=== PATIENT | male | born 1935 | race Caucasian/White ===

== ENCOUNTER 2016-07-10 11:00 | Inpatient (IN) | payer MEDICARE, BC ==
[~2016-07-10] VITALS: Ht 180.3 cm; Wt 65.1 kg
[~2016-07-10 11:00] MED LIST: ACET325T9 PO; ALBU2.5V5 NEB; ALLO100T PO; CHOL500015 PO; CLOP75TA27 PO; DOXY100T PO; FAMO-63 PO; FURO40TA4 PO; ISOS30TA PO; ISOS30TA4 PO; LISI2.5T PO; LOSA50TA2 PO; MORP2CAR IV; NITR0.4T SL; NITR1PAT9 TD; OMEG500C3 PO; POTA20TA4 PO; PRED20TA PO; SIMV40TA3 PO; SOTA80TA20 PO; TAMS0.4C97 PO; TIOT4MIS3 IH; TRAZ50TA15 PO
--- NOTE | 2016-07-10 11:58 | PHYS DOC ---
Past Medical History Past Medical History: Cancer, COPD, GERD, Heart Disease, Hypertension Additional Past Medical Histor: basil cell carcinoma, [place]: 1998, pacemaker/ defibrillator, increased choleste Past Surgical History: Cholecystectomy, Pacemaker Additional Past Surgical Histo: cataracts, defibrillator, cabg x 3 stents; skin graft to forehead Alcohol Use: Rarely Drug Use: None Adult General Chief Complaint Chief Complaint: SHORTNESS OF BREATH HPI HPI Patient is a 81 year old male who presents with shortness of breath. Patient reports for the past 3 days he has been short of breath, coughing, wheezing. Denies any chest discomfort. No fever. He has been using albuterol nebs at home. In addition, his daughter has been giving him a Lasix pill every other day. No other acute complaints. Review of Systems Review of Systems Constitutional: Denies fever or chills Eyes: Denies change in visual acuity or eye pain HENT: Denies nasal congestion or sore throat Respiratory: Cough, SOB, wheezing Cardiovascular: Denies chest pain GI: Denies abdominal pain, nausea, vomiting, bloody stools or diarrhea : Denies dysuria or hematuria Musculoskeletal: Denies back pain or joint pain Integument: Denies rash or skin lesions Neurologic: Denies headache, focal weakness or sensory changes Current Medications Current Medications Current Medications Medications (Trade) Dose Ordered Sig/Star Start Time Stop Time Status Last Admin Dose Admin Albuterol/ Ipratropium (Duoneb) 6 ml 1X ONCE 07/10/16 12:00 07/10/16 12:01 DC 07/10/16 12:17 6 ML Prednisone (Prednisone) 60 mg 1X ONCE 07/10/16 12:00 07/10/16 12:01 DC 07/10/16 12:00 60 MG Allergies Allergies Allergies Coded Allergies Type Severity Reaction Last Updated Verified bacitracin Allergy Intermediate 10/06/15 Yes neomycin sulfate Allergy Intermediate 10/06/15 Yes polymyxin B Allergy Intermediate 10/06/15 Yes Physical Exam Physical Exam Constitutional: Well developed, well nourished, no acute distress, non-toxic appearance HENT: Normocephalic, atraumatic, bilateral external ears normal Eyes: EOMI, conjunctiva normal, no discharge Neck: Normal range of motion, no stridor Cardiovascular: Heart rate normal, regular rhythm, no murmur Lungs & Thorax: Tight, diffuse inspiratory and expiratory wheezing Abdomen: Bowel sounds normal, soft, non-distended, no TTP Skin: Warm, dry, no erythema, no rash Extremities: No obvious deformity. BLE edema Neurologic: Alert and oriented X 3, no gross deficits noted Current Patient Data Vital Signs Vital Signs Date Time Temp Pulse Resp B/P Pulse Ox O2 Delivery O2 Flow Rate FiO2 07/10/16 12:18 96 Nasal Cannula 3.0 07/10/16 12:13 73 24 154/77 07/10/16 11:15 97.5 97.5 Lab Values Laboratory Tests Test 07/10/16 11:25 White Blood Count 8.7x10^3/uL (4.0-11.0) Red Blood Count 3.12x10^6/uL (4.30-5.70) L Hemoglobin 9.7g/dL (13.0-17.5) L Hematocrit 29.9% (39.0-53.0) L Mean Corpuscular Volume 96fL (79-100) Mean Corpuscular Hemoglobin 31pg (25-35) Mean Corpuscular Hemoglobin Concent 33g/dL (31-37) Red Cell Distribution Width 15.5% (11.5-14.5) H Platelet Count 228x10^3/uL (140-400) Neutrophils (%) (Auto) 78% (31-73) H Lymphocytes (%) (Auto) 9% (24-48) L Monocytes (%) (Auto) 6% (0-9) Eosinophils (%) (Auto) 6% (0-3) H Basophils (%) (Auto) 1% (0-3) Neutrophils # (Auto) 6.8x10^3uL (1.8-7.7) Lymphocytes # (Auto) 0.8x10^3/uL (1.0-4.8) L Monocytes # (Auto) 0.5x10^3/uL (0.0-1.1) Eosinophils # (Auto) 0.5x10^3/uL (0.0-0.7) Basophils # (Auto) 0.1x10^3/uL (0.0-0.2) Sodium Level 149mmol/L (136-145) H Potassium Level 3.8mmol/L (3.5-5.1) Chloride Level 111mmol/L (98-107) H Carbon Dioxide Level 33mmol/L (21-32) H Anion Gap 5 (6-14) L Blood Urea Nitrogen 12mg/dL (8-26) Creatinine 1.2mg/dL (0.7-1.3) Estimated GFR (Cockcroft-Gault) 57.8 Glucose Level 184mg/dL (70-99) H Calcium Level 9.5mg/dL (8.5-10.1) Troponin I Quantitative 0.031ng/mL (0.000-0.055) HZ-Hyy-I-Type Natriuretic Peptide 3239pg/mL (0-449) H Laboratory Tests 07/10/16 11:25 Laboratory Tests 07/10/16 11:25 EKG EKG EKG (my read): sinus rhythm, rate 75, normal axis, IVCD, no acute ischemic changes, limited by artifact Radiology/Procedures Radiology/Procedures CXR: IMPRESSION: 1. Unchanged patchy bilateral pulmonary infiltrates suggesting pneumonia superimposed upon fibrosis. 2. Tiny pleural effusions appear to have partially cleared. Course & Med Decision Making Course & Med Decision Making Pertinent Labs and Imaging studies reviewed. (See chart for details) Patient is 81-year-old male who presents with shortness of breath. Appears to be COPD exacerbation based on physical exam. Will obtain EKG, chest x-ray, labs to evaluate. Breathing treatment and steroids ordered. Imaging results as above. Labs notable for anemia, hypernatremia, elevated BNP. Small dose of Lasix ordered. Chest x-ray concerning for pneumonia, although patient does not have leukocytosis or fever. Discussed with Dr. Hunter; will cover with Levaquin at this time. Will admit to Dr. Hunter for further evaluation and treatment. Cardiology and pulmonology consultation entered. Dragon Disclaimer Dragon Disclaimer This electronic medical record was generated, in whole or in part, using a voice recognition dictation system. Departure Departure Impression: Primary Impression: COPD exacerbation Additional Impressions: Pneumonia CHF (congestive heart failure) Disposition: ADMITTED INPATIENT Admitting Physician: Ivan Hunter Condition: STABLE Referrals: IVAN HUNTER MD (PCP) Problem Qualifiers KEON HOYT MD Jul 10, 2016 11:58
[2016-07-10] MEDS ORDERED: PREDNISONE 10 MG TABLET PO ONE (12:00)
[2016-07-10] MEDS ORDERED: IPRATRPIUM/ALBUTEROL 0.5/2.5MG 3 ML NEBU. NEB ONE (12:00)
--- NOTE | 2016-07-10 12:02 | EKG ---
[facility] [address] [place] [address] Test Date: 2016-07-10 Test Time: 11:37:18 Pat Name: KRYSTIN CHAMBERS Department: Room: Gender: M Sample Collector: : 1935 Requested By: KEON HOYT Order Number: [id number] Reading MD: Clarisse Blandon Measurements Intervals Superior Rate: 75 P: SC: QRS: 12 QRSD: 128 T: 56 QT: 452 QTc: 508 Interpretive Statements SINUS RHYTHM LOW LIMB LEAD VOLTAGE NON SPECIFIC INTRAVENTRICULAR BLOCK Electronically Signed On 07-11-2016 9:44:24 [employer] by Clarisse Blandon
[2016-07-10 12:10] LABS: BASO # 0.1 x10^3/uL (0.0-0.2); BASO % 1 % (0-3); EOS % 6 % (0-3); HEMATOCRIT 29.9 % (39.0-53.0); HEMOGLOBIN 9.7 g/dL (13.0-17.5); LYMPH # 0.8 x10^3/uL (1.0-4.8); LYMPH % 9 % (24-48); MEAN CORPUSCULAR HEMOGLOBIN 31 pg (25-35); MEAN CORPUSCULAR HGB CONC 33 g/dL (31-37); MEAN CORPUSCULAR VOLUME 96 fL (79-100); MONO % 6 % (0-9); NEUT % 78 % (31-73); PLATELET COUNT 228 x10^3/uL (140-400); RED BLOOD COUNT 3.12 x10^6/uL (4.30-5.70); RED CELL DISTRIBUTION WIDTH 15.5 % (11.5-14.5); WHITE BLOOD COUNT 8.7 x10^3/uL (4.0-11.0)
[2016-07-10 12:17] LABS: CALCIUM 9.5 mg/dL (8.5-10.1); CREATININE 1.2 mg/dL (0.7-1.3); GFR 57.8; POTASSIUM 3.8 mmol/L (3.5-5.1)
--- NOTE | 2016-07-10 13:27 | RAD ---
Portable chest, 07/10/2016: History: Trouble breathing Comparison is made to a study from 06/26/2016. The left-sided transvenous pacemaker is unchanged in position. The heart size is normal. There is calcific plaquing of the aorta. There are moderate patchy bilateral pulmonary infiltrates, right greater than left. Similar findings were present on the previous study. There is slight residual blunting of lateral costophrenic angles, improved since the previous study. No new abnormality is evident. IMPRESSION: 1. Unchanged patchy bilateral pulmonary infiltrates suggesting pneumonia superimposed upon fibrosis. 2. Tiny pleural effusions appear to have partially cleared.
[2016-07-10] MEDS ORDERED: ACETAMINOPHEN 325 MG TABLET. PO PRN ×2 (14:30→17:00)
[2016-07-10] MEDS ORDERED: MORPHINE SULFATE 2 MG/ML DISP.SYRIN. IV PRN (14:30)
[2016-07-10] MEDS ORDERED: FUROSEMIDE 20 MG/2 ML VIAL IVP ONE (14:30)
[2016-07-10] MEDS ORDERED: FURO-68 PO (15:25)
[2016-07-10 15:30] VITALS: BP 150/80
--- NOTE | 2016-07-10 15:34 | PDOC ---
Provider Note Provider Note dictated suspect acute on chronic systolic HF(EF20%) SEE ORDERS DHARA ANTONIO MD Jul 10, 2016 15:34
[2016-07-10] MEDS ORDERED: FUROSEMIDE 40 MG/4 ML VIAL IVP ONE (15:45)
[2016-07-10] MEDS ORDERED: IPRATRPIUM/ALBUTEROL 0.5/2.5MG 3 ML NEBU. NEB SCH ×2 (16:00)
[2016-07-10] MEDS ORDERED: traZODone 50 MG TABLET. PO PRN (17:00)
[2016-07-10] MEDS ORDERED: NITROGLYCERIN SUBLINGUAL 0.4 MG BOTTLE OF 25. SL PRN (17:00)
--- NOTE | 2016-07-10 18:23 | PDOC ---
Provider Note Provider Note history and physical dictated # [id number] LAURE OLIVER MD Jul 10, 2016 18:23
[2016-07-10] MEDS: methylPREDNISolone SOD SUCC PF 125 MG/2 ML VIAL. IV SCH ×2 (18:34→21:36)
--- NOTE | 2016-07-10 18:40 | PDOC2 ---
CONSULT Date of Consult Date of Consult DATE: 07/10/16 TIME: 18:33 Reason for Consult Reason for Consult: Dyspnea Referring Physician Referring Physician: Dr. Hunter Identification/Chief Complaint Chief Complaint Dyspnea History of Present Illness Reason for Visit: This patient is an 81-year-old gentleman that has a known history of coronary artery disease, post CABG, post AICD pacemaker that has a cardiomyopathy with a global ejection fraction that is 20%. The patient has multiple medical problems including hypertension, COPD, skin cancer, and he has been very deconditioned for some time. For about 3 days he started getting more and more short of breath and today he became acutely dyspneic therefore he came in to the emergency room. The patient was seen and evaluated in the ER he was decided to admit him. At the time that I saw him he is still short of breath and denies any chest pains, no palpitations, no loss of consciousness. Past Medical History Cardiovascular: CAD, CHF, HTN, Pulmonary hypertension Pulmonary: COPD GI: GERD Rheumatologic: Gout Renal/: Chronic renal insuff Social History ALCOHOL: none Drugs: None Lives: with Family Current Problem List Problem List Problems Medical Problems: (1) CHF (congestive heart failure) Status: Acute (2) COPD exacerbation Status: Acute (3) Pneumonia Status: Acute Current Medications Current Medications Current Medications Albuterol/ Ipratropium (Duoneb) 6 ml 1X ONCE NEB Last administered on 12:17; Start 07/10/16 at 12:00; Stop 07/10/16 at 12:01; Status DC Prednisone 60 mg 60 mg 1X ONCE PO Last administered on 07/10/16 12:00; Start 07/10/16 at 12:00; Stop 07/10/16 at 12:01; Status DC Levofloxacin/ Dextrose (LEVAQUIN 750mg PREMIX) 150 ml @ 100 mls/hr 1X ONCE IV Last administered on 07/10/16 15:00; Start 07/10/16 at 15:00; Stop 07/10/16 at 16:29; Status DC Furosemide (Lasix) 20 mg 1X ONCE IVP Last administered on 07/10/16 14:30; Start 07/10/16 at 14:30; Stop 07/10/16 at 14:33; Status DC Morphine Sulfate 2 mg PRN Q2HR PRN IV PAIN; Start 07/10/16 at 14:30; Stop 07/11 at 14:29 Acetaminophen (Tylenol) 650 mg PRN Q4HRS PRN PO FEVER; Start 07/10/16 at 14:30 ; Stop 07/11/16 at 14:29 Albuterol/ Ipratropium (Duoneb) 3 ml RTQID NEB ; Start 07/10/16 at 16:00; Stop 07/10/16 at 16:00; Status DC Furosemide (Lasix) 40 mg 1X ONCE IVP ; Start 07/10/16 at 15:45; Stop 07/10/16 at 15:46; Status DC Methylprednisolone Sodium Succinate (Solu-Medrol 125mg Vial) 60 mg Q8HRS IV ; Start 07/10/16 at 16:00 Albuterol/ Ipratropium (Duoneb) 3 ml Q4HRS NEB ; Start 07/10/16 at 16:00; Stop 07/10/16 at 18:15; Status DC Budesonide (Pulmicort) 0.5 mg RTBID NEB ; Start 07/10/16 at 18:00 Allopurinol (Zyloprim) 200 mg DAILY PO ; Start 07/11/16 at 09:00 Famotidine (Pepcid) 20 mg BID PO ; Start 07/10/16 at 21:00 Isosorbide Mononitrate (Imdur) 30 mg DAILY PO ; Start 07/11/16 at 09:00 Sotalol HCl (Betapace) 80 mg BID PO ; Start 07/10/16 at 21:00 Clopidogrel Bisulfate (Plavix) 75 mg DAILYWBKFT PO ; Start 07/11/16 at 08:00 Multivitamins/ Calcium (Thera M Plus) 1 tab DAILY PO ; Start 07/11/16 at 09:00 Losartan Potassium (Cozaar) 50 mg DAILY PO ; Start 07/11/16 at 09:00 Trazodone HCl (Desyrel) 50 mg PRN QHS PRN PO INSOMNIA; Start 07/10/16 at 17:00 ; Stop 07/10/16 at 21:00 Nitroglycerin (Nitrostat) 0.4 mg PRN Q5MIN PRN SL CHEST PAIN; Start 07/10/16 at 17:00 Acetaminophen (Tylenol) 650 mg PRN Q4HRS PRN PO MILD PAIN / TEMP; Start at 17:00 Furosemide (Lasix) 40 mg DAILY IVP ; Start 07/11/16 at 09:00; Stop 07/11/16 at 09:00; Status DC Potassium Chloride (Klor-Con) 20 meq DAILYWBKFT PO ; Start 07/11/16 at 08:00 Furosemide (Lasix) 40 mg BID94 IVP ; Start 07/11/16 at 19:00; Stop 07/11/16 at 19:00; Status DC Albuterol/ Ipratropium (Duoneb) 3 ml RTQID NEB ; Start 07/10/16 at 21:00 Furosemide (Lasix) 40 mg BID94 IVP ; Start 07/11/16 at 09:00 Trazodone HCl (Desyrel) 50 mg QHS PO ; Start 07/10/16 at 21:00 Tamsulosin HCl (Flomax) 0.4 mg QHS PO ; Start 07/10/16 at 21:00 Active Scripts Active Cozaar (Losartan Potassium) 50 Mg Tablet 50 Mg PO DAILY Flomax (Tamsulosin Hcl) 0.4 Mg Cap.er.24h 0.4 Mg PO QHS Isosorbide Mononitrate Er (Isosorbide Mononitrate) 30 Mg Tab.er.24h 30 Mg PO DAILY 30 Days Albuterol Sulfate Neb Soln (Albuterol Sulfate) 2.5 Mg/3 Ml Vial.neb 2.5 Mg NEB PRN QID PRN 30 Days Reported Lasix (Furosemide) 40 Mg Tablet 1 Tab PO QODAY Nitrostat (Nitroglycerin) 0.4 Mg Tab.subl 1 Tab SL UD Trazodone Hcl 50 Mg Tablet 1 Tab PO QHS Plavix (Clopidogrel Bisulfate) 75 Mg Tablet 75 Mg PO DAILY Imdur (Isosorbide Mononitrate) 30 Mg Tab.er.24h 30 Mg PO DAILY Pepcid (Famotidine) 20 Mg Tablet 20 Mg PO BID Betapace (Sotalol Hcl) 80 Mg Tablet 80 Mg PO BID Allopurinol 100 Mg Tablet 200 Mg PO DAILY Allergies Allergies: Coded Allergies: bacitracin (Verified Allergy, Intermediate, 10/06/15) neomycin sulfate (Verified Allergy, Intermediate, 10/06/15) polymyxin B (Verified Allergy, Intermediate, 10/06/15) Physical Exam Physical Exam Patient is in mild respiratory distress at the time of the examination. H EENT pupils are reactive. There is surgical scars over the nose as well as the forehead. Neck is supple 2 cm JVD. Lungs breath sounds are decreased there is diffuse wheezing the right base is not moving much air at all and there is some rhonchi and dullness over the area. On the left side there are Rales about correction up. Heart regular rate and rhythm S1-S2. Abdomen is soft bowel sounds were present. Extremities 1+ edema. Vitals VITALS Vital Signs Date Time Temp Pulse Resp B/P Pulse Ox O2 Delivery O2 Flow Rate FiO2 07/10/16 16:32 99 Nasal Cannula 2.0 07/10/16 15:30 97.7 84 20 150/80 97.7 Labs Labs Laboratory Tests Test 07/10/16 11:25 White Blood Count 8.7x10^3/uL (4.0-11.0) Red Blood Count 3.12x10^6/uL (4.30-5.70) Hemoglobin 9.7g/dL (13.0-17.5) Hematocrit 29.9% (39.0-53.0) Mean Corpuscular Volume 96fL (79-100) Mean Corpuscular Hemoglobin 31pg (25-35) Mean Corpuscular Hemoglobin Concent 33g/dL (31-37) Red Cell Distribution Width 15.5% (11.5-14.5) Platelet Count 228x10^3/uL (140-400) Neutrophils (%) (Auto) 78% (31-73) Lymphocytes (%) (Auto) 9% (24-48) Monocytes (%) (Auto) 6% (0-9) Eosinophils (%) (Auto) 6% (0-3) Basophils (%) (Auto) 1% (0-3) Neutrophils # (Auto) 6.8x10^3uL (1.8-7.7) Lymphocytes # (Auto) 0.8x10^3/uL (1.0-4.8) Monocytes # (Auto) 0.5x10^3/uL (0.0-1.1) Eosinophils # (Auto) 0.5x10^3/uL (0.0-0.7) Basophils # (Auto) 0.1x10^3/uL (0.0-0.2) Sodium Level 149mmol/L (136-145) Potassium Level 3.8mmol/L (3.5-5.1) Chloride Level 111mmol/L (98-107) Carbon Dioxide Level 33mmol/L (21-32) Anion Gap 5 (6-14) Blood Urea Nitrogen 12mg/dL (8-26) Creatinine 1.2mg/dL (0.7-1.3) Estimated GFR (Cockcroft-Gault) 57.8 Glucose Level 184mg/dL (70-99) Calcium Level 9.5mg/dL (8.5-10.1) Troponin I Quantitative 0.031ng/mL (0.000-0.055) RY-Sms-T-Type Natriuretic Peptide 3239pg/mL (0-449) Laboratory Tests Test 07/10/16 11:25 White Blood Count 8.7x10^3/uL (4.0-11.0) Red Blood Count 3.12x10^6/uL (4.30-5.70) Hemoglobin 9.7g/dL (13.0-17.5) Hematocrit 29.9% (39.0-53.0) Mean Corpuscular Volume 96fL (79-100) Mean Corpuscular Hemoglobin 31pg (25-35) Mean Corpuscular Hemoglobin Concent 33g/dL (31-37) Red Cell Distribution Width 15.5% (11.5-14.5) Platelet Count 228x10^3/uL (140-400) Neutrophils (%) (Auto) 78% (31-73) Lymphocytes (%) (Auto) 9% (24-48) Monocytes (%) (Auto) 6% (0-9) Eosinophils (%) (Auto) 6% (0-3) Basophils (%) (Auto) 1% (0-3) Neutrophils # (Auto) 6.8x10^3uL (1.8-7.7) Lymphocytes # (Auto) 0.8x10^3/uL (1.0-4.8) Monocytes # (Auto) 0.5x10^3/uL (0.0-1.1) Eosinophils # (Auto) 0.5x10^3/uL (0.0-0.7) Basophils # (Auto) 0.1x10^3/uL (0.0-0.2) Sodium Level 149mmol/L (136-145) Potassium Level 3.8mmol/L (3.5-5.1) Chloride Level 111mmol/L (98-107) Carbon Dioxide Level 33mmol/L (21-32) Anion Gap 5 (6-14) Blood Urea Nitrogen 12mg/dL (8-26) Creatinine 1.2mg/dL (0.7-1.3) Estimated GFR (Cockcroft-Gault) 57.8 Glucose Level 184mg/dL (70-99) Calcium Level 9.5mg/dL (8.5-10.1) Troponin I Quantitative 0.031ng/mL (0.000-0.055) HB-Nvy-N-Type Natriuretic Peptide 3239pg/mL (0-449) Assessment/Plan Assessment/Plan This patient with coronary artery disease and a cardiomyopathy that has an ejection fraction of about 20% comes in with acute respiratory failure that is probably secondary to acute on chronic CHF secondary to systolic dysfunction. In addition to that he has significant COPD which is compounding his situation. I would like to diurese him and treat the pulmonary condition as well. Thank you very much for asking me to participate in the care of this patient ZEESHAN TOSCANO MD Jul 10, 2016 18:40
[2016-07-10 19:00] VITALS: BP 146/75
--- NOTE | 2016-07-10 19:05 | HP ---
ADMIT DATE: 07/10/2016 LOCATION: He is in room 538. HISTORY OF PRESENT ILLNESS The patient is an 81-year-old white male with a history of chronic systolic congestive heart failure and cardiomyopathy with left ventricular ejection fraction of 20%, who has coronary artery disease, chronic obstructive pulmonary disease, pulmonary fibrosis, bronchiectasis and secondary pulmonary hypertension and chronic kidney disease stage 3, who was admitted to [facility] through the Emergency Room with 3-day history of dyspnea on exertion and swelling in his legs. He has had some cough with clear sputum and some wheezing. He was seen in the Emergency Room. Chest x-ray was unchanged with bilateral pulmonary infiltrates, most likely from pulmonary fibrosis. He received IV Lasix in the Emergency Room, was started on IV Solu-Medrol and nebulizer treatments. He is comfortable at this moment. He is therefore admitted for further evaluation of his shortness of breath. ALLERGIES AND INTOLERANCES: INCLUDE NEOSPORIN. MEDICATIONS: Prior to admission include albuterol nebulized treatments q.i.d. p.r.n., allopurinol 200 mg every day, Betapace 80 mg b.i.d., vitamin B12 1000 mcg IM monthly, famotidine 20 mg b.i.d., furosemide 40 mg p.o. every other day, Imdur 30 mg every day, losartan 50 mg every day, melatonin 3 mg at bedtime, multiple vitamin once a day, nitroglycerin 0.4 mg sublingual p.r.n., fish oil 1 g every day, Plavix 75 mg every day, ProAir inhaler 2 puffs every 4 hours p.r.n., Flomax 0.4 mg at bedtime and trazodone 50 mg at bedtime. PAST MEDICAL HISTORY: Significant for coronary artery disease, ischemic cardiomyopathy with left ventricular ejection fraction of 20% on a recent echocardiogram. He has a history of chronic obstructive pulmonary disease, pulmonary fibrosis, bronchiectasis and secondary pulmonary hypertension. He had a deep vein thrombosis in the left leg in 2004. He has chronic kidney disease stage 3, history of gout, gastroesophageal reflux disease, hyperlipidemia, myocardial infarction in the past. He has had an AICD placed in 2004, coronary angioplasty and stent in 1997 and also another one in 1989. He has had appendectomy, cholecystectomy, cataract extraction, hernia repair, pacemaker generator placed in 2009, and Mohs surgery for basal cell carcinoma of the forehead in 11/2015 with a skin graft in 01/2016. SOCIAL HISTORY: He does not drink alcohol nor does he smoke cigarettes. FAMILY HISTORY: Noncontributory. REVIEW OF SYSTEMS: GENERAL: He denies any fever, chills or sweats. CARDIOVASCULAR: No chest pain. PULMONARY: He has got mild cough with clear sputum, shortness of breath and wheezing. GASTROINTESTINAL: No constipation. SKIN: No rashes. NEUROLOGIC: No focal weakness. ENDOCRINE: No diabetes mellitus. Rest of systems reviewed is negative except as stated in history of present illness. PHYSICAL EXAMINATION: VITAL SIGNS: Temperature is 97.7 degrees, apical pulse 84, respiratory rate 20, blood pressure 150/80, oxygen saturation 92% on 3 liters per nasal cannula. HEENT: Eyes: Gaze is conjugate. Extraocular muscles are intact. Mouth: Tongue is midline. NECK: There is no cervical lymphadenopathy or thyroid enlargement. HEART: Reveals an S1, S2. There is no S3 or murmur. LUNGS: Revealed some mild wheezing with decreased breath sounds bilaterally. ABDOMEN: Soft, nontender. EXTREMITIES: Lower extremities, he has got 2-3+ edema in both legs. SKIN: No rashes. NEUROLOGIC: No focal weakness. LABORATORY DATA: On review of his laboratory test, white count 8.7, hemoglobin 9.7, platelet count ____ 78 polys, 9 lymphocytes. No white cell differential. His sodium is 149, potassium 3.8, chloride 111, total CO2 was 33, BUN 12, creatinine 1.2. ProBNP was 3239. Troponin level is 0.031. He had a chest x-ray, which showed unchanged patchy bilateral pulmonary infiltrates and he a tiny pleural effusion noted, which partially cleared. He had an electrocardiogram, which showed baseline artifact, what appears to be an irregular heart rhythm ____ he does have some P waves noted, however, consistent with sinus rhythm. He also has an intraventricular conduction defect. Again, he has got a left bundle branch block. ASSESSMENT: 1. Acute on chronic systolic congestive heart failure. 2. Ischemic cardiomyopathy. 3. Acute hypoxic respiratory failure. 4. Chronic obstructive pulmonary disease. 5. Pulmonary fibrosis. 6. Bronchiectasis. 7. Coronary artery disease. 8. Chronic kidney disease stage 3. PLAN: At this time is to consult Dr. Hawkins who I discussed the case with. Consult Dr. Johnson, also has already seen the patient. I will start him on some IV Lasix 40 mg IV every 12 hours, repeat his electrolytes tomorrow, obtain a CAT scan of chest without contrast, venous Doppler of both legs to rule out a deep vein thrombosis and we will continue with his home medications. Continue with his Comer catheter. Continue with his IV Solu-Medrol, which was started in the Emergency Room and nebulizer treatments. He will be hooked up to telemetry. LAURE OLIVER MD DR: MARIA EUGENIA/talib JOB#: [id number] / [id number]
[2016-07-10] MEDS: IPRATRPIUM/ALBUTEROL 0.5/2.5MG 3 ML NEBU. NEB SCH (19:44)
[2016-07-10] MEDS: BUDESONIDE 0.5 MG/2 ML NEBU NEB SCH ×2 (19:45→20:00)
[2016-07-10] MEDS: TAMSULOSIN 0.4 MG CAP.ER.24H. PO SCH (21:35)
[2016-07-10] MEDS: FAMOTIDINE 20 MG TABLET. PO SCH (21:35)
[2016-07-10] MEDS: traZODone 50 MG TABLET. PO SCH (21:36)
[2016-07-10] MEDS: SOTALOL 80 MG TABLET. PO SCH (21:38)
[2016-07-10 23:00] VITALS: BP 134/49
--- NOTE | 2016-07-11 00:33 | CONS ---
DATE OF CONSULTATION: 07/10/2016 ATTENDING PHYSICIAN: Ivan Hunter MD REASON FOR CONSULTATION: Dyspnea, wheezing, abnormal chest x-ray and recent pneumonia. HISTORY OF PRESENT ILLNESS: The patient is very well known to us. He is an 81-year-old male who has a history of oxygen-dependent chronic obstructive airway disease. He was recently hospitalized and was treated for acute exacerbation of COPD as well as pseudomonas pneumonia. He underwent bronchoscopy as he had bilateral persistent infiltrates and cultures grew Pseudomonas. He was appropriately treated. Bronchoscopy did not reveal any evidence of malignancy. He went home on oxygen. He was doing well for a short period of time and was discharged on 06/26. He was brought back to the hospital with complaint of shortness of breath and audible wheezing. He also has been having cough, but is usually productive of white sputum. No chest pain, no headache, no nausea, vomiting or diarrhea. The patient has also had significant increase in his lower extremity edema, which has not responded to oral Lasix. I have reviewed the patient's chest x-ray, they are unchanged bilateral pulmonary infiltrates, may be mild increase in the right base, may be related to pleural effusion. His white cell count was 8.7. He did not have any fever in the Emergency Room. I have been asked to see him for further evaluation. He did receive a dose of Levaquin in the ER and also Lasix 20 mg IV. PAST MEDICAL HISTORY: Significant for history of oxygen dependent suspected chronic severe obstructive airway disease, history of pulmonary fibrosis, which probably is mild, history of secondary pulmonary hypertension, history of CKD stage III, history of bronchiectasis, history of recent pseudomonas pneumonia, status post bronchoscopy in late May, anemia of chronic disease, history of coronary angioplasty and stent placement, AICD in 2004 and history of severe cardiomyopathy based on a recent echo with an EF of only 20%, history of moderate mitral regurgitation, also grade 1 diastolic dysfunction. PAST SURGICAL HISTORY: Including defibrillator, CABG, three stents, skin grafting to forehead. SYSTEMS REVIEW: Twelve-point systems obtained. Pertinent positives discussed in history of present illness, otherwise noncontributory. All systems that were negative were reviewed as well. ALLERGIES: All reviewed as this is in the MRAD. MEDICATIONS: From last discharge were reviewed. SOCIAL HISTORY: Has smoked for 50 years before quitting. PHYSICAL EXAMINATION: GENERAL: He is lying in bed, in no obvious respiratory distress, afebrile. VITAL SIGNS: Blood pressure 154/57, pulse ox 96% initially on 3 liters, now down to 2 liters. NECK: Supple. No JVD. LUNGS: Bilateral expiratory wheezes anteriorly and posteriorly. CARDIOVASCULAR: Regular rate. ABDOMEN: Soft, nontender. EXTREMITIES: With 3+ pitting edema bilaterally. LABORATORY DATA: Labs are reviewed. White cell count 8.7, hemoglobin 9.7 and platelets are 228. BUN is 12, creatinine 1.2. ProBNP is 3239. IMPRESSION: 1. Dyspnea with bilateral bronchospasm along with lower extremity edema in a patient who has an ejection fraction of 20%. He has a cough with white sputum production. The clinical presentation is consistent with acute on chronic systolic heart failure. 2. Less likely pneumonia. He is recently being treated for pseudomonas pneumonia. 3. 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 4. History of oxygen-dependent chronic obstructive airway disease. 5. Secondary pulmonary hypertension due to severe cardiomyopathy and moderate mitral regurgitation. RECOMMENDATIONS: 1. Aggressive nebs. 2. IV Solu-Medrol. 3. Diuresis to see an improvement in bronchospasm. 4. Continue with DuoNeb. 5. Can withhold antibiotics at present as clinically pneumonia is felt to be less likely. 6. Follow cardiology recommendations. 7. Monitored lower extremity edema, improvement with diuretics. 8. Discussed with the patient's at the bedside. DHARA ANTONIO MD DR: FELTON/talib JOB#: [id number] / [id number] LEIDY
[2016-07-11 03:12] VITALS: BP 130/92
[2016-07-11] MEDS: methylPREDNISolone SOD SUCC PF 125 MG/2 ML VIAL. IV SCH ×3 (05:32→21:54)
[2016-07-11 06:33] LABS: BASO % 0 % (0-3); CALCIUM 9.1 mg/dL (8.5-10.1); EOS % 0 % (0-3); GFR 71.4; HEMATOCRIT 25.7 % (39.0-53.0); HEMOGLOBIN 8.6 g/dL (13.0-17.5); LYMPH # 0.5 x10^3/uL (1.0-4.8); LYMPH % 7 % (24-48); MAGNESIUM 1.7 mg/dL (1.8-2.4); MEAN CORPUSCULAR HEMOGLOBIN 31 pg (25-35); MEAN CORPUSCULAR HGB CONC 33 g/dL (31-37); MEAN CORPUSCULAR VOLUME 94 fL (79-100); MONO % 2 % (0-9); NEUT % 92 % (31-73); PLATELET COUNT 226 x10^3/uL (140-400); POTASSIUM 3.6 mmol/L (3.5-5.1); RED BLOOD COUNT 2.73 x10^6/uL (4.30-5.70); RED CELL DISTRIBUTION WIDTH 15.8 % (11.5-14.5); WHITE BLOOD COUNT 7.1 x10^3/uL (4.0-11.0)
[2016-07-11 07:00] VITALS: BP 139/72
--- NOTE | 2016-07-11 07:43 | RAD ---
Bilateral lower extremity venous ultrasound, 07/10/2016: History: Leg edema Duplex evaluation of the deep veins in the lower extremities was performed including grayscale, color-flow and spectral Doppler analysis. On the right, the femoral and popliteal veins are patent. The visualized deep veins of the right calf are unremarkable. On the left, the common femoral and superficial femoral veins are patent. The popliteal vein is patent, however, there is nonocclusive thrombus present in a branch arising from the popliteal vein near its junction with the popliteal vein. This is probably a sural vein. The left posterior tibial and peroneal veins are patent. Note is made of the history of extensive previous DVT in the left lower extremity on 04/28/2005 exam, which has largely cleared. IMPRESSION: 1. Nonocclusive thrombus in a sural vein in the left lower extremity near its junction with the popliteal vein. 2. No evidence of femoral-popliteal deep vein thrombosis in either lower extremity. Note: The findings were called to the patient's nurse on the floor at 7:39 AM on 07/11/2016.
[2016-07-11] MEDS ORDERED: POTASSIUM CHLORIDE 20 MEQ TABLET.ER. PO SCH (08:00)
[2016-07-11] MEDS: IPRATRPIUM/ALBUTEROL 0.5/2.5MG 3 ML NEBU. NEB SCH ×4 (08:00→19:18)
[2016-07-11] MEDS: BUDESONIDE 0.5 MG/2 ML NEBU NEB SCH ×2 (08:00→19:18)
--- NOTE | 2016-07-11 08:59 | RAD ---
Indication persistent shortness of breath. Noncontrast images of the chest were obtained and are compared to an examination 06/14/2016. Imaging through the upper abdomen is unremarkable. There is now a small right pleural effusion and a minute left pleural effusion. These pleural effusions were not present previously. Background changes of emphysema and fibrosis are noted. Patchy infiltrates seen previously at the lung bases have partially cleared. A new infiltrate in either lung is not seen. IMPRESSION: Small right and minute left pleural effusions representing a new finding compared to the previous exam. Partial clearing of pulmonary infiltrates, compatible with pneumonia, seen previously. Chronic known background changes consistent with emphysema and fibrosis reproduced. PQRS Compliance Statement: One or more of the following individualized dose reduction techniques were utilized for this examination: 1. Automated exposure control 2. Adjustment of the mA and/or kV according to patient size 3. Use of iterative reconstruction technique
[2016-07-11] MEDS ORDERED: FUROSEMIDE 40 MG/4 ML VIAL IVP SCH ×2 (09:00→19:00)
[2016-07-11] MEDS: CLOPIDOGREL BISULFATE 75 MG TABLET PO SCH (09:16)
[2016-07-11] MEDS: SOTALOL 80 MG TABLET. PO SCH ×2 (09:17→21:53)
[2016-07-11] MEDS: FAMOTIDINE 20 MG TABLET. PO SCH ×2 (09:18→21:53)
[2016-07-11] MEDS: ISOSORBIDE MONONITRATE ER 30 MG TAB.ER.24H PO SCH (09:18)
[2016-07-11] MEDS: LOSARTAN POTASSIUM 50 MG TABLET. PO SCH (09:18)
[2016-07-11 09:19] LABS: PLT ESTIMATE ADEQUATE (ADEQUATE)
[2016-07-11] MEDS: ALLOPURINOL 100 MG TABLET. PO SCH (09:19)
[2016-07-11] MEDS: MULTIVITAMIN with MINERAL TABLET. PO SCH (09:19)
[2016-07-11] MEDS: ENOXAPARIN 40 MG/0.4 ML DISP.SYRIN. SQ SCH (09:20)
[2016-07-11] MEDS: FUROSEMIDE 40 MG/4 ML VIAL IVP SCH ×2 (09:24→16:14)
--- NOTE | 2016-07-11 09:38 | PDOC ---
PROGRESS NOTES Subjective Subjective feels better. some wheezing. not short of breath at rest. venous doppler shows a superficial haresh thrombosis of left sural vein next to junction of popliteal vein and lovenox started. good diuresis. lab reviewed. ct chest shows partial clearing of previous lung infiltrates with emphysema and fibrosis and new small right pleural effusion and new minute left pleural effusion. discussed with family. lab reviewed. Objective Objective Vital Signs Date Time Temp Pulse Resp B/P Pulse Ox O2 Delivery O2 Flow Rate FiO2 07/11/16 09:18 78 139/72 07/11/16 08:08 94 Nasal Cannula 1.0 07/11/16 07:00 97.9 18 97.9 Intake and Output 07/11/16 07:00 Intake Total 600 ml Output Total 1550 ml Balance -950 ml Intake Oral 600 ml Output Urine Total 1550 ml Physical Exam Abdomen: Soft Heart: Normal S1, Normal S2 Extremities: Other (1 to 2 plus edema legs) General: Alert HEENT: Atraumatic Lungs: Other (mild wheezes and rhonchi) Neuro: Normal speech Psych/Mental Status: Mental status NL Skin: No rashes Assessment Assessment Problems Medical Problems:1. Acute on chronic systolic congestive heart failure. 2. Ischemic cardiomyopathy.LVEF 20% 3. Acute on chronic hypoxic respiratory failure. 4. Chronic obstructive pulmonary disease. 5. Pulmonary fibrosis. 6. Bronchiectasis. 7. Coronary artery disease. 8. Chronic kidney disease stage 3. superficial vein thrombosis right sural vein urine retention (1) CHF (congestive heart failure) Status: Acute (2) COPD exacerbation Status: Acute (3) Pneumonia Status: Acute Plan Plan of Care iv lasix oxygen and duoneb nebulizer rx and iv solumedrol PT and OT lovenox for DVT prophylaxis continue losartan continue figueroa catheter and flomax Comment Review of Relevant I have reviewed the following items lucio (where applicable) has been applied. Labs Laboratory Tests Test 07/10/16 11:25 07/10/16 20:12 07/11/16 05:48 White Blood Count 8.7x10^3/uL (4.0-11.0) 7.1x10^3/uL (4.0-11.0) Red Blood Count 3.12x10^6/uL (4.30-5.70) 2.73x10^6/uL (4.30-5.70) Hemoglobin 9.7g/dL (13.0-17.5) 8.6g/dL (13.0-17.5) Hematocrit 29.9% (39.0-53.0) 25.7% (39.0-53.0) Mean Corpuscular Volume 96fL (79-100) 94fL (79-100) Mean Corpuscular Hemoglobin 31pg (25-35) 31pg (25-35) Mean Corpuscular Hemoglobin Concent 33g/dL (31-37) 33g/dL (31-37) Red Cell Distribution Width 15.5% (11.5-14.5) 15.8% (11.5-14.5) Platelet Count 228x10^3/uL (140-400) 226x10^3/uL (140-400) Neutrophils (%) (Auto) 78% (31-73) 92% (31-73) Lymphocytes (%) (Auto) 9% (24-48) 7% (24-48) Monocytes (%) (Auto) 6% (0-9) 2% (0-9) Eosinophils (%) (Auto) 6% (0-3) 0% (0-3) Basophils (%) (Auto) 1% (0-3) 0% (0-3) Neutrophils # (Auto) 6.8x10^3uL (1.8-7.7) 6.5x10^3uL (1.8-7.7) Lymphocytes # (Auto) 0.8x10^3/uL (1.0-4.8) 0.5x10^3/uL (1.0-4.8) Monocytes # (Auto) 0.5x10^3/uL (0.0-1.1) 0.1x10^3/uL (0.0-1.1) Eosinophils # (Auto) 0.5x10^3/uL (0.0-0.7) 0.0x10^3/uL (0.0-0.7) Basophils # (Auto) 0.1x10^3/uL (0.0-0.2) 0.0x10^3/uL (0.0-0.2) Sodium Level 149mmol/L (136-145) 147mmol/L (136-145) Potassium Level 3.8mmol/L (3.5-5.1) 3.6mmol/L (3.5-5.1) Chloride Level 111mmol/L (98-107) 109mmol/L (98-107) Carbon Dioxide Level 33mmol/L (21-32) 31mmol/L (21-32) Anion Gap 5 (6-14) 7 (6-14) Blood Urea Nitrogen 12mg/dL (8-26) 16mg/dL (8-26) Creatinine 1.2mg/dL (0.7-1.3) 1.0mg/dL (0.7-1.3) Estimated GFR (Cockcroft-Gault) 57.8 71.4 Glucose Level 184mg/dL (70-99) 134mg/dL (70-99) Calcium Level 9.5mg/dL (8.5-10.1) 9.1mg/dL (8.5-10.1) Troponin I Quantitative 0.031ng/mL (0.000-0.055) 0.020ng/mL (0.000-0.055) 0.017ng/mL (0.000-0.055) OP-Pfm-I-Type Natriuretic Peptide 3239pg/mL (0-449) Segmented Neutrophils % 95% (35-66) Lymphocytes % 5% (24-48) Platelet Estimate Adequate (ADEQUATE) Magnesium Level 1.7mg/dL (1.8-2.4) Laboratory Tests Test 07/10/16 11:25 07/10/16 20:12 07/11/16 05:48 White Blood Count 8.7x10^3/uL (4.0-11.0) 7.1x10^3/uL (4.0-11.0) Red Blood Count 3.12x10^6/uL (4.30-5.70) 2.73x10^6/uL (4.30-5.70) Hemoglobin 9.7g/dL (13.0-17.5) 8.6g/dL (13.0-17.5) Hematocrit 29.9% (39.0-53.0) 25.7% (39.0-53.0) Mean Corpuscular Volume 96fL (79-100) 94fL (79-100) Mean Corpuscular Hemoglobin 31pg (25-35) 31pg (25-35) Mean Corpuscular Hemoglobin Concent 33g/dL (31-37) 33g/dL (31-37) Red Cell Distribution Width 15.5% (11.5-14.5) 15.8% (11.5-14.5) Platelet Count 228x10^3/uL (140-400) 226x10^3/uL (140-400) Neutrophils (%) (Auto) 78% (31-73) 92% (31-73) Lymphocytes (%) (Auto) 9% (24-48) 7% (24-48) Monocytes (%) (Auto) 6% (0-9) 2% (0-9) Eosinophils (%) (Auto) 6% (0-3) 0% (0-3) Basophils (%) (Auto) 1% (0-3) 0% (0-3) Neutrophils # (Auto) 6.8x10^3uL (1.8-7.7) 6.5x10^3uL (1.8-7.7) Lymphocytes # (Auto) 0.8x10^3/uL (1.0-4.8) 0.5x10^3/uL (1.0-4.8) Monocytes # (Auto) 0.5x10^3/uL (0.0-1.1) 0.1x10^3/uL (0.0-1.1) Eosinophils # (Auto) 0.5x10^3/uL (0.0-0.7) 0.0x10^3/uL (0.0-0.7) Basophils # (Auto) 0.1x10^3/uL (0.0-0.2) 0.0x10^3/uL (0.0-0.2) Sodium Level 149mmol/L (136-145) 147mmol/L (136-145) Potassium Level 3.8mmol/L (3.5-5.1) 3.6mmol/L (3.5-5.1) Chloride Level 111mmol/L (98-107) 109mmol/L (98-107) Carbon Dioxide Level 33mmol/L (21-32) 31mmol/L (21-32) Anion Gap 5 (6-14) 7 (6-14) Blood Urea Nitrogen 12mg/dL (8-26) 16mg/dL (8-26) Creatinine 1.2mg/dL (0.7-1.3) 1.0mg/dL (0.7-1.3) Estimated GFR (Cockcroft-Gault) 57.8 71.4 Glucose Level 184mg/dL (70-99) 134mg/dL (70-99) Calcium Level 9.5mg/dL (8.5-10.1) 9.1mg/dL (8.5-10.1) Troponin I Quantitative 0.031ng/mL (0.000-0.055) 0.020ng/mL (0.000-0.055) 0.017ng/mL (0.000-0.055) ZV-Mut-K-Type Natriuretic Peptide 3239pg/mL (0-449) Segmented Neutrophils % 95% (35-66) Lymphocytes % 5% (24-48) Platelet Estimate Adequate (ADEQUATE) Magnesium Level 1.7mg/dL (1.8-2.4) Medications Current Medications Albuterol/ Ipratropium (Duoneb) 6 ml 1X ONCE NEB Last administered on 12:17; Start 07/10/16 at 12:00; Stop 07/10/16 at 12:01; Status DC Prednisone 60 mg 60 mg 1X ONCE PO Last administered on 07/10/16 12:00; Start 07/10/16 at 12:00; Stop 07/10/16 at 12:01; Status DC Levofloxacin/ Dextrose (LEVAQUIN 750mg PREMIX) 150 ml @ 100 mls/hr 1X ONCE IV Last administered on 07/10/16 15:00; Start 07/10/16 at 15:00; Stop 07/10/16 at 16:29; Status DC Furosemide (Lasix) 20 mg 1X ONCE IVP Last administered on 07/10/16 14:30; Start 07/10/16 at 14:30; Stop 07/10/16 at 14:33; Status DC Morphine Sulfate 2 mg PRN Q2HR PRN IV PAIN; Start 07/10/16 at 14:30; Stop 07/11 at 14:29 Acetaminophen (Tylenol) 650 mg PRN Q4HRS PRN PO FEVER; Start 07/10/16 at 14:30 ; Stop 07/11/16 at 14:29 Albuterol/ Ipratropium (Duoneb) 3 ml RTQID NEB ; Start 07/10/16 at 16:00; Stop 07/10/16 at 16:00; Status DC Furosemide (Lasix) 40 mg 1X ONCE IVP Last administered on 07/10/16 18:33; Start 07/10/16 at 15:45; Stop 07/10/16 at 15:46; Status DC Methylprednisolone Sodium Succinate (Solu-Medrol 125mg Vial) 60 mg Q8HRS IV Last administered on 07/11/16 05:32; Start 07/10/16 at 16:00 Albuterol/ Ipratropium (Duoneb) 3 ml Q4HRS NEB ; Start 07/10/16 at 16:00; Stop 07/10/16 at 18:15; Status DC Budesonide (Pulmicort) 0.5 mg RTBID NEB Last administered on 07/11/16 08:00; Start 07/10/16 at 18:00 Allopurinol (Zyloprim) 200 mg DAILY PO Last administered on 07/11/16 09:19; Start 07/11/16 at 09:00 Famotidine (Pepcid) 20 mg BID PO Last administered on 07/11/16 09:18; Start at 21:00 Isosorbide Mononitrate (Imdur) 30 mg DAILY PO Last administered on 07/11/16 09 :18; Start 07/11/16 at 09:00 Sotalol HCl (Betapace) 80 mg BID PO Last administered on 07/11/16 09:17; Start 07/10/16 at 21:00 Clopidogrel Bisulfate (Plavix) 75 mg [id number] PO Last administered on 09:16; Start 07/11/16 at 08:00 Multivitamins/ Calcium (Thera M Plus) 1 tab DAILY PO Last administered on 09:19; Start 07/11/16 at 09:00 Losartan Potassium (Cozaar) 50 mg DAILY PO Last administered on 07/11/16 09:18 ; Start 07/11/16 at 09:00 Trazodone HCl (Desyrel) 50 mg PRN QHS PRN PO INSOMNIA; Start 07/10/16 at 17:00 ; Stop 07/10/16 at 21:00; Status DC Nitroglycerin (Nitrostat) 0.4 mg PRN Q5MIN PRN SL CHEST PAIN; Start 07/10/16 at 17:00 Acetaminophen (Tylenol) 650 mg PRN Q4HRS PRN PO MILD PAIN / TEMP; Start at 17:00 Furosemide (Lasix) 40 mg DAILY IVP ; Start 07/11/16 at 09:00; Stop 07/11/16 at 09:00; Status DC Potassium Chloride (Klor-Con) 20 meq [id number] PO Last administered on 09:16; Start 07/11/16 at 08:00 Furosemide (Lasix) 40 mg [id number] IVP ; Start 07/11/16 at 19:00; Stop 07/11/16 at 19:00; Status DC Albuterol/ Ipratropium (Duoneb) 3 ml RTQID NEB Last administered on 07/11/16 08:00; Start 07/10/16 at 21:00 Furosemide (Lasix) 40 mg [id number] IVP Last administered on 07/11/16 09:24; Start 07/11/16 at 09:00 Trazodone HCl (Desyrel) 50 mg QHS PO Last administered on 07/10/16 21:36; Start 07/10/16 at 21:00 Tamsulosin HCl (Flomax) 0.4 mg QHS PO Last administered on 07/10/16 21:35; Start 07/10/16 at 21:00 Enoxaparin Sodium (Lovenox 40mg Syringe) 40 mg DAILY SQ Last administered on 09:20; Start 07/11/16 at 09:00 Active Scripts Active Cozaar (Losartan Potassium) 50 Mg Tablet 50 Mg PO DAILY Flomax (Tamsulosin Hcl) 0.4 Mg Cap.er.24h 0.4 Mg PO QHS Isosorbide Mononitrate Er (Isosorbide Mononitrate) 30 Mg Tab.er.24h 30 Mg PO DAILY 30 Days Albuterol Sulfate Neb Soln (Albuterol Sulfate) 2.5 Mg/3 Ml Vial.neb 2.5 Mg NEB PRN QID PRN 30 Days Reported Lasix (Furosemide) 40 Mg Tablet 1 Tab PO QODAY Nitrostat (Nitroglycerin) 0.4 Mg Tab.subl 1 Tab SL UD Trazodone Hcl 50 Mg Tablet 1 Tab PO QHS Plavix (Clopidogrel Bisulfate) 75 Mg Tablet 75 Mg PO DAILY Imdur (Isosorbide Mononitrate) 30 Mg Tab.er.24h 30 Mg PO DAILY Pepcid (Famotidine) 20 Mg Tablet 20 Mg PO BID Betapace (Sotalol Hcl) 80 Mg Tablet 80 Mg PO BID Allopurinol 100 Mg Tablet 200 Mg PO DAILY Vitals/I & O Vital Sign - Last 24 Hours 07/10/16 07/10/16 07/10/16 07/10/16 11:15 12:13 12:18 15:07 Temp 97.5 97.5 Pulse 76 73 Resp 24 24 B/P 149/81 154/77 Pulse Ox 93 97 96 96 O2 Delivery Nasal Cannula Nasal Cannula Nasal Cannula Nasal Cannula O2 Flow Rate 3 4 3.0 2.0 07/10/16 07/10/16 07/10/16 07/10/16 15:30 15:30 16:32 19:00 Temp 97.7 97.7 97.5 97.7 97.7 97.5 Pulse 84 84 94 Resp 20 20 20 B/P 150/80 150/80 146/75 Pulse Ox 92 92 99 91 O2 Delivery Nasal Cannula Nasal Cannula Nasal Cannula Nasal Cannula O2 Flow Rate 3.0 3.0 2.0 07/10/16 07/10/16 07/10/16 07/10/16 19:45 19:49 19:51 20:10 Pulse Ox 94 94 O2 Delivery Nasal Cannula Nasal Cannula Nasal Cannula Nasal Cannula O2 Flow Rate 1.0 1.0 1.0 1.0 07/10/16 07/10/16 07/11/16 07/11/16 21:38 23:00 03:12 07:00 Temp 97.5 97.7 97.9 97.5 97.7 97.9 Pulse 94 70 77 78 Resp 20 20 18 B/P 146/75 134/49 130/92 139/72 Pulse Ox 94 93 92 O2 Delivery Nasal Cannula Nasal Cannula Nasal Cannula O2 Flow Rate 1.0 07/11/16 07/11/16 07/11/16 07/11/16 08:05 08:08 09:17 09:18 Pulse 78 78 B/P 139/72 139/72 Pulse Ox 94 94 O2 Delivery Nasal Cannula Nasal Cannula O2 Flow Rate 1.0 1.0 07/11/16 09:18 Pulse 78 B/P 139/72 Intake and Output 07/10/16 07/10/16 07/11/16 15:00 23:00 07:00 Intake Total 200 ml 400 ml Output Total 750 ml 800 ml Balance -550 ml -400 ml LAURE OLIVER MD Jul 11, 2016 09:38
[2016-07-11] MEDS ORDERED: MAGNESIUM SULFATE 2GM 50 ML IV ONE (10:00)
[2016-07-11 11:00] VITALS: BP 114/70
--- NOTE | 2016-07-11 11:00 | PDOC ---
PROGRESS NOTES Subjective Subjective No new complaints today. Patient feeling better. Objective Objective Vital Signs Date Time Temp Pulse Resp B/P Pulse Ox O2 Delivery O2 Flow Rate FiO2 07/11/16 09:18 78 139/72 07/11/16 08:08 94 Nasal Cannula 1.0 07/11/16 07:00 97.9 18 97.9 Intake and Output 07/11/16 07:00 Intake Total 600 ml Output Total 1550 ml Balance -950 ml Intake Oral 600 ml Output Urine Total 1550 ml Physical Exam Physical Exam Diffuse expiratory wheezing, less rhonchi on 1L O2 per nasal cannula. Improved air movement to R base. No rales. No significant changes in cardiac exam. Assessment Assessment Problems Medical Problems: (1) CHF (congestive heart failure) Status: Acute (2) COPD exacerbation Status: Acute (3) Pneumonia Status: Acute Plan Plan of Care Continue diuresis and current treatment plan of COPD exacerbation. Comment Review of Relevant I have reviewed the following items lucio (where applicable) has been applied. Labs Laboratory Tests Test 07/10/16 11:25 07/10/16 20:12 07/11/16 05:48 White Blood Count 8.7x10^3/uL (4.0-11.0) 7.1x10^3/uL (4.0-11.0) Red Blood Count 3.12x10^6/uL (4.30-5.70) 2.73x10^6/uL (4.30-5.70) Hemoglobin 9.7g/dL (13.0-17.5) 8.6g/dL (13.0-17.5) Hematocrit 29.9% (39.0-53.0) 25.7% (39.0-53.0) Mean Corpuscular Volume 96fL (79-100) 94fL (79-100) Mean Corpuscular Hemoglobin 31pg (25-35) 31pg (25-35) Mean Corpuscular Hemoglobin Concent 33g/dL (31-37) 33g/dL (31-37) Red Cell Distribution Width 15.5% (11.5-14.5) 15.8% (11.5-14.5) Platelet Count 228x10^3/uL (140-400) 226x10^3/uL (140-400) Neutrophils (%) (Auto) 78% (31-73) 92% (31-73) Lymphocytes (%) (Auto) 9% (24-48) 7% (24-48) Monocytes (%) (Auto) 6% (0-9) 2% (0-9) Eosinophils (%) (Auto) 6% (0-3) 0% (0-3) Basophils (%) (Auto) 1% (0-3) 0% (0-3) Neutrophils # (Auto) 6.8x10^3uL (1.8-7.7) 6.5x10^3uL (1.8-7.7) Lymphocytes # (Auto) 0.8x10^3/uL (1.0-4.8) 0.5x10^3/uL (1.0-4.8) Monocytes # (Auto) 0.5x10^3/uL (0.0-1.1) 0.1x10^3/uL (0.0-1.1) Eosinophils # (Auto) 0.5x10^3/uL (0.0-0.7) 0.0x10^3/uL (0.0-0.7) Basophils # (Auto) 0.1x10^3/uL (0.0-0.2) 0.0x10^3/uL (0.0-0.2) Sodium Level 149mmol/L (136-145) 147mmol/L (136-145) Potassium Level 3.8mmol/L (3.5-5.1) 3.6mmol/L (3.5-5.1) Chloride Level 111mmol/L (98-107) 109mmol/L (98-107) Carbon Dioxide Level 33mmol/L (21-32) 31mmol/L (21-32) Anion Gap 5 (6-14) 7 (6-14) Blood Urea Nitrogen 12mg/dL (8-26) 16mg/dL (8-26) Creatinine 1.2mg/dL (0.7-1.3) 1.0mg/dL (0.7-1.3) Estimated GFR (Cockcroft-Gault) 57.8 71.4 Glucose Level 184mg/dL (70-99) 134mg/dL (70-99) Calcium Level 9.5mg/dL (8.5-10.1) 9.1mg/dL (8.5-10.1) Troponin I Quantitative 0.031ng/mL (0.000-0.055) 0.020ng/mL (0.000-0.055) 0.017ng/mL (0.000-0.055) WN-Ler-E-Type Natriuretic Peptide 3239pg/mL (0-449) Segmented Neutrophils % 95% (35-66) Lymphocytes % 5% (24-48) Platelet Estimate Adequate (ADEQUATE) Magnesium Level 1.7mg/dL (1.8-2.4) Laboratory Tests Test 07/10/16 11:25 07/10/16 20:12 07/11/16 05:48 White Blood Count 8.7x10^3/uL (4.0-11.0) 7.1x10^3/uL (4.0-11.0) Red Blood Count 3.12x10^6/uL (4.30-5.70) 2.73x10^6/uL (4.30-5.70) Hemoglobin 9.7g/dL (13.0-17.5) 8.6g/dL (13.0-17.5) Hematocrit 29.9% (39.0-53.0) 25.7% (39.0-53.0) Mean Corpuscular Volume 96fL (79-100) 94fL (79-100) Mean Corpuscular Hemoglobin 31pg (25-35) 31pg (25-35) Mean Corpuscular Hemoglobin Concent 33g/dL (31-37) 33g/dL (31-37) Red Cell Distribution Width 15.5% (11.5-14.5) 15.8% (11.5-14.5) Platelet Count 228x10^3/uL (140-400) 226x10^3/uL (140-400) Neutrophils (%) (Auto) 78% (31-73) 92% (31-73) Lymphocytes (%) (Auto) 9% (24-48) 7% (24-48) Monocytes (%) (Auto) 6% (0-9) 2% (0-9) Eosinophils (%) (Auto) 6% (0-3) 0% (0-3) Basophils (%) (Auto) 1% (0-3) 0% (0-3) Neutrophils # (Auto) 6.8x10^3uL (1.8-7.7) 6.5x10^3uL (1.8-7.7) Lymphocytes # (Auto) 0.8x10^3/uL (1.0-4.8) 0.5x10^3/uL (1.0-4.8) Monocytes # (Auto) 0.5x10^3/uL (0.0-1.1) 0.1x10^3/uL (0.0-1.1) Eosinophils # (Auto) 0.5x10^3/uL (0.0-0.7) 0.0x10^3/uL (0.0-0.7) Basophils # (Auto) 0.1x10^3/uL (0.0-0.2) 0.0x10^3/uL (0.0-0.2) Sodium Level 149mmol/L (136-145) 147mmol/L (136-145) Potassium Level 3.8mmol/L (3.5-5.1) 3.6mmol/L (3.5-5.1) Chloride Level 111mmol/L (98-107) 109mmol/L (98-107) Carbon Dioxide Level 33mmol/L (21-32) 31mmol/L (21-32) Anion Gap 5 (6-14) 7 (6-14) Blood Urea Nitrogen 12mg/dL (8-26) 16mg/dL (8-26) Creatinine 1.2mg/dL (0.7-1.3) 1.0mg/dL (0.7-1.3) Estimated GFR (Cockcroft-Gault) 57.8 71.4 Glucose Level 184mg/dL (70-99) 134mg/dL (70-99) Calcium Level 9.5mg/dL (8.5-10.1) 9.1mg/dL (8.5-10.1) Troponin I Quantitative 0.031ng/mL (0.000-0.055) 0.020ng/mL (0.000-0.055) 0.017ng/mL (0.000-0.055) WH-Rcw-W-Type Natriuretic Peptide 3239pg/mL (0-449) Segmented Neutrophils % 95% (35-66) Lymphocytes % 5% (24-48) Platelet Estimate Adequate (ADEQUATE) Magnesium Level 1.7mg/dL (1.8-2.4) Medications Current Medications Albuterol/ Ipratropium (Duoneb) 6 ml 1X ONCE NEB Last administered on 12:17; Start 07/10/16 at 12:00; Stop 07/10/16 at 12:01; Status DC Prednisone 60 mg 60 mg 1X ONCE PO Last administered on 07/10/16 12:00; Start 07/10/16 at 12:00; Stop 07/10/16 at 12:01; Status DC Levofloxacin/ Dextrose (LEVAQUIN 750mg PREMIX) 150 ml @ 100 mls/hr 1X ONCE IV Last administered on 07/10/16 15:00; Start 07/10/16 at 15:00; Stop 07/10/16 at 16:29; Status DC Furosemide (Lasix) 20 mg 1X ONCE IVP Last administered on 07/10/16 14:30; Start 07/10/16 at 14:30; Stop 07/10/16 at 14:33; Status DC Morphine Sulfate 2 mg PRN Q2HR PRN IV PAIN; Start 07/10/16 at 14:30; Stop 07/11 at 14:29 Acetaminophen (Tylenol) 650 mg PRN Q4HRS PRN PO FEVER; Start 07/10/16 at 14:30 ; Stop 07/11/16 at 14:29 Albuterol/ Ipratropium (Duoneb) 3 ml RTQID NEB ; Start 07/10/16 at 16:00; Stop 07/10/16 at 16:00; Status DC Furosemide (Lasix) 40 mg 1X ONCE IVP Last administered on 07/10/16 18:33; Start 07/10/16 at 15:45; Stop 07/10/16 at 15:46; Status DC Methylprednisolone Sodium Succinate (Solu-Medrol 125mg Vial) 60 mg Q8HRS IV Last administered on 07/11/16 05:32; Start 07/10/16 at 16:00 Albuterol/ Ipratropium (Duoneb) 3 ml Q4HRS NEB ; Start 07/10/16 at 16:00; Stop 07/10/16 at 18:15; Status DC Budesonide (Pulmicort) 0.5 mg RTBID NEB Last administered on 07/11/16 08:00; Start 07/10/16 at 18:00 Allopurinol (Zyloprim) 200 mg DAILY PO Last administered on 07/11/16 09:19; Start 07/11/16 at 09:00 Famotidine (Pepcid) 20 mg BID PO Last administered on 07/11/16 09:18; Start at 21:00 Isosorbide Mononitrate (Imdur) 30 mg DAILY PO Last administered on 07/11/16 09 :18; Start 07/11/16 at 09:00 Sotalol HCl (Betapace) 80 mg BID PO Last administered on 07/11/16 09:17; Start 07/10/16 at 21:00 Clopidogrel Bisulfate (Plavix) 75 mg DAILYWBKFT PO Last administered on 09:16; Start 07/11/16 at 08:00 Multivitamins/ Calcium (Thera M Plus) 1 tab DAILY PO Last administered on 09:19; Start 07/11/16 at 09:00 Losartan Potassium (Cozaar) 50 mg DAILY PO Last administered on 07/11/16 09:18 ; Start 07/11/16 at 09:00 Trazodone HCl (Desyrel) 50 mg PRN QHS PRN PO INSOMNIA; Start 07/10/16 at 17:00 ; Stop 07/10/16 at 21:00; Status DC Nitroglycerin (Nitrostat) 0.4 mg PRN Q5MIN PRN SL CHEST PAIN; Start 07/10/16 at 17:00 Acetaminophen (Tylenol) 650 mg PRN Q4HRS PRN PO MILD PAIN / TEMP; Start at 17:00 Furosemide (Lasix) 40 mg DAILY IVP ; Start 07/11/16 at 09:00; Stop 07/11/16 at 09:00; Status DC Potassium Chloride (Klor-Con) 20 meq DAILYWBKFT PO Last administered on 09:16; Start 07/11/16 at 08:00; Stop 07/11/16 at 09:41; Status DC Furosemide (Lasix) 40 mg [id number] IVP ; Start 07/11/16 at 19:00; Stop 07/11/16 at 19:00; Status DC Albuterol/ Ipratropium (Duoneb) 3 ml RTQID NEB Last administered on 07/11/16 08:00; Start 07/10/16 at 21:00 Furosemide (Lasix) 40 mg [id number] IVP Last administered on 07/11/16 09:24; Start 07/11/16 at 09:00 Trazodone HCl (Desyrel) 50 mg QHS PO Last administered on 07/10/16 21:36; Start 07/10/16 at 21:00 Tamsulosin HCl (Flomax) 0.4 mg QHS PO Last administered on 07/10/16 21:35; Start 07/10/16 at 21:00 Enoxaparin Sodium (Lovenox 40mg Syringe) 40 mg DAILY SQ Last administered on 09:20; Start 07/11/16 at 09:00 Potassium Chloride 20 meq 20 meq BIDWMEALS PO ; Start 07/11/16 at 17:00 Magnesium Sulfate/ Dextrose (Magnesium Sulfate PREMIX 2GM) 50 ml @ 25 mls/hr 1X ONCE IV Last administered on 07/11/16 10:51; Start 07/11/16 at 10:00; Stop 07/11/16 at 11:59 Active Scripts Active Cozaar (Losartan Potassium) 50 Mg Tablet 50 Mg PO DAILY Flomax (Tamsulosin Hcl) 0.4 Mg Cap.er.24h 0.4 Mg PO QHS Isosorbide Mononitrate Er (Isosorbide Mononitrate) 30 Mg Tab.er.24h 30 Mg PO DAILY 30 Days Albuterol Sulfate Neb Soln (Albuterol Sulfate) 2.5 Mg/3 Ml Vial.neb 2.5 Mg NEB PRN QID PRN 30 Days Reported Lasix (Furosemide) 40 Mg Tablet 1 Tab PO QODAY Nitrostat (Nitroglycerin) 0.4 Mg Tab.subl 1 Tab SL UD Trazodone Hcl 50 Mg Tablet 1 Tab PO QHS Plavix (Clopidogrel Bisulfate) 75 Mg Tablet 75 Mg PO DAILY Imdur (Isosorbide Mononitrate) 30 Mg Tab.er.24h 30 Mg PO DAILY Pepcid (Famotidine) 20 Mg Tablet 20 Mg PO BID Betapace (Sotalol Hcl) 80 Mg Tablet 80 Mg PO BID Allopurinol 100 Mg Tablet 200 Mg PO DAILY Vitals/I & O Vital Sign - Last 24 Hours 07/10/16 07/10/16 07/10/16 07/10/16 11:15 12:13 12:18 15:07 Temp 97.5 97.5 Pulse 76 73 Resp 24 24 B/P 149/81 154/77 Pulse Ox 93 97 96 96 O2 Delivery Nasal Cannula Nasal Cannula Nasal Cannula Nasal Cannula O2 Flow Rate 3 4 3.0 2.0 07/10/16 07/10/16 07/10/16 07/10/16 15:30 15:30 16:32 19:00 Temp 97.7 97.7 97.5 97.7 97.7 97.5 Pulse 84 84 94 Resp 20 20 20 B/P 150/80 150/80 146/75 Pulse Ox 92 92 99 91 O2 Delivery Nasal Cannula Nasal Cannula Nasal Cannula Nasal Cannula O2 Flow Rate 3.0 3.0 2.0 07/10/16 07/10/16 07/10/16 07/10/16 19:45 19:49 19:51 20:10 Pulse Ox 94 94 O2 Delivery Nasal Cannula Nasal Cannula Nasal Cannula Nasal Cannula O2 Flow Rate 1.0 1.0 1.0 1.0 07/10/16 07/10/16 07/11/16 07/11/16 21:38 23:00 03:12 07:00 Temp 97.5 97.7 97.9 97.5 97.7 97.9 Pulse 94 70 77 78 Resp 20 20 18 B/P 146/75 134/49 130/92 139/72 Pulse Ox 94 93 92 O2 Delivery Nasal Cannula Nasal Cannula Nasal Cannula O2 Flow Rate 1.0 07/11/16 07/11/16 07/11/16 07/11/16 08:00 08:05 08:08 09:17 Pulse 78 B/P 139/72 Pulse Ox 94 94 O2 Delivery Nasal Cannula Nasal Cannula Nasal Cannula O2 Flow Rate 1.0 1.0 1.0 07/11/16 07/11/16 09:18 09:18 Pulse 78 78 B/P 139/72 139/72 Intake and Output 07/10/16 07/10/16 07/11/16 15:00 23:00 07:00 Intake Total 200 ml 400 ml Output Total 750 ml 800 ml Balance -550 ml -400 ml ZEESHAN TOSCANO MD Jul 11, 2016 11:00
--- NOTE | 2016-07-11 13:53 | PDOC ---
PULMONARY PROGRESS NOTES Subjective feels better Vitals Vital Signs Date Time Temp Pulse Resp B/P Pulse Ox O2 Delivery O2 Flow Rate FiO2 07/11/16 11:50 Nasal Cannula 1.0 07/11/16 11:00 98.1 74 18 114/70 94 98.1 General: Alert, No acute distress Lungs: Wheezing (improved) Cardiovascular: S1, S2 Abdomen: Soft Neuro Exam: Alert Extremities: Other (2=edema) Labs Laboratory Tests Test 07/10/16 11:25 07/10/16 20:12 07/11/16 05:48 White Blood Count 8.7x10^3/uL (4.0-11.0) 7.1x10^3/uL (4.0-11.0) Red Blood Count 3.12x10^6/uL (4.30-5.70) 2.73x10^6/uL (4.30-5.70) Hemoglobin 9.7g/dL (13.0-17.5) 8.6g/dL (13.0-17.5) Hematocrit 29.9% (39.0-53.0) 25.7% (39.0-53.0) Mean Corpuscular Volume 96fL (79-100) 94fL (79-100) Mean Corpuscular Hemoglobin 31pg (25-35) 31pg (25-35) Mean Corpuscular Hemoglobin Concent 33g/dL (31-37) 33g/dL (31-37) Red Cell Distribution Width 15.5% (11.5-14.5) 15.8% (11.5-14.5) Platelet Count 228x10^3/uL (140-400) 226x10^3/uL (140-400) Neutrophils (%) (Auto) 78% (31-73) 92% (31-73) Lymphocytes (%) (Auto) 9% (24-48) 7% (24-48) Monocytes (%) (Auto) 6% (0-9) 2% (0-9) Eosinophils (%) (Auto) 6% (0-3) 0% (0-3) Basophils (%) (Auto) 1% (0-3) 0% (0-3) Neutrophils # (Auto) 6.8x10^3uL (1.8-7.7) 6.5x10^3uL (1.8-7.7) Lymphocytes # (Auto) 0.8x10^3/uL (1.0-4.8) 0.5x10^3/uL (1.0-4.8) Monocytes # (Auto) 0.5x10^3/uL (0.0-1.1) 0.1x10^3/uL (0.0-1.1) Eosinophils # (Auto) 0.5x10^3/uL (0.0-0.7) 0.0x10^3/uL (0.0-0.7) Basophils # (Auto) 0.1x10^3/uL (0.0-0.2) 0.0x10^3/uL (0.0-0.2) Sodium Level 149mmol/L (136-145) 147mmol/L (136-145) Potassium Level 3.8mmol/L (3.5-5.1) 3.6mmol/L (3.5-5.1) Chloride Level 111mmol/L (98-107) 109mmol/L (98-107) Carbon Dioxide Level 33mmol/L (21-32) 31mmol/L (21-32) Anion Gap 5 (6-14) 7 (6-14) Blood Urea Nitrogen 12mg/dL (8-26) 16mg/dL (8-26) Creatinine 1.2mg/dL (0.7-1.3) 1.0mg/dL (0.7-1.3) Estimated GFR (Cockcroft-Gault) 57.8 71.4 Glucose Level 184mg/dL (70-99) 134mg/dL (70-99) Calcium Level 9.5mg/dL (8.5-10.1) 9.1mg/dL (8.5-10.1) Troponin I Quantitative 0.031ng/mL (0.000-0.055) 0.020ng/mL (0.000-0.055) 0.017ng/mL (0.000-0.055) VC-Vgh-T-Type Natriuretic Peptide 3239pg/mL (0-449) Segmented Neutrophils % 95% (35-66) Lymphocytes % 5% (24-48) Platelet Estimate Adequate (ADEQUATE) Magnesium Level 1.7mg/dL (1.8-2.4) Laboratory Tests Test 07/10/16 20:12 07/11/16 05:48 Troponin I Quantitative 0.020ng/mL (0.000-0.055) 0.017ng/mL (0.000-0.055) White Blood Count 7.1x10^3/uL (4.0-11.0) Red Blood Count 2.73x10^6/uL (4.30-5.70) Hemoglobin 8.6g/dL (13.0-17.5) Hematocrit 25.7% (39.0-53.0) Mean Corpuscular Volume 94fL (79-100) Mean Corpuscular Hemoglobin 31pg (25-35) Mean Corpuscular Hemoglobin Concent 33g/dL (31-37) Red Cell Distribution Width 15.8% (11.5-14.5) Platelet Count 226x10^3/uL (140-400) Neutrophils (%) (Auto) 92% (31-73) Lymphocytes (%) (Auto) 7% (24-48) Monocytes (%) (Auto) 2% (0-9) Eosinophils (%) (Auto) 0% (0-3) Basophils (%) (Auto) 0% (0-3) Neutrophils # (Auto) 6.5x10^3uL (1.8-7.7) Lymphocytes # (Auto) 0.5x10^3/uL (1.0-4.8) Monocytes # (Auto) 0.1x10^3/uL (0.0-1.1) Eosinophils # (Auto) 0.0x10^3/uL (0.0-0.7) Basophils # (Auto) 0.0x10^3/uL (0.0-0.2) Segmented Neutrophils % 95% (35-66) Lymphocytes % 5% (24-48) Platelet Estimate Adequate (ADEQUATE) Sodium Level 147mmol/L (136-145) Potassium Level 3.6mmol/L (3.5-5.1) Chloride Level 109mmol/L (98-107) Carbon Dioxide Level 31mmol/L (21-32) Anion Gap 7 (6-14) Blood Urea Nitrogen 16mg/dL (8-26) Creatinine 1.0mg/dL (0.7-1.3) Estimated GFR (Cockcroft-Gault) 71.4 Glucose Level 134mg/dL (70-99) Calcium Level 9.1mg/dL (8.5-10.1) Magnesium Level 1.7mg/dL (1.8-2.4) Medications Active Scripts Medications Dose Route/Sig Days Date Category Lasix (Furosemide) 40 Mg Tablet 1 Tab PO QODAY 07/10/16 Reported Cozaar (Losartan Potassium) 50 Mg Tablet 50 Mg PO DAILY 06/27/16 Rx Flomax (Tamsulosin Hcl) 0.4 Mg Cap.er.24h 0.4 Mg PO QHS 06/27/16 Rx Nitrostat (Nitroglycerin) 0.4 Mg Tab.subl 1 Tab SL UD 06/14/16 Reported Isosorbide Mononitrate Er (Isosorbide Mononitrate) 30 Mg Tab.er.24h 30 Mg PO DAILY 30 05/18/16 Rx Albuterol Sulfate Neb Soln (Albuterol Sulfate) 2.5 Mg/3 Ml Vial.neb 2.5 Mg NEB PRN QID PRN 30 05/18/16 Rx Trazodone Hcl 50 Mg Tablet 1 Tab PO QHS 03/23/16 Reported Plavix (Clopidogrel Bisulfate) 75 Mg Tablet 75 Mg PO DAILY 08/19/13 Reported Imdur (Isosorbide Mononitrate) 30 Mg Tab.er.24h 30 Mg PO DAILY 08/19/13 Reported Pepcid (Famotidine) 20 Mg Tablet 20 Mg PO BID 08/19/13 Reported Betapace (Sotalol Hcl) 80 Mg Tablet 80 Mg PO BID 08/19/13 Reported Allopurinol 100 Mg Tablet 200 Mg PO DAILY 08/19/13 Reported Impression . 1. Dyspnea with bilateral bronchospasm along with lower extremity edema in a patient who has an ejection fraction of 20%. He has a cough with white sputum production. The clinical presentation is consistent with acute on chronic systolic heart failure. 2. Less likely pneumonia. He is recently being treated for pseudomonas pneumonia. 3. 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 4. History of oxygen-dependent chronic obstructive airway disease. 5. Secondary pulmonary hypertension due to severe cardiomyopathy and moderate mitral regurgitation. Plan . 1. Aggressive nebs. 2. IV Solu-Medrol. slow taper 3. Diuresis per cardiology 4. Continue with DuoNeb. 5. withhold antibiotics at present as clinically pneumonia is felt to be less likely. 6. Follow cardiology recommendations. 7. Monitored lower extremity edema, improvement with diuretics. 8. Discussed with the patient's at the bedside. DHARA ANTONIO MD Jul 11, 2016 13:53
[2016-07-11 15:00] VITALS: BP 120/63
[2016-07-11] MEDS: POTASSIUM CHLORIDE 20 MEQ TABLET.ER. PO SCH (16:16)
[2016-07-11 19:00] VITALS: BP 126/62
[2016-07-11] MEDS: TAMSULOSIN 0.4 MG CAP.ER.24H. PO SCH (21:53)
[2016-07-11] MEDS: traZODone 50 MG TABLET. PO SCH (21:53)
[2016-07-11 23:00] VITALS: BP 115/60
[2016-07-12 05:07] VITALS: BP 141/65
[2016-07-12] MEDS: methylPREDNISolone SOD SUCC PF 125 MG/2 ML VIAL. IV SCH ×2 (05:10→20:40)
[2016-07-12 06:05] LABS: BASO % 0 % (0-3); EOS % 0 % (0-3); HEMATOCRIT 25.7 % (39.0-53.0); HEMOGLOBIN 8.4 g/dL (13.0-17.5); LYMPH # 0.5 x10^3/uL (1.0-4.8); LYMPH % 5 % (24-48); MEAN CORPUSCULAR HEMOGLOBIN 32 pg (25-35); MEAN CORPUSCULAR HGB CONC 33 g/dL (31-37); MEAN CORPUSCULAR VOLUME 97 fL (79-100); MONO % 1 % (0-9); NEUT % 93 % (31-73); PLATELET COUNT 218 x10^3/uL (140-400); RED BLOOD COUNT 2.65 x10^6/uL (4.30-5.70); WHITE BLOOD COUNT 8.9 x10^3/uL (4.0-11.0)
[2016-07-12 06:20] LABS: CALCIUM 9.2 mg/dL (8.5-10.1); CREATININE 1.4 mg/dL (0.7-1.3); GFR 48.4; MAGNESIUM 2.1 mg/dL (1.8-2.4); POTASSIUM 3.8 mmol/L (3.5-5.1)
[2016-07-12 07:00] VITALS: BP 152/74
[2016-07-12] MEDS: BUDESONIDE 0.5 MG/2 ML NEBU NEB SCH ×2 (07:20→19:33)
[2016-07-12] MEDS: IPRATRPIUM/ALBUTEROL 0.5/2.5MG 3 ML NEBU. NEB SCH ×4 (07:21→19:33)
[2016-07-12] MEDS: FAMOTIDINE 20 MG TABLET. PO SCH (09:21)
[2016-07-12] MEDS: CLOPIDOGREL BISULFATE 75 MG TABLET PO SCH (09:21)
[2016-07-12] MEDS: ALLOPURINOL 100 MG TABLET. PO SCH (09:21)
[2016-07-12] MEDS: ISOSORBIDE MONONITRATE ER 30 MG TAB.ER.24H PO SCH (09:22)
[2016-07-12] MEDS: SOTALOL 80 MG TABLET. PO SCH ×2 (09:22→20:35)
[2016-07-12] MEDS: POTASSIUM CHLORIDE 20 MEQ TABLET.ER. PO SCH ×2 (09:23→16:06)
[2016-07-12] MEDS: LOSARTAN POTASSIUM 50 MG TABLET. PO SCH (09:23)
[2016-07-12] MEDS: MULTIVITAMIN with MINERAL TABLET. PO SCH (09:24)
[2016-07-12] MEDS: FUROSEMIDE 40 MG/4 ML VIAL IVP SCH ×2 (09:24→16:06)
--- NOTE | 2016-07-12 10:30 | PDOC ---
PROGRESS NOTES Subjective Subjective feels the same. not wheezing now. has not had a good diuresis . will give low dose metolazone today and continue with bid iv lasix. lab reviewed. Objective Objective Vital Signs Date Time Temp Pulse Resp B/P Pulse Ox O2 Delivery O2 Flow Rate FiO2 07/12/16 09:23 73 152/74 07/12/16 07:21 96 Nasal Cannula 1.0 07/12/16 07:00 98.1 19 98.1 Intake and Output 07/12/16 07:00 Intake Total 2050 ml Output Total 1300 ml Balance 750 ml Intake Oral 2050 ml Output Urine Total 1300 ml Physical Exam Abdomen: Soft Heart: Regular rate, Normal S1, Normal S2 Extremities: Other (2 plus edema feet) General: Alert HEENT: Atraumatic Lungs: Other (few rhonchi . decreased breath sounds) Neuro: Normal speech Psych/Mental Status: Mental status NL Skin: No rashes Assessment Assessment Problems Medical Problems:. Acute on chronic systolic congestive heart failure. 2. Ischemic cardiomyopathy.LVEF 20% 3. Acute on chronic hypoxic respiratory failure. 4. Chronic obstructive pulmonary disease. 5. Pulmonary fibrosis. 6. Bronchiectasis. 7. Coronary artery disease. 8. Chronic kidney disease stage 3. superficial vein thrombosis right sural vein urine retention. figueroa catheter (1) CHF (congestive heart failure) Status: Acute (2) COPD exacerbation Status: Acute (3) Pneumonia Status: Acute Plan Plan of Care metolazone today iv lasix lovenox decrease iv solumedrol continue oxygen and nebulizer rx PT and OT Comment Review of Relevant I have reviewed the following items lucio (where applicable) has been applied. Labs Laboratory Tests Test 07/10/16 11:25 07/10/16 20:12 07/11/16 05:48 07/12/16 05:00 White Blood Count 8.7x10^3/uL (4.0-11.0) 7.1x10^3/uL (4.0-11.0) 8.9x10^3/uL (4.0-11.0) Red Blood Count 3.12x10^6/uL (4.30-5.70) 2.73x10^6/uL (4.30-5.70) 2.65x10^6/uL (4.30-5.70) Hemoglobin 9.7g/dL (13.0-17.5) 8.6g/dL (13.0-17.5) 8.4g/dL (13.0-17.5) Hematocrit 29.9% (39.0-53.0) 25.7% (39.0-53.0) 25.7% (39.0-53.0) Mean Corpuscular Volume 96fL (79-100) 94fL (79-100) 97fL (79-100) Mean Corpuscular Hemoglobin 31pg (25-35) 31pg (25-35) 32pg (25-35) Mean Corpuscular Hemoglobin Concent 33g/dL (31-37) 33g/dL (31-37) 33g/dL (31-37) Red Cell Distribution Width 15.5% (11.5-14.5) 15.8% (11.5-14.5) 16.0% (11.5-14.5) Platelet Count 228x10^3/uL (140-400) 226x10^3/uL (140-400) 218x10^3/uL (140-400) Neutrophils (%) (Auto) 78% (31-73) 92% (31-73) 93% (31-73) Lymphocytes (%) (Auto) 9% (24-48) 7% (24-48) 5% (24-48) Monocytes (%) (Auto) 6% (0-9) 2% (0-9) 1% (0-9) Eosinophils (%) (Auto) 6% (0-3) 0% (0-3) 0% (0-3) Basophils (%) (Auto) 1% (0-3) 0% (0-3) 0% (0-3) Neutrophils # (Auto) 6.8x10^3uL (1.8-7.7) 6.5x10^3uL (1.8-7.7) 8.3x10^3uL (1.8-7.7) Lymphocytes # (Auto) 0.8x10^3/uL (1.0-4.8) 0.5x10^3/uL (1.0-4.8) 0.5x10^3/uL (1.0-4.8) Monocytes # (Auto) 0.5x10^3/uL (0.0-1.1) 0.1x10^3/uL (0.0-1.1) 0.1x10^3/uL (0.0-1.1) Eosinophils # (Auto) 0.5x10^3/uL (0.0-0.7) 0.0x10^3/uL (0.0-0.7) 0.0x10^3/uL (0.0-0.7) Basophils # (Auto) 0.1x10^3/uL (0.0-0.2) 0.0x10^3/uL (0.0-0.2) 0.0x10^3/uL (0.0-0.2) Sodium Level 149mmol/L (136-145) 147mmol/L (136-145) 147mmol/L (136-145) Potassium Level 3.8mmol/L (3.5-5.1) 3.6mmol/L (3.5-5.1) 3.8mmol/L (3.5-5.1) Chloride Level 111mmol/L (98-107) 109mmol/L (98-107) 110mmol/L (98-107) Carbon Dioxide Level 33mmol/L (21-32) 31mmol/L (21-32) 32mmol/L (21-32) Anion Gap 5 (6-14) 7 (6-14) 5 (6-14) Blood Urea Nitrogen 12mg/dL (8-26) 16mg/dL (8-26) 25mg/dL (8-26) Creatinine 1.2mg/dL (0.7-1.3) 1.0mg/dL (0.7-1.3) 1.4mg/dL (0.7-1.3) Estimated GFR (Cockcroft-Gault) 57.8 71.4 48.4 Glucose Level 184mg/dL (70-99) 134mg/dL (70-99) 137mg/dL (70-99) Calcium Level 9.5mg/dL (8.5-10.1) 9.1mg/dL (8.5-10.1) 9.2mg/dL (8.5-10.1) Troponin I Quantitative 0.031ng/mL (0.000-0.055) 0.020ng/mL (0.000-0.055) 0.017ng/mL (0.000-0.055) GH-Szq-I-Type Natriuretic Peptide 3239pg/mL (0-449) Segmented Neutrophils % 95% (35-66) Lymphocytes % 5% (24-48) Platelet Estimate Adequate (ADEQUATE) Magnesium Level 1.7mg/dL (1.8-2.4) 2.1mg/dL (1.8-2.4) Laboratory Tests Test 07/12/16 05:00 White Blood Count 8.9x10^3/uL (4.0-11.0) Red Blood Count 2.65x10^6/uL (4.30-5.70) Hemoglobin 8.4g/dL (13.0-17.5) Hematocrit 25.7% (39.0-53.0) Mean Corpuscular Volume 97fL (79-100) Mean Corpuscular Hemoglobin 32pg (25-35) Mean Corpuscular Hemoglobin Concent 33g/dL (31-37) Red Cell Distribution Width 16.0% (11.5-14.5) Platelet Count 218x10^3/uL (140-400) Neutrophils (%) (Auto) 93% (31-73) Lymphocytes (%) (Auto) 5% (24-48) Monocytes (%) (Auto) 1% (0-9) Eosinophils (%) (Auto) 0% (0-3) Basophils (%) (Auto) 0% (0-3) Neutrophils # (Auto) 8.3x10^3uL (1.8-7.7) Lymphocytes # (Auto) 0.5x10^3/uL (1.0-4.8) Monocytes # (Auto) 0.1x10^3/uL (0.0-1.1) Eosinophils # (Auto) 0.0x10^3/uL (0.0-0.7) Basophils # (Auto) 0.0x10^3/uL (0.0-0.2) Sodium Level 147mmol/L (136-145) Potassium Level 3.8mmol/L (3.5-5.1) Chloride Level 110mmol/L (98-107) Carbon Dioxide Level 32mmol/L (21-32) Anion Gap 5 (6-14) Blood Urea Nitrogen 25mg/dL (8-26) Creatinine 1.4mg/dL (0.7-1.3) Estimated GFR (Cockcroft-Gault) 48.4 Glucose Level 137mg/dL (70-99) Calcium Level 9.2mg/dL (8.5-10.1) Magnesium Level 2.1mg/dL (1.8-2.4) Microbiology 07/10/16 Blood Culture - Preliminary, Resulted NO GROWTH AFTER 1 DAY Medications Current Medications Albuterol/ Ipratropium (Duoneb) 6 ml 1X ONCE NEB Last administered on 12:17; Start 07/10/16 at 12:00; Stop 07/10/16 at 12:01; Status DC Prednisone 60 mg 60 mg 1X ONCE PO Last administered on 07/10/16 12:00; Start 07/10/16 at 12:00; Stop 07/10/16 at 12:01; Status DC Levofloxacin/ Dextrose (LEVAQUIN 750mg PREMIX) 150 ml @ 100 mls/hr 1X ONCE IV Last administered on 07/10/16 15:00; Start 07/10/16 at 15:00; Stop 07/10/16 at 16:29; Status DC Furosemide (Lasix) 20 mg 1X ONCE IVP Last administered on 07/10/16 14:30; Start 07/10/16 at 14:30; Stop 07/10/16 at 14:33; Status DC Morphine Sulfate 2 mg PRN Q2HR PRN IV PAIN; Start 07/10/16 at 14:30; Stop 07/11 at 14:29; Status DC Acetaminophen (Tylenol) 650 mg PRN Q4HRS PRN PO FEVER; Start 07/10/16 at 14:30 ; Stop 07/11/16 at 14:29; Status DC Albuterol/ Ipratropium (Duoneb) 3 ml RTQID NEB ; Start 07/10/16 at 16:00; Stop 07/10/16 at 16:00; Status DC Furosemide (Lasix) 40 mg 1X ONCE IVP Last administered on 07/10/16 18:33; Start 07/10/16 at 15:45; Stop 07/10/16 at 15:46; Status DC Methylprednisolone Sodium Succinate (Solu-Medrol 125mg Vial) 60 mg Q8HRS IV Last administered on 07/12/16 05:10; Start 07/10/16 at 16:00 Albuterol/ Ipratropium (Duoneb) 3 ml Q4HRS NEB ; Start 07/10/16 at 16:00; Stop 07/10/16 at 18:15; Status DC Budesonide (Pulmicort) 0.5 mg RTBID NEB Last administered on 07/12/16 07:20; Start 07/10/16 at 18:00 Allopurinol (Zyloprim) 200 mg DAILY PO Last administered on 07/12/16 09:21; Start 07/11/16 at 09:00 Famotidine (Pepcid) 20 mg BID PO Last administered on 07/12/16 09:21; Start at 21:00 Isosorbide Mononitrate (Imdur) 30 mg DAILY PO Last administered on 07/12/16 09 :22; Start 07/11/16 at 09:00 Sotalol HCl (Betapace) 80 mg BID PO Last administered on 07/12/16 09:22; Start 07/10/16 at 21:00 Clopidogrel Bisulfate (Plavix) 75 mg [id number] PO Last administered on 09:21; Start 07/11/16 at 08:00 Multivitamins/ Calcium (Thera M Plus) 1 tab DAILY PO Last administered on 09:24; Start 07/11/16 at 09:00 Losartan Potassium (Cozaar) 50 mg DAILY PO Last administered on 07/12/16 09:23 ; Start 07/11/16 at 09:00 Trazodone HCl (Desyrel) 50 mg PRN QHS PRN PO INSOMNIA; Start 07/10/16 at 17:00 ; Stop 07/10/16 at 21:00; Status DC Nitroglycerin (Nitrostat) 0.4 mg PRN Q5MIN PRN SL CHEST PAIN; Start 07/10/16 at 17:00 Acetaminophen (Tylenol) 650 mg PRN Q4HRS PRN PO MILD PAIN / TEMP; Start at 17:00 Furosemide (Lasix) 40 mg DAILY IVP ; Start 07/11/16 at 09:00; Stop 07/11/16 at 09:00; Status DC Potassium Chloride (Klor-Con) 20 meq DAILYWBKFT PO Last administered on 09:16; Start 07/11/16 at 08:00; Stop 07/11/16 at 09:41; Status DC Furosemide (Lasix) 40 mg [id number] IVP ; Start 07/11/16 at 19:00; Stop 07/11/16 at 19:00; Status DC Albuterol/ Ipratropium (Duoneb) 3 ml RTQID NEB Last administered on 07/12/16 07:21; Start 07/10/16 at 21:00 Furosemide (Lasix) 40 mg [id number] IVP Last administered on 07/12/16 09:24; Start 07/11/16 at 09:00 Trazodone HCl (Desyrel) 50 mg QHS PO Last administered on 07/11/16 21:53; Start 07/10/16 at 21:00 Tamsulosin HCl (Flomax) 0.4 mg QHS PO Last administered on 07/11/16 21:53; Start 07/10/16 at 21:00 Enoxaparin Sodium (Lovenox 40mg Syringe) 40 mg DAILY SQ Last administered on 09:20; Start 07/11/16 at 09:00 Potassium Chloride 20 meq 20 meq BIDWMEALS PO Last administered on 07/12/16 09 :23; Start 07/11/16 at 17:00 Magnesium Sulfate/ Dextrose (Magnesium Sulfate PREMIX 2GM) 50 ml @ 25 mls/hr 1X ONCE IV Last administered on 07/11/16 10:51; Start 07/11/16 at 10:00; Stop 07/11/16 at 11:59; Status DC Active Scripts Active Cozaar (Losartan Potassium) 50 Mg Tablet 50 Mg PO DAILY Flomax (Tamsulosin Hcl) 0.4 Mg Cap.er.24h 0.4 Mg PO QHS Isosorbide Mononitrate Er (Isosorbide Mononitrate) 30 Mg Tab.er.24h 30 Mg PO DAILY 30 Days Albuterol Sulfate Neb Soln (Albuterol Sulfate) 2.5 Mg/3 Ml Vial.neb 2.5 Mg NEB PRN QID PRN 30 Days Reported Lasix (Furosemide) 40 Mg Tablet 1 Tab PO QODAY Nitrostat (Nitroglycerin) 0.4 Mg Tab.subl 1 Tab SL UD Trazodone Hcl 50 Mg Tablet 1 Tab PO QHS Plavix (Clopidogrel Bisulfate) 75 Mg Tablet 75 Mg PO DAILY Imdur (Isosorbide Mononitrate) 30 Mg Tab.er.24h 30 Mg PO DAILY Pepcid (Famotidine) 20 Mg Tablet 20 Mg PO BID Betapace (Sotalol Hcl) 80 Mg Tablet 80 Mg PO BID Allopurinol 100 Mg Tablet 200 Mg PO DAILY Vitals/I & O Vital Sign - Last 24 Hours 07/11/16 07/11/16 07/11/16 07/11/16 11:00 11:50 15:00 15:59 Temp 98.1 98.6 98.1 98.6 Pulse 74 75 Resp 18 18 B/P 114/70 120/63 Pulse Ox 94 93 O2 Delivery Nasal Cannula Nasal Cannula Nasal Cannula Nasal Cannula O2 Flow Rate 1.0 1.0 1.0 1.0 07/11/16 07/11/16 07/11/16 07/11/16 19:00 19:18 20:00 21:53 Temp 97.9 97.9 Pulse 75 75 Resp 20 B/P 126/62 126/62 Pulse Ox 92 94 O2 Delivery Nasal Cannula Nasal Cannula Nasal Cannula O2 Flow Rate 1.0 1.0 07/11/16 07/12/16 07/12/16 07/12/16 23:00 03:00 05:07 07:00 Temp 97.7 97.9 98.1 97.7 97.9 98.1 Pulse 70 71 73 Resp 20 20 19 B/P 115/60 141/65 152/74 Pulse Ox 96 91 92 O2 Delivery Nasal Cannula Nasal Cannula Nasal Cannula Nasal Cannula O2 Flow Rate 1.0 07/12/16 07/12/16 07/12/16 07/12/16 07:21 09:22 09:22 09:23 Pulse 73 73 73 B/P 152/74 152/74 152/74 Pulse Ox 96 O2 Delivery Nasal Cannula O2 Flow Rate 1.0 Intake and Output 1/07/11/16 07/12/16 15:00 23:00 07:00 Intake Total 500 ml 1050 ml 500 ml Output Total 650 ml 650 ml Balance 500 ml 400 ml -150 ml LAURE OLIVER MD Jul 12, 2016 10:30
--- NOTE | 2016-07-12 10:39 | PDOC ---
PULMONARY PROGRESS NOTES Subjective feels better Vitals Vital Signs Date Time Temp Pulse Resp B/P Pulse Ox O2 Delivery O2 Flow Rate FiO2 07/12/16 09:23 73 152/74 07/12/16 07:21 96 Nasal Cannula 1.0 07/12/16 07:00 98.1 19 98.1 General: Alert, No acute distress Lungs: Wheezing (improved) Cardiovascular: S1, S2 Abdomen: Soft Neuro Exam: Alert Extremities: Other (2=edema) Labs Laboratory Tests Test 07/10/16 11:25 07/10/16 20:12 07/11/16 05:48 07/12/16 05:00 White Blood Count 8.7x10^3/uL (4.0-11.0) 7.1x10^3/uL (4.0-11.0) 8.9x10^3/uL (4.0-11.0) Red Blood Count 3.12x10^6/uL (4.30-5.70) 2.73x10^6/uL (4.30-5.70) 2.65x10^6/uL (4.30-5.70) Hemoglobin 9.7g/dL (13.0-17.5) 8.6g/dL (13.0-17.5) 8.4g/dL (13.0-17.5) Hematocrit 29.9% (39.0-53.0) 25.7% (39.0-53.0) 25.7% (39.0-53.0) Mean Corpuscular Volume 96fL (79-100) 94fL (79-100) 97fL (79-100) Mean Corpuscular Hemoglobin 31pg (25-35) 31pg (25-35) 32pg (25-35) Mean Corpuscular Hemoglobin Concent 33g/dL (31-37) 33g/dL (31-37) 33g/dL (31-37) Red Cell Distribution Width 15.5% (11.5-14.5) 15.8% (11.5-14.5) 16.0% (11.5-14.5) Platelet Count 228x10^3/uL (140-400) 226x10^3/uL (140-400) 218x10^3/uL (140-400) Neutrophils (%) (Auto) 78% (31-73) 92% (31-73) 93% (31-73) Lymphocytes (%) (Auto) 9% (24-48) 7% (24-48) 5% (24-48) Monocytes (%) (Auto) 6% (0-9) 2% (0-9) 1% (0-9) Eosinophils (%) (Auto) 6% (0-3) 0% (0-3) 0% (0-3) Basophils (%) (Auto) 1% (0-3) 0% (0-3) 0% (0-3) Neutrophils # (Auto) 6.8x10^3uL (1.8-7.7) 6.5x10^3uL (1.8-7.7) 8.3x10^3uL (1.8-7.7) Lymphocytes # (Auto) 0.8x10^3/uL (1.0-4.8) 0.5x10^3/uL (1.0-4.8) 0.5x10^3/uL (1.0-4.8) Monocytes # (Auto) 0.5x10^3/uL (0.0-1.1) 0.1x10^3/uL (0.0-1.1) 0.1x10^3/uL (0.0-1.1) Eosinophils # (Auto) 0.5x10^3/uL (0.0-0.7) 0.0x10^3/uL (0.0-0.7) 0.0x10^3/uL (0.0-0.7) Basophils # (Auto) 0.1x10^3/uL (0.0-0.2) 0.0x10^3/uL (0.0-0.2) 0.0x10^3/uL (0.0-0.2) Sodium Level 149mmol/L (136-145) 147mmol/L (136-145) 147mmol/L (136-145) Potassium Level 3.8mmol/L (3.5-5.1) 3.6mmol/L (3.5-5.1) 3.8mmol/L (3.5-5.1) Chloride Level 111mmol/L (98-107) 109mmol/L (98-107) 110mmol/L (98-107) Carbon Dioxide Level 33mmol/L (21-32) 31mmol/L (21-32) 32mmol/L (21-32) Anion Gap 5 (6-14) 7 (6-14) 5 (6-14) Blood Urea Nitrogen 12mg/dL (8-26) 16mg/dL (8-26) 25mg/dL (8-26) Creatinine 1.2mg/dL (0.7-1.3) 1.0mg/dL (0.7-1.3) 1.4mg/dL (0.7-1.3) Estimated GFR (Cockcroft-Gault) 57.8 71.4 48.4 Glucose Level 184mg/dL (70-99) 134mg/dL (70-99) 137mg/dL (70-99) Calcium Level 9.5mg/dL (8.5-10.1) 9.1mg/dL (8.5-10.1) 9.2mg/dL (8.5-10.1) Troponin I Quantitative 0.031ng/mL (0.000-0.055) 0.020ng/mL (0.000-0.055) 0.017ng/mL (0.000-0.055) PV-Ack-E-Type Natriuretic Peptide 3239pg/mL (0-449) Segmented Neutrophils % 95% (35-66) Lymphocytes % 5% (24-48) Platelet Estimate Adequate (ADEQUATE) Magnesium Level 1.7mg/dL (1.8-2.4) 2.1mg/dL (1.8-2.4) Laboratory Tests Test 07/12/16 05:00 White Blood Count 8.9x10^3/uL (4.0-11.0) Red Blood Count 2.65x10^6/uL (4.30-5.70) Hemoglobin 8.4g/dL (13.0-17.5) Hematocrit 25.7% (39.0-53.0) Mean Corpuscular Volume 97fL (79-100) Mean Corpuscular Hemoglobin 32pg (25-35) Mean Corpuscular Hemoglobin Concent 33g/dL (31-37) Red Cell Distribution Width 16.0% (11.5-14.5) Platelet Count 218x10^3/uL (140-400) Neutrophils (%) (Auto) 93% (31-73) Lymphocytes (%) (Auto) 5% (24-48) Monocytes (%) (Auto) 1% (0-9) Eosinophils (%) (Auto) 0% (0-3) Basophils (%) (Auto) 0% (0-3) Neutrophils # (Auto) 8.3x10^3uL (1.8-7.7) Lymphocytes # (Auto) 0.5x10^3/uL (1.0-4.8) Monocytes # (Auto) 0.1x10^3/uL (0.0-1.1) Eosinophils # (Auto) 0.0x10^3/uL (0.0-0.7) Basophils # (Auto) 0.0x10^3/uL (0.0-0.2) Sodium Level 147mmol/L (136-145) Potassium Level 3.8mmol/L (3.5-5.1) Chloride Level 110mmol/L (98-107) Carbon Dioxide Level 32mmol/L (21-32) Anion Gap 5 (6-14) Blood Urea Nitrogen 25mg/dL (8-26) Creatinine 1.4mg/dL (0.7-1.3) Estimated GFR (Cockcroft-Gault) 48.4 Glucose Level 137mg/dL (70-99) Calcium Level 9.2mg/dL (8.5-10.1) Magnesium Level 2.1mg/dL (1.8-2.4) Medications Active Scripts Medications Dose Route/Sig Days Date Category Lasix (Furosemide) 40 Mg Tablet 1 Tab PO QODAY 07/10/16 Reported Cozaar (Losartan Potassium) 50 Mg Tablet 50 Mg PO DAILY 06/27/16 Rx Flomax (Tamsulosin Hcl) 0.4 Mg Cap.er.24h 0.4 Mg PO QHS 06/27/16 Rx Nitrostat (Nitroglycerin) 0.4 Mg Tab.subl 1 Tab SL UD 06/14/16 Reported Isosorbide Mononitrate Er (Isosorbide Mononitrate) 30 Mg Tab.er.24h 30 Mg PO DAILY 30 05/18/16 Rx Albuterol Sulfate Neb Soln (Albuterol Sulfate) 2.5 Mg/3 Ml Vial.neb 2.5 Mg NEB PRN QID PRN 30 05/18/16 Rx Trazodone Hcl 50 Mg Tablet 1 Tab PO QHS 03/23/16 Reported Plavix (Clopidogrel Bisulfate) 75 Mg Tablet 75 Mg PO DAILY 08/19/13 Reported Imdur (Isosorbide Mononitrate) 30 Mg Tab.er.24h 30 Mg PO DAILY 08/19/13 Reported Pepcid (Famotidine) 20 Mg Tablet 20 Mg PO BID 08/19/13 Reported Betapace (Sotalol Hcl) 80 Mg Tablet 80 Mg PO BID 08/19/13 Reported Allopurinol 100 Mg Tablet 200 Mg PO DAILY 08/19/13 Reported Impression . 1. Dyspnea with bilateral bronchospasm along with lower extremity edema in a patient who has an ejection fraction of 20%. He has a cough with white sputum production. The clinical presentation is consistent with acute on chronic systolic heart failure. 2. Less likely pneumonia. He is recently being treated for pseudomonas pneumonia. 3. 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 4. History of oxygen-dependent chronic obstructive airway disease. 5. Secondary pulmonary hypertension due to severe cardiomyopathy and moderate mitral regurgitation. Plan . 1. Aggressive nebs. 2. IV Solu-Medrol. slow taper 3. Diuresis per cardiology 4. Continue with DuoNeb. 5. no need for antibiotics at present as clinically pneumonia is felt to be less likely. 6. Follow cardiology recommendations. 7. Monitored lower extremity edema, improvement with diuretics. 8. Discussed with the patient's at the bedside. DHARA ANTONIO MD Jul 12, 2016 10:39
[2016-07-12] MEDS ORDERED: METOLAZONE 2.5 MG TABLET PO ONE ×2 (10:45→16:15)
[2016-07-12 11:00] VITALS: BP 121/53
--- NOTE | 2016-07-12 13:48 | PDOC ---
PROGRESS NOTES Subjective Subjective Pt A&Ox3, sitting at chair. Family present. Pt states that he is feeling better. Denies having chest pain or SOB. States cough remains. no new complaints at this time Objective Objective Vital Signs Date Time Temp Pulse Resp B/P Pulse Ox O2 Delivery O2 Flow Rate FiO2 07/12/16 11:48 Nasal Cannula 1.0 07/12/16 11:00 98.1 75 19 121/53 95 98.1 Intake and Output 07/12/16 07:00 Intake Total 2050 ml Output Total 1300 ml Balance 750 ml Intake Oral 2050 ml Output Urine Total 1300 ml Physical Exam Abdomen: Normal bowel sounds, Soft, No tenderness, No hepatosplenomegaly, No masses Heart: Regular rate, Normal S1, Normal S2, No murmurs, Gallops Extremities: No clubbing, No cyanosis, Normal pulses, No tenderness/swelling, Other (1+ edema bilat LE) General: Alert, Oriented X3, Cooperative, No acute distress Lungs: Other (Wheezes throughout lung albarran) Neck: Supple, No JVD, No thyromegaly Diagnosis COPD: Pneumonia Assessment Assessment Problems Medical Problems: (1) CHF (congestive heart failure) Status: Acute (2) COPD exacerbation Status: Acute (3) Pneumonia Status: Acute Plan Plan of Care Will continue Lasix to decrease edema HTN stable Continue with current plan of care Comment Review of Relevant I have reviewed the following items lucio (where applicable) has been applied. Labs Laboratory Tests Test 07/10/16 20:12 07/11/16 05:48 07/12/16 05:00 Troponin I Quantitative 0.020ng/mL (0.000-0.055) 0.017ng/mL (0.000-0.055) White Blood Count 7.1x10^3/uL (4.0-11.0) 8.9x10^3/uL (4.0-11.0) Red Blood Count 2.73x10^6/uL (4.30-5.70) 2.65x10^6/uL (4.30-5.70) Hemoglobin 8.6g/dL (13.0-17.5) 8.4g/dL (13.0-17.5) Hematocrit 25.7% (39.0-53.0) 25.7% (39.0-53.0) Mean Corpuscular Volume 94fL (79-100) 97fL (79-100) Mean Corpuscular Hemoglobin 31pg (25-35) 32pg (25-35) Mean Corpuscular Hemoglobin Concent 33g/dL (31-37) 33g/dL (31-37) Red Cell Distribution Width 15.8% (11.5-14.5) 16.0% (11.5-14.5) Platelet Count 226x10^3/uL (140-400) 218x10^3/uL (140-400) Neutrophils (%) (Auto) 92% (31-73) 93% (31-73) Lymphocytes (%) (Auto) 7% (24-48) 5% (24-48) Monocytes (%) (Auto) 2% (0-9) 1% (0-9) Eosinophils (%) (Auto) 0% (0-3) 0% (0-3) Basophils (%) (Auto) 0% (0-3) 0% (0-3) Neutrophils # (Auto) 6.5x10^3uL (1.8-7.7) 8.3x10^3uL (1.8-7.7) Lymphocytes # (Auto) 0.5x10^3/uL (1.0-4.8) 0.5x10^3/uL (1.0-4.8) Monocytes # (Auto) 0.1x10^3/uL (0.0-1.1) 0.1x10^3/uL (0.0-1.1) Eosinophils # (Auto) 0.0x10^3/uL (0.0-0.7) 0.0x10^3/uL (0.0-0.7) Basophils # (Auto) 0.0x10^3/uL (0.0-0.2) 0.0x10^3/uL (0.0-0.2) Segmented Neutrophils % 95% (35-66) Lymphocytes % 5% (24-48) Platelet Estimate Adequate (ADEQUATE) Sodium Level 147mmol/L (136-145) 147mmol/L (136-145) Potassium Level 3.6mmol/L (3.5-5.1) 3.8mmol/L (3.5-5.1) Chloride Level 109mmol/L (98-107) 110mmol/L (98-107) Carbon Dioxide Level 31mmol/L (21-32) 32mmol/L (21-32) Anion Gap 7 (6-14) 5 (6-14) Blood Urea Nitrogen 16mg/dL (8-26) 25mg/dL (8-26) Creatinine 1.0mg/dL (0.7-1.3) 1.4mg/dL (0.7-1.3) Estimated GFR (Cockcroft-Gault) 71.4 48.4 Glucose Level 134mg/dL (70-99) 137mg/dL (70-99) Calcium Level 9.1mg/dL (8.5-10.1) 9.2mg/dL (8.5-10.1) Magnesium Level 1.7mg/dL (1.8-2.4) 2.1mg/dL (1.8-2.4) Laboratory Tests Test 07/12/16 05:00 White Blood Count 8.9x10^3/uL (4.0-11.0) Red Blood Count 2.65x10^6/uL (4.30-5.70) Hemoglobin 8.4g/dL (13.0-17.5) Hematocrit 25.7% (39.0-53.0) Mean Corpuscular Volume 97fL (79-100) Mean Corpuscular Hemoglobin 32pg (25-35) Mean Corpuscular Hemoglobin Concent 33g/dL (31-37) Red Cell Distribution Width 16.0% (11.5-14.5) Platelet Count 218x10^3/uL (140-400) Neutrophils (%) (Auto) 93% (31-73) Lymphocytes (%) (Auto) 5% (24-48) Monocytes (%) (Auto) 1% (0-9) Eosinophils (%) (Auto) 0% (0-3) Basophils (%) (Auto) 0% (0-3) Neutrophils # (Auto) 8.3x10^3uL (1.8-7.7) Lymphocytes # (Auto) 0.5x10^3/uL (1.0-4.8) Monocytes # (Auto) 0.1x10^3/uL (0.0-1.1) Eosinophils # (Auto) 0.0x10^3/uL (0.0-0.7) Basophils # (Auto) 0.0x10^3/uL (0.0-0.2) Sodium Level 147mmol/L (136-145) Potassium Level 3.8mmol/L (3.5-5.1) Chloride Level 110mmol/L (98-107) Carbon Dioxide Level 32mmol/L (21-32) Anion Gap 5 (6-14) Blood Urea Nitrogen 25mg/dL (8-26) Creatinine 1.4mg/dL (0.7-1.3) Estimated GFR (Cockcroft-Gault) 48.4 Glucose Level 137mg/dL (70-99) Calcium Level 9.2mg/dL (8.5-10.1) Magnesium Level 2.1mg/dL (1.8-2.4) Microbiology 07/10/16 Blood Culture - Preliminary, Resulted NO GROWTH AFTER 1 DAY Medications Current Medications Albuterol/ Ipratropium (Duoneb) 6 ml 1X ONCE NEB Last administered on 12:17; Start 07/10/16 at 12:00; Stop 07/10/16 at 12:01; Status DC Prednisone 60 mg 60 mg 1X ONCE PO Last administered on 07/10/16 12:00; Start 07/10/16 at 12:00; Stop 07/10/16 at 12:01; Status DC Levofloxacin/ Dextrose (LEVAQUIN 750mg PREMIX) 150 ml @ 100 mls/hr 1X ONCE IV Last administered on 07/10/16 15:00; Start 07/10/16 at 15:00; Stop 07/10/16 at 16:29; Status DC Furosemide (Lasix) 20 mg 1X ONCE IVP Last administered on 07/10/16 14:30; Start 07/10/16 at 14:30; Stop 07/10/16 at 14:33; Status DC Morphine Sulfate 2 mg PRN Q2HR PRN IV PAIN; Start 07/10/16 at 14:30; Stop 07/11 at 14:29; Status DC Acetaminophen (Tylenol) 650 mg PRN Q4HRS PRN PO FEVER; Start 07/10/16 at 14:30 ; Stop 07/11/16 at 14:29; Status DC Albuterol/ Ipratropium (Duoneb) 3 ml RTQID NEB ; Start 07/10/16 at 16:00; Stop 07/10/16 at 16:00; Status DC Furosemide (Lasix) 40 mg 1X ONCE IVP Last administered on 07/10/16 18:33; Start 07/10/16 at 15:45; Stop 07/10/16 at 15:46; Status DC Methylprednisolone Sodium Succinate (Solu-Medrol 125mg Vial) 60 mg Q8HRS IV Last administered on 07/12/16 05:10; Start 07/10/16 at 16:00; Stop 07/12/16 at 10:28; Status DC Albuterol/ Ipratropium (Duoneb) 3 ml Q4HRS NEB ; Start 07/10/16 at 16:00; Stop 07/10/16 at 18:15; Status DC Budesonide (Pulmicort) 0.5 mg RTBID NEB Last administered on 07/12/16 07:20; Start 07/10/16 at 18:00 Allopurinol (Zyloprim) 200 mg DAILY PO Last administered on 07/12/16 09:21; Start 07/11/16 at 09:00 Famotidine (Pepcid) 20 mg BID PO Last administered on 07/12/16 09:21; Start at 21:00 Isosorbide Mononitrate (Imdur) 30 mg DAILY PO Last administered on 07/12/16 09 :22; Start 07/11/16 at 09:00 Sotalol HCl (Betapace) 80 mg BID PO Last administered on 07/12/16 09:22; Start 07/10/16 at 21:00 Clopidogrel Bisulfate (Plavix) 75 mg DAILYWBKFT PO Last administered on 09:21; Start 07/11/16 at 08:00 Multivitamins/ Calcium (Thera M Plus) 1 tab DAILY PO Last administered on 09:24; Start 07/11/16 at 09:00 Losartan Potassium (Cozaar) 50 mg DAILY PO Last administered on 07/12/16 09:23 ; Start 07/11/16 at 09:00 Trazodone HCl (Desyrel) 50 mg PRN QHS PRN PO INSOMNIA; Start 07/10/16 at 17:00 ; Stop 07/10/16 at 21:00; Status DC Nitroglycerin (Nitrostat) 0.4 mg PRN Q5MIN PRN SL CHEST PAIN; Start 07/10/16 at 17:00 Acetaminophen (Tylenol) 650 mg PRN Q4HRS PRN PO MILD PAIN / TEMP; Start at 17:00 Furosemide (Lasix) 40 mg DAILY IVP ; Start 07/11/16 at 09:00; Stop 07/11/16 at 09:00; Status DC Potassium Chloride (Klor-Con) 20 meq DAILYWBKFT PO Last administered on 09:16; Start 07/11/16 at 08:00; Stop 07/11/16 at 09:41; Status DC Furosemide (Lasix) 40 mg [id number] IVP ; Start 07/11/16 at 19:00; Stop 07/11/16 at 19:00; Status DC Albuterol/ Ipratropium (Duoneb) 3 ml RTQID NEB Last administered on 07/12/16 11:48; Start 07/10/16 at 21:00 Furosemide (Lasix) 40 mg [id number] IVP Last administered on 07/12/16 09:24; Start 07/11/16 at 09:00 Trazodone HCl (Desyrel) 50 mg QHS PO Last administered on 07/11/16 21:53; Start 07/10/16 at 21:00 Tamsulosin HCl (Flomax) 0.4 mg QHS PO Last administered on 07/11/16 21:53; Start 07/10/16 at 21:00 Enoxaparin Sodium (Lovenox 40mg Syringe) 40 mg DAILY SQ Last administered on 09:20; Start 07/11/16 at 09:00 Potassium Chloride 20 meq 20 meq BIDWMEALS PO Last administered on 07/12/16 09 :23; Start 07/11/16 at 17:00 Magnesium Sulfate/ Dextrose (Magnesium Sulfate PREMIX 2GM) 50 ml @ 25 mls/hr 1X ONCE IV Last administered on 07/11/16 10:51; Start 07/11/16 at 10:00; Stop 07/11/16 at 11:59; Status DC Methylprednisolone Sodium Succinate (Solu-Medrol 125mg Vial) 60 mg Q12HR IV ; Start 07/12/16 at 21:00 Metolazone (Zaroxolyn) 2.5 mg 1X ONCE PO ; Start 07/12/16 at 10:45; Stop at 10:46; Status DC Active Scripts Active Cozaar (Losartan Potassium) 50 Mg Tablet 50 Mg PO DAILY Flomax (Tamsulosin Hcl) 0.4 Mg Cap.er.24h 0.4 Mg PO QHS Isosorbide Mononitrate Er (Isosorbide Mononitrate) 30 Mg Tab.er.24h 30 Mg PO DAILY 30 Days Albuterol Sulfate Neb Soln (Albuterol Sulfate) 2.5 Mg/3 Ml Vial.neb 2.5 Mg NEB PRN QID PRN 30 Days Reported Lasix (Furosemide) 40 Mg Tablet 1 Tab PO QODAY Nitrostat (Nitroglycerin) 0.4 Mg Tab.subl 1 Tab SL UD Trazodone Hcl 50 Mg Tablet 1 Tab PO QHS Plavix (Clopidogrel Bisulfate) 75 Mg Tablet 75 Mg PO DAILY Imdur (Isosorbide Mononitrate) 30 Mg Tab.er.24h 30 Mg PO DAILY Pepcid (Famotidine) 20 Mg Tablet 20 Mg PO BID Betapace (Sotalol Hcl) 80 Mg Tablet 80 Mg PO BID Allopurinol 100 Mg Tablet 200 Mg PO DAILY Vitals/I & O Vital Sign - Last 24 Hours 07/11/16 07/11/16 07/11/16 07/11/16 15:00 15:59 19:00 19:18 Temp 98.6 97.9 98.6 97.9 Pulse 75 75 Resp 18 20 B/P 120/63 126/62 Pulse Ox 93 92 94 O2 Delivery Nasal Cannula Nasal Cannula Nasal Cannula Nasal Cannula O2 Flow Rate 1.0 1.0 1.0 07/11/16 07/11/16 07/11/16 07/12/16 20:00 21:53 23:00 03:00 Temp 97.7 97.7 Pulse 75 70 Resp 20 B/P 126/62 115/60 Pulse Ox 96 O2 Delivery Nasal Cannula Nasal Cannula Nasal Cannula O2 Flow Rate 1.0 1/07/12/16 07/12/16 07/12/16 05:07 07:00 07:21 09:22 Temp 97.9 98.1 97.9 98.1 Pulse 71 73 73 Resp 20 19 B/P 141/65 152/74 152/74 Pulse Ox 91 92 96 O2 Delivery Nasal Cannula Nasal Cannula Nasal Cannula O2 Flow Rate 1.0 1.0 07/12/16 07/12/16 07/12/16 07/12/16 09:22 09:23 11:00 11:48 Temp 98.1 98.1 Pulse 73 73 75 Resp 19 B/P 152/74 152/74 121/53 Pulse Ox 95 O2 Delivery Nasal Cannula Nasal Cannula O2 Flow Rate 1.0 1.0 Intake and Output 07/11/16 07/11/16 07/12/16 15:00 23:00 07:00 Intake Total 500 ml 1050 ml 500 ml Output Total 650 ml 650 ml Balance 500 ml 400 ml -150 ml ZEESHAN TOSCANO MD Jul 12, 2016 13:48
[2016-07-12 15:00] VITALS: BP 141/63
[2016-07-12] MEDS: ENOXAPARIN 40 MG/0.4 ML DISP.SYRIN. SQ SCH (16:07)
[2016-07-12 19:00] VITALS: BP 143/69
[2016-07-12] MEDS: traZODone 50 MG TABLET. PO SCH (20:35)
[2016-07-12] MEDS: TAMSULOSIN 0.4 MG CAP.ER.24H. PO SCH (20:35)
[2016-07-12 23:00] VITALS: BP 119/63
[2016-07-13 03:00] VITALS: BP 133/69
[2016-07-13 04:41] LABS: BASO % 0 % (0-3); EOS % 0 % (0-3); HEMATOCRIT 27.2 % (39.0-53.0); HEMOGLOBIN 8.7 g/dL (13.0-17.5); LYMPH # 0.5 x10^3/uL (1.0-4.8); LYMPH % 6 % (24-48); MEAN CORPUSCULAR HEMOGLOBIN 31 pg (25-35); MEAN CORPUSCULAR HGB CONC 32 g/dL (31-37); MEAN CORPUSCULAR VOLUME 97 fL (79-100); MONO % 2 % (0-9); NEUT % 93 % (31-73); PLATELET COUNT 225 x10^3/uL (140-400); RED BLOOD COUNT 2.81 x10^6/uL (4.30-5.70); RED CELL DISTRIBUTION WIDTH 16.2 % (11.5-14.5); WHITE BLOOD COUNT 8.1 x10^3/uL (4.0-11.0)
[2016-07-13 05:10] LABS: CALCIUM 9.4 mg/dL (8.5-10.1); CREATININE 1.5 mg/dL (0.7-1.3); GFR 44.7; MAGNESIUM 1.9 mg/dL (1.8-2.4); POTASSIUM 4.2 mmol/L (3.5-5.1)
[2016-07-13 07:00] VITALS: BP 143/65
[2016-07-13] MEDS: BUDESONIDE 0.5 MG/2 ML NEBU NEB SCH ×2 (08:52→19:18)
[2016-07-13] MEDS: IPRATRPIUM/ALBUTEROL 0.5/2.5MG 3 ML NEBU. NEB SCH ×4 (08:52→19:18)
[2016-07-13] MEDS: CLOPIDOGREL BISULFATE 75 MG TABLET PO SCH (09:35)
[2016-07-13] MEDS: MULTIVITAMIN with MINERAL TABLET. PO SCH (09:36)
[2016-07-13] MEDS: FAMOTIDINE 20 MG TABLET. PO SCH (09:36)
[2016-07-13] MEDS: SOTALOL 80 MG TABLET. PO SCH ×2 (09:37→21:11)
[2016-07-13] MEDS: ALLOPURINOL 100 MG TABLET. PO SCH (09:38)
[2016-07-13] MEDS: ISOSORBIDE MONONITRATE ER 30 MG TAB.ER.24H PO SCH (09:38)
[2016-07-13] MEDS: LOSARTAN POTASSIUM 50 MG TABLET. PO SCH (09:39)
[2016-07-13] MEDS: ENOXAPARIN 40 MG/0.4 ML DISP.SYRIN. SQ SCH (09:40)
[2016-07-13] MEDS: methylPREDNISolone SOD SUCC PF 125 MG/2 ML VIAL. IV SCH ×2 (09:41→21:10)
[2016-07-13] MEDS: FUROSEMIDE 40 MG/4 ML VIAL IVP SCH ×2 (09:42→17:47)
[2016-07-13] MEDS: POTASSIUM CHLORIDE 20 MEQ TABLET.ER. PO SCH ×2 (10:49→17:46)
[2016-07-13 11:00] VITALS: BP 145/68
--- NOTE | 2016-07-13 11:38 | PDOC ---
PROGRESS NOTES Subjective Subjective good diuresis yesterday. wheezing now. feels the same. discussed with daughter. lab reviewed. bun 30 and creatinine 1.5. Objective Objective Vital Signs Date Time Temp Pulse Resp B/P Pulse Ox O2 Delivery O2 Flow Rate FiO2 07/13/16 11:17 96 Nasal Cannula 1.0 07/13/16 09:39 74 133/69 07/13/16 03:00 98.1 18 98.1 Intake and Output 07/13/16 07:00 Intake Total 1660 ml Output Total 2275 ml Balance -615 ml Intake Oral 1660 ml Output Urine Total 2275 ml # Bowel Movements 1 Physical Exam Abdomen: Soft Heart: Regular rate, Normal S1, Normal S2 Extremities: Other (2 plus edema LLE and 1 plus edema RLL) General: Alert HEENT: Atraumatic Lungs: Other (mild wheezing) Neuro: Normal speech Psych/Mental Status: Mental status NL Skin: No rashes Assessment Assessment Problems Medical Problems:Acute on chronic systolic congestive heart failure. 2. Ischemic cardiomyopathy.LVEF 20% 3. Acute on chronic hypoxic respiratory failure. 4. Chronic obstructive pulmonary disease. 5. Pulmonary fibrosis. 6. Bronchiectasis. 7. Coronary artery disease. 8. Chronic kidney disease stage 3. superficial vein thrombosis right sural vein urine retention. figueroa catheter (1) CHF (congestive heart failure) Status: Acute (2) COPD exacerbation Status: Acute (3) Pneumonia Status: Acute Plan Plan of Care iv lasix iv solumedrol and oxygen and nebulizer rx consult dr. mcgovern PT and OT Comment Review of Relevant I have reviewed the following items lucio (where applicable) has been applied. Labs Laboratory Tests Test 07/12/16 05:00 07/13/16 03:40 White Blood Count 8.9x10^3/uL (4.0-11.0) 8.1x10^3/uL (4.0-11.0) Red Blood Count 2.65x10^6/uL (4.30-5.70) 2.81x10^6/uL (4.30-5.70) Hemoglobin 8.4g/dL (13.0-17.5) 8.7g/dL (13.0-17.5) Hematocrit 25.7% (39.0-53.0) 27.2% (39.0-53.0) Mean Corpuscular Volume 97fL (79-100) 97fL (79-100) Mean Corpuscular Hemoglobin 32pg (25-35) 31pg (25-35) Mean Corpuscular Hemoglobin Concent 33g/dL (31-37) 32g/dL (31-37) Red Cell Distribution Width 16.0% (11.5-14.5) 16.2% (11.5-14.5) Platelet Count 218x10^3/uL (140-400) 225x10^3/uL (140-400) Neutrophils (%) (Auto) 93% (31-73) 93% (31-73) Lymphocytes (%) (Auto) 5% (24-48) 6% (24-48) Monocytes (%) (Auto) 1% (0-9) 2% (0-9) Eosinophils (%) (Auto) 0% (0-3) 0% (0-3) Basophils (%) (Auto) 0% (0-3) 0% (0-3) Neutrophils # (Auto) 8.3x10^3uL (1.8-7.7) 7.5x10^3uL (1.8-7.7) Lymphocytes # (Auto) 0.5x10^3/uL (1.0-4.8) 0.5x10^3/uL (1.0-4.8) Monocytes # (Auto) 0.1x10^3/uL (0.0-1.1) 0.1x10^3/uL (0.0-1.1) Eosinophils # (Auto) 0.0x10^3/uL (0.0-0.7) 0.0x10^3/uL (0.0-0.7) Basophils # (Auto) 0.0x10^3/uL (0.0-0.2) 0.0x10^3/uL (0.0-0.2) Sodium Level 147mmol/L (136-145) 145mmol/L (136-145) Potassium Level 3.8mmol/L (3.5-5.1) 4.2mmol/L (3.5-5.1) Chloride Level 110mmol/L (98-107) 106mmol/L (98-107) Carbon Dioxide Level 32mmol/L (21-32) 33mmol/L (21-32) Anion Gap 5 (6-14) 6 (6-14) Blood Urea Nitrogen 25mg/dL (8-26) 30mg/dL (8-26) Creatinine 1.4mg/dL (0.7-1.3) 1.5mg/dL (0.7-1.3) Estimated GFR (Cockcroft-Gault) 48.4 44.7 Glucose Level 137mg/dL (70-99) 123mg/dL (70-99) Calcium Level 9.2mg/dL (8.5-10.1) 9.4mg/dL (8.5-10.1) Magnesium Level 2.1mg/dL (1.8-2.4) 1.9mg/dL (1.8-2.4) Laboratory Tests Test 07/13/16 03:40 White Blood Count 8.1x10^3/uL (4.0-11.0) Red Blood Count 2.81x10^6/uL (4.30-5.70) Hemoglobin 8.7g/dL (13.0-17.5) Hematocrit 27.2% (39.0-53.0) Mean Corpuscular Volume 97fL (79-100) Mean Corpuscular Hemoglobin 31pg (25-35) Mean Corpuscular Hemoglobin Concent 32g/dL (31-37) Red Cell Distribution Width 16.2% (11.5-14.5) Platelet Count 225x10^3/uL (140-400) Neutrophils (%) (Auto) 93% (31-73) Lymphocytes (%) (Auto) 6% (24-48) Monocytes (%) (Auto) 2% (0-9) Eosinophils (%) (Auto) 0% (0-3) Basophils (%) (Auto) 0% (0-3) Neutrophils # (Auto) 7.5x10^3uL (1.8-7.7) Lymphocytes # (Auto) 0.5x10^3/uL (1.0-4.8) Monocytes # (Auto) 0.1x10^3/uL (0.0-1.1) Eosinophils # (Auto) 0.0x10^3/uL (0.0-0.7) Basophils # (Auto) 0.0x10^3/uL (0.0-0.2) Sodium Level 145mmol/L (136-145) Potassium Level 4.2mmol/L (3.5-5.1) Chloride Level 106mmol/L (98-107) Carbon Dioxide Level 33mmol/L (21-32) Anion Gap 6 (6-14) Blood Urea Nitrogen 30mg/dL (8-26) Creatinine 1.5mg/dL (0.7-1.3) Estimated GFR (Cockcroft-Gault) 44.7 Glucose Level 123mg/dL (70-99) Calcium Level 9.4mg/dL (8.5-10.1) Magnesium Level 1.9mg/dL (1.8-2.4) Microbiology 07/10/16 Blood Culture - Preliminary, Resulted NO GROWTH AFTER 2 DAYS Medications Current Medications Albuterol/ Ipratropium (Duoneb) 6 ml 1X ONCE NEB Last administered on 12:17; Start 07/10/16 at 12:00; Stop 07/10/16 at 12:01; Status DC Prednisone 60 mg 60 mg 1X ONCE PO Last administered on 07/10/16 12:00; Start 07/10/16 at 12:00; Stop 07/10/16 at 12:01; Status DC Levofloxacin/ Dextrose (LEVAQUIN 750mg PREMIX) 150 ml @ 100 mls/hr 1X ONCE IV Last administered on 07/10/16 15:00; Start 07/10/16 at 15:00; Stop 07/10/16 at 16:29; Status DC Furosemide (Lasix) 20 mg 1X ONCE IVP Last administered on 07/10/16 14:30; Start 07/10/16 at 14:30; Stop 07/10/16 at 14:33; Status DC Morphine Sulfate 2 mg PRN Q2HR PRN IV PAIN; Start 07/10/16 at 14:30; Stop 07/11 at 14:29; Status DC Acetaminophen (Tylenol) 650 mg PRN Q4HRS PRN PO FEVER; Start 07/10/16 at 14:30 ; Stop 07/11/16 at 14:29; Status DC Albuterol/ Ipratropium (Duoneb) 3 ml RTQID NEB ; Start 07/10/16 at 16:00; Stop 07/10/16 at 16:00; Status DC Furosemide (Lasix) 40 mg 1X ONCE IVP Last administered on 07/10/16 18:33; Start 07/10/16 at 15:45; Stop 07/10/16 at 15:46; Status DC Methylprednisolone Sodium Succinate (Solu-Medrol 125mg Vial) 60 mg Q8HRS IV Last administered on 07/12/16 05:10; Start 07/10/16 at 16:00; Stop 07/12/16 at 10:28; Status DC Albuterol/ Ipratropium (Duoneb) 3 ml Q4HRS NEB ; Start 07/10/16 at 16:00; Stop 07/10/16 at 18:15; Status DC Budesonide (Pulmicort) 0.5 mg RTBID NEB Last administered on 07/13/16 08:52; Start 07/10/16 at 18:00 Allopurinol (Zyloprim) 200 mg DAILY PO Last administered on 07/13/16 09:38; Start 07/11/16 at 09:00 Famotidine (Pepcid) 20 mg BID PO Last administered on 07/12/16 09:21; Start at 21:00; Stop 07/12/16 at 19:48; Status DC Isosorbide Mononitrate (Imdur) 30 mg DAILY PO Last administered on 07/13/16 09 :38; Start 07/11/16 at 09:00 Sotalol HCl (Betapace) 80 mg BID PO Last administered on 07/13/16 09:37; Start 07/10/16 at 21:00 Clopidogrel Bisulfate (Plavix) 75 mg DAILYWBKFT PO Last administered on 09:35; Start 07/11/16 at 08:00 Multivitamins/ Calcium (Thera M Plus) 1 tab DAILY PO Last administered on 09:36; Start 07/11/16 at 09:00 Losartan Potassium (Cozaar) 50 mg DAILY PO Last administered on 07/13/16 09:39 ; Start 07/11/16 at 09:00 Trazodone HCl (Desyrel) 50 mg PRN QHS PRN PO INSOMNIA; Start 07/10/16 at 17:00 ; Stop 07/10/16 at 21:00; Status DC Nitroglycerin (Nitrostat) 0.4 mg PRN Q5MIN PRN SL CHEST PAIN; Start 07/10/16 at 17:00 Acetaminophen (Tylenol) 650 mg PRN Q4HRS PRN PO MILD PAIN / TEMP; Start at 17:00 Furosemide (Lasix) 40 mg DAILY IVP ; Start 07/11/16 at 09:00; Stop 07/11/16 at 09:00; Status DC Potassium Chloride (Klor-Con) 20 meq DAILYWBKFT PO Last administered on 09:16; Start 07/11/16 at 08:00; Stop 07/11/16 at 09:41; Status DC Furosemide (Lasix) 40 mg [id number] IVP ; Start 07/11/16 at 19:00; Stop 07/11/16 at 19:00; Status DC Albuterol/ Ipratropium (Duoneb) 3 ml RTQID NEB Last administered on 07/13/16 11:17; Start 07/10/16 at 21:00 Furosemide (Lasix) 40 mg [id number] IVP Last administered on 07/13/16 09:42; Start 07/11/16 at 09:00 Trazodone HCl (Desyrel) 50 mg QHS PO Last administered on 07/12/16 20:35; Start 07/10/16 at 21:00 Tamsulosin HCl (Flomax) 0.4 mg QHS PO Last administered on 07/12/16 20:35; Start 07/10/16 at 21:00 Enoxaparin Sodium (Lovenox 40mg Syringe) 40 mg DAILY SQ Last administered on 09:40; Start 07/11/16 at 09:00 Potassium Chloride 20 meq 20 meq BIDWMEALS PO Last administered on 07/13/16 10 :49; Start 07/11/16 at 17:00 Magnesium Sulfate/ Dextrose (Magnesium Sulfate PREMIX 2GM) 50 ml @ 25 mls/hr 1X ONCE IV Last administered on 07/11/16 10:51; Start 07/11/16 at 10:00; Stop 07/11/16 at 11:59; Status DC Methylprednisolone Sodium Succinate (Solu-Medrol 125mg Vial) 60 mg Q12HR IV Last administered on 07/13/16 09:41; Start 07/12/16 at 21:00 Metolazone (Zaroxolyn) 2.5 mg 1X ONCE PO ; Start 07/12/16 at 10:45; Stop at 10:46; Status Cancel Metolazone (Zaroxolyn) 2.5 mg 1X ONCE PO Last administered on 07/12/16 16:54 ; Start 07/12/16 at 16:15; Stop 07/12/16 at 16:16; Status DC Famotidine (Pepcid) 20 mg DAILY PO Last administered on 07/13/16 09:36; Start 07/13/16 at 09:00 Active Scripts Active Cozaar (Losartan Potassium) 50 Mg Tablet 50 Mg PO DAILY Flomax (Tamsulosin Hcl) 0.4 Mg Cap.er.24h 0.4 Mg PO QHS Isosorbide Mononitrate Er (Isosorbide Mononitrate) 30 Mg Tab.er.24h 30 Mg PO DAILY 30 Days Albuterol Sulfate Neb Soln (Albuterol Sulfate) 2.5 Mg/3 Ml Vial.neb 2.5 Mg NEB PRN QID PRN 30 Days Reported Lasix (Furosemide) 40 Mg Tablet 1 Tab PO QODAY Nitrostat (Nitroglycerin) 0.4 Mg Tab.subl 1 Tab SL UD Trazodone Hcl 50 Mg Tablet 1 Tab PO QHS Plavix (Clopidogrel Bisulfate) 75 Mg Tablet 75 Mg PO DAILY Imdur (Isosorbide Mononitrate) 30 Mg Tab.er.24h 30 Mg PO DAILY Pepcid (Famotidine) 20 Mg Tablet 20 Mg PO BID Betapace (Sotalol Hcl) 80 Mg Tablet 80 Mg PO BID Allopurinol 100 Mg Tablet 200 Mg PO DAILY Vitals/I & O Vital Sign - Last 24 Hours 07/12/16 07/12/16 07/12/16 07/12/16 11:48 15:00 16:16 19:00 Temp 97.7 97.9 97.7 97.9 Pulse 71 74 Resp 19 18 B/P 141/63 143/69 Pulse Ox 94 96 O2 Delivery Nasal Cannula Nasal Cannula Nasal Cannula Nasal Cannula O2 Flow Rate 1.0 1.0 1.0 1.0 07/12/16 07/12/16 07/12/16 07/12/16 19:35 20:01 20:35 23:00 Temp 98.1 98.1 Pulse 74 74 Resp 18 B/P 143/69 119/63 Pulse Ox 91 O2 Delivery Nasal Cannula Nasal Cannula Nasal Cannula O2 Flow Rate 1.0 1.0 1.0 07/13/16 07/13/16 07/13/16 07/13/16 03:00 08:54 09:37 09:38 Temp 98.1 98.1 Pulse 74 74 74 Resp 18 B/P 133/69 133/69 133/69 Pulse Ox 94 95 O2 Delivery Nasal Cannula Nasal Cannula O2 Flow Rate 1.0 1.0 07/13/16 07/13/16 09:39 11:17 Pulse 74 B/P 133/69 Pulse Ox 96 O2 Delivery Nasal Cannula O2 Flow Rate 1.0 Intake and Output 07/12/16 07/12/16 07/13/16 15:00 23:00 07:00 Intake Total 500 ml 800 ml 360 ml Output Total 600 ml 1675 ml Balance 500 ml 200 ml -1315 ml LAURE OLIVER MD Jul 13, 2016 11:38
--- NOTE | 2016-07-13 12:23 | PDOC ---
PULMONARY PROGRESS NOTES Subjective feels better Vitals Vital Signs Date Time Temp Pulse Resp B/P Pulse Ox O2 Delivery O2 Flow Rate FiO2 07/13/16 11:17 96 Nasal Cannula 1.0 07/13/16 09:39 74 133/69 07/13/16 03:00 98.1 18 98.1 General: Alert, No acute distress Lungs: Wheezing (improved) Cardiovascular: S1, S2 Abdomen: Soft Neuro Exam: Alert Extremities: Other (2=edema) Labs Laboratory Tests Test 07/12/16 05:00 07/13/16 03:40 White Blood Count 8.9x10^3/uL (4.0-11.0) 8.1x10^3/uL (4.0-11.0) Red Blood Count 2.65x10^6/uL (4.30-5.70) 2.81x10^6/uL (4.30-5.70) Hemoglobin 8.4g/dL (13.0-17.5) 8.7g/dL (13.0-17.5) Hematocrit 25.7% (39.0-53.0) 27.2% (39.0-53.0) Mean Corpuscular Volume 97fL (79-100) 97fL (79-100) Mean Corpuscular Hemoglobin 32pg (25-35) 31pg (25-35) Mean Corpuscular Hemoglobin Concent 33g/dL (31-37) 32g/dL (31-37) Red Cell Distribution Width 16.0% (11.5-14.5) 16.2% (11.5-14.5) Platelet Count 218x10^3/uL (140-400) 225x10^3/uL (140-400) Neutrophils (%) (Auto) 93% (31-73) 93% (31-73) Lymphocytes (%) (Auto) 5% (24-48) 6% (24-48) Monocytes (%) (Auto) 1% (0-9) 2% (0-9) Eosinophils (%) (Auto) 0% (0-3) 0% (0-3) Basophils (%) (Auto) 0% (0-3) 0% (0-3) Neutrophils # (Auto) 8.3x10^3uL (1.8-7.7) 7.5x10^3uL (1.8-7.7) Lymphocytes # (Auto) 0.5x10^3/uL (1.0-4.8) 0.5x10^3/uL (1.0-4.8) Monocytes # (Auto) 0.1x10^3/uL (0.0-1.1) 0.1x10^3/uL (0.0-1.1) Eosinophils # (Auto) 0.0x10^3/uL (0.0-0.7) 0.0x10^3/uL (0.0-0.7) Basophils # (Auto) 0.0x10^3/uL (0.0-0.2) 0.0x10^3/uL (0.0-0.2) Sodium Level 147mmol/L (136-145) 145mmol/L (136-145) Potassium Level 3.8mmol/L (3.5-5.1) 4.2mmol/L (3.5-5.1) Chloride Level 110mmol/L (98-107) 106mmol/L (98-107) Carbon Dioxide Level 32mmol/L (21-32) 33mmol/L (21-32) Anion Gap 5 (6-14) 6 (6-14) Blood Urea Nitrogen 25mg/dL (8-26) 30mg/dL (8-26) Creatinine 1.4mg/dL (0.7-1.3) 1.5mg/dL (0.7-1.3) Estimated GFR (Cockcroft-Gault) 48.4 44.7 Glucose Level 137mg/dL (70-99) 123mg/dL (70-99) Calcium Level 9.2mg/dL (8.5-10.1) 9.4mg/dL (8.5-10.1) Magnesium Level 2.1mg/dL (1.8-2.4) 1.9mg/dL (1.8-2.4) Laboratory Tests Test 07/13/16 03:40 White Blood Count 8.1x10^3/uL (4.0-11.0) Red Blood Count 2.81x10^6/uL (4.30-5.70) Hemoglobin 8.7g/dL (13.0-17.5) Hematocrit 27.2% (39.0-53.0) Mean Corpuscular Volume 97fL (79-100) Mean Corpuscular Hemoglobin 31pg (25-35) Mean Corpuscular Hemoglobin Concent 32g/dL (31-37) Red Cell Distribution Width 16.2% (11.5-14.5) Platelet Count 225x10^3/uL (140-400) Neutrophils (%) (Auto) 93% (31-73) Lymphocytes (%) (Auto) 6% (24-48) Monocytes (%) (Auto) 2% (0-9) Eosinophils (%) (Auto) 0% (0-3) Basophils (%) (Auto) 0% (0-3) Neutrophils # (Auto) 7.5x10^3uL (1.8-7.7) Lymphocytes # (Auto) 0.5x10^3/uL (1.0-4.8) Monocytes # (Auto) 0.1x10^3/uL (0.0-1.1) Eosinophils # (Auto) 0.0x10^3/uL (0.0-0.7) Basophils # (Auto) 0.0x10^3/uL (0.0-0.2) Sodium Level 145mmol/L (136-145) Potassium Level 4.2mmol/L (3.5-5.1) Chloride Level 106mmol/L (98-107) Carbon Dioxide Level 33mmol/L (21-32) Anion Gap 6 (6-14) Blood Urea Nitrogen 30mg/dL (8-26) Creatinine 1.5mg/dL (0.7-1.3) Estimated GFR (Cockcroft-Gault) 44.7 Glucose Level 123mg/dL (70-99) Calcium Level 9.4mg/dL (8.5-10.1) Magnesium Level 1.9mg/dL (1.8-2.4) Medications Active Scripts Medications Dose Route/Sig Days Date Category Lasix (Furosemide) 40 Mg Tablet 1 Tab PO QODAY 07/10/16 Reported Cozaar (Losartan Potassium) 50 Mg Tablet 50 Mg PO DAILY 06/27/16 Rx Flomax (Tamsulosin Hcl) 0.4 Mg Cap.er.24h 0.4 Mg PO QHS 06/27/16 Rx Nitrostat (Nitroglycerin) 0.4 Mg Tab.subl 1 Tab SL UD 06/14/16 Reported Isosorbide Mononitrate Er (Isosorbide Mononitrate) 30 Mg Tab.er.24h 30 Mg PO DAILY 30 05/18/16 Rx Albuterol Sulfate Neb Soln (Albuterol Sulfate) 2.5 Mg/3 Ml Vial.neb 2.5 Mg NEB PRN QID PRN 30 05/18/16 Rx Trazodone Hcl 50 Mg Tablet 1 Tab PO QHS 03/23/16 Reported Plavix (Clopidogrel Bisulfate) 75 Mg Tablet 75 Mg PO DAILY 08/19/13 Reported Imdur (Isosorbide Mononitrate) 30 Mg Tab.er.24h 30 Mg PO DAILY 08/19/13 Reported Pepcid (Famotidine) 20 Mg Tablet 20 Mg PO BID 08/19/13 Reported Betapace (Sotalol Hcl) 80 Mg Tablet 80 Mg PO BID 08/19/13 Reported Allopurinol 100 Mg Tablet 200 Mg PO DAILY 08/19/13 Reported Impression . 1. Dyspnea with bilateral bronchospasm along with lower extremity edema in a patient who has an ejection fraction of 20%. He has a cough with white sputum production. The clinical presentation is consistent with acute on chronic systolic heart failure. 2. Less likely pneumonia. He is recently being treated for pseudomonas pneumonia. 3. 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 4. History of oxygen-dependent chronic obstructive airway disease. 5. Secondary pulmonary hypertension due to severe cardiomyopathy and moderate mitral regurgitation. Plan . 1. Aggressive nebs. 2. IV Solu-Medrol. slow taper 3. Diuresis per cardiology 4. Continue with DuoNeb. 5. no need for antibiotics at present as clinically pneumonia is felt to be less likely. 6. Follow cardiology recommendations. 7. Monitored lower extremity edema, improvement with diuretics. 8. Discussed with the patient's at the bedside. DHARA ANTONIO MD Jul 13, 2016 12:22
[2016-07-13 15:00] VITALS: BP 138/68
--- NOTE | 2016-07-13 15:26 | PDOC ---
PROGRESS NOTES Subjective Subjective Patient is feeling well today and offers no cardiac complaints. He has been ambulating about twice a day without any significant difficulties. Objective Objective Vital Signs Date Time Temp Pulse Resp B/P Pulse Ox O2 Delivery O2 Flow Rate FiO2 07/13/16 11:17 96 Nasal Cannula 1.0 07/13/16 11:00 97.7 75 19 145/68 97.7 Intake and Output 07/13/16 07:00 Intake Total 1660 ml Output Total 2275 ml Balance -615 ml Intake Oral 1660 ml Output Urine Total 2275 ml # Bowel Movements 1 Physical Exam Physical Exam No significant change in cardiac exam. Lungs clear Assessment Assessment Problems Medical Problems: (1) CHF (congestive heart failure) Status: Acute (2) COPD exacerbation Status: Acute (3) Pneumonia Status: Acute Plan Plan of Care Patient is stable from a cardiac standpoint, I agree with the current plan of care. Continue PT/OT Comment Review of Relevant I have reviewed the following items lucio (where applicable) has been applied. Labs Laboratory Tests Test 07/12/16 05:00 07/13/16 03:40 White Blood Count 8.9x10^3/uL (4.0-11.0) 8.1x10^3/uL (4.0-11.0) Red Blood Count 2.65x10^6/uL (4.30-5.70) 2.81x10^6/uL (4.30-5.70) Hemoglobin 8.4g/dL (13.0-17.5) 8.7g/dL (13.0-17.5) Hematocrit 25.7% (39.0-53.0) 27.2% (39.0-53.0) Mean Corpuscular Volume 97fL (79-100) 97fL (79-100) Mean Corpuscular Hemoglobin 32pg (25-35) 31pg (25-35) Mean Corpuscular Hemoglobin Concent 33g/dL (31-37) 32g/dL (31-37) Red Cell Distribution Width 16.0% (11.5-14.5) 16.2% (11.5-14.5) Platelet Count 218x10^3/uL (140-400) 225x10^3/uL (140-400) Neutrophils (%) (Auto) 93% (31-73) 93% (31-73) Lymphocytes (%) (Auto) 5% (24-48) 6% (24-48) Monocytes (%) (Auto) 1% (0-9) 2% (0-9) Eosinophils (%) (Auto) 0% (0-3) 0% (0-3) Basophils (%) (Auto) 0% (0-3) 0% (0-3) Neutrophils # (Auto) 8.3x10^3uL (1.8-7.7) 7.5x10^3uL (1.8-7.7) Lymphocytes # (Auto) 0.5x10^3/uL (1.0-4.8) 0.5x10^3/uL (1.0-4.8) Monocytes # (Auto) 0.1x10^3/uL (0.0-1.1) 0.1x10^3/uL (0.0-1.1) Eosinophils # (Auto) 0.0x10^3/uL (0.0-0.7) 0.0x10^3/uL (0.0-0.7) Basophils # (Auto) 0.0x10^3/uL (0.0-0.2) 0.0x10^3/uL (0.0-0.2) Sodium Level 147mmol/L (136-145) 145mmol/L (136-145) Potassium Level 3.8mmol/L (3.5-5.1) 4.2mmol/L (3.5-5.1) Chloride Level 110mmol/L (98-107) 106mmol/L (98-107) Carbon Dioxide Level 32mmol/L (21-32) 33mmol/L (21-32) Anion Gap 5 (6-14) 6 (6-14) Blood Urea Nitrogen 25mg/dL (8-26) 30mg/dL (8-26) Creatinine 1.4mg/dL (0.7-1.3) 1.5mg/dL (0.7-1.3) Estimated GFR (Cockcroft-Gault) 48.4 44.7 Glucose Level 137mg/dL (70-99) 123mg/dL (70-99) Calcium Level 9.2mg/dL (8.5-10.1) 9.4mg/dL (8.5-10.1) Magnesium Level 2.1mg/dL (1.8-2.4) 1.9mg/dL (1.8-2.4) Laboratory Tests Test 07/13/16 03:40 White Blood Count 8.1x10^3/uL (4.0-11.0) Red Blood Count 2.81x10^6/uL (4.30-5.70) Hemoglobin 8.7g/dL (13.0-17.5) Hematocrit 27.2% (39.0-53.0) Mean Corpuscular Volume 97fL (79-100) Mean Corpuscular Hemoglobin 31pg (25-35) Mean Corpuscular Hemoglobin Concent 32g/dL (31-37) Red Cell Distribution Width 16.2% (11.5-14.5) Platelet Count 225x10^3/uL (140-400) Neutrophils (%) (Auto) 93% (31-73) Lymphocytes (%) (Auto) 6% (24-48) Monocytes (%) (Auto) 2% (0-9) Eosinophils (%) (Auto) 0% (0-3) Basophils (%) (Auto) 0% (0-3) Neutrophils # (Auto) 7.5x10^3uL (1.8-7.7) Lymphocytes # (Auto) 0.5x10^3/uL (1.0-4.8) Monocytes # (Auto) 0.1x10^3/uL (0.0-1.1) Eosinophils # (Auto) 0.0x10^3/uL (0.0-0.7) Basophils # (Auto) 0.0x10^3/uL (0.0-0.2) Sodium Level 145mmol/L (136-145) Potassium Level 4.2mmol/L (3.5-5.1) Chloride Level 106mmol/L (98-107) Carbon Dioxide Level 33mmol/L (21-32) Anion Gap 6 (6-14) Blood Urea Nitrogen 30mg/dL (8-26) Creatinine 1.5mg/dL (0.7-1.3) Estimated GFR (Cockcroft-Gault) 44.7 Glucose Level 123mg/dL (70-99) Calcium Level 9.4mg/dL (8.5-10.1) Magnesium Level 1.9mg/dL (1.8-2.4) Microbiology 07/10/16 Blood Culture - Preliminary, Resulted NO GROWTH AFTER 3 DAYS Medications Current Medications Albuterol/ Ipratropium (Duoneb) 6 ml 1X ONCE NEB Last administered on 12:17; Start 07/10/16 at 12:00; Stop 07/10/16 at 12:01; Status DC Prednisone 60 mg 60 mg 1X ONCE PO Last administered on 07/10/16 12:00; Start 07/10/16 at 12:00; Stop 07/10/16 at 12:01; Status DC Levofloxacin/ Dextrose (LEVAQUIN 750mg PREMIX) 150 ml @ 100 mls/hr 1X ONCE IV Last administered on 07/10/16 15:00; Start 07/10/16 at 15:00; Stop 07/10/16 at 16:29; Status DC Furosemide (Lasix) 20 mg 1X ONCE IVP Last administered on 07/10/16 14:30; Start 07/10/16 at 14:30; Stop 07/10/16 at 14:33; Status DC Morphine Sulfate 2 mg PRN Q2HR PRN IV PAIN; Start 07/10/16 at 14:30; Stop 07/11 at 14:29; Status DC Acetaminophen (Tylenol) 650 mg PRN Q4HRS PRN PO FEVER; Start 07/10/16 at 14:30 ; Stop 07/11/16 at 14:29; Status DC Albuterol/ Ipratropium (Duoneb) 3 ml RTQID NEB ; Start 07/10/16 at 16:00; Stop 07/10/16 at 16:00; Status DC Furosemide (Lasix) 40 mg 1X ONCE IVP Last administered on 07/10/16 18:33; Start 07/10/16 at 15:45; Stop 07/10/16 at 15:46; Status DC Methylprednisolone Sodium Succinate (Solu-Medrol 125mg Vial) 60 mg Q8HRS IV Last administered on 07/12/16 05:10; Start 07/10/16 at 16:00; Stop 07/12/16 at 10:28; Status DC Albuterol/ Ipratropium (Duoneb) 3 ml Q4HRS NEB ; Start 07/10/16 at 16:00; Stop 07/10/16 at 18:15; Status DC Budesonide (Pulmicort) 0.5 mg RTBID NEB Last administered on 07/13/16 08:52; Start 07/10/16 at 18:00 Allopurinol (Zyloprim) 200 mg DAILY PO Last administered on 07/13/16 09:38; Start 07/11/16 at 09:00 Famotidine (Pepcid) 20 mg BID PO Last administered on 07/12/16 09:21; Start at 21:00; Stop 07/12/16 at 19:48; Status DC Isosorbide Mononitrate (Imdur) 30 mg DAILY PO Last administered on 07/13/16 09 :38; Start 07/11/16 at 09:00 Sotalol HCl (Betapace) 80 mg BID PO Last administered on 07/13/16 09:37; Start 07/10/16 at 21:00 Clopidogrel Bisulfate (Plavix) 75 mg [id number] PO Last administered on 09:35; Start 07/11/16 at 08:00 Multivitamins/ Calcium (Thera M Plus) 1 tab DAILY PO Last administered on 09:36; Start 07/11/16 at 09:00 Losartan Potassium (Cozaar) 50 mg DAILY PO Last administered on 07/13/16 09:39 ; Start 07/11/16 at 09:00 Trazodone HCl (Desyrel) 50 mg PRN QHS PRN PO INSOMNIA; Start 07/10/16 at 17:00 ; Stop 07/10/16 at 21:00; Status DC Nitroglycerin (Nitrostat) 0.4 mg PRN Q5MIN PRN SL CHEST PAIN; Start 07/10/16 at 17:00 Acetaminophen (Tylenol) 650 mg PRN Q4HRS PRN PO MILD PAIN / TEMP; Start at 17:00 Furosemide (Lasix) 40 mg DAILY IVP ; Start 07/11/16 at 09:00; Stop 07/11/16 at 09:00; Status DC Potassium Chloride (Klor-Con) 20 meq DAILYWBKFT PO Last administered on 09:16; Start 07/11/16 at 08:00; Stop 07/11/16 at 09:41; Status DC Furosemide (Lasix) 40 mg [id number] IVP ; Start 07/11/16 at 19:00; Stop 07/11/16 at 19:00; Status DC Albuterol/ Ipratropium (Duoneb) 3 ml RTQID NEB Last administered on 07/13/16 11:17; Start 07/10/16 at 21:00 Furosemide (Lasix) 40 mg [id number] IVP Last administered on 07/13/16 09:42; Start 07/11/16 at 09:00 Trazodone HCl (Desyrel) 50 mg QHS PO Last administered on 07/12/16 20:35; Start 07/10/16 at 21:00 Tamsulosin HCl (Flomax) 0.4 mg QHS PO Last administered on 07/12/16 20:35; Start 07/10/16 at 21:00 Enoxaparin Sodium (Lovenox 40mg Syringe) 40 mg DAILY SQ Last administered on 09:40; Start 07/11/16 at 09:00 Potassium Chloride 20 meq 20 meq BIDWMEALS PO Last administered on 07/13/16 10 :49; Start 07/11/16 at 17:00 Magnesium Sulfate/ Dextrose (Magnesium Sulfate PREMIX 2GM) 50 ml @ 25 mls/hr 1X ONCE IV Last administered on 07/11/16 10:51; Start 07/11/16 at 10:00; Stop 07/11/16 at 11:59; Status DC Methylprednisolone Sodium Succinate (Solu-Medrol 125mg Vial) 60 mg Q12HR IV Last administered on 07/13/16 09:41; Start 07/12/16 at 21:00 Metolazone (Zaroxolyn) 2.5 mg 1X ONCE PO ; Start 07/12/16 at 10:45; Stop at 10:46; Status Cancel Metolazone (Zaroxolyn) 2.5 mg 1X ONCE PO Last administered on 07/12/16 16:54 ; Start 07/12/16 at 16:15; Stop 07/12/16 at 16:16; Status DC Famotidine (Pepcid) 20 mg DAILY PO Last administered on 07/13/16t 09:36; Start 07/13/16 at 09:00 Active Scripts Active Cozaar (Losartan Potassium) 50 Mg Tablet 50 Mg PO DAILY Flomax (Tamsulosin Hcl) 0.4 Mg Cap.er.24h 0.4 Mg PO QHS Isosorbide Mononitrate Er (Isosorbide Mononitrate) 30 Mg Tab.er.24h 30 Mg PO DAILY 30 Days Albuterol Sulfate Neb Soln (Albuterol Sulfate) 2.5 Mg/3 Ml Vial.neb 2.5 Mg NEB PRN QID PRN 30 Days Reported Lasix (Furosemide) 40 Mg Tablet 1 Tab PO QODAY Nitrostat (Nitroglycerin) 0.4 Mg Tab.subl 1 Tab SL UD Trazodone Hcl 50 Mg Tablet 1 Tab PO QHS Plavix (Clopidogrel Bisulfate) 75 Mg Tablet 75 Mg PO DAILY Imdur (Isosorbide Mononitrate) 30 Mg Tab.er.24h 30 Mg PO DAILY Pepcid (Famotidine) 20 Mg Tablet 20 Mg PO BID Betapace (Sotalol Hcl) 80 Mg Tablet 80 Mg PO BID Allopurinol 100 Mg Tablet 200 Mg PO DAILY Vitals/I & O Vital Sign - Last 24 Hours 07/12/16 07/12/16 07/12/16 07/12/16 16:16 19:00 19:35 20:01 Temp 97.9 97.9 Pulse 74 Resp 18 B/P 143/69 Pulse Ox 96 O2 Delivery Nasal Cannula Nasal Cannula Nasal Cannula Nasal Cannula O2 Flow Rate 1.0 1.0 1.0 1.0 07/12/16 07/12/16 07/13/16 07/13/16 20:35 23:00 03:00 07:00 Temp 98.1 98.1 97.7 98.1 98.1 97.7 Pulse 74 74 74 73 Resp 18 18 19 B/P 143/69 119/63 133/69 143/65 Pulse Ox 91 94 93 O2 Delivery Nasal Cannula Nasal Cannula Nasal Cannula O2 Flow Rate 1.0 1.0 1.0 07/13/16 07/13/16 07/13/16 07/13/16 08:54 09:37 09:38 09:39 Pulse 74 74 74 B/P 133/69 133/69 133/69 Pulse Ox 95 O2 Delivery Nasal Cannula O2 Flow Rate 1.0 07/13/16 07/13/16 11:00 11:17 Temp 97.7 97.7 Pulse 75 Resp 19 B/P 145/68 Pulse Ox 94 96 O2 Delivery Nasal Cannula Nasal Cannula O2 Flow Rate 1.0 1.0 Intake and Output 07/12/16 07/12/16 07/13/16 15:00 23:00 07:00 Intake Total 500 ml 800 ml 360 ml Output Total 600 ml 1675 ml Balance 500 ml 200 ml -1315 ml ZEESHAN TOSCANO MD Jul 13, 2016 15:25
[2016-07-13 19:00] VITALS: BP 121/80
[2016-07-13] MEDS: TAMSULOSIN 0.4 MG CAP.ER.24H. PO SCH (21:10)
[2016-07-13] MEDS: traZODone 50 MG TABLET. PO SCH (21:10)
[2016-07-13 23:00] VITALS: BP 116/72
--- NOTE | 2016-07-14 01:38 | CONS ---
DATE OF CONSULTATION: 07/13/2016 CHIEF COMPLAINT: Chronic urinary retention. HISTORY OF PRESENT ILLNESS: This is an 81-year-old male that was recently admitted for shortness of breath. He has a history of chronic obstructive pulmonary disease, pulmonary fibrosis and pneumonia. I saw the patient on his last hospital visit several weeks ago. He developed urinary retention requiring a Comer catheter. He continues to have this Comer catheter. He was also started on Flomax at that time. He was scheduled for a followup office visit, but then was readmitted to the hospital. PAST MEDICAL HISTORY: Reviewed. There have been no changes since my last consultation. ALLERGIES: NEOSPORIN. PAST SURGICAL HISTORY: Unchanged from previous consult. PHYSICAL EXAMINATION: GENERAL DESCRIPTION: An 81-year-old frail male resting comfortably in bed on continuous nasal oxygen. He is alert and oriented. ABDOMEN: Thin, negative for flank pain bilaterally, no palpable abdominal masses. No suprapubic tenderness. GENITALIA: The patient has indwelling Comer catheter draining to dependent drainage bag. EXTREMITIES: The patient has mild bilateral lower extremity edema. LABORATORY DATA: The patient's white blood cell count is 8.1. His hemoglobin is 8.7, hematocrit 27.2, platelet count is adequate. The patient's most recent creatinine 1.5. His BUN is 30. Urinalysis, none on the chart. X-RAY STUDIES: No x-rays pertinent to the system. IMPRESSION: 1. Chronic urinary retention. 2. Chronic obstructive pulmonary disease with acute exacerbation. PLAN: 1. My recommendation will be to continue the patient's Comer catheter and have it changed every 4 weeks. 2. If his condition should improve, then I would suggest removing the Comer catheter on an outpatient basis in the morning and give him a voiding trial while still on Flomax. If he fails a voiding trial, then I think he is going to be catheter dependent. Thank you for the opportunity to participate in care of this patient. KARLA FISHMAN DO DR: VIKAS/talib JOB#: [id number] / [id number]
[2016-07-14 06:19] LABS: CALCIUM 9.5 mg/dL (8.5-10.1); CREATININE 1.5 mg/dL (0.7-1.3); GFR 44.7; MAGNESIUM 1.9 mg/dL (1.8-2.4); POTASSIUM 4.2 mmol/L (3.5-5.1)
[2016-07-14 07:00] VITALS: BP 109/67
[2016-07-14] MEDS: IPRATRPIUM/ALBUTEROL 0.5/2.5MG 3 ML NEBU. NEB SCH ×4 (08:48→19:16)
[2016-07-14] MEDS: BUDESONIDE 0.5 MG/2 ML NEBU NEB SCH ×2 (08:48→19:15)
[2016-07-14] MEDS: ALLOPURINOL 100 MG TABLET. PO SCH (09:06)
[2016-07-14] MEDS: POTASSIUM CHLORIDE 20 MEQ TABLET.ER. PO SCH ×2 (09:07→18:19)
[2016-07-14] MEDS: SOTALOL 80 MG TABLET. PO SCH ×2 (09:08→22:00)
[2016-07-14] MEDS: FAMOTIDINE 20 MG TABLET. PO SCH (09:08)
[2016-07-14] MEDS: LOSARTAN POTASSIUM 50 MG TABLET. PO SCH (09:08)
[2016-07-14] MEDS: CLOPIDOGREL BISULFATE 75 MG TABLET PO SCH (09:09)
[2016-07-14] MEDS: MULTIVITAMIN with MINERAL TABLET. PO SCH (09:10)
[2016-07-14] MEDS: ISOSORBIDE MONONITRATE ER 30 MG TAB.ER.24H PO SCH (09:10)
[2016-07-14] MEDS: ENOXAPARIN 40 MG/0.4 ML DISP.SYRIN. SQ SCH (09:11)
[2016-07-14] MEDS: FUROSEMIDE 40 MG/4 ML VIAL IVP SCH (09:12)
[2016-07-14] MEDS: methylPREDNISolone SOD SUCC PF 125 MG/2 ML VIAL. IV SCH (09:12)
--- NOTE | 2016-07-14 09:18 | PDOC ---
PROGRESS NOTES Subjective Subjective leg edema improved and feels better. wheezing less. will switch to po lasix and decrease steroids and consider dismissal tomorrow. lab reviewed. Objective Objective Vital Signs Date Time Temp Pulse Resp B/P Pulse Ox O2 Delivery O2 Flow Rate FiO2 07/14/16 09:10 74 109/67 07/14/16 08:50 94 Nasal Cannula 1.0 07/14/16 07:00 96.4 16 96.4 Intake and Output 07/14/16 07:00 Intake Total 1950 ml Output Total 3875 ml Balance -1925 ml Intake Oral 1950 ml Output Urine Total 3875 ml Physical Exam Abdomen: Soft Heart: Regular rate, Normal S1, Normal S2 Extremities: Other (1 plus edema leg) General: Alert, Cooperative HEENT: Atraumatic Lungs: Other (mild wheeze. decreased breath sounds) Neuro: Normal speech Psych/Mental Status: Mental status NL Skin: No rashes Assessment Assessment Problems Medical Problems:Acute on chronic systolic congestive heart failure. 2. Ischemic cardiomyopathy.LVEF 20% 3. Acute on chronic hypoxic respiratory failure. 4. Chronic obstructive pulmonary disease. 5. Pulmonary fibrosis. 6. Bronchiectasis. 7. Coronary artery disease. 8. Chronic kidney disease stage 3. superficial vein thrombosis right sural vein chronic urine retention. figueroa catheter (1) CHF (congestive heart failure) Status: Acute (2) COPD exacerbation Status: Acute (3) Pneumonia Status: Acute Plan Plan of Care switch to oral lasix decrease iv solumedrol consider dismissal tomorrow Comment Review of Relevant I have reviewed the following items lucio (where applicable) has been applied. Labs Laboratory Tests Test 07/13/16 03:40 07/14/16 05:10 White Blood Count 8.1x10^3/uL (4.0-11.0) Red Blood Count 2.81x10^6/uL (4.30-5.70) Hemoglobin 8.7g/dL (13.0-17.5) Hematocrit 27.2% (39.0-53.0) Mean Corpuscular Volume 97fL (79-100) Mean Corpuscular Hemoglobin 31pg (25-35) Mean Corpuscular Hemoglobin Concent 32g/dL (31-37) Red Cell Distribution Width 16.2% (11.5-14.5) Platelet Count 225x10^3/uL (140-400) Neutrophils (%) (Auto) 93% (31-73) Lymphocytes (%) (Auto) 6% (24-48) Monocytes (%) (Auto) 2% (0-9) Eosinophils (%) (Auto) 0% (0-3) Basophils (%) (Auto) 0% (0-3) Neutrophils # (Auto) 7.5x10^3uL (1.8-7.7) Lymphocytes # (Auto) 0.5x10^3/uL (1.0-4.8) Monocytes # (Auto) 0.1x10^3/uL (0.0-1.1) Eosinophils # (Auto) 0.0x10^3/uL (0.0-0.7) Basophils # (Auto) 0.0x10^3/uL (0.0-0.2) Sodium Level 145mmol/L (136-145) 140mmol/L (136-145) Potassium Level 4.2mmol/L (3.5-5.1) 4.2mmol/L (3.5-5.1) Chloride Level 106mmol/L (98-107) 100mmol/L (98-107) Carbon Dioxide Level 33mmol/L (21-32) 36mmol/L (21-32) Anion Gap 6 (6-14) 4 (6-14) Blood Urea Nitrogen 30mg/dL (8-26) 34mg/dL (8-26) Creatinine 1.5mg/dL (0.7-1.3) 1.5mg/dL (0.7-1.3) Estimated GFR (Cockcroft-Gault) 44.7 44.7 Glucose Level 123mg/dL (70-99) 120mg/dL (70-99) Calcium Level 9.4mg/dL (8.5-10.1) 9.5mg/dL (8.5-10.1) Magnesium Level 1.9mg/dL (1.8-2.4) 1.9mg/dL (1.8-2.4) Laboratory Tests Test 07/14/16 05:10 Sodium Level 140mmol/L (136-145) Potassium Level 4.2mmol/L (3.5-5.1) Chloride Level 100mmol/L (98-107) Carbon Dioxide Level 36mmol/L (21-32) Anion Gap 4 (6-14) Blood Urea Nitrogen 34mg/dL (8-26) Creatinine 1.5mg/dL (0.7-1.3) Estimated GFR (Cockcroft-Gault) 44.7 Glucose Level 120mg/dL (70-99) Calcium Level 9.5mg/dL (8.5-10.1) Magnesium Level 1.9mg/dL (1.8-2.4) Microbiology 07/10/16 Blood Culture - Preliminary, Resulted NO GROWTH AFTER 3 DAYS Medications Current Medications Albuterol/ Ipratropium (Duoneb) 6 ml 1X ONCE NEB Last administered on 12:17; Start 07/10/16 at 12:00; Stop 07/10/16 at 12:01; Status DC Prednisone 60 mg 60 mg 1X ONCE PO Last administered on 07/10/16 12:00; Start 07/10/16 at 12:00; Stop 07/10/16 at 12:01; Status DC Levofloxacin/ Dextrose (LEVAQUIN 750mg PREMIX) 150 ml @ 100 mls/hr 1X ONCE IV Last administered on 07/10/16 15:00; Start 07/10/16 at 15:00; Stop 07/10/16 at 16:29; Status DC Furosemide (Lasix) 20 mg 1X ONCE IVP Last administered on 07/10/16 14:30; Start 07/10/16 at 14:30; Stop 07/10/16 at 14:33; Status DC Morphine Sulfate 2 mg PRN Q2HR PRN IV PAIN; Start 07/10/16 at 14:30; Stop 07/11 at 14:29; Status DC Acetaminophen (Tylenol) 650 mg PRN Q4HRS PRN PO FEVER; Start 07/10/16 at 14:30 ; Stop 07/11/16 at 14:29; Status DC Albuterol/ Ipratropium (Duoneb) 3 ml RTQID NEB ; Start 07/10/16 at 16:00; Stop 07/10/16 at 16:00; Status DC Furosemide (Lasix) 40 mg 1X ONCE IVP Last administered on 07/10/16 18:33; Start 07/10/16 at 15:45; Stop 07/10/16 at 15:46; Status DC Methylprednisolone Sodium Succinate (Solu-Medrol 125mg Vial) 60 mg Q8HRS IV Last administered on 07/12/16 05:10; Start 07/10/16 at 16:00; Stop 07/12/16 at 10:28; Status DC Albuterol/ Ipratropium (Duoneb) 3 ml Q4HRS NEB ; Start 07/10/16 at 16:00; Stop 07/10/16 at 18:15; Status DC Budesonide (Pulmicort) 0.5 mg RTBID NEB Last administered on 07/14/16 08:48; Start 07/10/16 at 18:00 Allopurinol (Zyloprim) 200 mg DAILY PO Last administered on 07/14/16 09:06; Start 07/11/16 at 09:00 Famotidine (Pepcid) 20 mg BID PO Last administered on 07/12/16 09:21; Start at 21:00; Stop 07/12/16 at 19:48; Status DC Isosorbide Mononitrate (Imdur) 30 mg DAILY PO Last administered on 07/14/16 09 :10; Start 07/11/16 at 09:00 Sotalol HCl (Betapace) 80 mg BID PO Last administered on 07/14/16 09:08; Start 07/10/16 at 21:00 Clopidogrel Bisulfate (Plavix) 75 mg DAILYWBKFT PO Last administered on 09:09; Start 07/11/16 at 08:00 Multivitamins/ Calcium (Thera M Plus) 1 tab DAILY PO Last administered on 09:10; Start 07/11/16 at 09:00 Losartan Potassium (Cozaar) 50 mg DAILY PO Last administered on 07/14/16 09:08 ; Start 07/11/16 at 09:00 Trazodone HCl (Desyrel) 50 mg PRN QHS PRN PO INSOMNIA; Start 07/10/16 at 17:00 ; Stop 07/10/16 at 21:00; Status DC Nitroglycerin (Nitrostat) 0.4 mg PRN Q5MIN PRN SL CHEST PAIN; Start 07/10/16 at 17:00 Acetaminophen (Tylenol) 650 mg PRN Q4HRS PRN PO MILD PAIN / TEMP; Start at 17:00 Furosemide (Lasix) 40 mg DAILY IVP ; Start 07/11/16 at 09:00; Stop 07/11/16 at 09:00; Status DC Potassium Chloride (Klor-Con) 20 meq DAILYWBKFT PO Last administered on 09:16; Start 07/11/16 at 08:00; Stop 07/11/16 at 09:41; Status DC Furosemide (Lasix) 40 mg [id number] IVP ; Start 07/11/16 at 19:00; Stop 07/11/16 at 19:00; Status DC Albuterol/ Ipratropium (Duoneb) 3 ml RTQID NEB Last administered on 07/14/16 08:48; Start 07/10/16 at 21:00 Furosemide (Lasix) 40 mg [id number] IVP Last administered on 07/13/16 17:47; Start 07/11/16 at 09:00 Trazodone HCl (Desyrel) 50 mg QHS PO Last administered on 07/13/16 21:10; Start 07/10/16 at 21:00 Tamsulosin HCl (Flomax) 0.4 mg QHS PO Last administered on 07/13/16 21:10; Start 07/10/16 at 21:00 Enoxaparin Sodium (Lovenox 40mg Syringe) 40 mg DAILY SQ Last administered on 09:11; Start 07/11/16 at 09:00 Potassium Chloride 20 meq 20 meq BIDWMEALS PO Last administered on 07/14/16 09 :07; Start 07/11/16 at 17:00 Magnesium Sulfate/ Dextrose (Magnesium Sulfate PREMIX 2GM) 50 ml @ 25 mls/hr 1X ONCE IV Last administered on 07/11/16 10:51; Start 07/11/16 at 10:00; Stop 07/11/16 at 11:59; Status DC Methylprednisolone Sodium Succinate (Solu-Medrol 125mg Vial) 60 mg Q12HR IV Last administered on 07/14/16 09:12; Start 07/12/16 at 21:00 Metolazone (Zaroxolyn) 2.5 mg 1X ONCE PO ; Start 07/12/16 at 10:45; Stop at 10:46; Status Cancel Metolazone (Zaroxolyn) 2.5 mg 1X ONCE PO Last administered on 07/12/16 16:54 ; Start 07/12/16 at 16:15; Stop 07/12/16 at 16:16; Status DC Famotidine (Pepcid) 20 mg DAILY PO Last administered on 07/14/16 09:08; Start 07/13/16 at 09:00 Active Scripts Active Cozaar (Losartan Potassium) 50 Mg Tablet 50 Mg PO DAILY Flomax (Tamsulosin Hcl) 0.4 Mg Cap.er.24h 0.4 Mg PO QHS Isosorbide Mononitrate Er (Isosorbide Mononitrate) 30 Mg Tab.er.24h 30 Mg PO DAILY 30 Days Albuterol Sulfate Neb Soln (Albuterol Sulfate) 2.5 Mg/3 Ml Vial.neb 2.5 Mg NEB PRN QID PRN 30 Days Reported Lasix (Furosemide) 40 Mg Tablet 1 Tab PO QODAY Nitrostat (Nitroglycerin) 0.4 Mg Tab.subl 1 Tab SL UD Trazodone Hcl 50 Mg Tablet 1 Tab PO QHS Plavix (Clopidogrel Bisulfate) 75 Mg Tablet 75 Mg PO DAILY Imdur (Isosorbide Mononitrate) 30 Mg Tab.er.24h 30 Mg PO DAILY Pepcid (Famotidine) 20 Mg Tablet 20 Mg PO BID Betapace (Sotalol Hcl) 80 Mg Tablet 80 Mg PO BID Allopurinol 100 Mg Tablet 200 Mg PO DAILY Vitals/I & O Vital Sign - Last 24 Hours 07/13/16 07/13/16 07/13/16 07/13/16 09:37 09:38 09:39 11:00 Temp 97.7 97.7 Pulse 74 74 74 75 Resp 19 B/P 133/69 133/69 133/69 145/68 Pulse Ox 94 O2 Delivery Nasal Cannula O2 Flow Rate 1.0 07/13/16 07/13/16 07/13/16 07/13/16 11:17 15:00 16:16 19:00 Temp 97.7 97.9 97.7 97.9 Pulse 72 76 Resp 19 20 B/P 138/68 121/80 Pulse Ox 96 94 91 O2 Delivery Nasal Cannula Nasal Cannula Nasal Cannula O2 Flow Rate 1.0 1.0 1.0 07/13/16 07/13/16 07/13/16 07/13/16 19:53 19:53 20:00 21:11 Pulse 72 B/P 138/68 Pulse Ox 95 95 O2 Delivery Nasal Cannula Nasal Cannula Nasal Cannula O2 Flow Rate 2.0 2.0 2.0 07/13/16 07/14/16 07/14/16 07/14/16 23:00 03:00 07:00 07:41 Temp 98.1 96.4 98.1 96.4 Pulse 74 74 Resp 20 16 B/P 116/72 109/67 Pulse Ox 92 92 O2 Delivery Room Air Nasal Cannula O2 Flow Rate 1.0 07/14/16 07/14/16 07/14/16 07/14/16 08:49 08:50 09:08 09:08 Pulse 74 74 B/P 109/67 109/67 Pulse Ox 94 94 O2 Delivery Nasal Cannula Nasal Cannula O2 Flow Rate 1.0 1.0 07/14/16 09:10 Pulse 74 B/P 109/67 Intake and Output 07/13/16 07/13/16 07/14/16 15:00 23:00 07:00 Intake Total 500 ml 1450 ml 0 ml Output Total 3050 ml 825 ml Balance 500 ml -1600 ml -825 ml LAURE OLIVER MD Jul 14, 2016 09:18
[2016-07-14] MEDS: FUROSEMIDE 40 MG TABLET PO SCH (10:36)
[2016-07-14 11:00] VITALS: BP 124/63
--- NOTE | 2016-07-14 14:23 | PDOC ---
PULMONARY PROGRESS NOTES Subjective feels better Vitals Vital Signs Date Time Temp Pulse Resp B/P Pulse Ox O2 Delivery O2 Flow Rate FiO2 07/14/16 13:00 95 Nasal Cannula 1.0 07/14/16 11:00 97.7 72 16 124/63 97.7 General: Alert, No acute distress Lungs: Wheezing (improved) Cardiovascular: S1, S2 Abdomen: Soft Neuro Exam: Alert Extremities: Other (2=edema) Labs Laboratory Tests Test 07/13/16 03:40 07/14/16 05:10 White Blood Count 8.1x10^3/uL (4.0-11.0) Red Blood Count 2.81x10^6/uL (4.30-5.70) Hemoglobin 8.7g/dL (13.0-17.5) Hematocrit 27.2% (39.0-53.0) Mean Corpuscular Volume 97fL (79-100) Mean Corpuscular Hemoglobin 31pg (25-35) Mean Corpuscular Hemoglobin Concent 32g/dL (31-37) Red Cell Distribution Width 16.2% (11.5-14.5) Platelet Count 225x10^3/uL (140-400) Neutrophils (%) (Auto) 93% (31-73) Lymphocytes (%) (Auto) 6% (24-48) Monocytes (%) (Auto) 2% (0-9) Eosinophils (%) (Auto) 0% (0-3) Basophils (%) (Auto) 0% (0-3) Neutrophils # (Auto) 7.5x10^3uL (1.8-7.7) Lymphocytes # (Auto) 0.5x10^3/uL (1.0-4.8) Monocytes # (Auto) 0.1x10^3/uL (0.0-1.1) Eosinophils # (Auto) 0.0x10^3/uL (0.0-0.7) Basophils # (Auto) 0.0x10^3/uL (0.0-0.2) Sodium Level 145mmol/L (136-145) 140mmol/L (136-145) Potassium Level 4.2mmol/L (3.5-5.1) 4.2mmol/L (3.5-5.1) Chloride Level 106mmol/L (98-107) 100mmol/L (98-107) Carbon Dioxide Level 33mmol/L (21-32) 36mmol/L (21-32) Anion Gap 6 (6-14) 4 (6-14) Blood Urea Nitrogen 30mg/dL (8-26) 34mg/dL (8-26) Creatinine 1.5mg/dL (0.7-1.3) 1.5mg/dL (0.7-1.3) Estimated GFR (Cockcroft-Gault) 44.7 44.7 Glucose Level 123mg/dL (70-99) 120mg/dL (70-99) Calcium Level 9.4mg/dL (8.5-10.1) 9.5mg/dL (8.5-10.1) Magnesium Level 1.9mg/dL (1.8-2.4) 1.9mg/dL (1.8-2.4) Laboratory Tests Test 07/14/16 05:10 Sodium Level 140mmol/L (136-145) Potassium Level 4.2mmol/L (3.5-5.1) Chloride Level 100mmol/L (98-107) Carbon Dioxide Level 36mmol/L (21-32) Anion Gap 4 (6-14) Blood Urea Nitrogen 34mg/dL (8-26) Creatinine 1.5mg/dL (0.7-1.3) Estimated GFR (Cockcroft-Gault) 44.7 Glucose Level 120mg/dL (70-99) Calcium Level 9.5mg/dL (8.5-10.1) Magnesium Level 1.9mg/dL (1.8-2.4) Medications Active Scripts Medications Dose Route/Sig Days Date Category Lasix (Furosemide) 40 Mg Tablet 1 Tab PO QODAY 07/10/16 Reported Cozaar (Losartan Potassium) 50 Mg Tablet 50 Mg PO DAILY 06/27/16 Rx Flomax (Tamsulosin Hcl) 0.4 Mg Cap.er.24h 0.4 Mg PO QHS 06/27/16 Rx Nitrostat (Nitroglycerin) 0.4 Mg Tab.subl 1 Tab SL UD 06/14/16 Reported Isosorbide Mononitrate Er (Isosorbide Mononitrate) 30 Mg Tab.er.24h 30 Mg PO DAILY 30 05/18/16 Rx Albuterol Sulfate Neb Soln (Albuterol Sulfate) 2.5 Mg/3 Ml Vial.neb 2.5 Mg NEB PRN QID PRN 30 05/18/16 Rx Trazodone Hcl 50 Mg Tablet 1 Tab PO QHS 03/23/16 Reported Plavix (Clopidogrel Bisulfate) 75 Mg Tablet 75 Mg PO DAILY 08/19/13 Reported Imdur (Isosorbide Mononitrate) 30 Mg Tab.er.24h 30 Mg PO DAILY 08/19/13 Reported Pepcid (Famotidine) 20 Mg Tablet 20 Mg PO BID 08/19/13 Reported Betapace (Sotalol Hcl) 80 Mg Tablet 80 Mg PO BID 08/19/13 Reported Allopurinol 100 Mg Tablet 200 Mg PO DAILY 08/19/13 Reported Impression . 1. Dyspnea with bilateral bronchospasm along with lower extremity edema in a patient who has an ejection fraction of 20%. He has a cough with white sputum production. The clinical presentation is consistent with acute on chronic systolic heart failure. 2. Less likely pneumonia. He is recently being treated for pseudomonas pneumonia. 3. 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 4. History of oxygen-dependent chronic obstructive airway disease. 5. Secondary pulmonary hypertension due to severe cardiomyopathy and moderate mitral regurgitation. Plan . 1. nebs. 2. IV Solu-Medrol. taper 3. Diuresis per cardiology 4. Continue with DuoNeb. 5. no need for antibiotics at present as clinically pneumonia is felt to be less likely. 6. Follow cardiology recommendations. 7. Monitored lower extremity edema, improvement with diuretics. 8. Discussed with the patient's at the bedside. d/c in 24 hr DHARA ANTONIO MD Jul 14, 2016 14:23
--- NOTE | 2016-07-14 14:42 | PDOC ---
PROGRESS NOTES Subjective Subjective Patient is feeling well today and offers no cardiac complaints. Objective Objective Vital Signs Date Time Temp Pulse Resp B/P Pulse Ox O2 Delivery O2 Flow Rate FiO2 07/14/16 13:00 95 Nasal Cannula 1.0 07/14/16 11:00 97.7 72 16 124/63 97.7 Intake and Output 07/14/16 07:00 Intake Total 1950 ml Output Total 3875 ml Balance -1925 ml Intake Oral 1950 ml Output Urine Total 3875 ml Physical Exam Physical Exam No change in cardiac exam. Assessment Assessment Problems Medical Problems: (1) CHF (congestive heart failure) Status: Acute (2) COPD exacerbation Status: Acute (3) Pneumonia Status: Acute Plan Plan of Care This patient is stable from a cardiac standpoint and is ok to go home when the primary team feels ready. I agree with the current plan of care including continuing Lasix. Comment Review of Relevant I have reviewed the following items lucio (where applicable) has been applied. Labs Laboratory Tests Test 07/13/16 03:40 07/14/16 05:10 White Blood Count 8.1x10^3/uL (4.0-11.0) Red Blood Count 2.81x10^6/uL (4.30-5.70) Hemoglobin 8.7g/dL (13.0-17.5) Hematocrit 27.2% (39.0-53.0) Mean Corpuscular Volume 97fL (79-100) Mean Corpuscular Hemoglobin 31pg (25-35) Mean Corpuscular Hemoglobin Concent 32g/dL (31-37) Red Cell Distribution Width 16.2% (11.5-14.5) Platelet Count 225x10^3/uL (140-400) Neutrophils (%) (Auto) 93% (31-73) Lymphocytes (%) (Auto) 6% (24-48) Monocytes (%) (Auto) 2% (0-9) Eosinophils (%) (Auto) 0% (0-3) Basophils (%) (Auto) 0% (0-3) Neutrophils # (Auto) 7.5x10^3uL (1.8-7.7) Lymphocytes # (Auto) 0.5x10^3/uL (1.0-4.8) Monocytes # (Auto) 0.1x10^3/uL (0.0-1.1) Eosinophils # (Auto) 0.0x10^3/uL (0.0-0.7) Basophils # (Auto) 0.0x10^3/uL (0.0-0.2) Sodium Level 145mmol/L (136-145) 140mmol/L (136-145) Potassium Level 4.2mmol/L (3.5-5.1) 4.2mmol/L (3.5-5.1) Chloride Level 106mmol/L (98-107) 100mmol/L (98-107) Carbon Dioxide Level 33mmol/L (21-32) 36mmol/L (21-32) Anion Gap 6 (6-14) 4 (6-14) Blood Urea Nitrogen 30mg/dL (8-26) 34mg/dL (8-26) Creatinine 1.5mg/dL (0.7-1.3) 1.5mg/dL (0.7-1.3) Estimated GFR (Cockcroft-Gault) 44.7 44.7 Glucose Level 123mg/dL (70-99) 120mg/dL (70-99) Calcium Level 9.4mg/dL (8.5-10.1) 9.5mg/dL (8.5-10.1) Magnesium Level 1.9mg/dL (1.8-2.4) 1.9mg/dL (1.8-2.4) Laboratory Tests Test 07/14/16 05:10 Sodium Level 140mmol/L (136-145) Potassium Level 4.2mmol/L (3.5-5.1) Chloride Level 100mmol/L (98-107) Carbon Dioxide Level 36mmol/L (21-32) Anion Gap 4 (6-14) Blood Urea Nitrogen 34mg/dL (8-26) Creatinine 1.5mg/dL (0.7-1.3) Estimated GFR (Cockcroft-Gault) 44.7 Glucose Level 120mg/dL (70-99) Calcium Level 9.5mg/dL (8.5-10.1) Magnesium Level 1.9mg/dL (1.8-2.4) Microbiology 07/10/16 Blood Culture - Preliminary, Resulted NO GROWTH AFTER 4 DAYS Medications Current Medications Albuterol/ Ipratropium (Duoneb) 6 ml 1X ONCE NEB Last administered on 12:17; Start 07/10/16 at 12:00; Stop 07/10/16 at 12:01; Status DC Prednisone 60 mg 60 mg 1X ONCE PO Last administered on 07/10/16 12:00; Start 07/10/16 at 12:00; Stop 07/10/16 at 12:01; Status DC Levofloxacin/ Dextrose (LEVAQUIN 750mg PREMIX) 150 ml @ 100 mls/hr 1X ONCE IV Last administered on 07/10/16 15:00; Start 07/10/16 at 15:00; Stop 07/10/16 at 16:29; Status DC Furosemide (Lasix) 20 mg 1X ONCE IVP Last administered on 07/10/16 14:30; Start 07/10/16 at 14:30; Stop 07/10/16 at 14:33; Status DC Morphine Sulfate 2 mg PRN Q2HR PRN IV PAIN; Start 07/10/16 at 14:30; Stop 07/11 at 14:29; Status DC Acetaminophen (Tylenol) 650 mg PRN Q4HRS PRN PO FEVER; Start 07/10/16 at 14:30 ; Stop 07/11/16 at 14:29; Status DC Albuterol/ Ipratropium (Duoneb) 3 ml RTQID NEB ; Start 07/10/16 at 16:00; Stop 07/10/16 at 16:00; Status DC Furosemide (Lasix) 40 mg 1X ONCE IVP Last administered on 07/10/16 18:33; Start 07/10/16 at 15:45; Stop 07/10/16 at 15:46; Status DC Methylprednisolone Sodium Succinate (Solu-Medrol 125mg Vial) 60 mg Q8HRS IV Last administered on 07/12/16 05:10; Start 07/10/16 at 16:00; Stop 07/12/16 at 10:28; Status DC Albuterol/ Ipratropium (Duoneb) 3 ml Q4HRS NEB ; Start 07/10/16 at 16:00; Stop 07/10/16 at 18:15; Status DC Budesonide (Pulmicort) 0.5 mg RTBID NEB Last administered on 07/14/16 08:48; Start 07/10/16 at 18:00 Allopurinol (Zyloprim) 200 mg DAILY PO Last administered on 07/14/16 09:06; Start 07/11/16 at 09:00 Famotidine (Pepcid) 20 mg BID PO Last administered on 07/12/16 09:21; Start at 21:00; Stop 07/12/16 at 19:48; Status DC Isosorbide Mononitrate (Imdur) 30 mg DAILY PO Last administered on 07/14/16 09 :10; Start 07/11/16 at 09:00 Sotalol HCl (Betapace) 80 mg BID PO Last administered on 07/14/16 09:08; Start 07/10/16 at 21:00 Clopidogrel Bisulfate (Plavix) 75 mg DAILYWBKFT PO Last administered on 09:09; Start 07/11/16 at 08:00 Multivitamins/ Calcium (Thera M Plus) 1 tab DAILY PO Last administered on 09:10; Start 07/11/16 at 09:00 Losartan Potassium (Cozaar) 50 mg DAILY PO Last administered on 07/14/16 09:08 ; Start 07/11/16 at 09:00 Trazodone HCl (Desyrel) 50 mg PRN QHS PRN PO INSOMNIA; Start 07/10/16 at 17:00 ; Stop 07/10/16 at 21:00; Status DC Nitroglycerin (Nitrostat) 0.4 mg PRN Q5MIN PRN SL CHEST PAIN; Start 07/10/16 at 17:00 Acetaminophen (Tylenol) 650 mg PRN Q4HRS PRN PO MILD PAIN / TEMP; Start at 17:00 Furosemide (Lasix) 40 mg DAILY IVP ; Start 07/11/16 at 09:00; Stop 07/11/16 at 09:00; Status DC Potassium Chloride (Klor-Con) 20 meq DAILYWBKFT PO Last administered on 09:16; Start 07/11/16 at 08:00; Stop 07/11/16 at 09:41; Status DC Furosemide (Lasix) 40 mg [id number] IVP ; Start 07/11/16 at 19:00; Stop 07/11/16 at 19:00; Status DC Albuterol/ Ipratropium (Duoneb) 3 ml RTQID NEB Last administered on 07/14/16 12:57; Start 07/10/16 at 21:00 Furosemide (Lasix) 40 mg [id number] IVP Last administered on 07/13/16 17:47; Start 07/11/16 at 09:00; Stop 07/14/16 at 09:14; Status DC Trazodone HCl (Desyrel) 50 mg QHS PO Last administered on 07/13/16 21:10; Start 07/10/16 at 21:00 Tamsulosin HCl (Flomax) 0.4 mg QHS PO Last administered on 07/13/16 21:10; Start 07/10/16 at 21:00 Enoxaparin Sodium (Lovenox 40mg Syringe) 40 mg DAILY SQ Last administered on 09:11; Start 07/11/16 at 09:00 Potassium Chloride 20 meq 20 meq BIDWMEALS PO Last administered on 07/14/16 09 :07; Start 07/11/16 at 17:00 Magnesium Sulfate/ Dextrose (Magnesium Sulfate PREMIX 2GM) 50 ml @ 25 mls/hr 1X ONCE IV Last administered on 07/11/16 10:51; Start 07/11/16 at 10:00; Stop 07/11/16 at 11:59; Status DC Methylprednisolone Sodium Succinate (Solu-Medrol 125mg Vial) 60 mg Q12HR IV Last administered on 07/14/16 09:12; Start 07/12/16 at 21:00; Stop 07/14/16 at 09:14; Status DC Metolazone (Zaroxolyn) 2.5 mg 1X ONCE PO ; Start 07/12/16 at 10:45; Stop at 10:46; Status Cancel Metolazone (Zaroxolyn) 2.5 mg 1X ONCE PO Last administered on 07/12/16 16:54 ; Start 07/12/16 at 16:15; Stop 07/12/16 at 16:16; Status DC Famotidine (Pepcid) 20 mg DAILY PO Last administered on 07/14/16 09:08; Start 07/13/16 at 09:00 Methylprednisolone Sodium Succinate (Solu-Medrol 40mg Vial) 30 mg Q12HR IV ; Start 07/14/16 at 21:00 Furosemide (Lasix) 40 mg DAILY PO Last administered on 07/14/16t 10:36; Start 07/14/16 at 10:00 Active Scripts Active Cozaar (Losartan Potassium) 50 Mg Tablet 50 Mg PO DAILY Flomax (Tamsulosin Hcl) 0.4 Mg Cap.er.24h 0.4 Mg PO QHS Isosorbide Mononitrate Er (Isosorbide Mononitrate) 30 Mg Tab.er.24h 30 Mg PO DAILY 30 Days Albuterol Sulfate Neb Soln (Albuterol Sulfate) 2.5 Mg/3 Ml Vial.neb 2.5 Mg NEB PRN QID PRN 30 Days Reported Lasix (Furosemide) 40 Mg Tablet 1 Tab PO QODAY Nitrostat (Nitroglycerin) 0.4 Mg Tab.subl 1 Tab SL UD Trazodone Hcl 50 Mg Tablet 1 Tab PO QHS Plavix (Clopidogrel Bisulfate) 75 Mg Tablet 75 Mg PO DAILY Imdur (Isosorbide Mononitrate) 30 Mg Tab.er.24h 30 Mg PO DAILY Pepcid (Famotidine) 20 Mg Tablet 20 Mg PO BID Betapace (Sotalol Hcl) 80 Mg Tablet 80 Mg PO BID Allopurinol 100 Mg Tablet 200 Mg PO DAILY Vitals/I & O Vital Sign - Last 24 Hours 07/13/16 07/13/16 07/13/16 07/13/16 15:00 16:16 19:00 19:53 Temp 97.7 97.9 97.7 97.9 Pulse 72 76 Resp 19 20 B/P 138/68 121/80 Pulse Ox 94 91 95 O2 Delivery Nasal Cannula Nasal Cannula Nasal Cannula O2 Flow Rate 1.0 1.0 2.0 07/13/16 07/13/16 07/13/16 07/13/16 19:53 20:00 21:11 23:00 Temp 98.1 98.1 Pulse 72 74 Resp 20 B/P 138/68 116/72 Pulse Ox 95 92 O2 Delivery Nasal Cannula Nasal Cannula O2 Flow Rate 2.0 2.0 07/14/16 07/14/16 07/14/16 07/14/16 03:00 07:00 07:41 08:49 Temp 96.4 96.4 Pulse 74 Resp 16 B/P 109/67 Pulse Ox 92 94 O2 Delivery Room Air Nasal Cannula Nasal Cannula O2 Flow Rate 1.0 1.0 07/14/16 07/14/16 07/14/16 07/14/16 08:50 09:08 09:08 09:10 Pulse 74 74 74 B/P 109/67 109/67 109/67 Pulse Ox 94 O2 Delivery Nasal Cannula O2 Flow Rate 1.0 07/14/16 07/14/16 11:00 13:00 Temp 97.7 97.7 Pulse 72 Resp 16 B/P 124/63 Pulse Ox 94 95 O2 Delivery Nasal Cannula Nasal Cannula O2 Flow Rate 1.0 1.0 Intake and Output 07/13/16 07/13/16 07/14/16 15:00 23:00 07:00 Intake Total 500 ml 1450 ml 0 ml Output Total 3050 ml 825 ml Balance 500 ml -1600 ml -825 ml ZEESHAN TOSCANO MD Jul 14, 2016 14:42
[2016-07-14 15:45] VITALS: BP 114/93
[2016-07-14 19:52] VITALS: BP 107/61
[2016-07-14] MEDS: TAMSULOSIN 0.4 MG CAP.ER.24H. PO SCH (21:48)
[2016-07-14] MEDS: traZODone 50 MG TABLET. PO SCH (21:48)
[2016-07-14] MEDS: methylPREDNISolone SOD SUCC PF 40 MG/ML VIAL. IV SCH (21:48)
[2016-07-14 22:54] VITALS: BP 117/70
[2016-07-15 03:30] VITALS: BP 112/68
[2016-07-15 05:48] LABS: CALCIUM 9.7 mg/dL (8.5-10.1); CREATININE 1.4 mg/dL (0.7-1.3); GFR 48.4; POTASSIUM 4.5 mmol/L (3.5-5.1)
[2016-07-15] MEDS: BUDESONIDE 0.5 MG/2 ML NEBU NEB SCH (06:13)
[2016-07-15] MEDS: IPRATRPIUM/ALBUTEROL 0.5/2.5MG 3 ML NEBU. NEB SCH ×3 (06:13→15:49)
[2016-07-15 07:00] VITALS: BP 139/76
[2016-07-15] MEDS: methylPREDNISolone SOD SUCC PF 40 MG/ML VIAL. IV SCH (09:44)
[2016-07-15] MEDS: ENOXAPARIN 40 MG/0.4 ML DISP.SYRIN. SQ SCH (09:52)
[2016-07-15] MEDS: POTASSIUM CHLORIDE 20 MEQ TABLET.ER. PO SCH (09:56)
[2016-07-15] MEDS: CLOPIDOGREL BISULFATE 75 MG TABLET PO SCH (09:57)
[2016-07-15] MEDS: FUROSEMIDE 40 MG TABLET PO SCH (09:57)
[2016-07-15] MEDS: MULTIVITAMIN with MINERAL TABLET. PO SCH (09:57)
[2016-07-15] MEDS: FAMOTIDINE 20 MG TABLET. PO SCH (09:57)
[2016-07-15] MEDS: ALLOPURINOL 100 MG TABLET. PO SCH (09:58)
[2016-07-15] MEDS: SOTALOL 80 MG TABLET. PO SCH (09:59)
[2016-07-15] MEDS: LOSARTAN POTASSIUM 50 MG TABLET. PO SCH (10:00)
[2016-07-15] MEDS: ISOSORBIDE MONONITRATE ER 30 MG TAB.ER.24H PO SCH (10:01)
[2016-07-15 11:00] VITALS: BP 126/69
--- NOTE | 2016-07-15 11:18 | PDOC ---
PROGRESS NOTES Subjective Subjective feels better. ready for dismissal. good diuresis yesterday. lab reviewed. Objective Objective Vital Signs Date Time Temp Pulse Resp B/P Pulse Ox O2 Delivery O2 Flow Rate FiO2 07/15/16 11:00 97.9 68 20 126/69 96 Nasal Cannula 1.0 97.9 Intake and Output 07/15/16 07:00 Output Total 1450 ml Balance -1450 ml Output Urine Total 1450 ml Physical Exam Abdomen: Soft Heart: Regular rate, Normal S1, Normal S2 Extremities: No edema General: Alert HEENT: Atraumatic Lungs: Clear to auscultation Neuro: Normal speech Psych/Mental Status: Mental status NL Skin: No rashes Assessment Assessment Problems Medical Problems:Acute on chronic systolic congestive heart failure. compensated 2. Ischemic cardiomyopathy.LVEF 20% 3. Acute on chronic hypoxic respiratory failure. 4. Chronic obstructive pulmonary disease. 5. Pulmonary fibrosis. 6. Bronchiectasis. 7. Coronary artery disease. 8. Chronic kidney disease stage 3. superficial vein thrombosis right sural vein chronic urine retention. figueroa catheter (1) CHF (congestive heart failure) Status: Acute (2) COPD exacerbation Status: Acute (3) Pneumonia Status: Acute Plan Plan of Care decrease lasix 40 mg every other day dismiss today with home health Comment Review of Relevant I have reviewed the following items lucio (where applicable) has been applied. Labs Laboratory Tests Test 07/14/16 05:10 07/15/16 05:10 Sodium Level 140mmol/L (136-145) 144mmol/L (136-145) Potassium Level 4.2mmol/L (3.5-5.1) 4.5mmol/L (3.5-5.1) Chloride Level 100mmol/L (98-107) 107mmol/L (98-107) Carbon Dioxide Level 36mmol/L (21-32) 32mmol/L (21-32) Anion Gap 4 (6-14) 5 (6-14) Blood Urea Nitrogen 34mg/dL (8-26) 40mg/dL (8-26) Creatinine 1.5mg/dL (0.7-1.3) 1.4mg/dL (0.7-1.3) Estimated GFR (Cockcroft-Gault) 44.7 48.4 Glucose Level 120mg/dL (70-99) 131mg/dL (70-99) Calcium Level 9.5mg/dL (8.5-10.1) 9.7mg/dL (8.5-10.1) Magnesium Level 1.9mg/dL (1.8-2.4) Laboratory Tests Test 07/15/16 05:10 Sodium Level 144mmol/L (136-145) Potassium Level 4.5mmol/L (3.5-5.1) Chloride Level 107mmol/L (98-107) Carbon Dioxide Level 32mmol/L (21-32) Anion Gap 5 (6-14) Blood Urea Nitrogen 40mg/dL (8-26) Creatinine 1.4mg/dL (0.7-1.3) Estimated GFR (Cockcroft-Gault) 48.4 Glucose Level 131mg/dL (70-99) Calcium Level 9.7mg/dL (8.5-10.1) Microbiology 07/10/16 Blood Culture - Preliminary, Resulted NO GROWTH AFTER 4 DAYS Medications Current Medications Albuterol/ Ipratropium (Duoneb) 6 ml 1X ONCE NEB Last administered on 12:17; Start 07/10/16 at 12:00; Stop 07/10/16 at 12:01; Status DC Prednisone 60 mg 60 mg 1X ONCE PO Last administered on 07/10/16 12:00; Start 07/10/16 at 12:00; Stop 07/10/16 at 12:01; Status DC Levofloxacin/ Dextrose (LEVAQUIN 750mg PREMIX) 150 ml @ 100 mls/hr 1X ONCE IV Last administered on 07/10/16 15:00; Start 07/10/16 at 15:00; Stop 07/10/16 at 16:29; Status DC Furosemide (Lasix) 20 mg 1X ONCE IVP Last administered on 07/10/16 14:30; Start 07/10/16 at 14:30; Stop 07/10/16 at 14:33; Status DC Morphine Sulfate 2 mg PRN Q2HR PRN IV PAIN; Start 07/10/16 at 14:30; Stop 07/11 at 14:29; Status DC Acetaminophen (Tylenol) 650 mg PRN Q4HRS PRN PO FEVER; Start 07/10/16 at 14:30 ; Stop 07/11/16 at 14:29; Status DC Albuterol/ Ipratropium (Duoneb) 3 ml RTQID NEB ; Start 07/10/16 at 16:00; Stop 07/10/16 at 16:00; Status DC Furosemide (Lasix) 40 mg 1X ONCE IVP Last administered on 07/10/16 18:33; Start 07/10/16 at 15:45; Stop 07/10/16 at 15:46; Status DC Methylprednisolone Sodium Succinate (Solu-Medrol 125mg Vial) 60 mg Q8HRS IV Last administered on 07/12/16 05:10; Start 07/10/16 at 16:00; Stop 07/12/16 at 10:28; Status DC Albuterol/ Ipratropium (Duoneb) 3 ml Q4HRS NEB ; Start 07/10/16 at 16:00; Stop 07/10/16 at 18:15; Status DC Budesonide (Pulmicort) 0.5 mg RTBID NEB Last administered on 07/15/16 06:13; Start 07/10/16 at 18:00 Allopurinol (Zyloprim) 200 mg DAILY PO Last administered on 07/15/16 09:58; Start 07/11/16 at 09:00 Famotidine (Pepcid) 20 mg BID PO Last administered on 07/12/16 09:21; Start at 21:00; Stop 07/12/16 at 19:48; Status DC Isosorbide Mononitrate (Imdur) 30 mg DAILY PO Last administered on 07/15/16 10 :01; Start 07/11/16 at 09:00 Sotalol HCl (Betapace) 80 mg BID PO Last administered on 07/15/16 09:59; Start 07/10/16 at 21:00 Clopidogrel Bisulfate (Plavix) 75 mg [id number] PO Last administered on 09:57; Start 07/11/16 at 08:00 Multivitamins/ Calcium (Thera M Plus) 1 tab DAILY PO Last administered on 09:57; Start 07/11/16 at 09:00 Losartan Potassium (Cozaar) 50 mg DAILY PO Last administered on 07/15/16 10:00 ; Start 07/11/16 at 09:00 Trazodone HCl (Desyrel) 50 mg PRN QHS PRN PO INSOMNIA; Start 07/10/16 at 17:00 ; Stop 07/10/16 at 21:00; Status DC Nitroglycerin (Nitrostat) 0.4 mg PRN Q5MIN PRN SL CHEST PAIN; Start 07/10/16 at 17:00 Acetaminophen (Tylenol) 650 mg PRN Q4HRS PRN PO MILD PAIN / TEMP; Start at 17:00 Furosemide (Lasix) 40 mg DAILY IVP ; Start 07/11/16 at 09:00; Stop 07/11/16 at 09:00; Status DC Potassium Chloride (Klor-Con) 20 meq DAILYWBKFT PO Last administered on 09:16; Start 07/11/16 at 08:00; Stop 07/11/16 at 09:41; Status DC Furosemide (Lasix) 40 mg [id number] IVP ; Start 07/11/16 at 19:00; Stop 07/11/16 at 19:00; Status DC Albuterol/ Ipratropium (Duoneb) 3 ml RTQID NEB Last administered on 07/15/16 06:13; Start 07/10/16 at 21:00 Furosemide (Lasix) 40 mg [id number] IVP Last administered on 07/13/16 17:47; Start 07/11/16 at 09:00; Stop 07/14/16 at 09:14; Status DC Trazodone HCl (Desyrel) 50 mg QHS PO Last administered on 07/14/16 21:48; Start 07/10/16 at 21:00 Tamsulosin HCl (Flomax) 0.4 mg QHS PO Last administered on 07/14/16 21:48; Start 07/10/16 at 21:00 Enoxaparin Sodium (Lovenox 40mg Syringe) 40 mg DAILY SQ Last administered on 09:52; Start 07/11/16 at 09:00 Potassium Chloride 20 meq 20 meq BIDWMEALS PO Last administered on 07/15/16 09 :56; Start 07/11/16 at 17:00 Magnesium Sulfate/ Dextrose (Magnesium Sulfate PREMIX 2GM) 50 ml @ 25 mls/hr 1X ONCE IV Last administered on 07/11/16 10:51; Start 07/11/16 at 10:00; Stop 07/11/16 at 11:59; Status DC Methylprednisolone Sodium Succinate (Solu-Medrol 125mg Vial) 60 mg Q12HR IV Last administered on 07/14/16 09:12; Start 07/12/16 at 21:00; Stop 07/14/16 at 09:14; Status DC Metolazone (Zaroxolyn) 2.5 mg 1X ONCE PO ; Start 07/12/16 at 10:45; Stop at 10:46; Status Cancel Metolazone (Zaroxolyn) 2.5 mg 1X ONCE PO Last administered on 07/12/16 16:54 ; Start 07/12/16 at 16:15; Stop 07/12/16 at 16:16; Status DC Famotidine (Pepcid) 20 mg DAILY PO Last administered on 07/15/16 09:57; Start 07/13/16 at 09:00 Methylprednisolone Sodium Succinate (Solu-Medrol 40mg Vial) 30 mg Q12HR IV Last administered on 07/15/16 09:44; Start 07/14/16 at 21:00 Furosemide (Lasix) 40 mg DAILY PO Last administered on 07/15/16 09:57; Start 07/14/16 at 10:00 Active Scripts Active Cozaar (Losartan Potassium) 50 Mg Tablet 50 Mg PO DAILY Flomax (Tamsulosin Hcl) 0.4 Mg Cap.er.24h 0.4 Mg PO QHS Isosorbide Mononitrate Er (Isosorbide Mononitrate) 30 Mg Tab.er.24h 30 Mg PO DAILY 30 Days Albuterol Sulfate Neb Soln (Albuterol Sulfate) 2.5 Mg/3 Ml Vial.neb 2.5 Mg NEB PRN QID PRN 30 Days Reported Lasix (Furosemide) 40 Mg Tablet 1 Tab PO QODAY Nitrostat (Nitroglycerin) 0.4 Mg Tab.subl 1 Tab SL UD Trazodone Hcl 50 Mg Tablet 1 Tab PO QHS Plavix (Clopidogrel Bisulfate) 75 Mg Tablet 75 Mg PO DAILY Imdur (Isosorbide Mononitrate) 30 Mg Tab.er.24h 30 Mg PO DAILY Pepcid (Famotidine) 20 Mg Tablet 20 Mg PO BID Betapace (Sotalol Hcl) 80 Mg Tablet 80 Mg PO BID Allopurinol 100 Mg Tablet 200 Mg PO DAILY Vitals/I & O Vital Sign - Last 24 Hours 07/14/16 07/14/16 07/14/16 07/14/16 13:00 15:45 16:18 19:52 Temp 97.6 97.8 97.6 97.8 Pulse 79 72 Resp 16 22 B/P 114/93 107/61 Pulse Ox 95 90 94 95 O2 Delivery Nasal Cannula Nasal Cannula Nasal Cannula Nasal Cannula O2 Flow Rate 1.0 1.0 1.0 1.0 07/14/16 07/14/16 07/14/16 07/14/16 20:00 20:09 20:10 22:00 Pulse 72 B/P 107/61 Pulse Ox 94 94 O2 Delivery Nasal Cannula Nasal Cannula Nasal Cannula O2 Flow Rate 1.0 1.0 1.0 07/14/16 07/15/16 07/15/16 07/15/16 22:54 03:30 06:12 07:00 Temp 97.9 98.0 96.8 97.9 98.0 96.8 Pulse 73 71 76 Resp 20 20 20 B/P 117/70 112/68 139/76 Pulse Ox 94 93 97 95 O2 Delivery Nasal Cannula Nasal Cannula Nasal Cannula Nasal Cannula O2 Flow Rate 1.0 1.0 1.0 1.0 07/15/16 07/15/16 07/15/16 07/15/16 08:00 09:59 10:00 10:01 Pulse 76 76 76 B/P 139/76 139/76 139/76 O2 Delivery Nasal Cannula O2 Flow Rate 1.0 07/15/16 11:00 Temp 97.9 97.9 Pulse 68 Resp 20 B/P 126/69 Pulse Ox 96 O2 Delivery Nasal Cannula O2 Flow Rate 1.0 Intake and Output 07/14/16 07/14/16 07/15/16 15:00 23:00 07:00 Output Total 800 ml 650 ml Balance -800 ml -650 ml LAURE OLIVER MD Jul 15, 2016 11:18
--- NOTE | 2016-07-15 11:34 | PDOC ---
Provider Note Provider Note discharge summary dictated # [id number] LAURE OLIVER MD Jul 15, 2016 11:34
--- NOTE | 2016-07-15 11:35 | DISCH ---
DISCHARGE INSTRUCTIONS Condition on Discharge Condition on Discharge: Stable Activity After Discharge Activity Instructions for Disc: Resume previous activity Diet after Discharge Diet after Discharge: Cardiac Contacting the DRSherry after DC Call your doctor for: If your condition worsens Follow-Up Follow up with: dr. oliver next week LAURE OLIVER MD Jul 15, 2016 11:35
[2016-07-15] MEDS ORDERED: PREDNISONE 10 MG TABLET PO SCH (12:00)
--- NOTE | 2016-07-15 12:41 | DS ---
DATE OF DISCHARGE: 07/15/2016 CONSULTANTS: Dr. Johnson and Dr. Hawkins. FINAL DIAGNOSES: 1. Acute on chronic systolic congestive heart failure. 2. Ischemic cardiomyopathy. 3. Acute hypoxic respiratory failure. 4. Chronic obstructive pulmonary disease with exacerbation. 5. Pulmonary fibrosis. 6. Bronchiectasis. 7. Coronary artery disease. 8. Chronic kidney disease stage 3. HOSPITAL COURSE: The patient is an 81-year-old white male with a history of chronic systolic congestive heart failure and ischemic cardiomyopathy with a left ventricular ejection fraction of 20%, who has coronary artery disease, chronic obstructive pulmonary disease, pulmonary fibrosis, bronchiectasis as well as secondary hypertension and chronic kidney disease stage III, was admitted to [facility] at the Emergency Room with 3-day history of dyspnea on exertion and increased swelling in his legs. He had some cough with a clear sputum and wheezing. He was seen in the Emergency Room, his chest x-ray showed bilateral pulmonary infiltrates from his pulmonary fibrosis. A CAT scan of the chest was also done which showed improvement in the infiltrates. He was felt to have congestive heart failure, received IV Lasix. IV Solu-Medrol, nebulizer treatments, and oxygen was continued for his COPD exacerbation, seen in consultation by Dr. Johnson for Pulmonary and Dr. Hawkins for Cardiology. The patient's lower extremity edema resolved and eventually switched to oral Lasix 40 mg p.o. daily. His BUN is 40, creatinine 1.4. His BUN is going up, so we changed his Lasix to 40 mg p.o. every other day, potassium chloride 20 mEq every other day. He will be switched from IV Solu-Medrol to prednisone taper today. He was seen by also Dr. Schulz in consultation and recommended maintaining the Comer. We will change the Comer today and change it once a month, and if his condition does improve perhaps Dr. Schulz can do a voiding trial but recommended continuing the Comer catheter due to his comorbidities and likely will need one for the rest of his life. The patient concurs with home health with home physical therapy. We will change his Comer today and monthly and weigh himself every day in the morning. He gains 3 pounds with I think increased lower extremity edema, we will give him an extra dose of Lasix on a non Lasix day. Otherwise, he will be on Lasix 40 mg p.o. every other day, potassium chloride 20 mEq every other day, and take an extra potassium on days he takes the extra Lasix. Dismissed on prednisone 30 mg everyday for 2 days, 20 mg every day for 2 days, 10 mg every day for 2 days, and will stop it. Continue with oxygen 1 liter per nasal cannula. Dismissed on Tylenol 650 mg every 4 hours p.r.n., Allopurinol 200 mg every day, Plavix 75 mg every day, Pepcid 20 mg every day, furosemide as mentioned is 40 mg every other day, DuoNeb nebulizer treatments q.i.d., Imdur 30 mg every day, losartan 50 mg every day, multivitamin every day, nitroglycerin 0.4 mg sublingual p.r.n., potassium chloride 20 mEq every other day, sotalol 80 mg b.i.d., tamsulosin 0.4 mg at bedtime, the prednisone taper as mentioned and trazodone 50 mg at bedtime. Adhere to a low salt cardiac diet. Make an appointment to see Dr. Hunter in the office next week. Continue with oxygen 1 liter per nasal cannula. LAURE HUNTER MD DR: MARIA EUGENIA/talib JOB#: [id number] / [id number]
[2016-07-15] MEDS ORDERED: ACET325T9 PO (13:28)
[2016-07-15] MEDS ORDERED: ALLO100T PO (13:29)
[2016-07-15] MEDS ORDERED: CLOP75TA27 PO (13:30)
[2016-07-15] MEDS ORDERED: FAMO20TA5 PO (13:32)
[2016-07-15] MEDS ORDERED: FURO40TA4 PO (13:44)
[2016-07-15] MEDS ORDERED: ALBU2.5V5 NEB (13:46)
[2016-07-15] MEDS ORDERED: ISOS30TA4 PO (13:46)
[2016-07-15] MEDS ORDERED: LOSA50TA6 PO (13:46)
[2016-07-15] MEDS ORDERED: NITR0.4T6 SL (13:47)
[2016-07-15] MEDS ORDERED: MULT1TAB52 PO (13:47)
[2016-07-15] MEDS ORDERED: POTA10TA10 PO (13:49)
[2016-07-15] MEDS ORDERED: SOTA80TA PO (13:49)
[2016-07-15] MEDS ORDERED: TRAZ50TA15 PO (13:50)
[2016-07-15] MEDS ORDERED: TAMS0.4C97 PO (13:50)
[2016-07-15] MEDS ORDERED: ACETAMINOPHEN 325 MG TABLET. PO PRN (14:00)
[2016-07-15] MEDS ORDERED: NITROGLYCERIN SUBLINGUAL 0.4 MG BOTTLE OF 25. SL PRN (14:00)
[2016-07-15] MEDS ORDERED: ALBUTEROL SULFATE 2.5 MG/3 ML NEBU. NEB SCH (14:00)
[2016-07-15 14:59] VITALS: BP 121/66
[2016-07-15] MEDS ORDERED: SOTALOL 80 MG TABLET. PO SCH (21:00)
[2016-07-15] MEDS ORDERED: FAMOTIDINE 20 MG TABLET. PO SCH (21:00)
[2016-07-15] MEDS ORDERED: traZODone 50 MG TABLET. PO SCH (21:00)
[2016-07-15] MEDS ORDERED: TAMSULOSIN 0.4 MG CAP.ER.24H. PO SCH (21:00)
[2016-07-16] MEDS ORDERED: NON FORMULARY ITEM (Multivitamin (Multivitamins) 1 TAB) PO SCH (09:00)
[2016-07-16] MEDS ORDERED: CLOPIDOGREL BISULFATE 75 MG TABLET PO SCH (09:00)
[2016-07-16] MEDS ORDERED: LOSARTAN POTASSIUM 50 MG TABLET. PO SCH (09:00)
[2016-07-16] MEDS ORDERED: ALLOPURINOL 100 MG TABLET. PO SCH (09:00)
[2016-07-16] MEDS ORDERED: ISOSORBIDE MONONITRATE ER 30 MG TAB.ER.24H PO SCH (09:00)
[2016-07-17] MEDS ORDERED: POTASSIUM CHLORIDE 20 MEQ TABLET.ER. PO SCH (09:00)
[2016-07-17] MEDS ORDERED: FUROSEMIDE 40 MG TABLET PO SCH ×2 (09:00)
[2016-07-17] MEDS ORDERED: NON FORMULARY ITEM (Potassium Chloride 20 MEQ) PO SCH (09:00)
== END 2016-07-15 19:00 | disposition home health service (06) | DRG 291 ==
LOC: ER 11:00 → 5 NORTH 14:21
PROVIDERS: ADMIT Internal Medicine; ATTEND Internal Medicine
DX: I50.23 Acute on chronic systolic (congestive) heart failure (principal); J96.21 Acute and chronic respiratory failure with hypoxia; J44.1 Chronic obstructive pulmonary disease with (acute) exacerbation; I13.0 Hypertensive heart and chronic kidney disease with heart failure and stage 1 through stage 4 chronic kidney disease, or unspecified chronic kidney disease; E87.0 Hyperosmolality and hypernatremia; D64.9 Anemia, unspecified; E78.5 Hyperlipidemia, unspecified; I25.10 Atherosclerotic heart disease of native coronary artery without angina pectoris; I25.5 Ischemic cardiomyopathy; I27.2 Other secondary pulmonary hypertension; I34.0 Nonrheumatic mitral (valve) insufficiency; J84.10 Pulmonary fibrosis, unspecified; K21.9 Gastro-esophageal reflux disease without esophagitis; M10.9 Gout, unspecified; N18.3 Chronic kidney disease, stage 3 (moderate); Z85.828 Personal history of other malignant neoplasm of skin; Z86.718 Personal history of other venous thrombosis and embolism; Z87.01 Personal history of pneumonia (recurrent); Z87.891 Personal history of nicotine dependence; I25.2 Old myocardial infarction; Z95.1 Presence of aortocoronary bypass graft; Z95.5 Presence of coronary angioplasty implant and graft; Z95.810 Presence of automatic (implantable) cardiac defibrillator; Z99.81 Dependence on supplemental oxygen; Z88.8 Allergy status to other drugs, medicaments and biological substances; Z90.49 Acquired absence of other specified parts of digestive tract
CPT/HCPCS: 36415; 71010; 71250; 80048; 83735; 83880; 84484; 85007; 85027; 87040; 93005; 93970; 94250; 94640; 94760; 96374; J1650; J1940; J1956; J2920; J2930; J7060; J7512; J7620; 97116; 97530; 99285-25

== ENCOUNTER → 2016-07-28 | Outpatient (CLI) | payer MEDICARE, BC ==
[2016-07-15 14:59] VITALS: BP 121/66
[~2016-07-28] MED LIST changes: +FAMO20TA5 PO; +FURO-68 PO; +LOSA50TA6 PO; +MULT1TAB52 PO; +NITR0.4T6 SL; +POTA10TA10 PO; +SOTA80TA PO
--- NOTE | 2016-07-28 08:48 | RAD ---
CT of the chest without contrast, 07/28/2016: History: Pulmonary fibrosis and infiltrate, shortness of breath Noncontrast scans were obtained as requested and compared to a study from 07/10/2016. Transvenous pacing leads remain in place extending into the heart. There is calcific plaquing of the aorta and coronary arteries. A trace amount of pericardial fluid is present. There are mediastinal and hilar calcifications. No mediastinal adenopathy is seen. Previously seen pleural effusions have largely resolved. There is mild residual pleural thickening posteriorly on the right extending into the oblique fissure which is probably predominantly due to scarring. There are moderate emphysematous changes in the lungs. There are prominent linear scars with bilateral scattered pulmonary calcifications. There are peripheral interstitial opacities, particularly in the lung bases. These are probably predominantly due to fibrosis. Mild superimposed parenchymal consolidation in the left lung base has largely cleared. There is a 2 cm peripheral nodular opacity in the right lung base at the level of the azygoesophageal recess as best seen on axial image 48 of series #2 and coronal image 28 of series #4. It is unclear within this represents a peripheral pulmonary mass or a loculated collection of residual pleural fluid. This opacity was present in retrospect on the 07/10/2016 study but was not visible on the exam from 10/08/2015. IMPRESSION: 1. Severe emphysema with fibrocalcific parenchymal scarring. 2. Previously seen bilateral pleural effusions have largely resolved with mild residual pleural thickening on the right. 3. Resolving left basilar consolidation. 4. Small right basilar peripheral opacity at the azygos esophageal recess level as described above. CT follow-up is suggested to exclude a neoplastic etiology.
== END | disposition home or self-care (01) ==
LOC: CT 07:39
PROVIDERS: ATTEND Internal Medicine Pulmonary Disease
DX: J43.9 Emphysema, unspecified (principal); I70.0 Atherosclerosis of aorta
CPT/HCPCS: 71250

== ENCOUNTER → 2016-11-29 | Outpatient (CLI) | payer MEDICARE ==
[~2016-11-29] MED LIST changes: -POTA10TA10 PO; +POTA10TA12 PO; -SOTA80TA PO; +SOTA80TA48 PO
--- NOTE | 2016-11-29 14:37 | KCIC ---
Examination: Ultrasound kidneys HISTORY: History of abnormal liver function, hydronephrosis COMPARISON: None available Findings: The right kidney measures 9.0 x 3.7x3.6 cm. The left kidney measures 9.5 x 3.8 x 4.4 cm. There is a cystic structure identified in the lower pole of the left kidney measuring 1.2 x 1.8 x 1.2 cm and containing some echogenicity within. No evidence of hydronephrosis. The urinary bladder is mildly distended. Aortic atherosclerosis. The prostate is moderately enlarged. Bladder jets could not be identified. IMPRESSION: 1. No evidence of hydronephrosis. 2. 1.3 cm cyst extending from the lower pole of the left kidney could be a complex cyst. Follow-up to document stability. 3. Moderate prostatomegaly. Electronically signed by: Jero Hernandez MD (11/29/2016 2:34 PM)
== END | disposition home or self-care (01) ==
LOC: KCIC US 12:10
PROVIDERS: ATTEND Internal Medicine
DX: R94.4 Abnormal results of kidney function studies (principal); N13.30 Unspecified hydronephrosis; N40.0 Benign prostatic hyperplasia without lower urinary tract symptoms
CPT/HCPCS: 76770

== ENCOUNTER → 2016-12-01 | Outpatient (CLI) | payer MEDICARE, BC ==
[~2016-12-01] MED LIST changes: -CHOL500015 PO; +CHOL500045 PO; -CLOP75TA27 PO; +CLOP75TA57 PO; +NITR0.4T22 SL; -NITR0.4T6 SL
--- NOTE | 2016-12-01 12:47 | RAD ---
Indication lung mass. Imaging through the upper abdomen is unremarkable. There is a small right pleural effusion. There is a trace amount of pericardial fluid. Marked emphysematous changes with associated pleural parenchymal scarring is noted. In this regard there has not been significant change. A new or dominant soft tissue mass in either lung is not seen. Known mass at the right lung base medially persists. It is uncertain whether this mass originates in the lung or in the mediastinum. The mass, however, is larger than on the previous exam. Previously it measured approximately 2 cm in greatest dimension and now measures approximately 3.2. No significant finding is seen associated with the thoracic aorta. There is no new finding in the mediastinum. IMPRESSION: Previously identified mass originating either out of the mediastinum or the right lung parenchyma, medially, persists and appears larger. Neoplastic etiology is not excluded. Small right pleural effusion and trace pericardial effusion. Extensive chronic emphysematous changes are noted in the lungs with associated pleural parenchymal scarring. In this regard the appearance of the chest is similar PQRS Compliance Statement: One or more of the following individualized dose reduction techniques were utilized for this examination: 1. Automated exposure control 2. Adjustment of the mA and/or kV according to patient size 3. Use of iterative reconstruction technique
== END | disposition home or self-care (01) ==
LOC: CT 08:54
PROVIDERS: ATTEND Internal Medicine Pulmonary Disease
DX: R91.8 Other nonspecific abnormal finding of lung field (principal); J90 Pleural effusion, not elsewhere classified
CPT/HCPCS: 71250

== ENCOUNTER 2017-06-05 10:45 | Inpatient (IN) | payer MEDICARE, BC ==
[~2017-06-05] VITALS: Ht 177.8 cm; Wt 53.1 kg
[2017-06-05] MEDS ORDERED: IV NORMAL SALINE 1000ML BAG 1,000 ML IV SCH (11:46)
--- NOTE | 2017-06-05 11:52 | PHYS DOC ---
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 Patient states that he has had decreased appetite over the past several weeks but states that it has gotten much worse over the past few days. Patient also states that he has been having significant increase in dyspnea with exertion. Patient has history of congestive heart failure, chronic kidney disease, and patient follows with Dr. Hunter for primary care and Dr. Hawkins for cardiology. Patient notes that he was told by his overhead foreman recently that his hemoglobin counts were low likely due to iron deficiency and states that they had discussed possibly infusing iron but this has not been done at this time. Patient denies any abdominal pain or chest pain at this time. Patient states that currently he is only able to take a few steps before he gets severely short of breath. Patient states while at rest he is not having any trouble. Patient states that he is on home oxygen but only runs 1 L/m. Patient currently is on 2 L/m in the emergency department. Review of Systems Review of Systems Constitutional: Generalized weakness, lightheadedness, denies fever or chills [] Eyes: Denies change in visual acuity, redness, or eye pain [] HENT: Denies nasal congestion or sore throat [] Respiratory: Denies cough or shortness of breath [] Cardiovascular: Dyspnea with exertion, denies chest pain[] GI: Anorexia, denies abdominal pain, nausea, vomiting, bloody stools or diarrhea [] : Denies dysuria or hematuria [] Musculoskeletal: Denies back pain or joint pain [] Integument: Denies rash or skin lesions [] Neurologic: Denies headache, focal weakness or sensory changes [] All other systems were reviewed and found to be within normal limits, except as documented in this note. Current Medications Current Medications Current Medications Medications (Trade) Dose Ordered Sig/Star Start Time Stop Time Status Last Admin Dose Admin Sodium Chloride 1,000 ml @ 75 mls/hr [id number] 06/05/17 11:46 06/05/17 14:25 DC 06/05/17 11:58 75 MLS/HR Allergies Allergies Allergies Coded Allergies Type Severity Reaction Last Updated Verified bacitracin Allergy Intermediate 10/06/15 Yes neomycin sulfate Allergy Intermediate 10/06/15 Yes polymyxin B Allergy Intermediate 10/06/15 Yes Physical Exam Physical Exam Constitutional: Alert, afebrile, cachectic appearance, no acute distress. [] HENT: Normocephalic, atraumatic, bilateral external ears normal, oropharynx moist, no oral exudates, nose normal. [] Eyes: PERRLA, EOMI, conjunctiva normal, no discharge. [] Neck: Normal range of motion, no tenderness, supple, no stridor. [] Cardiovascular:Heart rate regular rhythm, no murmur [] Lungs & Thorax: Moderately restricted air movement bilaterally, no wheezes or rales[] Abdomen: Bowel sounds normal, soft, no tenderness, no masses, no pulsatile masses. [] Skin: Warm, dry, no erythema, no rash. [] Back: No tenderness, no CVA tenderness. [] Extremities: No tenderness, no cyanosis, no clubbing, ROM intact, 2+ pitting edema in the bilateral lower extremities. [] Neurologic: Alert and oriented X 3, normal motor function, normal sensory function, no focal deficits noted. [] Current Patient Data Vital Signs Vital Signs Date Time Temp Pulse Resp B/P (MAP) Pulse Ox O2 Delivery O2 Flow Rate FiO2 06/05/17 12:25 70 18 96 06/05/17 11:05 97.5 163/74 (103) Nasal Cannula 2.0 97.5 Lab Values Laboratory Tests Test 06/05/17 11:20 06/05/17 12:14 White Blood Count 10.0 x10^3/uL (4.0-11.0) Red Blood Count 3.07 x10^6/uL (4.30-5.70) L Hemoglobin 9.8 g/dL (13.0-17.5) L Hematocrit 30.3 % (39.0-53.0) L Mean Corpuscular Volume 99 fL (79-100) Mean Corpuscular Hemoglobin 32 pg (25-35) Mean Corpuscular Hemoglobin Concent 33 g/dL (31-37) Red Cell Distribution Width 16.2 % (11.5-14.5) H Platelet Count 173 x10^3/uL (140-400) Neutrophils (%) (Auto) 84 % (31-73) H Lymphocytes (%) (Auto) 8 % (24-48) L Monocytes (%) (Auto) 7 % (0-9) Eosinophils (%) (Auto) 1 % (0-3) Basophils (%) (Auto) 1 % (0-3) Neutrophils # (Auto) 8.4 x10^3uL (1.8-7.7) H Lymphocytes # (Auto) 0.8 x10^3/uL (1.0-4.8) L Monocytes # (Auto) 0.7 x10^3/uL (0.0-1.1) Eosinophils # (Auto) 0.1 x10^3/uL (0.0-0.7) Basophils # (Auto) 0.0 x10^3/uL (0.0-0.2) Sodium Level 142 mmol/L (136-145) Potassium Level 4.5 mmol/L (3.5-5.1) Chloride Level 104 mmol/L (98-107) Carbon Dioxide Level 28 mmol/L (21-32) Anion Gap 10 (6-14) Blood Urea Nitrogen 29 mg/dL (8-26) H Creatinine 1.9 mg/dL (0.7-1.3) H Estimated GFR (Cockcroft-Gault) 33.9 BUN/Creatinine Ratio 15 (6-20) Glucose Level 107 mg/dL (70-99) H Calcium Level 10.8 mg/dL (8.5-10.1) H Magnesium Level 2.0 mg/dL (1.8-2.4) Total Bilirubin 0.6 mg/dL (0.2-1.0) Aspartate Amino Transferase (AST) 13 U/L (15-37) L Alanine Aminotransferase (ALT) 11 U/L (16-63) L Alkaline Phosphatase 91 U/L (46-116) Creatine Kinase 10 U/L (39-308) L Creatine Kinase MB (Mass) < 0.5 ng/mL (0.0-3.6) Creatine Kinase MB Relative Index % (0-4) Troponin I Quantitative < 0.017 ng/mL (0.000-0.055) DC-Osb-J-Type Natriuretic Peptide 1558 pg/mL (0-449) H Total Protein 7.2 g/dL (6.4-8.2) Albumin 3.2 g/dL (3.4-5.0) L Albumin/Globulin Ratio 0.8 (1.0-1.7) L Urine Collection Type Void Urine Color Yellow Urine Clarity Cloudy Urine pH 6.0 Urine Specific [place] 1.015 Urine Protein 100 mg/dL (NEG-TRACE) Urine Glucose (UA) Negative mg/dL (NEG) Urine Ketones (Stick) Negative mg/dL (NEG) Urine Blood Small (NEG) Urine Nitrite Positive (NEG) Urine Bilirubin Negative (NEG) Urine Urobilinogen Dipstick 0.2 mg/dL (0.2 mg/dL) Urine Leukocyte Esterase Large (NEG) Urine RBC Rare /HPF (0-2) Urine WBC >40 /HPF (0-4) Urine Squamous Epithelial Cells None /LPF Urine Bacteria Many /HPF (0-FEW) Laboratory Tests 06/05/17 11:20 Laboratory Tests 06/05/17 11:20 EKG EKG Interpreted by me: Heart rate 73, sinus rhythm, left bundle branch block, no acute ST elevations or depressions[] Radiology/Procedures Radiology/Procedures [facility] [address] [place] [address] IMAGING REPORT Signed PATIENT: KRYSTIN CHAMBERS ACCOUNT: [id number] : 1935 LOCATION: ER AGE: 82 SEX: M EXAM STATUS: REG ER ORD. PHYSICIAN: CASA WATTS MD REASON: weakness, shortness of breath/ PROCEDURE: PORTABLE CHEST 1V Indication: Weakness and short of air. Technique: Upright portable chest radiograph was obtained and compared to a study from July 10, 2016. Findings: Film is rotated. There is pneumothorax on the left with pleural separation up to 3.7 cm. By volume, pneumothorax is at least 30%. There is mediastinal shift to the right. There is a background of fibrosis or scarring. Superimposed atelectasis or infiltrate on the right is hard to exclude. Heart is not enlarged. Pacemaker is noted. Leads overlie the patient. Critical report of pneumothorax was called to Dr. Watts at 1224 hours. Impression: 1. Left pneumothorax with mediastinal shift to the right. 2. Increased opacity on the right may represent atelectasis and or infiltrate. This appears to be superimposed on a background of fibrosis or scarring. DICTATED and SIGNED BY: TOYA MORRIS MD DATE: 06/05/17 1223 CC: CASA WATTS MD; LAURE HUNTER MD ~ [] Course & Med Decision Making Course & Med Decision Making Pertinent Labs and Imaging studies reviewed. (See chart for details) The patient had multiple findings, of immediate concern was the patient's pneumothorax. This was treated as outlined in the procedure note. Patient was found have evidence of urinary tract infection and was started on IV Rocephin for treatment. Patient's blood work shows chronic kidney disease and also shows an elevated BNP level. The patient has multiple comorbidities and is a complex medical case at this time and will require multiple services of consultation for treatment. I spoke with Dr. Hunter who accepted the care patient in hospital. I also spoke with Dr. Johnson of pulmonology who evaluated the patient in the emergency department. After speaking with the patient and patient's family they agreed on placing the patient has a DNR due to presence of severe lung disease as well as what appears to be a possible malignant process in the right lung. A consult was placed to Dr. Hawkins of cardiology to follow with patient in hospital. Spoke with patient and patient's family regarding plan of care and they're in agreement at time of admission. Critical care time excluding procedures: 55 minutes Dragon Disclaimer Dragon Disclaimer This electronic medical record was generated, in whole or in part, using a voice recognition dictation system. Departure Departure Impression: Primary Impression: Tension pneumothorax, spontaneous Additional Impressions: Urinary tract infection COPD (chronic obstructive pulmonary disease) Congestive heart failure Stage III chronic kidney disease Disposition: 09 ADMITTED INPATIENT Admitting Physician: Other Condition: GUARDED Referrals: LAURE HUNTER MD (PCP) Problem Qualifiers Additional Impressions: Urinary tract infection Urinary tract infection type: site unspecified Hematuria presence: without hematuria Qualified Codes: N39.0 - Urinary tract infection, site not specified COPD (chronic obstructive pulmonary disease) COPD type: unspecified COPD Qualified Codes: J44.9 - Chronic obstructive pulmonary disease, unspecified Congestive heart failure Congestive heart failure type: unspecified congestive heart failure type Congestive heart failure chronicity: acute on chronic Qualified Codes: I50.9 - Heart failure, unspecified CASA WATTS MD Jun 05, 2017 11:52
[2017-06-05 12:05] LABS: BASO % 1 % (0-3); EOS % 1 % (0-3); HEMATOCRIT 30.3 % (39.0-53.0); HEMOGLOBIN 9.8 g/dL (13.0-17.5); LYMPH # 0.8 x10^3/uL (1.0-4.8); LYMPH % 8 % (24-48); MEAN CORPUSCULAR HEMOGLOBIN 32 pg (25-35); MEAN CORPUSCULAR HGB CONC 33 g/dL (31-37); MEAN CORPUSCULAR VOLUME 99 fL (79-100); MONO % 7 % (0-9); NEUT % 84 % (31-73); PLATELET COUNT 173 x10^3/uL (140-400); RED BLOOD COUNT 3.07 x10^6/uL (4.30-5.70); RED CELL DISTRIBUTION WIDTH 16.2 % (11.5-14.5)
--- NOTE | 2017-06-05 12:07 | EKG ---
[facility] [address] [place] [address] Test Date: 2017-06-05 Test Time: 11:08:53 Pat Name: KRYSTIN CHAMBERS Department: Room: Gender: M Clinical Dietitian: : 1935 Requested By: CASA DELGADILLO Order Number: [id number] Reading MD: Vinny Joya MD Measurements Intervals [place] Rate: 73 P: [place]: QRS: 74 QRSD: 134 T: 62 QT: 464 QTc: 516 Interpretive Statements SUSPECT A PACING WITH IVCD Electronically Signed On 06-12-2017 14:02:57 GM by Vinny Joya MD
[2017-06-05 12:11] LABS: CALCIUM 10.8 mg/dL (8.5-10.1); CREATININE 1.9 mg/dL (0.7-1.3); GFR 33.9; POTASSIUM 4.5 mmol/L (3.5-5.1)
[2017-06-05 12:18] LABS: ALBUMIN 3.2 g/dL (3.4-5.0); ALBUMIN/GLOBULIN RATIO 0.8 (1.0-1.7); TOTAL BILIRUBIN 0.6 mg/dL (0.2-1.0); TOTAL PROTEIN 7.2 g/dL (6.4-8.2)
[2017-06-05 12:31] LABS: CKMB MASS < 0.5 ng/mL (0.0-3.6); CREATINE KINASE 10 U/L (39-308)
--- NOTE | 2017-06-05 12:31 | RAD ---
Indication: Weakness and short of air. Technique: Upright portable chest radiograph was obtained and compared to a study from July 10, 2016. Findings: Film is rotated. There is pneumothorax on the left with pleural separation up to 3.7 cm. By volume, pneumothorax is at least 30%. There is mediastinal shift to the right. There is a background of fibrosis or scarring. Superimposed atelectasis or infiltrate on the right is hard to exclude. Heart is not enlarged. Pacemaker is noted. Leads overlie the patient. Critical report of pneumothorax was called to Dr. Watts at 1224 hours. Impression: 1. Left pneumothorax with mediastinal shift to the right. 2. Increased opacity on the right may represent atelectasis and or infiltrate. This appears to be superimposed on a background of fibrosis or scarring.
[2017-06-05 12:33] LABS: BILIRUBIN,URINE NEGATIVE (NEG); GLUCOSE,URINE NEGATIVE (NEG); NITRITE,URINE POSITIVE (NEG); PROTEIN,URINE 100 mg/dL (NEG-TRACE); UROBILINOGEN,URINE 0.2 mg/dL (0.2 mg/dL)
[2017-06-05 12:41] LABS: BACTERIA,URINE MANY /HPF (0-FEW); RBC,URINE RARE /HPF (0-2); WBC,URINE >40 /HPF (0-4)
[2017-06-05] MEDS ORDERED: MIDAZOLAM HCL/PF 2 MG/2 ML VIAL. ONE (13:06)
[2017-06-05] MEDS ORDERED: LIDOCAINE 1%/EPI 1:100,000 20 ML VIAL. INJ ONE (13:15)
[2017-06-05] MEDS ORDERED: LIDOCAINE 2%/EPI 1:100,000 20 ML VIAL. IJ ONE (13:15)
[2017-06-05] MEDS ORDERED: MIDAZOLAM HCL/PF 2 MG/2 ML VIAL. IV ONE (13:15)
[2017-06-05] MEDS ORDERED: ONDANSETRON PF 4 MG/2 ML VIAL. IV PRN (14:30)
[2017-06-05] MEDS ORDERED: ACETAMINOPHEN 325 MG TABLET. PO PRN (14:30)
--- NOTE | 2017-06-05 14:52 | CONS ---
DATE OF CONSULTATION: ATTENDING PHYSICIAN: Dr. Hunter. REASON FOR CONSULTATION: Pneumothorax, emphysema, respiratory failure. HISTORY OF PRESENT ILLNESS: The patient is an 82-year-old male who has been followed by my partner, Dr. Harley. He has history of end-stage COPD and also has been followed up for an increasing parenchymal mass in the right lower chest on his previous CAT scans. He was considered high risk for biopsy. He also has history of cardiomyopathy with an EF of 20%, history of secondary pulmonary hypertension. The patient was brought into the hospital with generalized weakness and shortness of breath. He has been coughing lately. Cough is nonproductive. He has had significant decrease in the appetite over several weeks and also has been losing weight. He had no headaches, no nausea or vomiting, no recent fall. He was found to have a moderate size left pneumothorax on his chest x-ray which was performed in the ER. I spoke with the ER physician, Dr. Watts and we proceeded with a left-sided 24-Algerian chest tube. The chest tube is in place and repeat chest x-ray is pending. I have reviewed the patient's CT chest from 12/01/2016 and there was an increased parenchymal mass in the right lower lobe close to the pleura which was 3.2 cm compared to previous 2 cm. There was also small right pleural effusion which is chronic and also some chronic parenchymal infiltrates. Consultation requested for further evaluation and management. PAST MEDICAL HISTORY: Significant for history of anemia, history of COPD, history of GERD, dyslipidemia, heart disease, hypertension, cardiomyopathy with an EF of 20%, basal cell carcinoma, history of OR, gout. PAST SURGICAL HISTORY: Cholecystectomy, coronary artery bypass surgery, pacemaker, cataract, defibrillator, CABG x 3 and stents. ALLERGIES: BACITRACIN, NEOMYCIN SULFATE, POLYMYXIN B. MEDICATIONS: Reviewed as listed in the MRAD. REVIEW OF SYSTEMS: Twelve-point system obtained. Pertinent positives discussed in my history of present illness, otherwise noncontributory. All systems that were negative were reviewed as well. SOCIAL HISTORY: Smoked for 50 years before quitting in 1997. PHYSICAL EXAMINATION: GENERAL: He is in no obvious respiratory distress. VITAL SIGNS: Requiring 2 liters of oxygen, afebrile. Blood pressure reviewed. HEENT: Sclerae nonicteric. NECK: Supple. LUNGS: With diminished breath sounds bilaterally. CARDIOVASCULAR: With a regular rate. ABDOMEN: Soft. EXTREMITIES: With no pitting edema. His chest x-ray was reviewed. This shows moderate left-sided pneumothorax. LABORATORY DATA: Reviewed. White cell count 10.0, hemoglobin 9.8 and platelets are 173. BUN 29, creatinine 1.9. Albumin 3.2. IMPRESSION: 1. Acute hypoxic respiratory failure secondary to left-sided pneumothorax. 2. 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 3. History of increasing parenchymal mass in the right lower lobe based on the last CT chest from November. Being followed by Dr. Harley. 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 4. History of cardiomyopathy with an EF of 20%. 5. Dehydration with acute kidney injury. RECOMMENDATIONS: 1. Continue with chest tube and follow daily chest x-rays. We will be closely following for improvement in air leak. 2. At this time, I have discussed with the patient's daughter who is the DPOA and I have advised her that we should not consider any invasive biopsy options for the right-sided increasing parenchymal mass as the patient is a very poor candidate for any form of treatment and she agrees. 3. Add empiric antibiotic. 4. Continue oxygen. 5. Bronchodilators. 6. Pain control. 7. Advanced directives discussed with the patient's daughter and she agrees for the DNR. She said this was the patient's wishes and they have also signed DNR outside hospital as well. 8. We will follow along with you. Discussed with Dr. Watts in ER and discussed with the patient's daughter. Critical care time 35 minutes. DHARA ANTONIO MD DR: FELTON/talib JOB#: [id number] / [id number] LEIDY
[2017-06-05 15:00] VITALS: BP 147/75
[2017-06-05] MEDS: IV NORMAL SALINE 1000ML BAG 1,000 ML IV SCH ×2 (15:00→23:00)
[2017-06-05] MEDS: IPRATRPIUM/ALBUTEROL 0.5/2.5MG 3 ML NEBU. NEB SCH ×2 (16:42→20:07)
[2017-06-05] MEDS ORDERED: NITROGLYCERIN SUBLINGUAL 0.4 MG BOTTLE OF 25. SL PRN (17:15)
[2017-06-05] MEDS ORDERED: MAGNESIUM HYDROXIDE 2,400 MG/30 ML ORAL.SUSP. PO PRN (17:15)
--- NOTE | 2017-06-05 17:30 | PDOC ---
Provider Note Provider Note history and physical dictated # [id number] LAURE OLIVER MD Jun 05, 2017 17:30
--- NOTE | 2017-06-05 17:55 | HP ---
ADMIT DATE: 06/05/2017 LOCATION: He is in room 253. HISTORY OF PRESENT ILLNESS: The patient is an 82-year-old white male who has a history of end-stage chronic obstructive pulmonary disease, coronary artery disease, secondary pulmonary hypertension, ischemic cardiomyopathy with left ventricular ejection fraction of 20% with chronic kidney disease stage 3 and chronic systolic congestive heart failure who is maintained on oxygen 1 liter per nasal cannula, who went to the [facility] Emergency Room with some shortness of breath, decreased appetite and some weight loss and generalized debility. A chest x-ray showed that he had a 30% left-sided pneumothorax requiring a chest tube. He has been having a couple of coughing episodes in the last couple of days without any significant sputum production. He has been followed by Dr. Harley in the office and he has a right lung mass, which has grown in size from 2 cm apparently to 3.2 cm in the right lower lobe, but because of his debilitated state he was not a candidate for a lung biopsy at that time. He is therefore admitted for further evaluation and treatment of his pneumothorax and generalized debility. ALLERGIES AND INTOLERANCES: INCLUDE NEOSPORIN. MEDICATIONS: Prior to admission include fish oil 1 g daily, vitamin B12 at 1000 mcg monthly, melatonin 3 mg at bedtime, albuterol nebulizer treatments every 4 hours p.r.n., allopurinol 200 mg every day, Betapace 80 mg b.i.d., Pepcid 20 mg b.i.d., furosemide 40 mg every other day, Imdur 30 mg every day, mirtazapine 7.5 mg at bedtime, multiple vitamin once a day, nitroglycerin 0.4 mg sublingual p.r.n., Plavix 75 mg every day, potassium chloride 10 mEq every other day, ProAir inhaler p.r.n., tamoxifen 0.4 mg b.i.d. and trazodone 50 mg at bedtime. PAST MEDICAL HISTORY: Significant for severe end-stage chronic obstructive pulmonary disease, secondary pulmonary hypertension, coronary artery disease, ischemic cardiomyopathy with left ventricular ejection fraction of 20%, chronic systolic congestive heart failure, chronic hypoxic respiratory failure, maintained on oxygen 1 liter per nasal cannula; hypertension, chronic kidney disease stage 3, hyperlipidemia, pernicious anemia, gastroesophageal reflux disease, and gout. He has a history of coronary artery angioplasty in 1997 and in 1989, appendectomy, cataract extraction, cholecystectomy, hernia repair, pacemaker generator placement in 2009, severe secondary pulmonary hypertension, pulmonary fibrosis, Mohs surgery for basal cell carcinoma of the forehead in 11/2015 with a skin graft at that time. He has a history of a deep vein thrombosis in the left leg in 2004 and a gastric ulcer in 2004. History of a myocardial infarction in the past. SOCIAL HISTORY: He does not drink alcohol nor does he smoke cigarettes. He is cared for by his family. FAMILY HISTORY: Not contributory. REVIEW OF SYSTEMS: GENERAL: No fever, chills or sweats in the last 3 days. CARDIOVASCULAR: No chest pain. PULMONARY: Some chronic shortness of breath and a cough lately. GASTROINTESTINAL: He has not had a bowel movement in 2 days, but denies constipation. SKIN: No rashes. NEUROLOGIC: Generalized weakness, but no focal weakness. The rest of systems reviewed are negative except as stated in history of present illness. PHYSICAL EXAMINATION: VITAL SIGNS: Temperature is 97.5 degrees, apical pulse 77, respiratory rate 20, blood pressure 147/75, oxygen saturation 95% on 1 liter per nasal cannula. HEENT: Eyes: Gaze is conjugate. Extraocular muscles are intact. Mouth: Tongue is midline. He wears dentures. NECK: There is no cervical lymphadenopathy or thyroid enlargement. HEART: Reveals an S1, S2. There is no S3 or murmur. LUNGS: Reveal some decreased breath sounds and rhonchi anteriorly. He has got a chest tube in the left side. ABDOMEN: Soft with no hepatosplenomegaly, masses or tenderness. LOWER EXTREMITIES: He has got 2+ bipedal edema. SKIN: No rashes. NEUROLOGIC: Revealed no focal weakness of extremities or facial asymmetry. LABORATORY DATA: His white count was 10, hemoglobin 9.8, platelet count 173,000, with 84 polys and 8 lymphocytes. Sodium 142, potassium 4.5, chloride 104, total CO2 of 28, BUN 29, creatinine 1.9, calcium 10.8. Liver function tests normal, albumin 3.2. ProBNP 1558. Troponin level was less than 0.017. CPK of 10. Urinalysis showed greater than 40 white cells. He had a chest x-ray done, which showed a left pneumothorax with left to right shift. He has about a 30% pneumothorax on the left side. He also had an electrocardiogram done that showed baseline artifact, does not look like he has any acute change though. ASSESSMENT: 1. Left pneumothorax treated with a chest tube. 2. 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 3. Severe end-stage chronic obstructive pulmonary disease. 4. Secondary pulmonary hypertension. 5. Coronary artery disease. 6. Ischemic cardiomyopathy with a left ventricular ejection fraction of 20%. 7. Chronic kidney disease, stage 3. 8. Weight loss, presumably secondary to malignancy. 9. Chronic systolic congestive heart failure. 10. Acute on chronic hypoxic respiratory failure. 11. Chronic anemia. 12. Pyuria. PLAN: At this time is to consult Dr. Johnson who has already seen the patient and chest tube is in place in the left side. We will consult Dr. Hawkins for Cardiology. We will continue with IV Rocephin and nebulizer treatments and oxygen. He is a do not resuscitate and Dr. Johnson spoke with the family and the patient is agreeable to that. We will get another chest x-ray tomorrow and labs tomorrow. Continue with his home medications. Continue with his oxygen. Discontinue his IV fluids. We will also get a urine culture. LAURE OLIVER MD DR: MARIA EUGENIA/talib JOB#: [id number] / [id number]
--- NOTE | 2017-06-05 18:45 | PDOC2 ---
CONSULT Date of Consult Date of Consult DATE: 06/05/17 TIME: 18:37 Reason for Consult Reason for Consult: Dyspnea Referring Physician Referring Physician: Dr. Hunter Identification/Chief Complaint Chief Complaint Dyspnea, weakness and weight loss Problems: History of Present Illness Reason for Visit: This patient is a very pleasant 82-year-old gentleman that has end-stage COPD, a severe ischemic cardiomyopathy with an ejection fraction of about 20% and has been loosing weight for over a year, he has a very poor appetite and eats very little. The patient comes in with shortness of breath and very weak. In the ER he was found to have a left-sided pneumothorax. The pneumothorax required insertion of a chest tube into the left hemithorax. The patient has a known mass in the right lung that has not been biopsied yet. At the time that I examined him he denied having any angina and had no other complaints. Past Medical History Cardiovascular: CAD, CHF, HTN, Pulmonary hypertension Pulmonary: Bronchitis, COPD GI: GERD Heme/Onc: Cancer Musculoskeletal: Muscle atrophy Rheumatologic: Gout Renal/: Chronic renal insuff Social History ALCOHOL: none Drugs: None Lives: with Family Current Problem List Problem List Problems Medical Problems: (1) Congestive heart failure Status: Acute (2) COPD (chronic obstructive pulmonary disease) Status: Acute (3) Stage III chronic kidney disease Status: Acute (4) Tension pneumothorax, spontaneous Status: Acute (5) Urinary tract infection Status: Acute Current Medications Current Medications Current Medications Sodium Chloride 1,000 ml @ 75 mls/hr [id number] IV Last administered on 11:58; Start 06/05/17 at 11:46; Stop 06/05/17 at 14:25; Status DC Midazolam HCl (Versed) 2 mg STK-MED ONCE .ROUTE ; Start 06/05/17 at 13:06; Stop 06/05/17 at 13:07; Status DC Midazolam HCl (Versed) 1 mg 1X ONCE IV Last administered on 06/05/17t 13:27; Start 06/05/17 at 13:15; Stop 06/05/17 at 13:16; Status DC Lidocaine/ Epinephrine (Xylocaine 1%-Epi 1:100,000) 20 ml 1X ONCE INJ ; Start 06/05/17 at 13:15; Stop 06/05/17 at 13:16; Status DC Ceftriaxone Sodium 50 ml @ 100 mls/hr 1X ONCE IV Last administered on 13:40; Start 06/05/17 at 13:15; Stop 06/05/17 at 13:44; Status DC Lidocaine/ Epinephrine (Xylocaine 2%-Epi 1:100,000) 20 ml 1X ONCE IJ Last administered on 06/05/17 13:32; Start 06/05/17 at 13:15; Stop 06/05/17 at 13 :16; Status DC Ondansetron HCl (Zofran) 4 mg PRN Q8HRS PRN IV NAUSEA/VOMITING; Start at 14:30; Stop 06/06/17 at 14:29 Fentanyl Citrate (Fentanyl 2ml Vial) 50 mcg PRN Q2HR PRN IV PAIN; Start at 14:30; Stop 06/06/17 at 14:29 Sodium Chloride 1,000 ml @ 125 mls/hr Q8H IV ; Start 06/05/17 at 15:00; Stop 06/06/17 at 14:59 Acetaminophen (Tylenol) 650 mg PRN Q4HRS PRN PO FEVER; Start 06/05/17 at 14:30 ; Stop 06/06/17 at 14:29 Ceftriaxone Sodium 1 gm/ Dextrose 50 ml @ 100 mls/hr Q24H IV ; Start 06/05/17 at 14:30; Status UNV Ceftriaxone Sodium 1 gm/ Dextrose 50 ml @ 100 mls/hr Q24H IV ; Start 06/05/17 at 14:30; Status UNV Albuterol/ Ipratropium (Duoneb) 3 ml RTQID NEB Last administered on 06/05/17 16:42; Start 06/05/17 at 16:00 Ceftriaxone Sodium (Rocephin) 1 gm Q24H IVP ; Start 06/06/17 at 15:00 Allopurinol (Zyloprim) 200 mg DAILY PO ; Start 06/06/17 at 09:00 Sotalol HCl (Betapace) 80 mg BID PO ; Start 06/05/17 at 21:00 Famotidine (Pepcid) 20 mg BID PO ; Start 06/05/17 at 21:00 Furosemide (Lasix) 40 mg QODAY PO ; Start 06/07/17 at 09:00 Isosorbide Mononitrate (Imdur) 30 mg DAILY PO ; Start 06/06/17 at 09:00 Mirtazapine (Remeron) 7.5 mg QHS PO ; Start 06/05/17 at 21:00 Multivitamins (Thera M Plus) 1 tab DAILY PO ; Start 06/06/17 at 09:00 Nitroglycerin (Nitrostat) 0.4 mg PRN Q5MIN PRN SL CHEST PAIN; Start 06/05/17 at 17:15 Fish Oil (Fish Oil) 1,000 mg DAILY PO ; Start 06/06/17 at 09:00 Clopidogrel Bisulfate (Plavix) 75 mg DAILYWBKFT PO ; Start 06/06/17 at 08:00 Potassium Chloride (Klor-Con) 20 meq QODAY PO ; Start 06/07/17 at 09:00 Trazodone HCl (Desyrel) 50 mg QHS PO ; Start 06/05/17 at 21:00 Acetaminophen (Tylenol) 650 mg PRN Q6HRS PRN PO MILD PAIN / TEMP; Start at 17:15 Magnesium Hydroxide (Milk Of Magnesia) 2,400 mg PRN DAILY PRN PO CONSTIPATION; Start 06/05/17 at 17:15 Active Scripts Active Cozaar (Losartan Potassium) 50 Mg Tablet 50 Mg PO DAILY Flomax (Tamsulosin Hcl) 0.4 Mg Cap.er.24h 0.4 Mg PO QHS Isosorbide Mononitrate Er (Isosorbide Mononitrate) 30 Mg Tab.er.24h 30 Mg PO DAILY 30 Days Albuterol Sulfate Neb Soln (Albuterol Sulfate) 2.5 Mg/3 Ml Vial.neb 2.5 Mg NEB PRN QID PRN 30 Days Reported Trazodone Hcl 50 Mg Tablet 1 Tab PO QHS Flomax (Tamsulosin Hcl) 0.4 Mg Cap.er.24h 1 Cap PO HS Sotalol (Sotalol Hcl) 80 Mg Tablet 1 Tab PO BID Potassium Chloride 10 Meq Tablet.er 20 Meq PO QODAY NITROGLYCERIN SubLingual (Nitroglycerin) 0.4 Mg Tab.subl 0.4 Mg SL PRN Q5MIN PRN Multivitamins (Multivitamin) 1 Each Tablet 1 Tab PO DAILY Losartan Potassium 50 Mg Tablet 50 Mg PO DAILY Isosorbide Mononitrate Er (Isosorbide Mononitrate) 30 Mg Tab.er.24h 1 Tab PO DAILY Albuterol Sulfate Neb Soln (Albuterol Sulfate) 2.5 Mg/3 Ml Vial.neb 2.5 Mg NEB QID Furosemide 40 Mg Tablet 1 Tab PO QODAY Famotidine 20 Mg Tablet 20 Mg PO HS Plavix (Clopidogrel Bisulfate) 75 Mg Tablet 1 Tab PO DAILY Allopurinol 100 Mg Tablet 2 Tab PO DAILY Tylenol (Acetaminophen) 325 Mg Tablet 2 Tab PO PRN Q4HRS Lasix (Furosemide) 40 Mg Tablet 1 Tab PO QODAY Nitrostat (Nitroglycerin) 0.4 Mg Tab.subl 1 Tab SL UD Trazodone Hcl 50 Mg Tablet 1 Tab PO QHS Plavix (Clopidogrel Bisulfate) 75 Mg Tablet 75 Mg PO DAILY Imdur (Isosorbide Mononitrate) 30 Mg Tab.er.24h 30 Mg PO DAILY Pepcid (Famotidine) 20 Mg Tablet 20 Mg PO BID Betapace (Sotalol Hcl) 80 Mg Tablet 80 Mg PO BID Allopurinol 100 Mg Tablet 200 Mg PO DAILY Allergies Allergies: Coded Allergies: bacitracin (Verified Allergy, Intermediate, 10/06/15) neomycin sulfate (Verified Allergy, Intermediate, 10/06/15) polymyxin B (Verified Allergy, Intermediate, 10/06/15) Physical Exam General: Alert, Oriented X3, Cooperative HEENT: Other (oral mucosa dry) Lungs: Other (patient is moving air on both sides but is moving air better on the right side than on the left side. Coarse sounds on the left.) Heart: Regular rate, Normal S1, Normal S2 Abdomen: Normal bowel sounds, Soft Extremities: No edema Vitals VITALS Vital Signs Date Time Temp Pulse Resp B/P (MAP) Pulse Ox O2 Delivery O2 Flow Rate FiO2 06/05/17 16:44 95 Nasal Cannula 1.0 06/05/17 15:00 97.5 77 20 147/75 (99) 97.5 Labs Labs Laboratory Tests Test 06/05/17 11:20 06/05/17 12:14 White Blood Count 10.0 x10^3/uL (4.0-11.0) Red Blood Count 3.07 x10^6/uL (4.30-5.70) Hemoglobin 9.8 g/dL (13.0-17.5) Hematocrit 30.3 % (39.0-53.0) Mean Corpuscular Volume 99 fL (79-100) Mean Corpuscular Hemoglobin 32 pg (25-35) Mean Corpuscular Hemoglobin Concent 33 g/dL (31-37) Red Cell Distribution Width 16.2 % (11.5-14.5) Platelet Count 173 x10^3/uL (140-400) Neutrophils (%) (Auto) 84 % (31-73) Lymphocytes (%) (Auto) 8 % (24-48) Monocytes (%) (Auto) 7 % (0-9) Eosinophils (%) (Auto) 1 % (0-3) Basophils (%) (Auto) 1 % (0-3) Neutrophils # (Auto) 8.4 x10^3uL (1.8-7.7) Lymphocytes # (Auto) 0.8 x10^3/uL (1.0-4.8) Monocytes # (Auto) 0.7 x10^3/uL (0.0-1.1) Eosinophils # (Auto) 0.1 x10^3/uL (0.0-0.7) Basophils # (Auto) 0.0 x10^3/uL (0.0-0.2) Sodium Level 142 mmol/L (136-145) Potassium Level 4.5 mmol/L (3.5-5.1) Chloride Level 104 mmol/L (98-107) Carbon Dioxide Level 28 mmol/L (21-32) Anion Gap 10 (6-14) Blood Urea Nitrogen 29 mg/dL (8-26) Creatinine 1.9 mg/dL (0.7-1.3) Estimated GFR (Cockcroft-Gault) 33.9 BUN/Creatinine Ratio 15 (6-20) Glucose Level 107 mg/dL (70-99) Calcium Level 10.8 mg/dL (8.5-10.1) Magnesium Level 2.0 mg/dL (1.8-2.4) Total Bilirubin 0.6 mg/dL (0.2-1.0) Aspartate Amino Transf (AST/SGOT) 13 U/L (15-37) Alanine Aminotransferase (ALT/SGPT) 11 U/L (16-63) Alkaline Phosphatase 91 U/L (46-116) Creatine Kinase 10 U/L (39-308) Creatine Kinase MB (Mass) < 0.5 ng/mL (0.0-3.6) Creatine Kinase MB Relative Index % (0-4) Troponin I Quantitative < 0.017 ng/mL (0.000-0.055) AD-Pmp-O-Type Natriuretic Peptide 1558 pg/mL (0-449) Total Protein 7.2 g/dL (6.4-8.2) Albumin 3.2 g/dL (3.4-5.0) Albumin/Globulin Ratio 0.8 (1.0-1.7) Urine Collection Type Void Urine Color Yellow Urine Clarity Cloudy Urine pH 6.0 Urine Specific [place] 1.015 Urine Protein 100 mg/dL (NEG-TRACE) Urine Glucose (UA) Negative mg/dL (NEG) Urine Ketones (Stick) Negative mg/dL (NEG) Urine Blood Small (NEG) Urine Nitrite Positive (NEG) Urine Bilirubin Negative (NEG) Urine Urobilinogen Dipstick 0.2 mg/dL (0.2 mg/dL) Urine Leukocyte Esterase Large (NEG) Urine RBC Rare /HPF (0-2) Urine WBC >40 /HPF (0-4) Urine Squamous Epithelial Cells None /LPF Urine Bacteria Many /HPF (0-FEW) Laboratory Tests Test 06/05/17 11:20 06/05/17 12:14 White Blood Count 10.0 x10^3/uL (4.0-11.0) Red Blood Count 3.07 x10^6/uL (4.30-5.70) Hemoglobin 9.8 g/dL (13.0-17.5) Hematocrit 30.3 % (39.0-53.0) Mean Corpuscular Volume 99 fL (79-100) Mean Corpuscular Hemoglobin 32 pg (25-35) Mean Corpuscular Hemoglobin Concent 33 g/dL (31-37) Red Cell Distribution Width 16.2 % (11.5-14.5) Platelet Count 173 x10^3/uL (140-400) Neutrophils (%) (Auto) 84 % (31-73) Lymphocytes (%) (Auto) 8 % (24-48) Monocytes (%) (Auto) 7 % (0-9) Eosinophils (%) (Auto) 1 % (0-3) Basophils (%) (Auto) 1 % (0-3) Neutrophils # (Auto) 8.4 x10^3uL (1.8-7.7) Lymphocytes # (Auto) 0.8 x10^3/uL (1.0-4.8) Monocytes # (Auto) 0.7 x10^3/uL (0.0-1.1) Eosinophils # (Auto) 0.1 x10^3/uL (0.0-0.7) Basophils # (Auto) 0.0 x10^3/uL (0.0-0.2) Sodium Level 142 mmol/L (136-145) Potassium Level 4.5 mmol/L (3.5-5.1) Chloride Level 104 mmol/L (98-107) Carbon Dioxide Level 28 mmol/L (21-32) Anion Gap 10 (6-14) Blood Urea Nitrogen 29 mg/dL (8-26) Creatinine 1.9 mg/dL (0.7-1.3) Estimated GFR (Cockcroft-Gault) 33.9 BUN/Creatinine Ratio 15 (6-20) Glucose Level 107 mg/dL (70-99) Calcium Level 10.8 mg/dL (8.5-10.1) Magnesium Level 2.0 mg/dL (1.8-2.4) Total Bilirubin 0.6 mg/dL (0.2-1.0) Aspartate Amino Transf (AST/SGOT) 13 U/L (15-37) Alanine Aminotransferase (ALT/SGPT) 11 U/L (16-63) Alkaline Phosphatase 91 U/L (46-116) Creatine Kinase 10 U/L (39-308) Creatine Kinase MB (Mass) < 0.5 ng/mL (0.0-3.6) Creatine Kinase MB Relative Index % (0-4) Troponin I Quantitative < 0.017 ng/mL (0.000-0.055) KJ-Xqi-N-Type Natriuretic Peptide 1558 pg/mL (0-449) Total Protein 7.2 g/dL (6.4-8.2) Albumin 3.2 g/dL (3.4-5.0) Albumin/Globulin Ratio 0.8 (1.0-1.7) Urine Collection Type Void Urine Color Yellow Urine Clarity Cloudy Urine pH 6.0 Urine Specific [place] 1.015 Urine Protein 100 mg/dL (NEG-TRACE) Urine Glucose (UA) Negative mg/dL (NEG) Urine Ketones (Stick) Negative mg/dL (NEG) Urine Blood Small (NEG) Urine Nitrite Positive (NEG) Urine Bilirubin Negative (NEG) Urine Urobilinogen Dipstick 0.2 mg/dL (0.2 mg/dL) Urine Leukocyte Esterase Large (NEG) Urine RBC Rare /HPF (0-2) Urine WBC >40 /HPF (0-4) Urine Squamous Epithelial Cells None /LPF Urine Bacteria Many /HPF (0-FEW) Assessment/Plan Assessment/Plan This patient with severe COPD came in with a spontaneous pneumothorax and had a chest tube inserted with this he improved significantly. He has a long mass that is likely to be a malignancy but no biopsy has been done so far. It is likely that the weight loss and loss of appetite may be related to the malignancy. From a cardiac standpoint he has chronic systolic CHF but appears to be compensated at this point. I agree with the present plan for this patient. Thank you very much for asking me to participate in the care of the patient. ZEESHAN TOSCANO MD Jun 05, 2017 18:45
[2017-06-05 19:30] VITALS: BP 121/61
[2017-06-05] MEDS: FAMOTIDINE 20 MG TABLET. PO SCH (20:32)
[2017-06-05] MEDS: MIRTAZAPINE 7.5 MG TABLET. PO SCH (20:33)
[2017-06-05] MEDS: SOTALOL 80 MG TABLET. PO SCH (20:33)
[2017-06-05] MEDS: traZODone 50 MG TABLET. PO SCH (20:33)
[2017-06-05] MEDS: fentaNYL PF VIAL 100 MCG/2 ML VIAL IV PRN ×2 (20:34→22:49)
[2017-06-05 23:00] VITALS: BP 110/61
[2017-06-06 03:15] VITALS: BP 104/58
[2017-06-06 06:06] LABS: BASO % 1 % (0-3); EOS % 2 % (0-3); HEMATOCRIT 25.7 % (39.0-53.0); HEMOGLOBIN 8.3 g/dL (13.0-17.5); LYMPH # 0.8 x10^3/uL (1.0-4.8); LYMPH % 10 % (24-48); MEAN CORPUSCULAR HEMOGLOBIN 32 pg (25-35); MEAN CORPUSCULAR HGB CONC 32 g/dL (31-37); MEAN CORPUSCULAR VOLUME 98 fL (79-100); MONO % 8 % (0-9); NEUT % 78 % (31-73); PLATELET COUNT 142 x10^3/uL (140-400); RED BLOOD COUNT 2.63 x10^6/uL (4.30-5.70); WHITE BLOOD COUNT 7.7 x10^3/uL (4.0-11.0)
[2017-06-06 06:20] LABS: CALCIUM 9.9 mg/dL (8.5-10.1); CREATININE 1.5 mg/dL (0.7-1.3); GFR 44.6
[2017-06-06 07:25] VITALS: BP 137/63
--- NOTE | 2017-06-06 08:19 | RAD ---
Indication: Post chest tube placement. Technique: Upright portable chest radiograph was obtained. Comparison is from earlier today. Findings: Large-caliber left chest tube has been placed. There is reexpansion of the left lung, no definite residual pneumothorax is apparent. There is improved aeration of the left lung. There is still interstitial prominence, there is likely a background of fibrosis or scarring. This is greater on the right. It is hard to exclude superimposed infiltrate on the right. The heart is not enlarged and there is no heart failure. Pacemaker is noted. Leads overlie the patient. Impression: Reexpansion of the left lung post placement of large-caliber left chest tube.
[2017-06-06] MEDS: OMEGA-3 FATTY ACIDS/FISH OIL 1,000 MG CAPSULE. PO SCH ×2 (09:00→09:03)
[2017-06-06] MEDS: FAMOTIDINE 20 MG TABLET. PO SCH ×2 (09:03→21:20)
[2017-06-06] MEDS: CLOPIDOGREL BISULFATE 75 MG TABLET PO SCH (09:03)
[2017-06-06] MEDS: ALLOPURINOL 100 MG TABLET. PO SCH (09:03)
[2017-06-06] MEDS: MULTIVITAMIN with MINERAL TABLET. PO SCH (09:03)
[2017-06-06] MEDS: SOTALOL 80 MG TABLET. PO SCH ×2 (09:04→21:21)
[2017-06-06] MEDS: ISOSORBIDE MONONITRATE ER 30 MG TAB.ER.24H PO SCH (09:04)
--- NOTE | 2017-06-06 09:24 | PDOC ---
PULMONARY PROGRESS NOTES Subjective NO SOA POSITIVE AIR LEAK Vitals Vital Signs Date Time Temp Pulse Resp B/P (MAP) Pulse Ox O2 Delivery O2 Flow Rate FiO2 06/06/17 09:04 77 137/63 06/06/17 07:48 Nasal Cannula 2.0 06/06/17 07:25 98.0 18 87 98.0 General: Alert, No acute distress Lungs: Other (decrease bs) Cardiovascular: S1, S2 Abdomen: Soft Neuro Exam: Alert Extremities: Other (1+edema) Labs Laboratory Tests Test 06/05/17 11:20 06/05/17 12:14 06/06/17 05:23 White Blood Count 10.0 x10^3/uL (4.0-11.0) 7.7 x10^3/uL (4.0-11.0) Red Blood Count 3.07 x10^6/uL (4.30-5.70) 2.63 x10^6/uL (4.30-5.70) Hemoglobin 9.8 g/dL (13.0-17.5) 8.3 g/dL (13.0-17.5) Hematocrit 30.3 % (39.0-53.0) 25.7 % (39.0-53.0) Mean Corpuscular Volume 99 fL (79-100) 98 fL (79-100) Mean Corpuscular Hemoglobin 32 pg (25-35) 32 pg (25-35) Mean Corpuscular Hemoglobin Concent 33 g/dL (31-37) 32 g/dL (31-37) Red Cell Distribution Width 16.2 % (11.5-14.5) 16.0 % (11.5-14.5) Platelet Count 173 x10^3/uL (140-400) 142 x10^3/uL (140-400) Neutrophils (%) (Auto) 84 % (31-73) 78 % (31-73) Lymphocytes (%) (Auto) 8 % (24-48) 10 % (24-48) Monocytes (%) (Auto) 7 % (0-9) 8 % (0-9) Eosinophils (%) (Auto) 1 % (0-3) 2 % (0-3) Basophils (%) (Auto) 1 % (0-3) 1 % (0-3) Neutrophils # (Auto) 8.4 x10^3uL (1.8-7.7) 6.0 x10^3uL (1.8-7.7) Lymphocytes # (Auto) 0.8 x10^3/uL (1.0-4.8) 0.8 x10^3/uL (1.0-4.8) Monocytes # (Auto) 0.7 x10^3/uL (0.0-1.1) 0.6 x10^3/uL (0.0-1.1) Eosinophils # (Auto) 0.1 x10^3/uL (0.0-0.7) 0.2 x10^3/uL (0.0-0.7) Basophils # (Auto) 0.0 x10^3/uL (0.0-0.2) 0.0 x10^3/uL (0.0-0.2) Sodium Level 142 mmol/L (136-145) 142 mmol/L (136-145) Potassium Level 4.5 mmol/L (3.5-5.1) 4.0 mmol/L (3.5-5.1) Chloride Level 104 mmol/L (98-107) 107 mmol/L (98-107) Carbon Dioxide Level 28 mmol/L (21-32) 26 mmol/L (21-32) Anion Gap 10 (6-14) 9 (6-14) Blood Urea Nitrogen 29 mg/dL (8-26) 28 mg/dL (8-26) Creatinine 1.9 mg/dL (0.7-1.3) 1.5 mg/dL (0.7-1.3) Estimated GFR (Cockcroft-Gault) 33.9 44.6 BUN/Creatinine Ratio 15 (6-20) Glucose Level 107 mg/dL (70-99) 70 mg/dL (70-99) Calcium Level 10.8 mg/dL (8.5-10.1) 9.9 mg/dL (8.5-10.1) Magnesium Level 2.0 mg/dL (1.8-2.4) Total Bilirubin 0.6 mg/dL (0.2-1.0) Aspartate Amino Transf (AST/SGOT) 13 U/L (15-37) Alanine Aminotransferase (ALT/SGPT) 11 U/L (16-63) Alkaline Phosphatase 91 U/L (46-116) Creatine Kinase 10 U/L (39-308) Creatine Kinase MB (Mass) < 0.5 ng/mL (0.0-3.6) Creatine Kinase MB Relative Index % (0-4) Troponin I Quantitative < 0.017 ng/mL (0.000-0.055) KM-Aco-O-Type Natriuretic Peptide 1558 pg/mL (0-449) Total Protein 7.2 g/dL (6.4-8.2) Albumin 3.2 g/dL (3.4-5.0) Albumin/Globulin Ratio 0.8 (1.0-1.7) Urine Collection Type Void Urine Color Yellow Urine Clarity Cloudy Urine pH 6.0 Urine Specific [place] 1.015 Urine Protein 100 mg/dL (NEG-TRACE) Urine Glucose (UA) Negative mg/dL (NEG) Urine Ketones (Stick) Negative mg/dL (NEG) Urine Blood Small (NEG) Urine Nitrite Positive (NEG) Urine Bilirubin Negative (NEG) Urine Urobilinogen Dipstick 0.2 mg/dL (0.2 mg/dL) Urine Leukocyte Esterase Large (NEG) Urine RBC Rare /HPF (0-2) Urine WBC >40 /HPF (0-4) Urine Squamous Epithelial Cells None /LPF Urine Bacteria Many /HPF (0-FEW) Laboratory Tests Test 06/05/17 11:20 06/05/17 12:14 06/06/17 05:23 White Blood Count 10.0 x10^3/uL (4.0-11.0) 7.7 x10^3/uL (4.0-11.0) Red Blood Count 3.07 x10^6/uL (4.30-5.70) 2.63 x10^6/uL (4.30-5.70) Hemoglobin 9.8 g/dL (13.0-17.5) 8.3 g/dL (13.0-17.5) Hematocrit 30.3 % (39.0-53.0) 25.7 % (39.0-53.0) Mean Corpuscular Volume 99 fL (79-100) 98 fL (79-100) Mean Corpuscular Hemoglobin 32 pg (25-35) 32 pg (25-35) Mean Corpuscular Hemoglobin Concent 33 g/dL (31-37) 32 g/dL (31-37) Red Cell Distribution Width 16.2 % (11.5-14.5) 16.0 % (11.5-14.5) Platelet Count 173 x10^3/uL (140-400) 142 x10^3/uL (140-400) Neutrophils (%) (Auto) 84 % (31-73) 78 % (31-73) Lymphocytes (%) (Auto) 8 % (24-48) 10 % (24-48) Monocytes (%) (Auto) 7 % (0-9) 8 % (0-9) Eosinophils (%) (Auto) 1 % (0-3) 2 % (0-3) Basophils (%) (Auto) 1 % (0-3) 1 % (0-3) Neutrophils # (Auto) 8.4 x10^3uL (1.8-7.7) 6.0 x10^3uL (1.8-7.7) Lymphocytes # (Auto) 0.8 x10^3/uL (1.0-4.8) 0.8 x10^3/uL (1.0-4.8) Monocytes # (Auto) 0.7 x10^3/uL (0.0-1.1) 0.6 x10^3/uL (0.0-1.1) Eosinophils # (Auto) 0.1 x10^3/uL (0.0-0.7) 0.2 x10^3/uL (0.0-0.7) Basophils # (Auto) 0.0 x10^3/uL (0.0-0.2) 0.0 x10^3/uL (0.0-0.2) Sodium Level 142 mmol/L (136-145) 142 mmol/L (136-145) Potassium Level 4.5 mmol/L (3.5-5.1) 4.0 mmol/L (3.5-5.1) Chloride Level 104 mmol/L (98-107) 107 mmol/L (98-107) Carbon Dioxide Level 28 mmol/L (21-32) 26 mmol/L (21-32) Anion Gap 10 (6-14) 9 (6-14) Blood Urea Nitrogen 29 mg/dL (8-26) 28 mg/dL (8-26) Creatinine 1.9 mg/dL (0.7-1.3) 1.5 mg/dL (0.7-1.3) Estimated GFR (Cockcroft-Gault) 33.9 44.6 BUN/Creatinine Ratio 15 (6-20) Glucose Level 107 mg/dL (70-99) 70 mg/dL (70-99) Calcium Level 10.8 mg/dL (8.5-10.1) 9.9 mg/dL (8.5-10.1) Magnesium Level 2.0 mg/dL (1.8-2.4) Total Bilirubin 0.6 mg/dL (0.2-1.0) Aspartate Amino Transf (AST/SGOT) 13 U/L (15-37) Alanine Aminotransferase (ALT/SGPT) 11 U/L (16-63) Alkaline Phosphatase 91 U/L (46-116) Creatine Kinase 10 U/L (39-308) Creatine Kinase MB (Mass) < 0.5 ng/mL (0.0-3.6) Creatine Kinase MB Relative Index % (0-4) Troponin I Quantitative < 0.017 ng/mL (0.000-0.055) CK-Oih-L-Type Natriuretic Peptide 1558 pg/mL (0-449) Total Protein 7.2 g/dL (6.4-8.2) Albumin 3.2 g/dL (3.4-5.0) Albumin/Globulin Ratio 0.8 (1.0-1.7) Urine Collection Type Void Urine Color Yellow Urine Clarity Cloudy Urine pH 6.0 Urine Specific [place] 1.015 Urine Protein 100 mg/dL (NEG-TRACE) Urine Glucose (UA) Negative mg/dL (NEG) Urine Ketones (Stick) Negative mg/dL (NEG) Urine Blood Small (NEG) Urine Nitrite Positive (NEG) Urine Bilirubin Negative (NEG) Urine Urobilinogen Dipstick 0.2 mg/dL (0.2 mg/dL) Urine Leukocyte Esterase Large (NEG) Urine RBC Rare /HPF (0-2) Urine WBC >40 /HPF (0-4) Urine Squamous Epithelial Cells None /LPF Urine Bacteria Many /HPF (0-FEW) Medications Active Scripts Medications Dose Route/Sig Max Daily Dose Days Date Category Trazodone Hcl 50 Mg Tablet 1 Tab PO QHS 07/15/16 Reported Flomax (Tamsulosin Hcl) 0.4 Mg Cap.er.24h 1 Cap PO HS 07/15/16 Reported Sotalol (Sotalol Hcl) 80 Mg Tablet 1 Tab PO BID 07/15/16 Reported Potassium Chloride 10 Meq Tablet.er 20 Meq PO QODAY 07/15/16 Reported NITROGLYCERIN SubLingual (Nitroglycerin) 0.4 Mg Tab.subl 0.4 Mg SL PRN Q5MIN PRN 07/15/16 Reported Multivitamins (Multivitamin) 1 Each Tablet 1 Tab PO DAILY 07/15/16 Reported Losartan Potassium 50 Mg Tablet 50 Mg PO DAILY 07/15/16 Reported Isosorbide Mononitrate Er (Isosorbide Mononitrate) 30 Mg Tab.er.24h 1 Tab PO DAILY 07/15/16 Reported Albuterol Sulfate Neb Soln (Albuterol Sulfate) 2.5 Mg/3 Ml Vial.neb 2.5 Mg NEB QID 07/15/16 Reported Furosemide 40 Mg Tablet 1 Tab PO QODAY 07/15/16 Reported Famotidine 20 Mg Tablet 20 Mg PO HS 07/15/16 Reported Plavix (Clopidogrel Bisulfate) 75 Mg Tablet 1 Tab PO DAILY 07/15/16 Reported Allopurinol 100 Mg Tablet 2 Tab PO DAILY 07/15/16 Reported Tylenol (Acetaminophen) 325 Mg Tablet 2 Tab PO PRN Q4HRS 07/15/16 Reported Lasix (Furosemide) 40 Mg Tablet 1 Tab PO QODAY 07/10/16 Reported Cozaar (Losartan Potassium) 50 Mg Tablet 50 Mg PO DAILY 06/27/16 Rx Flomax (Tamsulosin Hcl) 0.4 Mg Cap.er.24h 0.4 Mg PO QHS 06/27/16 Rx Nitrostat (Nitroglycerin) 0.4 Mg Tab.subl 1 Tab SL UD 06/14/16 Reported Isosorbide Mononitrate Er (Isosorbide Mononitrate) 30 Mg Tab.er.24h 30 Mg PO DAILY 30 05/18/16 Rx Albuterol Sulfate Neb Soln (Albuterol Sulfate) 2.5 Mg/3 Ml Vial.neb 2.5 Mg NEB PRN QID PRN 30 05/18/16 Rx Trazodone Hcl 50 Mg Tablet 1 Tab PO QHS 03/23/16 Reported Plavix (Clopidogrel Bisulfate) 75 Mg Tablet 75 Mg PO DAILY 08/19/13 Reported Imdur (Isosorbide Mononitrate) 30 Mg Tab.er.24h 30 Mg PO DAILY 08/19/13 Reported Pepcid (Famotidine) 20 Mg Tablet 20 Mg PO BID 08/19/13 Reported Betapace (Sotalol Hcl) 80 Mg Tablet 80 Mg PO BID 08/19/13 Reported Allopurinol 100 Mg Tablet 200 Mg PO DAILY 08/19/13 Reported Impression . 1. Acute hypoxic respiratory failure secondary to left-sided pneumothorax. 2. 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 3. History of increasing parenchymal mass in the right lower lobe based on the last CT chest from November. Being followed by Dr. Harley. 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 4. History of cardiomyopathy with an EF of 20%. 5. Dehydration with acute kidney injury. Plan . 1. Continue with chest tube to suction. CXR with complete re-expansion but still has air leak. 2. At this time, I have discussed with the patient's daughter who is the DPOA and I have advised her that we should not consider any invasive biopsy options for the right-sided increasing parenchymal mass as the patient is a very poor candidate for any form of treatment and she agrees. 3. empiric antibiotic. 4. Continue oxygen. 5. Bronchodilators. 6. Pain control. 7. DNR 8. will do ct chest in [facility] De Anda MD Jun 06, 2017 09:24
[2017-06-06 10:35] VITALS: BP 102/52
--- NOTE | 2017-06-06 10:45 | PDOC ---
PROGRESS NOTES Subjective Subjective constipated and will order lactulose today. not short of breath. cxr shows that pneumothorax resolved but has air leak with chest tube. lab reviewed. Objective Objective Vital Signs Date Time Temp Pulse Resp B/P (MAP) Pulse Ox O2 Delivery O2 Flow Rate FiO2 06/06/17 09:04 77 137/63 06/06/17 07:48 Nasal Cannula 2.0 06/06/17 07:25 98.0 18 87 98.0 Intake and Output 06/06/17 07:00 Intake Total 675 ml Output Total 441 ml Balance 234 ml Intake Oral 400 ml IV Total 275 ml Output Urine Total 400 ml Chest Tube Drainage Total 41 ml Physical Exam Abdomen: Soft Heart: Regular rate, Normal S1, Normal S2 Extremities: Other (bipedal edema) General: Alert HEENT: Atraumatic Lungs: Other (decreased breath sounds) Neuro: Normal speech Psych/Mental Status: Mental status NL Skin: No rashes Assessment Assessment Problems1. Left pneumothorax reinflated treated with a chest tube. 2. 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 no biopsy per DPOA due to poor functional capacity 3. Severe end-stage chronic obstructive pulmonary disease. 4. Secondary pulmonary hypertension. 5. Coronary artery disease. 6. Ischemic cardiomyopathy with a left ventricular ejection fraction of 20%. 7. Chronic kidney disease, stage 3. 8. Weight loss, presumably secondary to malignancy. 9. Chronic systolic congestive heart failure. 10. Acute on chronic hypoxic respiratory failure. 11. Chronic anemia. 12. Pyuria. constipation Medical Problems: (1) Congestive heart failure Status: Acute (2) COPD (chronic obstructive pulmonary disease) Status: Acute (3) Stage III chronic kidney disease Status: Acute (4) Tension pneumothorax, spontaneous Status: Acute (5) Urinary tract infection Status: Acute Plan Plan of Care continue chest tube ct chest tomorrow lactulose today continue iv rocephin urine culture pending Comment Review of Relevant I have reviewed the following items lucio (where applicable) has been applied. Labs Laboratory Tests Test 06/05/17 11:20 06/05/17 12:14 06/06/17 05:23 White Blood Count 10.0 x10^3/uL (4.0-11.0) 7.7 x10^3/uL (4.0-11.0) Red Blood Count 3.07 x10^6/uL (4.30-5.70) 2.63 x10^6/uL (4.30-5.70) Hemoglobin 9.8 g/dL (13.0-17.5) 8.3 g/dL (13.0-17.5) Hematocrit 30.3 % (39.0-53.0) 25.7 % (39.0-53.0) Mean Corpuscular Volume 99 fL (79-100) 98 fL (79-100) Mean Corpuscular Hemoglobin 32 pg (25-35) 32 pg (25-35) Mean Corpuscular Hemoglobin Concent 33 g/dL (31-37) 32 g/dL (31-37) Red Cell Distribution Width 16.2 % (11.5-14.5) 16.0 % (11.5-14.5) Platelet Count 173 x10^3/uL (140-400) 142 x10^3/uL (140-400) Neutrophils (%) (Auto) 84 % (31-73) 78 % (31-73) Lymphocytes (%) (Auto) 8 % (24-48) 10 % (24-48) Monocytes (%) (Auto) 7 % (0-9) 8 % (0-9) Eosinophils (%) (Auto) 1 % (0-3) 2 % (0-3) Basophils (%) (Auto) 1 % (0-3) 1 % (0-3) Neutrophils # (Auto) 8.4 x10^3uL (1.8-7.7) 6.0 x10^3uL (1.8-7.7) Lymphocytes # (Auto) 0.8 x10^3/uL (1.0-4.8) 0.8 x10^3/uL (1.0-4.8) Monocytes # (Auto) 0.7 x10^3/uL (0.0-1.1) 0.6 x10^3/uL (0.0-1.1) Eosinophils # (Auto) 0.1 x10^3/uL (0.0-0.7) 0.2 x10^3/uL (0.0-0.7) Basophils # (Auto) 0.0 x10^3/uL (0.0-0.2) 0.0 x10^3/uL (0.0-0.2) Sodium Level 142 mmol/L (136-145) 142 mmol/L (136-145) Potassium Level 4.5 mmol/L (3.5-5.1) 4.0 mmol/L (3.5-5.1) Chloride Level 104 mmol/L (98-107) 107 mmol/L (98-107) Carbon Dioxide Level 28 mmol/L (21-32) 26 mmol/L (21-32) Anion Gap 10 (6-14) 9 (6-14) Blood Urea Nitrogen 29 mg/dL (8-26) 28 mg/dL (8-26) Creatinine 1.9 mg/dL (0.7-1.3) 1.5 mg/dL (0.7-1.3) Estimated GFR (Cockcroft-Gault) 33.9 44.6 BUN/Creatinine Ratio 15 (6-20) Glucose Level 107 mg/dL (70-99) 70 mg/dL (70-99) Calcium Level 10.8 mg/dL (8.5-10.1) 9.9 mg/dL (8.5-10.1) Magnesium Level 2.0 mg/dL (1.8-2.4) Total Bilirubin 0.6 mg/dL (0.2-1.0) Aspartate Amino Transf (AST/SGOT) 13 U/L (15-37) Alanine Aminotransferase (ALT/SGPT) 11 U/L (16-63) Alkaline Phosphatase 91 U/L (46-116) Creatine Kinase 10 U/L (39-308) Creatine Kinase MB (Mass) < 0.5 ng/mL (0.0-3.6) Creatine Kinase MB Relative Index % (0-4) Troponin I Quantitative < 0.017 ng/mL (0.000-0.055) AN-Kly-P-Type Natriuretic Peptide 1558 pg/mL (0-449) Total Protein 7.2 g/dL (6.4-8.2) Albumin 3.2 g/dL (3.4-5.0) Albumin/Globulin Ratio 0.8 (1.0-1.7) Urine Collection Type Void Urine Color Yellow Urine Clarity Cloudy Urine pH 6.0 Urine Specific [place] 1.015 Urine Protein 100 mg/dL (NEG-TRACE) Urine Glucose (UA) Negative mg/dL (NEG) Urine Ketones (Stick) Negative mg/dL (NEG) Urine Blood Small (NEG) Urine Nitrite Positive (NEG) Urine Bilirubin Negative (NEG) Urine Urobilinogen Dipstick 0.2 mg/dL (0.2 mg/dL) Urine Leukocyte Esterase Large (NEG) Urine RBC Rare /HPF (0-2) Urine WBC >40 /HPF (0-4) Urine Squamous Epithelial Cells None /LPF Urine Bacteria Many /HPF (0-FEW) Laboratory Tests Test 06/05/17 11:20 06/05/17 12:14 06/06/17 05:23 White Blood Count 10.0 x10^3/uL (4.0-11.0) 7.7 x10^3/uL (4.0-11.0) Red Blood Count 3.07 x10^6/uL (4.30-5.70) 2.63 x10^6/uL (4.30-5.70) Hemoglobin 9.8 g/dL (13.0-17.5) 8.3 g/dL (13.0-17.5) Hematocrit 30.3 % (39.0-53.0) 25.7 % (39.0-53.0) Mean Corpuscular Volume 99 fL (79-100) 98 fL (79-100) Mean Corpuscular Hemoglobin 32 pg (25-35) 32 pg (25-35) Mean Corpuscular Hemoglobin Concent 33 g/dL (31-37) 32 g/dL (31-37) Red Cell Distribution Width 16.2 % (11.5-14.5) 16.0 % (11.5-14.5) Platelet Count 173 x10^3/uL (140-400) 142 x10^3/uL (140-400) Neutrophils (%) (Auto) 84 % (31-73) 78 % (31-73) Lymphocytes (%) (Auto) 8 % (24-48) 10 % (24-48) Monocytes (%) (Auto) 7 % (0-9) 8 % (0-9) Eosinophils (%) (Auto) 1 % (0-3) 2 % (0-3) Basophils (%) (Auto) 1 % (0-3) 1 % (0-3) Neutrophils # (Auto) 8.4 x10^3uL (1.8-7.7) 6.0 x10^3uL (1.8-7.7) Lymphocytes # (Auto) 0.8 x10^3/uL (1.0-4.8) 0.8 x10^3/uL (1.0-4.8) Monocytes # (Auto) 0.7 x10^3/uL (0.0-1.1) 0.6 x10^3/uL (0.0-1.1) Eosinophils # (Auto) 0.1 x10^3/uL (0.0-0.7) 0.2 x10^3/uL (0.0-0.7) Basophils # (Auto) 0.0 x10^3/uL (0.0-0.2) 0.0 x10^3/uL (0.0-0.2) Sodium Level 142 mmol/L (136-145) 142 mmol/L (136-145) Potassium Level 4.5 mmol/L (3.5-5.1) 4.0 mmol/L (3.5-5.1) Chloride Level 104 mmol/L (98-107) 107 mmol/L (98-107) Carbon Dioxide Level 28 mmol/L (21-32) 26 mmol/L (21-32) Anion Gap 10 (6-14) 9 (6-14) Blood Urea Nitrogen 29 mg/dL (8-26) 28 mg/dL (8-26) Creatinine 1.9 mg/dL (0.7-1.3) 1.5 mg/dL (0.7-1.3) Estimated GFR (Cockcroft-Gault) 33.9 44.6 BUN/Creatinine Ratio 15 (6-20) Glucose Level 107 mg/dL (70-99) 70 mg/dL (70-99) Calcium Level 10.8 mg/dL (8.5-10.1) 9.9 mg/dL (8.5-10.1) Magnesium Level 2.0 mg/dL (1.8-2.4) Total Bilirubin 0.6 mg/dL (0.2-1.0) Aspartate Amino Transf (AST/SGOT) 13 U/L (15-37) Alanine Aminotransferase (ALT/SGPT) 11 U/L (16-63) Alkaline Phosphatase 91 U/L (46-116) Creatine Kinase 10 U/L (39-308) Creatine Kinase MB (Mass) < 0.5 ng/mL (0.0-3.6) Creatine Kinase MB Relative Index % (0-4) Troponin I Quantitative < 0.017 ng/mL (0.000-0.055) WZ-Vuo-H-Type Natriuretic Peptide 1558 pg/mL (0-449) Total Protein 7.2 g/dL (6.4-8.2) Albumin 3.2 g/dL (3.4-5.0) Albumin/Globulin Ratio 0.8 (1.0-1.7) Urine Collection Type Void Urine Color Yellow Urine Clarity Cloudy Urine pH 6.0 Urine Specific [place] 1.015 Urine Protein 100 mg/dL (NEG-TRACE) Urine Glucose (UA) Negative mg/dL (NEG) Urine Ketones (Stick) Negative mg/dL (NEG) Urine Blood Small (NEG) Urine Nitrite Positive (NEG) Urine Bilirubin Negative (NEG) Urine Urobilinogen Dipstick 0.2 mg/dL (0.2 mg/dL) Urine Leukocyte Esterase Large (NEG) Urine RBC Rare /HPF (0-2) Urine WBC >40 /HPF (0-4) Urine Squamous Epithelial Cells None /LPF Urine Bacteria Many /HPF (0-FEW) Medications Current Medications Sodium Chloride 1,000 ml @ 75 mls/hr [id number] IV Last administered on 11:58; Start 06/05/17 at 11:46; Stop 06/05/17 at 14:25; Status DC Midazolam HCl (Versed) 2 mg STK-MED ONCE .ROUTE ; Start 06/05/17 at 13:06; Stop 06/05/17 at 13:07; Status DC Midazolam HCl (Versed) 1 mg 1X ONCE IV Last administered on 06/05/17 13:27; Start 06/05/17 at 13:15; Stop 06/05/17 at 13:16; Status DC Lidocaine/ Epinephrine (Xylocaine 1%-Epi 1:100,000) 20 ml 1X ONCE INJ ; Start 06/05/17 at 13:15; Stop 06/05/17 at 13:16; Status DC Ceftriaxone Sodium 50 ml @ 100 mls/hr 1X ONCE IV Last administered on 13:40; Start 06/05/17 at 13:15; Stop 06/05/17 at 13:44; Status DC Lidocaine/ Epinephrine (Xylocaine 2%-Epi 1:100,000) 20 ml 1X ONCE IJ Last administered on 06/05/17 13:32; Start 06/05/17 at 13:15; Stop 06/05/17 at 13 :16; Status DC Ondansetron HCl (Zofran) 4 mg PRN Q8HRS PRN IV NAUSEA/VOMITING; Start at 14:30; Stop 06/06/17 at 14:29 Fentanyl Citrate (Fentanyl 2ml Vial) 50 mcg PRN Q2HR PRN IV PAIN Last administered on 06/05/17 22:49; Start 06/05/17 at 14:30; Stop 06/06/17 at 14 :29 Sodium Chloride 1,000 ml @ 125 mls/hr Q8H IV ; Start 06/05/17 at 15:00; Stop 06/06/17 at 07:03; Status DC Acetaminophen (Tylenol) 650 mg PRN Q4HRS PRN PO FEVER; Start 06/05/17 at 14:30 ; Stop 06/06/17 at 14:29 Ceftriaxone Sodium 1 gm/ Dextrose 50 ml @ 100 mls/hr Q24H IV ; Start 06/05/17 at 14:30; Status UNV Ceftriaxone Sodium 1 gm/ Dextrose 50 ml @ 100 mls/hr Q24H IV ; Start 06/05/17 at 14:30; Status UNV Albuterol/ Ipratropium (Duoneb) 3 ml RTQID NEB Last administered on 06/05/17 20:07; Start 06/05/17 at 16:00 Ceftriaxone Sodium (Rocephin) 1 gm Q24H IVP ; Start 06/06/17 at 15:00 Allopurinol (Zyloprim) 200 mg DAILY PO Last administered on 06/06/17 09:03; Start 06/06/17 at 09:00 Sotalol HCl (Betapace) 80 mg BID PO Last administered on 06/06/17 09:04; Start 06/05/17 at 21:00 Famotidine (Pepcid) 20 mg BID PO Last administered on 06/06/17 09:03; Start 06/05/17 at 21:00 Furosemide (Lasix) 40 mg QODAY PO ; Start 06/07/17 at 09:00 Isosorbide Mononitrate (Imdur) 30 mg DAILY PO Last administered on 06/06/17 09:04; Start 06/06/17 at 09:00 Mirtazapine (Remeron) 7.5 mg QHS PO Last administered on 06/05/17 20:33; Start 06/05/17 at 21:00 Multivitamins (Thera M Plus) 1 tab DAILY PO Last administered on 06/06/17 09: 03; Start 06/06/17 at 09:00 Nitroglycerin (Nitrostat) 0.4 mg PRN Q5MIN PRN SL CHEST PAIN; Start 06/05/17 at 17:15 Fish Oil (Fish Oil) 1,000 mg DAILY PO ; Start 06/06/17 at 09:00 Clopidogrel Bisulfate (Plavix) 75 mg DAILYWBKFT PO Last administered on 09:03; Start 06/06/17 at 08:00 Potassium Chloride (Klor-Con) 20 meq QODAY PO ; Start 06/07/17 at 09:00 Trazodone HCl (Desyrel) 50 mg QHS PO Last administered on 06/05/17 20:33; Start 06/05/17 at 21:00 Acetaminophen (Tylenol) 650 mg PRN Q6HRS PRN PO MILD PAIN / TEMP; Start at 17:15 Magnesium Hydroxide (Milk Of Magnesia) 2,400 mg PRN DAILY PRN PO CONSTIPATION; Start 06/05/17 at 17:15 Active Scripts Active Cozaar (Losartan Potassium) 50 Mg Tablet 50 Mg PO DAILY Flomax (Tamsulosin Hcl) 0.4 Mg Cap.er.24h 0.4 Mg PO QHS Isosorbide Mononitrate Er (Isosorbide Mononitrate) 30 Mg Tab.er.24h 30 Mg PO DAILY 30 Days Albuterol Sulfate Neb Soln (Albuterol Sulfate) 2.5 Mg/3 Ml Vial.neb 2.5 Mg NEB PRN QID PRN 30 Days Reported Trazodone Hcl 50 Mg Tablet 1 Tab PO QHS Flomax (Tamsulosin Hcl) 0.4 Mg Cap.er.24h 1 Cap PO HS Sotalol (Sotalol Hcl) 80 Mg Tablet 1 Tab PO BID Potassium Chloride 10 Meq Tablet.er 20 Meq PO QODAY NITROGLYCERIN SubLingual (Nitroglycerin) 0.4 Mg Tab.subl 0.4 Mg SL PRN Q5MIN PRN Multivitamins (Multivitamin) 1 Each Tablet 1 Tab PO DAILY Losartan Potassium 50 Mg Tablet 50 Mg PO DAILY Isosorbide Mononitrate Er (Isosorbide Mononitrate) 30 Mg Tab.er.24h 1 Tab PO DAILY Albuterol Sulfate Neb Soln (Albuterol Sulfate) 2.5 Mg/3 Ml Vial.neb 2.5 Mg NEB QID Furosemide 40 Mg Tablet 1 Tab PO QODAY Famotidine 20 Mg Tablet 20 Mg PO HS Plavix (Clopidogrel Bisulfate) 75 Mg Tablet 1 Tab PO DAILY Allopurinol 100 Mg Tablet 2 Tab PO DAILY Tylenol (Acetaminophen) 325 Mg Tablet 2 Tab PO PRN Q4HRS Lasix (Furosemide) 40 Mg Tablet 1 Tab PO QODAY Nitrostat (Nitroglycerin) 0.4 Mg Tab.subl 1 Tab SL UD Trazodone Hcl 50 Mg Tablet 1 Tab PO QHS Plavix (Clopidogrel Bisulfate) 75 Mg Tablet 75 Mg PO DAILY Imdur (Isosorbide Mononitrate) 30 Mg Tab.er.24h 30 Mg PO DAILY Pepcid (Famotidine) 20 Mg Tablet 20 Mg PO BID Betapace (Sotalol Hcl) 80 Mg Tablet 80 Mg PO BID Allopurinol 100 Mg Tablet 200 Mg PO DAILY Vitals/I & O Vital Sign - Last 24 Hours 06/05/17 06/05/17 06/05/17 06/05/17 11:05 11:34 11:40 11:55 Temp 97.5 97.5 Pulse 70 71 73 77 Resp 20 17 20 20 B/P (MAP) 163/74 (103) Pulse Ox 92 98 99 96 O2 Delivery Nasal Cannula O2 Flow Rate 2.0 06/05/17 06/05/17 06/05/17 06/05/17 12:15 12:25 13:15 13:30 Pulse 75 70 72 74 Resp 18 20 Pulse Ox 93 96 97 95 06/05/17 06/05/17 06/05/17 06/05/17 13:45 14:00 14:15 14:30 Pulse 70 76 74 74 Resp 18 18 Pulse Ox 96 98 100 96 06/05/17 06/05/17 06/05/17 06/05/17 14:45 15:00 15:40 16:44 Temp 97.5 97.5 Pulse 76 77 Resp 16 20 B/P (MAP) 147/75 (99) Pulse Ox 97 100 95 O2 Delivery Nasal Cannula Nasal Cannula Nasal Cannula O2 Flow Rate 3.0 2.0 1.0 06/05/17 06/05/17 06/05/17 06/05/17 19:30 20:00 20:06 20:33 Temp 98.0 98.0 Pulse 77 76 Resp 20 B/P (MAP) 121/61 (81) 121/61 Pulse Ox 93 95 O2 Delivery Nasal Cannula Nasal Cannula Nasal Cannula O2 Flow Rate 1.0 1.0 1.0 06/05/17 06/05/17 06/05/17 06/05/17 20:34 22:49 23:00 23:15 Temp 97.8 97.8 Pulse 73 Resp 16 16 18 18 B/P (MAP) 110/61 (77) Pulse Ox 92 95 94 96 O2 Delivery Room Air Nasal Cannula Nasal Cannula Nasal Cannula O2 Flow Rate 1.0 2.0 2.0 2.0 06/06/17 06/06/17 06/06/17 06/06/17 03:15 07:07 07:25 07:48 Temp 97.9 98.0 97.9 98.0 Pulse 74 77 Resp 20 18 B/P (MAP) 104/58 (73) 137/63 (87) Pulse Ox 96 95 87 O2 Delivery Nasal Cannula Nasal Cannula Nasal Cannula Nasal Cannula O2 Flow Rate 2.0 1.0 2.0 2.0 06/06/17 06/06/17 09:04 09:04 Pulse 77 77 B/P (MAP) 137/63 137/63 Intake and Output 06/05/17 06/05/17 06/06/17 15:00 23:00 07:00 Intake Total 275 ml 200 ml 200 ml Output Total 419 ml 22 ml Balance 275 ml -219 ml 178 ml LAURE OLIVER MD Jun 06, 2017 10:45
[2017-06-06] MEDS: IPRATRPIUM/ALBUTEROL 0.5/2.5MG 3 ML NEBU. NEB SCH ×3 (10:48→19:49)
--- NOTE | 2017-06-06 11:11 | RAD ---
Portable chest, 06/06/2017: History: Pneumothorax Comparison is made to yesterday's study. A left-sided transvenous pacing device is again noted. A left chest tube remains in place extending into the left apex. No significant residual or recurrent pneumothorax is seen. The heart size is normal. There are patchy pulmonary opacities in both lungs, right greater than left. There is volume loss on the right with pleural thickening. A previous CT study suggests that this represents a combination of pleural-parenchymal scarring and superimposed infiltrate. A neoplastic etiology cannot be excluded. There may be pleural fluid contributing to the right chest opacities. These findings are unchanged since yesterday's study. IMPRESSION: 1. No evidence of recurrent pneumothorax. 2. Unchanged pleural/parenchymal opacities, right greater than left.
[2017-06-06] MEDS ORDERED: LACTULOSE 20 GM/30 ML SOLUTION. PO SCH (12:00)
[2017-06-06] MEDS: cefTRIAXone IV Push 1 GM VIAL. IVP SCH (14:18)
[2017-06-06 15:00] VITALS: BP 130/61
--- NOTE | 2017-06-06 18:43 | PDOC ---
PROGRESS NOTES Subjective Subjective Very weak but feels a little better Objective Objective Vital Signs Date Time Temp Pulse Resp B/P (MAP) Pulse Ox O2 Delivery O2 Flow Rate FiO2 06/06/17 15:04 Nasal Cannula 1.0 06/06/17 15:00 97.8 76 20 130/61 (84) 90 97.8 Intake and Output 06/06/17 07:00 Intake Total 675 ml Output Total 441 ml Balance 234 ml Intake Oral 400 ml IV Total 275 ml Output Urine Total 400 ml Chest Tube Drainage Total 41 ml Physical Exam Physical Exam He is moving air better on the left side. No changes in the cardiac exam otherwise Assessment Assessment Slow progress. He still seems to have a small leak in the chest. I agree with present plan. Problems Medical Problems: (1) Congestive heart failure Status: Acute (2) COPD (chronic obstructive pulmonary disease) Status: Acute (3) Stage III chronic kidney disease Status: Acute (4) Tension pneumothorax, spontaneous Status: Acute (5) Urinary tract infection Status: Acute Comment Review of Relevant I have reviewed the following items lucio (where applicable) has been applied. Labs Laboratory Tests Test 06/05/17 11:20 06/05/17 12:14 06/06/17 05:23 White Blood Count 10.0 x10^3/uL (4.0-11.0) 7.7 x10^3/uL (4.0-11.0) Red Blood Count 3.07 x10^6/uL (4.30-5.70) 2.63 x10^6/uL (4.30-5.70) Hemoglobin 9.8 g/dL (13.0-17.5) 8.3 g/dL (13.0-17.5) Hematocrit 30.3 % (39.0-53.0) 25.7 % (39.0-53.0) Mean Corpuscular Volume 99 fL (79-100) 98 fL (79-100) Mean Corpuscular Hemoglobin 32 pg (25-35) 32 pg (25-35) Mean Corpuscular Hemoglobin Concent 33 g/dL (31-37) 32 g/dL (31-37) Red Cell Distribution Width 16.2 % (11.5-14.5) 16.0 % (11.5-14.5) Platelet Count 173 x10^3/uL (140-400) 142 x10^3/uL (140-400) Neutrophils (%) (Auto) 84 % (31-73) 78 % (31-73) Lymphocytes (%) (Auto) 8 % (24-48) 10 % (24-48) Monocytes (%) (Auto) 7 % (0-9) 8 % (0-9) Eosinophils (%) (Auto) 1 % (0-3) 2 % (0-3) Basophils (%) (Auto) 1 % (0-3) 1 % (0-3) Neutrophils # (Auto) 8.4 x10^3uL (1.8-7.7) 6.0 x10^3uL (1.8-7.7) Lymphocytes # (Auto) 0.8 x10^3/uL (1.0-4.8) 0.8 x10^3/uL (1.0-4.8) Monocytes # (Auto) 0.7 x10^3/uL (0.0-1.1) 0.6 x10^3/uL (0.0-1.1) Eosinophils # (Auto) 0.1 x10^3/uL (0.0-0.7) 0.2 x10^3/uL (0.0-0.7) Basophils # (Auto) 0.0 x10^3/uL (0.0-0.2) 0.0 x10^3/uL (0.0-0.2) Sodium Level 142 mmol/L (136-145) 142 mmol/L (136-145) Potassium Level 4.5 mmol/L (3.5-5.1) 4.0 mmol/L (3.5-5.1) Chloride Level 104 mmol/L (98-107) 107 mmol/L (98-107) Carbon Dioxide Level 28 mmol/L (21-32) 26 mmol/L (21-32) Anion Gap 10 (6-14) 9 (6-14) Blood Urea Nitrogen 29 mg/dL (8-26) 28 mg/dL (8-26) Creatinine 1.9 mg/dL (0.7-1.3) 1.5 mg/dL (0.7-1.3) Estimated GFR (Cockcroft-Gault) 33.9 44.6 BUN/Creatinine Ratio 15 (6-20) Glucose Level 107 mg/dL (70-99) 70 mg/dL (70-99) Calcium Level 10.8 mg/dL (8.5-10.1) 9.9 mg/dL (8.5-10.1) Magnesium Level 2.0 mg/dL (1.8-2.4) Total Bilirubin 0.6 mg/dL (0.2-1.0) Aspartate Amino Transf (AST/SGOT) 13 U/L (15-37) Alanine Aminotransferase (ALT/SGPT) 11 U/L (16-63) Alkaline Phosphatase 91 U/L (46-116) Creatine Kinase 10 U/L (39-308) Creatine Kinase MB (Mass) < 0.5 ng/mL (0.0-3.6) Creatine Kinase MB Relative Index % (0-4) Troponin I Quantitative < 0.017 ng/mL (0.000-0.055) TX-Tzi-D-Type Natriuretic Peptide 1558 pg/mL (0-449) Total Protein 7.2 g/dL (6.4-8.2) Albumin 3.2 g/dL (3.4-5.0) Albumin/Globulin Ratio 0.8 (1.0-1.7) Urine Collection Type Void Urine Color Yellow Urine Clarity Cloudy Urine pH 6.0 Urine Specific [place] 1.015 Urine Protein 100 mg/dL (NEG-TRACE) Urine Glucose (UA) Negative mg/dL (NEG) Urine Ketones (Stick) Negative mg/dL (NEG) Urine Blood Small (NEG) Urine Nitrite Positive (NEG) Urine Bilirubin Negative (NEG) Urine Urobilinogen Dipstick 0.2 mg/dL (0.2 mg/dL) Urine Leukocyte Esterase Large (NEG) Urine RBC Rare /HPF (0-2) Urine WBC >40 /HPF (0-4) Urine Squamous Epithelial Cells None /LPF Urine Bacteria Many /HPF (0-FEW) Laboratory Tests Test 06/06/17 05:23 White Blood Count 7.7 x10^3/uL (4.0-11.0) Red Blood Count 2.63 x10^6/uL (4.30-5.70) Hemoglobin 8.3 g/dL (13.0-17.5) Hematocrit 25.7 % (39.0-53.0) Mean Corpuscular Volume 98 fL (79-100) Mean Corpuscular Hemoglobin 32 pg (25-35) Mean Corpuscular Hemoglobin Concent 32 g/dL (31-37) Red Cell Distribution Width 16.0 % (11.5-14.5) Platelet Count 142 x10^3/uL (140-400) Neutrophils (%) (Auto) 78 % (31-73) Lymphocytes (%) (Auto) 10 % (24-48) Monocytes (%) (Auto) 8 % (0-9) Eosinophils (%) (Auto) 2 % (0-3) Basophils (%) (Auto) 1 % (0-3) Neutrophils # (Auto) 6.0 x10^3uL (1.8-7.7) Lymphocytes # (Auto) 0.8 x10^3/uL (1.0-4.8) Monocytes # (Auto) 0.6 x10^3/uL (0.0-1.1) Eosinophils # (Auto) 0.2 x10^3/uL (0.0-0.7) Basophils # (Auto) 0.0 x10^3/uL (0.0-0.2) Sodium Level 142 mmol/L (136-145) Potassium Level 4.0 mmol/L (3.5-5.1) Chloride Level 107 mmol/L (98-107) Carbon Dioxide Level 26 mmol/L (21-32) Anion Gap 9 (6-14) Blood Urea Nitrogen 28 mg/dL (8-26) Creatinine 1.5 mg/dL (0.7-1.3) Estimated GFR (Cockcroft-Gault) 44.6 Glucose Level 70 mg/dL (70-99) Calcium Level 9.9 mg/dL (8.5-10.1) Microbiology 06/05/17 Urine Culture - Preliminary, Resulted 06/05/17 Urine Culture Result 1 (MELLISA) - Preliminary, Resulted Medications Current Medications Sodium Chloride 1,000 ml @ 75 mls/hr [id number] IV Last administered on t 11:58; Start 06/05/17 at 11:46; Stop 06/05/17 at 14:25; Status DC Midazolam HCl (Versed) 2 mg STK-MED ONCE .ROUTE ; Start 06/05/17 at 13:06; Stop 06/05/17 at 13:07; Status DC Midazolam HCl (Versed) 1 mg 1X ONCE IV Last administered on 06/05/17 13:27; Start 06/05/17 at 13:15; Stop 06/05/17 at 13:16; Status DC Lidocaine/ Epinephrine (Xylocaine 1%-Epi 1:100,000) 20 ml 1X ONCE INJ ; Start 06/05/17 at 13:15; Stop 06/05/17 at 13:16; Status DC Ceftriaxone Sodium 50 ml @ 100 mls/hr 1X ONCE IV Last administered on 13:40; Start 06/05/17 at 13:15; Stop 06/05/17 at 13:44; Status DC Lidocaine/ Epinephrine (Xylocaine 2%-Epi 1:100,000) 20 ml 1X ONCE IJ Last administered on 06/05/17 13:32; Start 06/05/17 at 13:15; Stop 06/05/17 at 13 :16; Status DC Ondansetron HCl (Zofran) 4 mg PRN Q8HRS PRN IV NAUSEA/VOMITING; Start at 14:30; Stop 06/06/17 at 14:29; Status DC Fentanyl Citrate (Fentanyl 2ml Vial) 50 mcg PRN Q2HR PRN IV PAIN Last administered on 06/05/17 22:49; Start 06/05/17 at 14:30; Stop 06/06/17 at 14 :29; Status DC Sodium Chloride 1,000 ml @ 125 mls/hr Q8H IV ; Start 06/05/17 at 15:00; Stop 06/06/17 at 07:03; Status DC Acetaminophen (Tylenol) 650 mg PRN Q4HRS PRN PO FEVER; Start 06/05/17 at 14:30 ; Stop 06/06/17 at 14:29; Status DC Ceftriaxone Sodium 1 gm/ Dextrose 50 ml @ 100 mls/hr Q24H IV ; Start 06/05/17 at 14:30; Status UNV Ceftriaxone Sodium 1 gm/ Dextrose 50 ml @ 100 mls/hr Q24H IV ; Start 06/05/17 at 14:30; Status UNV Albuterol/ Ipratropium (Duoneb) 3 ml RTQID NEB Last administered on 06/06/17 15:02; Start 06/05/17 at 16:00 Ceftriaxone Sodium (Rocephin) 1 gm Q24H IVP Last administered on 06/06/17 14: 18; Start 06/06/17 at 15:00 Allopurinol (Zyloprim) 200 mg DAILY PO Last administered on 06/06/17 09:03; Start 06/06/17 at 09:00 Sotalol HCl (Betapace) 80 mg BID PO Last administered on 06/06/17 09:04; Start 06/05/17 at 21:00 Famotidine (Pepcid) 20 mg BID PO Last administered on 06/06/17 09:03; Start 06/05/17 at 21:00 Furosemide (Lasix) 40 mg QODAY PO ; Start 06/07/17 at 09:00 Isosorbide Mononitrate (Imdur) 30 mg DAILY PO Last administered on 06/06/17 09:04; Start 06/06/17 at 09:00 Mirtazapine (Remeron) 7.5 mg QHS PO Last administered on 06/05/17 20:33; Start 06/05/17 at 21:00 Multivitamins (Thera M Plus) 1 tab DAILY PO Last administered on 06/06/17 09: 03; Start 06/06/17 at 09:00 Nitroglycerin (Nitrostat) 0.4 mg PRN Q5MIN PRN SL CHEST PAIN; Start 06/05/17 at 17:15 Fish Oil (Fish Oil) 1,000 mg DAILY PO ; Start 06/06/17 at 09:00 Clopidogrel Bisulfate (Plavix) 75 mg DAILYWBKFT PO Last administered on 09:03; Start 06/06/17 at 08:00 Potassium Chloride (Klor-Con) 20 meq QODAY PO ; Start 06/07/17 at 09:00 Trazodone HCl (Desyrel) 50 mg QHS PO Last administered on 06/05/17 20:33; Start 06/05/17 at 21:00 Acetaminophen (Tylenol) 650 mg PRN Q6HRS PRN PO MILD PAIN / TEMP; Start at 17:15 Magnesium Hydroxide (Milk Of Magnesia) 2,400 mg PRN DAILY PRN PO CONSTIPATION; Start 06/05/17 at 17:15 Lactulose 20 gm BID PO Last administered on 06/06/17t 12:19; Start 06/06/17 at 12:00; Stop 06/06/17 at 18:00; Status DC Lactobacillus Rhamnosus (Culturelle) 1 cap BID PO ; Start 06/06/17 at 21:00 Active Scripts Active Cozaar (Losartan Potassium) 50 Mg Tablet 50 Mg PO DAILY Flomax (Tamsulosin Hcl) 0.4 Mg Cap.er.24h 0.4 Mg PO QHS Isosorbide Mononitrate Er (Isosorbide Mononitrate) 30 Mg Tab.er.24h 30 Mg PO DAILY 30 Days Albuterol Sulfate Neb Soln (Albuterol Sulfate) 2.5 Mg/3 Ml Vial.neb 2.5 Mg NEB PRN QID PRN 30 Days Reported Trazodone Hcl 50 Mg Tablet 1 Tab PO QHS Flomax (Tamsulosin Hcl) 0.4 Mg Cap.er.24h 1 Cap PO HS Sotalol (Sotalol Hcl) 80 Mg Tablet 1 Tab PO BID Potassium Chloride 10 Meq Tablet.er 20 Meq PO QODAY NITROGLYCERIN SubLingual (Nitroglycerin) 0.4 Mg Tab.subl 0.4 Mg SL PRN Q5MIN PRN Multivitamins (Multivitamin) 1 Each Tablet 1 Tab PO DAILY Losartan Potassium 50 Mg Tablet 50 Mg PO DAILY Isosorbide Mononitrate Er (Isosorbide Mononitrate) 30 Mg Tab.er.24h 1 Tab PO DAILY Albuterol Sulfate Neb Soln (Albuterol Sulfate) 2.5 Mg/3 Ml Vial.neb 2.5 Mg NEB QID Furosemide 40 Mg Tablet 1 Tab PO QODAY Famotidine 20 Mg Tablet 20 Mg PO HS Plavix (Clopidogrel Bisulfate) 75 Mg Tablet 1 Tab PO DAILY Allopurinol 100 Mg Tablet 2 Tab PO DAILY Tylenol (Acetaminophen) 325 Mg Tablet 2 Tab PO PRN Q4HRS Lasix (Furosemide) 40 Mg Tablet 1 Tab PO QODAY Nitrostat (Nitroglycerin) 0.4 Mg Tab.subl 1 Tab SL UD Trazodone Hcl 50 Mg Tablet 1 Tab PO QHS Plavix (Clopidogrel Bisulfate) 75 Mg Tablet 75 Mg PO DAILY Imdur (Isosorbide Mononitrate) 30 Mg Tab.er.24h 30 Mg PO DAILY Pepcid (Famotidine) 20 Mg Tablet 20 Mg PO BID Betapace (Sotalol Hcl) 80 Mg Tablet 80 Mg PO BID Allopurinol 100 Mg Tablet 200 Mg PO DAILY Vitals/I & O Vital Sign - Last 24 Hours 06/05/17 06/05/17 06/05/17 06/05/17 19:30 20:00 20:06 20:33 Temp 98.0 98.0 Pulse 77 76 Resp 20 B/P (MAP) 121/61 (81) 121/61 Pulse Ox 93 95 O2 Delivery Nasal Cannula Nasal Cannula Nasal Cannula O2 Flow Rate 1.0 1.0 1.0 06/05/17 06/05/17 06/05/17 06/05/17 20:34 22:49 23:00 23:15 Temp 97.8 97.8 Pulse 73 Resp 16 16 18 18 B/P (MAP) 110/61 (77) Pulse Ox 92 95 94 96 O2 Delivery Room Air Nasal Cannula Nasal Cannula Nasal Cannula O2 Flow Rate 1.0 2.0 2.0 2.0 06/06/17 06/06/17 06/06/17 06/06/17 03:15 07:07 07:25 07:48 Temp 97.9 98.0 97.9 98.0 Pulse 74 77 Resp 20 18 B/P (MAP) 104/58 (73) 137/63 (87) Pulse Ox 96 95 87 O2 Delivery Nasal Cannula Nasal Cannula Nasal Cannula Nasal Cannula O2 Flow Rate 2.0 1.0 2.0 2.0 06/06/17 06/06/17 06/06/17 06/06/17 09:04 09:04 10:35 10:49 Temp 97.8 97.8 Pulse 77 77 84 Resp 18 B/P (MAP) 137/63 137/63 102/52 (69) Pulse Ox 90 O2 Delivery Nasal Cannula Nasal Cannula O2 Flow Rate 2.0 1.0 06/06/17 06/06/17 15:00 15:04 Temp 97.8 97.8 Pulse 76 Resp 20 B/P (MAP) 130/61 (84) Pulse Ox 90 O2 Delivery Nasal Cannula Nasal Cannula O2 Flow Rate 2.0 1.0 Intake and Output 06/05/17 06/05/17 06/06/17 15:00 23:00 07:00 Intake Total 275 ml 200 ml 200 ml Output Total 419 ml 22 ml Balance 275 ml -219 ml 178 ml ZEESHAN TOSCANO MD Jun 06, 2017 18:43
[2017-06-06 19:52] VITALS: BP 143/75
[2017-06-06] MEDS: LACTOBACILLUS RHAMNOSUS GG 1 CAPSULE. PO SCH (21:20)
[2017-06-06] MEDS: MIRTAZAPINE 7.5 MG TABLET. PO SCH (21:20)
[2017-06-06] MEDS: traZODone 50 MG TABLET. PO SCH (21:20)
[2017-06-06 22:51] VITALS: BP 119/55
[2017-06-07 03:55] VITALS: BP 125/52
[2017-06-07 07:00] VITALS: BP 143/69
[2017-06-07] MEDS: IPRATRPIUM/ALBUTEROL 0.5/2.5MG 3 ML NEBU. NEB SCH ×4 (07:48→20:00)
[2017-06-07] MEDS: OMEGA-3 FATTY ACIDS/FISH OIL 1,000 MG CAPSULE. PO SCH (09:00)
--- NOTE | 2017-06-07 10:10 | RAD ---
Portable chest, 06/07/2017: History: Follow-up pneumothorax Comparison is made to yesterday's study. The left chest tube is unchanged in position. The left-sided pneumothorax has developed. It is visible laterally and over the apex. It is estimated at 10% in volume. Bilateral pleural/parenchymal opacities are unchanged. The heart is within normal limits in size. IMPRESSION: 1. A small left pneumothorax has redeveloped. 2. No other significant interval change since yesterday's exam.
[2017-06-07] MEDS: ALLOPURINOL 100 MG TABLET. PO SCH (10:41)
[2017-06-07] MEDS: ISOSORBIDE MONONITRATE ER 30 MG TAB.ER.24H PO SCH (10:41)
[2017-06-07] MEDS: LACTOBACILLUS RHAMNOSUS GG 1 CAPSULE. PO SCH ×2 (10:41→22:01)
[2017-06-07] MEDS: FAMOTIDINE 20 MG TABLET. PO SCH ×2 (10:42→22:01)
[2017-06-07] MEDS: POTASSIUM CHLORIDE 20 MEQ TABLET.ER. PO SCH (10:42)
[2017-06-07] MEDS: MULTIVITAMIN with MINERAL TABLET. PO SCH (10:42)
[2017-06-07] MEDS: FUROSEMIDE 40 MG TABLET. PO SCH (10:42)
[2017-06-07] MEDS: CLOPIDOGREL BISULFATE 75 MG TABLET PO SCH (10:43)
[2017-06-07] MEDS: SOTALOL 80 MG TABLET. PO SCH ×2 (10:43→22:02)
[2017-06-07 11:00] VITALS: BP 130/65
--- NOTE | 2017-06-07 13:03 | PDOC ---
PROGRESS NOTES Subjective Subjective not short of breath. had a BM. comfortable. cxr shows a small left pneumothorax. lab reviewed. urine culture growing GNR. Objective Objective Vital Signs Date Time Temp Pulse Resp B/P (MAP) Pulse Ox O2 Delivery O2 Flow Rate FiO2 06/07/17 11:48 92 Nasal Cannula 1.0 06/07/17 11:00 97.8 82 18 130/65 (86) 97.8 Intake and Output 06/07/17 07:00 Intake Total 900 ml Output Total 865 ml Balance 35 ml Intake Oral 900 ml Output Urine Total 865 ml Physical Exam Abdomen: Soft Heart: Regular rate, Normal S1, Normal S2 Extremities: Other (1 plus bipedal edema) General: Alert HEENT: Atraumatic Lungs: Other (bilateral decreased breath sounds) Neuro: Normal speech Psych/Mental Status: Mental status NL Skin: No rashes Assessment Assessment Problems. Left pneumothorax reinflated treated with a chest tube. small left pneumothorax on todays cxr 2. 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 no biopsy per DPOA due to poor functional capacity 3. Severe end-stage chronic obstructive pulmonary disease. 4. Secondary pulmonary hypertension. 5. Coronary artery disease. 6. Ischemic cardiomyopathy with a left ventricular ejection fraction of 20%. 7. Chronic kidney disease, stage 3. 8. Weight loss, presumably secondary to malignancy. 9. Chronic systolic congestive heart failure. 10. Acute on chronic hypoxic respiratory failure. 11. Chronic anemia. 12. GNR uti Medical Problems: (1) Congestive heart failure Status: Acute (2) COPD (chronic obstructive pulmonary disease) Status: Acute (3) Stage III chronic kidney disease Status: Acute (4) Tension pneumothorax, spontaneous Status: Acute (5) Urinary tract infection Status: Acute Plan Plan of Care continue iv rocephin continue chest tube final urine culture pending ct chest today without iv contrast Comment Review of Relevant I have reviewed the following items lucio (where applicable) has been applied. Labs Laboratory Tests Test 06/06/17 05:23 White Blood Count 7.7 x10^3/uL (4.0-11.0) Red Blood Count 2.63 x10^6/uL (4.30-5.70) Hemoglobin 8.3 g/dL (13.0-17.5) Hematocrit 25.7 % (39.0-53.0) Mean Corpuscular Volume 98 fL (79-100) Mean Corpuscular Hemoglobin 32 pg (25-35) Mean Corpuscular Hemoglobin Concent 32 g/dL (31-37) Red Cell Distribution Width 16.0 % (11.5-14.5) Platelet Count 142 x10^3/uL (140-400) Neutrophils (%) (Auto) 78 % (31-73) Lymphocytes (%) (Auto) 10 % (24-48) Monocytes (%) (Auto) 8 % (0-9) Eosinophils (%) (Auto) 2 % (0-3) Basophils (%) (Auto) 1 % (0-3) Neutrophils # (Auto) 6.0 x10^3uL (1.8-7.7) Lymphocytes # (Auto) 0.8 x10^3/uL (1.0-4.8) Monocytes # (Auto) 0.6 x10^3/uL (0.0-1.1) Eosinophils # (Auto) 0.2 x10^3/uL (0.0-0.7) Basophils # (Auto) 0.0 x10^3/uL (0.0-0.2) Sodium Level 142 mmol/L (136-145) Potassium Level 4.0 mmol/L (3.5-5.1) Chloride Level 107 mmol/L (98-107) Carbon Dioxide Level 26 mmol/L (21-32) Anion Gap 9 (6-14) Blood Urea Nitrogen 28 mg/dL (8-26) Creatinine 1.5 mg/dL (0.7-1.3) Estimated GFR (Cockcroft-Gault) 44.6 Glucose Level 70 mg/dL (70-99) Calcium Level 9.9 mg/dL (8.5-10.1) Microbiology 06/05/17 Urine Culture - Preliminary, Resulted 06/05/17 Urine Culture Result 1 (MELILSA) - Preliminary, Resulted Medications Current Medications Sodium Chloride 1,000 ml @ 75 mls/hr [id number] IV Last administered on t 11:58; Start 06/05/17 at 11:46; Stop 06/05/17 at 14:25; Status DC Midazolam HCl (Versed) 2 mg STK-MED ONCE .ROUTE ; Start 06/05/17 at 13:06; Stop 06/05/17 at 13:07; Status DC Midazolam HCl (Versed) 1 mg 1X ONCE IV Last administered on 06/05/17 13:27; Start 06/05/17 at 13:15; Stop 06/05/17 at 13:16; Status DC Lidocaine/ Epinephrine (Xylocaine 1%-Epi 1:100,000) 20 ml 1X ONCE INJ ; Start 06/05/17 at 13:15; Stop 06/05/17 at 13:16; Status DC Ceftriaxone Sodium 50 ml @ 100 mls/hr 1X ONCE IV Last administered on 13:40; Start 06/05/17 at 13:15; Stop 06/05/17 at 13:44; Status DC Lidocaine/ Epinephrine (Xylocaine 2%-Epi 1:100,000) 20 ml 1X ONCE IJ Last administered on 06/05/17 13:32; Start 06/05/17 at 13:15; Stop 06/05/17 at 13 :16; Status DC Ondansetron HCl (Zofran) 4 mg PRN Q8HRS PRN IV NAUSEA/VOMITING; Start at 14:30; Stop 06/06/17 at 14:29; Status DC Fentanyl Citrate (Fentanyl 2ml Vial) 50 mcg PRN Q2HR PRN IV PAIN Last administered on 06/05/17 22:49; Start 06/05/17 at 14:30; Stop 06/06/17 at 14 :29; Status DC Sodium Chloride 1,000 ml @ 125 mls/hr Q8H IV ; Start 06/05/17 at 15:00; Stop 06/06/17 at 07:03; Status DC Acetaminophen (Tylenol) 650 mg PRN Q4HRS PRN PO FEVER; Start 06/05/17 at 14:30 ; Stop 06/06/17 at 14:29; Status DC Ceftriaxone Sodium 1 gm/ Dextrose 50 ml @ 100 mls/hr Q24H IV ; Start 06/05/17 at 14:30; Status UNV Ceftriaxone Sodium 1 gm/ Dextrose 50 ml @ 100 mls/hr Q24H IV ; Start 06/05/17 at 14:30; Status UNV Albuterol/ Ipratropium (Duoneb) 3 ml RTQID NEB Last administered on 06/07/17 11:48; Start 06/05/17 at 16:00 Ceftriaxone Sodium (Rocephin) 1 gm Q24H IVP Last administered on 06/06/17 14: 18; Start 06/06/17 at 15:00 Allopurinol (Zyloprim) 200 mg DAILY PO Last administered on 06/07/17 10:41; Start 06/06/17 at 09:00 Sotalol HCl (Betapace) 80 mg BID PO Last administered on 06/07/17 10:43; Start 06/05/17 at 21:00 Famotidine (Pepcid) 20 mg BID PO Last administered on 06/07/17 10:42; Start 06/05/17 at 21:00 Furosemide (Lasix) 40 mg QODAY PO Last administered on 06/07/17 10:42; Start 06/07/17 at 09:00 Isosorbide Mononitrate (Imdur) 30 mg DAILY PO Last administered on 06/07/17 10:41; Start 06/06/17 at 09:00 Mirtazapine (Remeron) 7.5 mg QHS PO Last administered on 06/06/17 21:20; Start 06/05/17 at 21:00 Multivitamins (Thera M Plus) 1 tab DAILY PO Last administered on 06/07/17 10: 42; Start 06/06/17 at 09:00 Nitroglycerin (Nitrostat) 0.4 mg PRN Q5MIN PRN SL CHEST PAIN; Start 06/05/17 at 17:15 Fish Oil (Fish Oil) 1,000 mg DAILY PO ; Start 06/06/17 at 09:00 Clopidogrel Bisulfate (Plavix) 75 mg DAILYWBKFT PO Last administered on 10:43; Start 06/06/17 at 08:00 Potassium Chloride (Klor-Con) 20 meq QODAY PO Last administered on 06/07/17 10:42; Start 06/07/17 at 09:00 Trazodone HCl (Desyrel) 50 mg QHS PO Last administered on 06/06/17 21:20; Start 06/05/17 at 21:00 Acetaminophen (Tylenol) 650 mg PRN Q6HRS PRN PO MILD PAIN / TEMP; Start at 17:15 Magnesium Hydroxide (Milk Of Magnesia) 2,400 mg PRN DAILY PRN PO CONSTIPATION; Start 06/05/17 at 17:15 Lactulose 20 gm BID PO Last administered on 06/06/17 12:19; Start 06/06/17 at 12:00; Stop 06/06/17 at 18:00; Status DC Lactobacillus Rhamnosus (Culturelle) 1 cap BID PO Last administered on 10:41; Start 06/06/17 at 21:00 Active Scripts Active Cozaar (Losartan Potassium) 50 Mg Tablet 50 Mg PO DAILY Flomax (Tamsulosin Hcl) 0.4 Mg Cap.er.24h 0.4 Mg PO QHS Isosorbide Mononitrate Er (Isosorbide Mononitrate) 30 Mg Tab.er.24h 30 Mg PO DAILY 30 Days Albuterol Sulfate Neb Soln (Albuterol Sulfate) 2.5 Mg/3 Ml Vial.neb 2.5 Mg NEB PRN QID PRN 30 Days Reported Trazodone Hcl 50 Mg Tablet 1 Tab PO QHS Flomax (Tamsulosin Hcl) 0.4 Mg Cap.er.24h 1 Cap PO HS Sotalol (Sotalol Hcl) 80 Mg Tablet 1 Tab PO BID Potassium Chloride 10 Meq Tablet.er 20 Meq PO QODAY NITROGLYCERIN SubLingual (Nitroglycerin) 0.4 Mg Tab.subl 0.4 Mg SL PRN Q5MIN PRN Multivitamins (Multivitamin) 1 Each Tablet 1 Tab PO DAILY Losartan Potassium 50 Mg Tablet 50 Mg PO DAILY Isosorbide Mononitrate Er (Isosorbide Mononitrate) 30 Mg Tab.er.24h 1 Tab PO DAILY Albuterol Sulfate Neb Soln (Albuterol Sulfate) 2.5 Mg/3 Ml Vial.neb 2.5 Mg NEB QID Furosemide 40 Mg Tablet 1 Tab PO QODAY Famotidine 20 Mg Tablet 20 Mg PO HS Plavix (Clopidogrel Bisulfate) 75 Mg Tablet 1 Tab PO DAILY Allopurinol 100 Mg Tablet 2 Tab PO DAILY Tylenol (Acetaminophen) 325 Mg Tablet 2 Tab PO PRN Q4HRS Lasix (Furosemide) 40 Mg Tablet 1 Tab PO QODAY Nitrostat (Nitroglycerin) 0.4 Mg Tab.subl 1 Tab SL UD Trazodone Hcl 50 Mg Tablet 1 Tab PO QHS Plavix (Clopidogrel Bisulfate) 75 Mg Tablet 75 Mg PO DAILY Imdur (Isosorbide Mononitrate) 30 Mg Tab.er.24h 30 Mg PO DAILY Pepcid (Famotidine) 20 Mg Tablet 20 Mg PO BID Betapace (Sotalol Hcl) 80 Mg Tablet 80 Mg PO BID Allopurinol 100 Mg Tablet 200 Mg PO DAILY Vitals/I & O Vital Sign - Last 24 Hours 06/06/17 06/06/17 06/06/17 06/06/17 15:00 15:04 19:20 19:49 Temp 97.8 97.8 Pulse 76 Resp 20 B/P (MAP) 130/61 (84) Pulse Ox 90 90 O2 Delivery Nasal Cannula Nasal Cannula Nasal Cannula Nasal Cannula O2 Flow Rate 2.0 1.0 2.0 1.0 06/06/17 06/06/17 06/06/17 06/07/17 19:52 21:21 22:51 03:55 Temp 98.0 98.4 98.3 98.0 98.4 98.3 Pulse 78 78 84 72 Resp 18 18 18 B/P (MAP) 143/75 (97) 143/75 119/55 (76) 125/52 (76) Pulse Ox 100 96 94 O2 Delivery Nasal Cannula Nasal Cannula Nasal Cannula O2 Flow Rate 2.0 2.0 2.0 06/07/17 06/07/17 06/07/17 06/07/17 07:00 07:48 10:41 10:43 Temp 98.1 98.1 Pulse 68 84 84 Resp 16 B/P (MAP) 143/69 (93) 130/65 130/65 Pulse Ox 94 93 O2 Delivery Nasal Cannula Nasal Cannula O2 Flow Rate 2.0 1.0 06/07/17 06/07/17 11:00 11:48 Temp 97.8 97.8 Pulse 82 Resp 18 B/P (MAP) 130/65 (86) Pulse Ox 91 92 O2 Delivery Nasal Cannula Nasal Cannula O2 Flow Rate 1.5 1.0 Intake and Output 06/06/17 06/06/17 06/07/17 15:00 23:00 07:00 Intake Total 200 ml 500 ml 200 ml Output Total 100 ml 365 ml 400 ml Balance 100 ml 135 ml -200 ml LAURE OLIVER MD Jun 07, 2017 13:03
--- NOTE | 2017-06-07 14:07 | PDOC ---
PULMONARY PROGRESS NOTES Subjective NO SOA POSITIVE AIR LEAK Vitals Vital Signs Date Time Temp Pulse Resp B/P (MAP) Pulse Ox O2 Delivery O2 Flow Rate FiO2 06/07/17 11:48 92 Nasal Cannula 1.0 06/07/17 11:00 97.8 82 18 130/65 (86) 97.8 General: Alert, No acute distress Lungs: Other (decrease bs) Cardiovascular: S1, S2 Abdomen: Soft Neuro Exam: Alert Extremities: Other (1+edema) Labs Laboratory Tests Test 06/06/17 05:23 White Blood Count 7.7 x10^3/uL (4.0-11.0) Red Blood Count 2.63 x10^6/uL (4.30-5.70) Hemoglobin 8.3 g/dL (13.0-17.5) Hematocrit 25.7 % (39.0-53.0) Mean Corpuscular Volume 98 fL (79-100) Mean Corpuscular Hemoglobin 32 pg (25-35) Mean Corpuscular Hemoglobin Concent 32 g/dL (31-37) Red Cell Distribution Width 16.0 % (11.5-14.5) Platelet Count 142 x10^3/uL (140-400) Neutrophils (%) (Auto) 78 % (31-73) Lymphocytes (%) (Auto) 10 % (24-48) Monocytes (%) (Auto) 8 % (0-9) Eosinophils (%) (Auto) 2 % (0-3) Basophils (%) (Auto) 1 % (0-3) Neutrophils # (Auto) 6.0 x10^3uL (1.8-7.7) Lymphocytes # (Auto) 0.8 x10^3/uL (1.0-4.8) Monocytes # (Auto) 0.6 x10^3/uL (0.0-1.1) Eosinophils # (Auto) 0.2 x10^3/uL (0.0-0.7) Basophils # (Auto) 0.0 x10^3/uL (0.0-0.2) Sodium Level 142 mmol/L (136-145) Potassium Level 4.0 mmol/L (3.5-5.1) Chloride Level 107 mmol/L (98-107) Carbon Dioxide Level 26 mmol/L (21-32) Anion Gap 9 (6-14) Blood Urea Nitrogen 28 mg/dL (8-26) Creatinine 1.5 mg/dL (0.7-1.3) Estimated GFR (Cockcroft-Gault) 44.6 Glucose Level 70 mg/dL (70-99) Calcium Level 9.9 mg/dL (8.5-10.1) Medications Active Scripts Medications Dose Route/Sig Max Daily Dose Days Date Category Trazodone Hcl 50 Mg Tablet 1 Tab PO QHS 07/15/16 Reported Flomax (Tamsulosin Hcl) 0.4 Mg Cap.er.24h 1 Cap PO HS 07/15/16 Reported Sotalol (Sotalol Hcl) 80 Mg Tablet 1 Tab PO BID 07/15/16 Reported Potassium Chloride 10 Meq Tablet.er 20 Meq PO QODAY 07/15/16 Reported NITROGLYCERIN SubLingual (Nitroglycerin) 0.4 Mg Tab.subl 0.4 Mg SL PRN Q5MIN PRN 07/15/16 Reported Multivitamins (Multivitamin) 1 Each Tablet 1 Tab PO DAILY 07/15/16 Reported Losartan Potassium 50 Mg Tablet 50 Mg PO DAILY 07/15/16 Reported Isosorbide Mononitrate Er (Isosorbide Mononitrate) 30 Mg Tab.er.24h 1 Tab PO DAILY 07/15/16 Reported Albuterol Sulfate Neb Soln (Albuterol Sulfate) 2.5 Mg/3 Ml Vial.neb 2.5 Mg NEB QID 07/15/16 Reported Furosemide 40 Mg Tablet 1 Tab PO QODAY 07/15/16 Reported Famotidine 20 Mg Tablet 20 Mg PO HS 07/15/16 Reported Plavix (Clopidogrel Bisulfate) 75 Mg Tablet 1 Tab PO DAILY 07/15/16 Reported Allopurinol 100 Mg Tablet 2 Tab PO DAILY 07/15/16 Reported Tylenol (Acetaminophen) 325 Mg Tablet 2 Tab PO PRN Q4HRS 07/15/16 Reported Lasix (Furosemide) 40 Mg Tablet 1 Tab PO QODAY 07/10/16 Reported Cozaar (Losartan Potassium) 50 Mg Tablet 50 Mg PO DAILY 06/27/16 Rx Flomax (Tamsulosin Hcl) 0.4 Mg Cap.er.24h 0.4 Mg PO QHS 06/27/16 Rx Nitrostat (Nitroglycerin) 0.4 Mg Tab.subl 1 Tab SL UD 12/21/16 Reported Isosorbide Mononitrate Er (Isosorbide Mononitrate) 30 Mg Tab.er.24h 30 Mg PO DAILY 30 05/18/16 Rx Albuterol Sulfate Neb Soln (Albuterol Sulfate) 2.5 Mg/3 Ml Vial.neb 2.5 Mg NEB PRN QID PRN 30 05/18/16 Rx Trazodone Hcl 50 Mg Tablet 1 Tab PO QHS 03/23/16 Reported Plavix (Clopidogrel Bisulfate) 75 Mg Tablet 75 Mg PO DAILY 08/19/13 Reported Imdur (Isosorbide Mononitrate) 30 Mg Tab.er.24h 30 Mg PO DAILY 08/19/13 Reported Pepcid (Famotidine) 20 Mg Tablet 20 Mg PO BID 08/19/13 Reported Betapace (Sotalol Hcl) 80 Mg Tablet 80 Mg PO BID 08/19/13 Reported Allopurinol 100 Mg Tablet 200 Mg PO DAILY 08/19/13 Reported Impression . 1. Acute hypoxic respiratory failure secondary to left-sided pneumothorax. 2. 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 3. History of increasing parenchymal mass in the right lower lobe based on the last CT chest from November. Being followed by Dr. Harley. 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 4. History of cardiomyopathy with an EF of 20%. 5. Dehydration with acute kidney injury. Plan . 1. Continue with chest tube to suction. CXR with tint PTX and persistent air leak. 2. At this time, I have discussed with the patient's daughter who is the DPOA and I have advised her that we should not consider any invasive biopsy options for the right-sided increasing parenchymal mass as the patient is a very poor candidate for any form of treatment and she agrees. 3. empiric antibiotic. 4. Continue oxygen. 5. Bronchodilators. 6. Pain control. 7. DNR 8. will do ct chest today DHARA ANTONIO MD Jun 07, 2017 14:07
[2017-06-07 14:38] VITALS: BP 118/71
--- NOTE | 2017-06-07 15:41 | PDOC ---
PROGRESS NOTES Subjective Subjective Pt is very weak. Air leak is worse today. Objective Objective Vital Signs Date Time Temp Pulse Resp B/P (MAP) Pulse Ox O2 Delivery O2 Flow Rate FiO2 06/07/17 15:19 94 Nasal Cannula 1.0 06/07/17 14:38 97.8 73 18 118/71 (87) 97.8 Intake and Output 06/07/17 07:00 Intake Total 900 ml Output Total 865 ml Balance 35 ml Intake Oral 900 ml Output Urine Total 865 ml Physical Exam Physical Exam No changes in the cardiac exam. Assessment Assessment Air leak in chest tube is worse today. Problems Medical Problems: (1) Congestive heart failure Status: Acute (2) COPD (chronic obstructive pulmonary disease) Status: Acute (3) Stage III chronic kidney disease Status: Acute (4) Tension pneumothorax, spontaneous Status: Acute (5) Urinary tract infection Status: Acute Plan Plan of Care Agree with current plan from pulmonary. Comment Review of Relevant I have reviewed the following items lucio (where applicable) has been applied. Labs Laboratory Tests Test 06/06/17 05:23 White Blood Count 7.7 x10^3/uL (4.0-11.0) Red Blood Count 2.63 x10^6/uL (4.30-5.70) Hemoglobin 8.3 g/dL (13.0-17.5) Hematocrit 25.7 % (39.0-53.0) Mean Corpuscular Volume 98 fL (79-100) Mean Corpuscular Hemoglobin 32 pg (25-35) Mean Corpuscular Hemoglobin Concent 32 g/dL (31-37) Red Cell Distribution Width 16.0 % (11.5-14.5) Platelet Count 142 x10^3/uL (140-400) Neutrophils (%) (Auto) 78 % (31-73) Lymphocytes (%) (Auto) 10 % (24-48) Monocytes (%) (Auto) 8 % (0-9) Eosinophils (%) (Auto) 2 % (0-3) Basophils (%) (Auto) 1 % (0-3) Neutrophils # (Auto) 6.0 x10^3uL (1.8-7.7) Lymphocytes # (Auto) 0.8 x10^3/uL (1.0-4.8) Monocytes # (Auto) 0.6 x10^3/uL (0.0-1.1) Eosinophils # (Auto) 0.2 x10^3/uL (0.0-0.7) Basophils # (Auto) 0.0 x10^3/uL (0.0-0.2) Sodium Level 142 mmol/L (136-145) Potassium Level 4.0 mmol/L (3.5-5.1) Chloride Level 107 mmol/L (98-107) Carbon Dioxide Level 26 mmol/L (21-32) Anion Gap 9 (6-14) Blood Urea Nitrogen 28 mg/dL (8-26) Creatinine 1.5 mg/dL (0.7-1.3) Estimated GFR (Cockcroft-Gault) 44.6 Glucose Level 70 mg/dL (70-99) Calcium Level 9.9 mg/dL (8.5-10.1) Microbiology 06/05/17 Urine Culture - Preliminary, Resulted 06/05/17 Urine Culture Result 1 (MELLISA) - Preliminary, Resulted Medications Current Medications Sodium Chloride 1,000 ml @ 75 mls/hr [id number] IV Last administered on 11:58; Start 06/05/17 at 11:46; Stop 06/05/17 at 14:25; Status DC Midazolam HCl (Versed) 2 mg STK-MED ONCE .ROUTE ; Start 06/05/17 at 13:06; Stop 06/05/17 at 13:07; Status DC Midazolam HCl (Versed) 1 mg 1X ONCE IV Last administered on 06/05/17 13:27; Start 06/05/17 at 13:15; Stop 06/05/17 at 13:16; Status DC Lidocaine/ Epinephrine (Xylocaine 1%-Epi 1:100,000) 20 ml 1X ONCE INJ ; Start 06/05/17 at 13:15; Stop 06/05/17 at 13:16; Status DC Ceftriaxone Sodium 50 ml @ 100 mls/hr 1X ONCE IV Last administered on 13:40; Start 06/05/17 at 13:15; Stop 06/05/17 at 13:44; Status DC Lidocaine/ Epinephrine (Xylocaine 2%-Epi 1:100,000) 20 ml 1X ONCE IJ Last administered on 06/05/17 13:32; Start 06/05/17 at 13:15; Stop 06/05/17 at 13 :16; Status DC Ondansetron HCl (Zofran) 4 mg PRN Q8HRS PRN IV NAUSEA/VOMITING; Start at 14:30; Stop 06/06/17 at 14:29; Status DC Fentanyl Citrate (Fentanyl 2ml Vial) 50 mcg PRN Q2HR PRN IV PAIN Last administered on 06/05/17 22:49; Start 06/05/17 at 14:30; Stop 06/06/17 at 14 :29; Status DC Sodium Chloride 1,000 ml @ 125 mls/hr Q8H IV ; Start 06/05/17 at 15:00; Stop 06/06/17 at 07:03; Status DC Acetaminophen (Tylenol) 650 mg PRN Q4HRS PRN PO FEVER; Start 06/05/17 at 14:30 ; Stop 06/06/17 at 14:29; Status DC Ceftriaxone Sodium 1 gm/ Dextrose 50 ml @ 100 mls/hr Q24H IV ; Start 06/05/17 at 14:30; Status UNV Ceftriaxone Sodium 1 gm/ Dextrose 50 ml @ 100 mls/hr Q24H IV ; Start 06/05/17 at 14:30; Status UNV Albuterol/ Ipratropium (Duoneb) 3 ml RTQID NEB Last administered on 06/07/17 15:18; Start 06/05/17 at 16:00 Ceftriaxone Sodium (Rocephin) 1 gm Q24H IVP Last administered on 06/06/17 14: 18; Start 06/06/17 at 15:00 Allopurinol (Zyloprim) 200 mg DAILY PO Last administered on 06/07/17 10:41; Start 06/06/17 at 09:00 Sotalol HCl (Betapace) 80 mg BID PO Last administered on 06/07/17 10:43; Start 06/05/17 at 21:00 Famotidine (Pepcid) 20 mg BID PO Last administered on 06/07/17 10:42; Start 06/05/17 at 21:00 Furosemide (Lasix) 40 mg QODAY PO Last administered on 06/07/17 10:42; Start 06/07/17 at 09:00 Isosorbide Mononitrate (Imdur) 30 mg DAILY PO Last administered on 06/07/17 10:41; Start 06/06/17 at 09:00 Mirtazapine (Remeron) 7.5 mg QHS PO Last administered on 06/06/17 21:20; Start 06/05/17 at 21:00 Multivitamins (Thera M Plus) 1 tab DAILY PO Last administered on 06/07/17 10: 42; Start 06/06/17 at 09:00 Nitroglycerin (Nitrostat) 0.4 mg PRN Q5MIN PRN SL CHEST PAIN; Start 06/05/17 at 17:15 Fish Oil (Fish Oil) 1,000 mg DAILY PO ; Start 06/06/17 at 09:00 Clopidogrel Bisulfate (Plavix) 75 mg DAILYWBKFT PO Last administered on 10:43; Start 06/06/17 at 08:00 Potassium Chloride (Klor-Con) 20 meq QODAY PO Last administered on 06/07/17 10:42; Start 06/07/17 at 09:00 Trazodone HCl (Desyrel) 50 mg QHS PO Last administered on 06/06/17 21:20; Start 06/05/17 at 21:00 Acetaminophen (Tylenol) 650 mg PRN Q6HRS PRN PO MILD PAIN / TEMP; Start at 17:15 Magnesium Hydroxide (Milk Of Magnesia) 2,400 mg PRN DAILY PRN PO CONSTIPATION; Start 06/05/17 at 17:15 Lactulose 20 gm BID PO Last administered on 06/06/17 12:19; Start 06/06/17 at 12:00; Stop 06/06/17 at 18:00; Status DC Lactobacillus Rhamnosus (Culturelle) 1 cap BID PO Last administered on 10:41; Start 06/06/17 at 21:00 Active Scripts Active Cozaar (Losartan Potassium) 50 Mg Tablet 50 Mg PO DAILY Flomax (Tamsulosin Hcl) 0.4 Mg Cap.er.24h 0.4 Mg PO QHS Isosorbide Mononitrate Er (Isosorbide Mononitrate) 30 Mg Tab.er.24h 30 Mg PO DAILY 30 Days Albuterol Sulfate Neb Soln (Albuterol Sulfate) 2.5 Mg/3 Ml Vial.neb 2.5 Mg NEB PRN QID PRN 30 Days Reported Trazodone Hcl 50 Mg Tablet 1 Tab PO QHS Flomax (Tamsulosin Hcl) 0.4 Mg Cap.er.24h 1 Cap PO HS Sotalol (Sotalol Hcl) 80 Mg Tablet 1 Tab PO BID Potassium Chloride 10 Meq Tablet.er 20 Meq PO QODAY NITROGLYCERIN SubLingual (Nitroglycerin) 0.4 Mg Tab.subl 0.4 Mg SL PRN Q5MIN PRN Multivitamins (Multivitamin) 1 Each Tablet 1 Tab PO DAILY Losartan Potassium 50 Mg Tablet 50 Mg PO DAILY Isosorbide Mononitrate Er (Isosorbide Mononitrate) 30 Mg Tab.er.24h 1 Tab PO DAILY Albuterol Sulfate Neb Soln (Albuterol Sulfate) 2.5 Mg/3 Ml Vial.neb 2.5 Mg NEB QID Furosemide 40 Mg Tablet 1 Tab PO QODAY Famotidine 20 Mg Tablet 20 Mg PO HS Plavix (Clopidogrel Bisulfate) 75 Mg Tablet 1 Tab PO DAILY Allopurinol 100 Mg Tablet 2 Tab PO DAILY Tylenol (Acetaminophen) 325 Mg Tablet 2 Tab PO PRN Q4HRS Lasix (Furosemide) 40 Mg Tablet 1 Tab PO QODAY Nitrostat (Nitroglycerin) 0.4 Mg Tab.subl 1 Tab SL UD Trazodone Hcl 50 Mg Tablet 1 Tab PO QHS Plavix (Clopidogrel Bisulfate) 75 Mg Tablet 75 Mg PO DAILY Imdur (Isosorbide Mononitrate) 30 Mg Tab.er.24h 30 Mg PO DAILY Pepcid (Famotidine) 20 Mg Tablet 20 Mg PO BID Betapace (Sotalol Hcl) 80 Mg Tablet 80 Mg PO BID Allopurinol 100 Mg Tablet 200 Mg PO DAILY Vitals/I & O Vital Sign - Last 24 Hours 06/06/17 06/06/17 06/06/17 06/06/17 19:20 19:49 19:52 21:21 Temp 98.0 98.0 Pulse 78 78 Resp 18 B/P (MAP) 143/75 (97) 143/75 Pulse Ox 90 100 O2 Delivery Nasal Cannula Nasal Cannula Nasal Cannula O2 Flow Rate 2.0 1.0 2.0 06/06/17 06/07/17 06/07/17 06/07/17 22:51 03:55 07:00 07:48 Temp 98.4 98.3 98.1 98.4 98.3 98.1 Pulse 84 72 68 Resp 18 18 16 B/P (MAP) 119/55 (76) 125/52 (76) 143/69 (93) Pulse Ox 96 94 94 93 O2 Delivery Nasal Cannula Nasal Cannula Nasal Cannula Nasal Cannula O2 Flow Rate 2.0 2.0 2.0 1.0 06/07/17 06/07/17 06/07/17 06/07/17 10:41 10:43 11:00 11:48 Temp 97.8 97.8 Pulse 84 84 82 Resp 18 B/P (MAP) 130/65 130/65 130/65 (86) Pulse Ox 91 92 O2 Delivery Nasal Cannula Nasal Cannula O2 Flow Rate 1.5 1.0 06/07/17 06/07/17 14:38 15:19 Temp 97.8 97.8 Pulse 73 Resp 18 B/P (MAP) 118/71 (87) Pulse Ox 91 94 O2 Delivery Nasal Cannula Nasal Cannula O2 Flow Rate 1.5 1.0 Intake and Output 06/06/17 06/06/17 06/07/17 15:00 23:00 07:00 Intake Total 200 ml 500 ml 200 ml Output Total 100 ml 365 ml 400 ml Balance 100 ml 135 ml -200 ml ZEESHAN TOSCANO MD Jun 07, 2017 15:41
--- NOTE | 2017-06-07 16:10 | RAD ---
CT of the chest without contrast, 06/07/2017: History: Lung mass, pneumothorax Noncontrast scans were obtained as requested. Comparison is made to a study from 12/01/2016. Transvenous pacing leads extend into the heart. There is moderate calcific plaquing of the aorta and coronary arteries. A small amount of pericardial fluid is present. There is a soft tissue mass in the lower mediastinum as also noted on the previous study. It is centered in the region of the azygoesophageal recess. It currently measures approximately 5 x 3 cm compared to measurements of 3 x 2 cm on the previous study. The adjacent esophagus can no longer be from this mass. There are extensive emphysematous changes in both lungs with scattered parenchymal scars, some of which are partially calcified. There is a small amount of right-sided pleural fluid which has increased in volume since previous study. There is worsening moderate underlying right lower lobe infiltrate. There is a 2 cm peripheral density posterolaterally in the right upper lobe which was not evident on the previous study. This may represent focal parenchymal consolidation or a neoplasm. A moderate sized left pneumothorax has developed. A left chest tube is in place. Again noted are scattered partially calcified scars. There is an irregular, elongated density in the left upper lobe extending posteriorly to the pleura. This opacity has thickened since the prior exam from 07/28/2016. A small amount of left-sided pleural fluid has developed. There is mild underlying atelectasis posteriorly in the left lung base. IMPRESSION: 1. Extensive pulmonary emphysema with moderate pleural/parenchymal scarring. 2. New moderate sized left pneumothorax and small left pleural effusion. 3. An irregular spiculated density in the posterior aspect of the left upper lobe has increased in size raising the possibility of a neoplasm. 4. Increasing right pleural effusion with worsening moderate right lower lobe infiltrate. 5. Small peripheral right upper lobe opacity suggesting focal pulmonary consolidation versus a neoplasm. 6. Enlarging posterior mediastinal mass on the right, adjacent to the distal esophagus. This mass may have originated in the right lung in the azygos esophageal region. PQRS Compliance Statement: One or more of the following individualized dose reduction techniques were utilized for this examination: 1. Automated exposure control 2. Adjustment of the mA and/or kV according to patient size 3. Use of iterative reconstruction technique
[2017-06-07] MEDS: cefTRIAXone IV Push 1 GM VIAL. IVP SCH (16:11)
[2017-06-07] MEDS: ACETAMINOPHEN 325 MG TABLET. PO PRN (19:19)
[2017-06-07 20:14] VITALS: BP 109/60
[2017-06-07] MEDS: MIRTAZAPINE 7.5 MG TABLET. PO SCH (22:01)
[2017-06-07] MEDS: traZODone 50 MG TABLET. PO SCH (22:01)
[2017-06-07 22:42] VITALS: BP 90/53
[2017-06-08 03:44] VITALS: BP 113/70
[2017-06-08 06:39] VITALS: BP 144/78
--- NOTE | 2017-06-08 07:55 | RAD ---
Single view of the Chest 06/08/2017 11:00 AM Indication: Pneumothorax. Comparison: Chest radiograph, yesterday Findings: Left thoracostomy tube remains in place. There is interval decrease in left pneumothorax. Only a very small residual apical pneumothorax persists. Elevation of the right hemidiaphragm is again seen. Right-sided pleural-based opacities and calcified nodule in the upper lung are similar. Heart size is stable. Dual-lead pacemaking/ICD device is similar in configuration. Impression: Decreased left pneumothorax, left thoracostomy tube remains in place. Otherwise stable chest
[2017-06-08] MEDS: ALLOPURINOL 100 MG TABLET. PO SCH (08:51)
[2017-06-08] MEDS: FAMOTIDINE 20 MG TABLET. PO SCH (08:52)
[2017-06-08] MEDS: ISOSORBIDE MONONITRATE ER 30 MG TAB.ER.24H PO SCH (08:52)
[2017-06-08] MEDS: CLOPIDOGREL BISULFATE 75 MG TABLET PO SCH (08:52)
[2017-06-08] MEDS: SOTALOL 80 MG TABLET. PO SCH ×2 (08:53→22:05)
[2017-06-08] MEDS: MULTIVITAMIN with MINERAL TABLET. PO SCH (08:53)
[2017-06-08] MEDS: OMEGA-3 FATTY ACIDS/FISH OIL 1,000 MG CAPSULE. PO SCH (09:00)
[2017-06-08] MEDS: IPRATRPIUM/ALBUTEROL 0.5/2.5MG 3 ML NEBU. NEB SCH ×4 (09:35→21:14)
--- NOTE | 2017-06-08 10:11 | PDOC ---
PULMONARY PROGRESS NOTES Subjective NO SOA PERSISTENT AIR LEAK Vitals Vital Signs Date Time Temp Pulse Resp B/P (MAP) Pulse Ox O2 Delivery O2 Flow Rate FiO2 06/08/17 09:37 94 Nasal Cannula 1.0 06/08/17 08:53 77 144/78 06/08/17 06:39 97.7 20 97.7 General: Alert, No acute distress Lungs: Other (decrease bs) Cardiovascular: S1, S2 Abdomen: Soft Neuro Exam: Alert Extremities: Other (1+edema) Medications Active Scripts Medications Dose Route/Sig Max Daily Dose Days Date Category Trazodone Hcl 50 Mg Tablet 1 Tab PO QHS 07/15/16 Reported Flomax (Tamsulosin Hcl) 0.4 Mg Cap.er.24h 1 Cap PO HS 07/15/16 Reported Sotalol (Sotalol Hcl) 80 Mg Tablet 1 Tab PO BID 07/15/16 Reported Potassium Chloride 10 Meq Tablet.er 20 Meq PO QODAY 07/15/16 Reported NITROGLYCERIN SubLingual (Nitroglycerin) 0.4 Mg Tab.subl 0.4 Mg SL PRN Q5MIN PRN 07/15/16 Reported Multivitamins (Multivitamin) 1 Each Tablet 1 Tab PO DAILY 07/15/16 Reported Losartan Potassium 50 Mg Tablet 50 Mg PO DAILY 07/15/16 Reported Isosorbide Mononitrate Er (Isosorbide Mononitrate) 30 Mg Tab.er.24h 1 Tab PO DAILY 07/15/16 Reported Albuterol Sulfate Neb Soln (Albuterol Sulfate) 2.5 Mg/3 Ml Vial.neb 2.5 Mg NEB QID 07/15/16 Reported Furosemide 40 Mg Tablet 1 Tab PO QODAY 07/15/16 Reported Famotidine 20 Mg Tablet 20 Mg PO HS 07/15/16 Reported Plavix (Clopidogrel Bisulfate) 75 Mg Tablet 1 Tab PO DAILY 07/15/16 Reported Allopurinol 100 Mg Tablet 2 Tab PO DAILY 07/15/16 Reported Tylenol (Acetaminophen) 325 Mg Tablet 2 Tab PO PRN Q4HRS 07/15/16 Reported Lasix (Furosemide) 40 Mg Tablet 1 Tab PO QODAY 07/10/16 Reported Cozaar (Losartan Potassium) 50 Mg Tablet 50 Mg PO DAILY 06/27/16 Rx Flomax (Tamsulosin Hcl) 0.4 Mg Cap.er.24h 0.4 Mg PO QHS 06/27/16 Rx Nitrostat (Nitroglycerin) 0.4 Mg Tab.subl 1 Tab SL UD 06/14/16 Reported Isosorbide Mononitrate Er (Isosorbide Mononitrate) 30 Mg Tab.er.24h 30 Mg PO DAILY 30 05/18/16 Rx Albuterol Sulfate Neb Soln (Albuterol Sulfate) 2.5 Mg/3 Ml Vial.neb 2.5 Mg NEB PRN QID PRN 30 05/18/16 Rx Trazodone Hcl 50 Mg Tablet 1 Tab PO QHS 03/23/16 Reported Plavix (Clopidogrel Bisulfate) 75 Mg Tablet 75 Mg PO DAILY 08/19/13 Reported Imdur (Isosorbide Mononitrate) 30 Mg Tab.er.24h 30 Mg PO DAILY 08/19/13 Reported Pepcid (Famotidine) 20 Mg Tablet 20 Mg PO BID 08/19/13 Reported Betapace (Sotalol Hcl) 80 Mg Tablet 80 Mg PO BID 08/19/13 Reported Allopurinol 100 Mg Tablet 200 Mg PO DAILY 08/19/[address] CHEST IMPRESSION: 1. Extensive pulmonary emphysema with moderate pleural/parenchymal scarring. 2. New moderate sized left pneumothorax and small left pleural effusion. 3. An irregular spiculated density in the posterior aspect of the left upper lobe has increased in size raising the possibility of a neoplasm. 4. Increasing right pleural effusion with worsening moderate right lower lobe infiltrate. 5. Small peripheral right upper lobe opacity suggesting focal pulmonary consolidation versus a neoplasm. 6. Enlarging posterior mediastinal mass on the right, adjacent to the distal esophagus. This mass may have originated in the right lung in the azygos esophageal region. Impression . 1. Acute hypoxic respiratory failure secondary to left-sided pneumothorax. 2. 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 3. History of increasing parenchymal mass in the right lower lobe based on the last CT chest from November. Being followed by Dr. Harley. 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 4. History of cardiomyopathy with an EF of 20%. 5. Dehydration with acute kidney injury. 6. ABNORMAL REPEAT CT CHEST 06/07 1.An irregular spiculated density in the posterior aspect of the left upper lobe has increased in size raising the possibility of a neoplasm. . 2.Small peripheral right upper lobe opacity suggesting focal pulmonary consolidation versus a neoplasm. . 3.Enlarging posterior mediastinal mass on the right, adjacent to the distal esophagus. This mass may have originated in the right lung in the azygos esophageal region. Plan . 1. Continue with chest tube to suction. CXR with tiny PTX and persistent air leak. 2. At this time, I have discussed with the patient's daughter who is the DPOA and I have advised her that we should not consider any invasive biopsy options for the increasing parenchymal mass/ mediastinal as the patient is a very poor candidate for any form of treatment and she agrees. 3. empiric antibiotic. 4. Continue oxygen. 5. Bronchodilators. 6. Pain control. 7. DNR 8. chest tube to suction. DHARA ANTONIO MD Jun 08, 2017 10:11
[2017-06-08 10:56] VITALS: BP 106/64
[2017-06-08] MEDS: LACTOBACILLUS RHAMNOSUS GG 1 CAPSULE. PO SCH ×2 (12:35→22:03)
--- NOTE | 2017-06-08 13:39 | PDOC ---
PROGRESS NOTES Subjective Subjective Pt admits to feeling less SOB but still weak. He denies chest pain. Air leak less than yesterday. Objective Objective Vital Signs Date Time Temp Pulse Resp B/P (MAP) Pulse Ox O2 Delivery O2 Flow Rate FiO2 06/08/17 12:11 95 Nasal Cannula 1.0 06/08/17 10:56 97.8 80 20 106/64 (78) 97.8 Intake and Output 06/08/17 07:00 Intake Total 1820 ml Output Total 1055 ml Balance 765 ml Intake Oral 1820 ml Output Urine Total 900 ml Chest Tube Drainage Total 155 ml # Voids 5 # Bowel Movements 4 Physical Exam Physical Exam No changes in the cardiac exam. Abdomen: Normal bowel sounds, Soft Heart: Regular rate, Normal S1, Normal S2 General: Alert, Oriented X3, Cooperative HEENT: Atraumatic Lungs: Other (Decreased BS BL) Assessment Assessment The chest tube appears to have a decreased airleak. I agree with present plan. Plan Plan of Care Agree with plan from pulmonology Comment Review of Relevant I have reviewed the following items lucio (where applicable) has been applied. Labs Microbiology 06/05/17 Urine Culture - Final, Complete 06/05/17 Urine Culture Result 1 (MELLISA) - Final, Complete 06/05/17 Antimicrobic Susceptibility - Final, Complete Medications Current Medications Sodium Chloride 1,000 ml @ 75 mls/hr [id number] IV Last administered on 11:58; Start 06/05/17 at 11:46; Stop 06/05/17 at 14:25; Status DC Midazolam HCl (Versed) 2 mg STK-MED ONCE .ROUTE ; Start 06/05/17 at 13:06; Stop 06/05/17 at 13:07; Status DC Midazolam HCl (Versed) 1 mg 1X ONCE IV Last administered on 06/05/17 13:27; Start 06/05/17 at 13:15; Stop 06/05/17 at 13:16; Status DC Lidocaine/ Epinephrine (Xylocaine 1%-Epi 1:100,000) 20 ml 1X ONCE INJ ; Start 06/05/17 at 13:15; Stop 06/05/17 at 13:16; Status DC Ceftriaxone Sodium 50 ml @ 100 mls/hr 1X ONCE IV Last administered on 13:40; Start 06/05/17 at 13:15; Stop 06/05/17 at 13:44; Status DC Lidocaine/ Epinephrine (Xylocaine 2%-Epi 1:100,000) 20 ml 1X ONCE IJ Last administered on 06/05/17 13:32; Start 06/05/17 at 13:15; Stop 06/05/17 at 13 :16; Status DC Ondansetron HCl (Zofran) 4 mg PRN Q8HRS PRN IV NAUSEA/VOMITING; Start at 14:30; Stop 06/06/17 at 14:29; Status DC Fentanyl Citrate (Fentanyl 2ml Vial) 50 mcg PRN Q2HR PRN IV PAIN Last administered on 06/05/17 22:49; Start 06/05/17 at 14:30; Stop 06/06/17 at 14 :29; Status DC Sodium Chloride 1,000 ml @ 125 mls/hr Q8H IV ; Start 06/05/17 at 15:00; Stop 06/06/17 at 07:03; Status DC Acetaminophen (Tylenol) 650 mg PRN Q4HRS PRN PO FEVER; Start 06/05/17 at 14:30 ; Stop 06/06/17 at 14:29; Status DC Ceftriaxone Sodium 1 gm/ Dextrose 50 ml @ 100 mls/hr Q24H IV ; Start 06/05/17 at 14:30; Status UNV Ceftriaxone Sodium 1 gm/ Dextrose 50 ml @ 100 mls/hr Q24H IV ; Start 06/05/17 at 14:30; Status UNV Albuterol/ Ipratropium (Duoneb) 3 ml RTQID NEB Last administered on 06/08/17 12:10; Start 06/05/17 at 16:00 Ceftriaxone Sodium (Rocephin) 1 gm Q24H IVP Last administered on 06/07/17 16: 11; Start 06/06/17 at 15:00 Allopurinol (Zyloprim) 200 mg DAILY PO Last administered on 06/08/17 08:51; Start 06/06/17 at 09:00 Sotalol HCl (Betapace) 80 mg BID PO Last administered on 06/08/17 08:53; Start 06/05/17 at 21:00 Famotidine (Pepcid) 20 mg BID PO Last administered on 06/08/17 08:52; Start 06/05/17 at 21:00; Stop 06/08/17 at 11:10; Status DC Furosemide (Lasix) 40 mg QODAY PO Last administered on 06/07/17 10:42; Start 06/07/17 at 09:00 Isosorbide Mononitrate (Imdur) 30 mg DAILY PO Last administered on 06/08/17 08:52; Start 06/06/17 at 09:00 Mirtazapine (Remeron) 7.5 mg QHS PO Last administered on 06/07/17 22:01; Start 06/05/17 at 21:00 Multivitamins (Thera M Plus) 1 tab DAILY PO Last administered on 06/08/17 08: 53; Start 06/06/17 at 09:00 Nitroglycerin (Nitrostat) 0.4 mg PRN Q5MIN PRN SL CHEST PAIN; Start 06/05/17 at 17:15 Fish Oil (Fish Oil) 1,000 mg DAILY PO ; Start 06/06/17 at 09:00 Clopidogrel Bisulfate (Plavix) 75 mg DAILYWBKFT PO Last administered on 08:52; Start 06/06/17 at 08:00 Potassium Chloride (Klor-Con) 20 meq QODAY PO Last administered on 06/07/17 10:42; Start 06/07/17 at 09:00 Trazodone HCl (Desyrel) 50 mg QHS PO Last administered on 06/07/17 22:01; Start 06/05/17 at 21:00 Acetaminophen (Tylenol) 650 mg PRN Q6HRS PRN PO MILD PAIN / TEMP Last administered on 06/07/17 19:19; Start 06/05/17 at 17:15 Magnesium Hydroxide (Milk Of Magnesia) 2,400 mg PRN DAILY PRN PO CONSTIPATION; Start 06/05/17 at 17:15 Lactulose 20 gm BID PO Last administered on 06/06/17 12:19; Start 06/06/17 at 12:00; Stop 06/06/17 at 18:00; Status DC Lactobacillus Rhamnosus (Culturelle) 1 cap BID PO Last administered on 12:35; Start 06/06/17 at 21:00 Famotidine (Pepcid) 20 mg DAILY PO ; Start 06/09/17 at 09:00 Active Scripts Active Cozaar (Losartan Potassium) 50 Mg Tablet 50 Mg PO DAILY Flomax (Tamsulosin Hcl) 0.4 Mg Cap.er.24h 0.4 Mg PO QHS Isosorbide Mononitrate Er (Isosorbide Mononitrate) 30 Mg Tab.er.24h 30 Mg PO DAILY 30 Days Albuterol Sulfate Neb Soln (Albuterol Sulfate) 2.5 Mg/3 Ml Vial.neb 2.5 Mg NEB PRN QID PRN 30 Days Reported Trazodone Hcl 50 Mg Tablet 1 Tab PO QHS Flomax (Tamsulosin Hcl) 0.4 Mg Cap.er.24h 1 Cap PO HS Sotalol (Sotalol Hcl) 80 Mg Tablet 1 Tab PO BID Potassium Chloride 10 Meq Tablet.er 20 Meq PO QODAY NITROGLYCERIN SubLingual (Nitroglycerin) 0.4 Mg Tab.subl 0.4 Mg SL PRN Q5MIN PRN Multivitamins (Multivitamin) 1 Each Tablet 1 Tab PO DAILY Losartan Potassium 50 Mg Tablet 50 Mg PO DAILY Isosorbide Mononitrate Er (Isosorbide Mononitrate) 30 Mg Tab.er.24h 1 Tab PO DAILY Albuterol Sulfate Neb Soln (Albuterol Sulfate) 2.5 Mg/3 Ml Vial.neb 2.5 Mg NEB QID Furosemide 40 Mg Tablet 1 Tab PO QODAY Famotidine 20 Mg Tablet 20 Mg PO HS Plavix (Clopidogrel Bisulfate) 75 Mg Tablet 1 Tab PO DAILY Allopurinol 100 Mg Tablet 2 Tab PO DAILY Tylenol (Acetaminophen) 325 Mg Tablet 2 Tab PO PRN Q4HRS Lasix (Furosemide) 40 Mg Tablet 1 Tab PO QODAY Nitrostat (Nitroglycerin) 0.4 Mg Tab.subl 1 Tab SL UD Trazodone Hcl 50 Mg Tablet 1 Tab PO QHS Plavix (Clopidogrel Bisulfate) 75 Mg Tablet 75 Mg PO DAILY Imdur (Isosorbide Mononitrate) 30 Mg Tab.er.24h 30 Mg PO DAILY Pepcid (Famotidine) 20 Mg Tablet 20 Mg PO BID Betapace (Sotalol Hcl) 80 Mg Tablet 80 Mg PO BID Allopurinol 100 Mg Tablet 200 Mg PO DAILY Vitals/I & O Vital Sign - Last 24 Hours 06/07/17 06/07/17 06/07/17 06/07/17 14:38 15:19 19:45 19:59 Temp 97.8 97.8 Pulse 73 Resp 18 B/P (MAP) 118/71 (87) Pulse Ox 91 94 O2 Delivery Nasal Cannula Nasal Cannula Nasal Cannula Nasal Cannula O2 Flow Rate 1.5 1.0 2.0 06/07/17 06/07/17 06/07/17 06/07/17 20:14 20:22 22:02 22:42 Temp 98.6 97.5 98.6 97.5 Pulse 76 76 78 Resp 18 16 B/P (MAP) 109/60 (76) 109/60 90/53 (65) Pulse Ox 92 92 90 O2 Delivery Nasal Cannula Nasal Cannula Nasal Cannula O2 Flow Rate 1.5 1.0 1.5 06/08/17 06/08/17 06/08/17 06/08/17 03:44 06:39 08:00 08:52 Temp 97.5 97.7 97.5 97.7 Pulse 84 77 77 Resp 16 20 B/P (MAP) 113/70 (84) 144/78 (100) 144/78 Pulse Ox 94 94 O2 Delivery Room Air Nasal Cannula Nasal Cannula O2 Flow Rate 1.0 1.0 06/08/17 06/08/17 06/08/17 06/08/17 08:53 09:37 10:56 12:11 Temp 97.8 97.8 Pulse 77 80 Resp 20 B/P (MAP) 144/78 106/64 (78) Pulse Ox 94 95 95 O2 Delivery Nasal Cannula Nasal Cannula Nasal Cannula O2 Flow Rate 1.0 1.0 1.0 Intake and Output 06/07/17 06/07/17 06/08/17 15:00 23:00 07:00 Intake Total 700 ml 1020 ml 100 ml Output Total 150 ml 667 ml 238 ml Balance 550 ml 353 ml -138 ml ZEESHAN TOSCANO MD Jun 08, 2017 13:39
[2017-06-08 14:48] VITALS: BP 130/67
--- NOTE | 2017-06-08 15:54 | PDOC ---
PROGRESS NOTES Subjective Subjective seen earlier today. cxr shows smaller left pneumothorax. ct chest noted with severe copd and left pneumothorax and spiculataed GIOVANY lumg mass and mediastinal mass and RLL infiltrate with right pleural effusion and RUL density. feels okay. eating better. not short of breath. . urine culture grew klebsiella sensitive to rocephin. Objective Objective Vital Signs Date Time Temp Pulse Resp B/P (MAP) Pulse Ox O2 Delivery O2 Flow Rate FiO2 06/08/17 14:48 97.5 73 18 130/67 (88) 95 Nasal Cannula 2.0 97.5 Intake and Output 06/08/17 07:00 Intake Total 1820 ml Output Total 1055 ml Balance 765 ml Intake Oral 1820 ml Output Urine Total 900 ml Chest Tube Drainage Total 155 ml # Voids 5 # Bowel Movements 4 Physical Exam Abdomen: Soft Heart: Regular rate, Normal S1, Normal S2 Extremities: Other (bipedal edema) General: Alert HEENT: Atraumatic Lungs: Other (decreased bilateral breath sounds) Neuro: Normal speech Psych/Mental Status: Mental status NL Skin: No rashes Assessment Assessment Problems Left pneumothorax reinflated treated with a chest tube. 2. 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 Severe end-stage chronic obstructive pulmonary disease. 4. Secondary pulmonary hypertension. 5. Coronary artery disease. 6. Ischemic cardiomyopathy with a left ventricular ejection fraction of 20%. 7. Chronic kidney disease, stage 3. 8. Weight loss, presumably secondary to malignancy. 9. Chronic systolic congestive heart failure. 10. Acute on chronic hypoxic respiratory failure. 11. Chronic anemia. 12. Klebsiella oxytoca uti Medical Problems: (1) Congestive heart failure Status: Acute (2) COPD (chronic obstructive pulmonary disease) Status: Acute (3) Stage III chronic kidney disease Status: Acute (4) Tension pneumothorax, spontaneous Status: Acute (5) Urinary tract infection Status: Acute Plan Plan of Care continue chest tube continue oxygen continue iv rocephin Comment Review of Relevant I have reviewed the following items lucio (where applicable) has been applied. Labs Microbiology 06/05/17 Urine Culture - Final, Complete 06/05/17 Urine Culture Result 1 (MELLISA) - Final, Complete 06/05/17 Antimicrobic Susceptibility - Final, Complete Medications Current Medications Sodium Chloride 1,000 ml @ 75 mls/hr [id number] IV Last administered on 11:58; Start 06/05/17 at 11:46; Stop 06/05/17 at 14:25; Status DC Midazolam HCl (Versed) 2 mg STK-MED ONCE .ROUTE ; Start 06/05/17 at 13:06; Stop 06/05/17 at 13:07; Status DC Midazolam HCl (Versed) 1 mg 1X ONCE IV Last administered on 06/05/17 13:27; Start 06/05/17 at 13:15; Stop 06/05/17 at 13:16; Status DC Lidocaine/ Epinephrine (Xylocaine 1%-Epi 1:100,000) 20 ml 1X ONCE INJ ; Start 06/05/17 at 13:15; Stop 06/05/17 at 13:16; Status DC Ceftriaxone Sodium 50 ml @ 100 mls/hr 1X ONCE IV Last administered on 13:40; Start 06/05/17 at 13:15; Stop 06/05/17 at 13:44; Status DC Lidocaine/ Epinephrine (Xylocaine 2%-Epi 1:100,000) 20 ml 1X ONCE IJ Last administered on 06/05/17 13:32; Start 06/05/17 at 13:15; Stop 06/05/17 at 13 :16; Status DC Ondansetron HCl (Zofran) 4 mg PRN Q8HRS PRN IV NAUSEA/VOMITING; Start at 14:30; Stop 06/06/17 at 14:29; Status DC Fentanyl Citrate (Fentanyl 2ml Vial) 50 mcg PRN Q2HR PRN IV PAIN Last administered on 06/05/17 22:49; Start 06/05/17 at 14:30; Stop 06/06/17 at 14 :29; Status DC Sodium Chloride 1,000 ml @ 125 mls/hr Q8H IV ; Start 06/05/17 at 15:00; Stop 06/06/17 at 07:03; Status DC Acetaminophen (Tylenol) 650 mg PRN Q4HRS PRN PO FEVER; Start 06/05/17 at 14:30 ; Stop 06/06/17 at 14:29; Status DC Ceftriaxone Sodium 1 gm/ Dextrose 50 ml @ 100 mls/hr Q24H IV ; Start 06/05/17 at 14:30; Status UNV Ceftriaxone Sodium 1 gm/ Dextrose 50 ml @ 100 mls/hr Q24H IV ; Start 06/05/17 at 14:30; Status UNV Albuterol/ Ipratropium (Duoneb) 3 ml RTQID NEB Last administered on 06/08/17 12:10; Start 06/05/17 at 16:00 Ceftriaxone Sodium (Rocephin) 1 gm Q24H IVP Last administered on 06/07/17 16: 11; Start 06/06/17 at 15:00 Allopurinol (Zyloprim) 200 mg DAILY PO Last administered on 06/08/17 08:51; Start 06/06/17 at 09:00 Sotalol HCl (Betapace) 80 mg BID PO Last administered on 06/08/17 08:53; Start 06/05/17 at 21:00 Famotidine (Pepcid) 20 mg BID PO Last administered on 06/08/17 08:52; Start 06/05/17 at 21:00; Stop 06/08/17 at 11:10; Status DC Furosemide (Lasix) 40 mg QODAY PO Last administered on 06/07/17 10:42; Start 06/07/17 at 09:00 Isosorbide Mononitrate (Imdur) 30 mg DAILY PO Last administered on 06/08/17 08:52; Start 06/06/17 at 09:00 Mirtazapine (Remeron) 7.5 mg QHS PO Last administered on 06/07/17 22:01; Start 06/05/17 at 21:00 Multivitamins (Thera M Plus) 1 tab DAILY PO Last administered on 06/08/17 08: 53; Start 06/06/17 at 09:00 Nitroglycerin (Nitrostat) 0.4 mg PRN Q5MIN PRN SL CHEST PAIN; Start 06/05/17 at 17:15 Fish Oil (Fish Oil) 1,000 mg DAILY PO ; Start 06/06/17 at 09:00 Clopidogrel Bisulfate (Plavix) 75 mg DAILYWBKFT PO Last administered on 08:52; Start 06/06/17 at 08:00 Potassium Chloride (Klor-Con) 20 meq QODAY PO Last administered on 06/07/17 10:42; Start 06/07/17 at 09:00 Trazodone HCl (Desyrel) 50 mg QHS PO Last administered on 06/07/17 22:01; Start 06/05/17 at 21:00 Acetaminophen (Tylenol) 650 mg PRN Q6HRS PRN PO MILD PAIN / TEMP Last administered on 06/07/17 19:19; Start 06/05/17 at 17:15 Magnesium Hydroxide (Milk Of Magnesia) 2,400 mg PRN DAILY PRN PO CONSTIPATION; Start 06/05/17 at 17:15 Lactulose 20 gm BID PO Last administered on 06/06/17 12:19; Start 06/06/17 at 12:00; Stop 06/06/17 at 18:00; Status DC Lactobacillus Rhamnosus (Culturelle) 1 cap BID PO Last administered on 12:35; Start 06/06/17 at 21:00 Famotidine (Pepcid) 20 mg DAILY PO ; Start 06/09/17 at 09:00 Active Scripts Active Cozaar (Losartan Potassium) 50 Mg Tablet 50 Mg PO DAILY Flomax (Tamsulosin Hcl) 0.4 Mg Cap.er.24h 0.4 Mg PO QHS Isosorbide Mononitrate Er (Isosorbide Mononitrate) 30 Mg Tab.er.24h 30 Mg PO DAILY 30 Days Albuterol Sulfate Neb Soln (Albuterol Sulfate) 2.5 Mg/3 Ml Vial.neb 2.5 Mg NEB PRN QID PRN 30 Days Reported Trazodone Hcl 50 Mg Tablet 1 Tab PO QHS Flomax (Tamsulosin Hcl) 0.4 Mg Cap.er.24h 1 Cap PO HS Sotalol (Sotalol Hcl) 80 Mg Tablet 1 Tab PO BID Potassium Chloride 10 Meq Tablet.er 20 Meq PO QODAY NITROGLYCERIN SubLingual (Nitroglycerin) 0.4 Mg Tab.subl 0.4 Mg SL PRN Q5MIN PRN Multivitamins (Multivitamin) 1 Each Tablet 1 Tab PO DAILY Losartan Potassium 50 Mg Tablet 50 Mg PO DAILY Isosorbide Mononitrate Er (Isosorbide Mononitrate) 30 Mg Tab.er.24h 1 Tab PO DAILY Albuterol Sulfate Neb Soln (Albuterol Sulfate) 2.5 Mg/3 Ml Vial.neb 2.5 Mg NEB QID Furosemide 40 Mg Tablet 1 Tab PO QODAY Famotidine 20 Mg Tablet 20 Mg PO HS Plavix (Clopidogrel Bisulfate) 75 Mg Tablet 1 Tab PO DAILY Allopurinol 100 Mg Tablet 2 Tab PO DAILY Tylenol (Acetaminophen) 325 Mg Tablet 2 Tab PO PRN Q4HRS Lasix (Furosemide) 40 Mg Tablet 1 Tab PO QODAY Nitrostat (Nitroglycerin) 0.4 Mg Tab.subl 1 Tab SL UD Trazodone Hcl 50 Mg Tablet 1 Tab PO QHS Plavix (Clopidogrel Bisulfate) 75 Mg Tablet 75 Mg PO DAILY Imdur (Isosorbide Mononitrate) 30 Mg Tab.er.24h 30 Mg PO DAILY Pepcid (Famotidine) 20 Mg Tablet 20 Mg PO BID Betapace (Sotalol Hcl) 80 Mg Tablet 80 Mg PO BID Allopurinol 100 Mg Tablet 200 Mg PO DAILY Vitals/I & O Vital Sign - Last 24 Hours 06/07/17 06/07/17 06/07/17 06/07/17 19:45 19:59 20:14 20:22 Temp 98.6 98.6 Pulse 76 Resp 18 B/P (MAP) 109/60 (76) Pulse Ox 92 92 O2 Delivery Nasal Cannula Nasal Cannula Nasal Cannula Nasal Cannula O2 Flow Rate 2.0 1.5 1.0 06/07/17 06/07/17 06/08/17 06/08/17 22:02 22:42 03:44 06:39 Temp 97.5 97.5 97.7 97.5 97.5 97.7 Pulse 76 78 84 77 Resp 16 16 20 B/P (MAP) 109/60 90/53 (65) 113/70 (84) 144/78 (100) Pulse Ox 90 94 94 O2 Delivery Nasal Cannula Room Air Nasal Cannula O2 Flow Rate 1.5 1.0 06/08/17 06/08/17 06/08/17 06/08/17 08:00 08:52 08:53 09:37 Pulse 77 77 B/P (MAP) 144/78 144/78 Pulse Ox 94 O2 Delivery Nasal Cannula Nasal Cannula O2 Flow Rate 1.0 1.0 06/08/17 06/08/17 06/08/17 10:56 12:11 14:48 Temp 97.8 97.5 97.8 97.5 Pulse 80 73 Resp 20 18 B/P (MAP) 106/64 (78) 130/67 (88) Pulse Ox 95 95 95 O2 Delivery Nasal Cannula Nasal Cannula Nasal Cannula O2 Flow Rate 1.0 1.0 2.0 Intake and Output 06/07/17 06/07/17 06/08/17 15:00 23:00 07:00 Intake Total 700 ml 1020 ml 100 ml Output Total 150 ml 667 ml 238 ml Balance 550 ml 353 ml -138 ml Nutrition Consultation Dietary Evaluation: Recommendations by RD: Increase Calorie Intake, Protein supplementation Comments: Continue cardiac diet Pt to request oral supplements prn from nursing Expected Outcomes/Goals: PO intake to meet > 75% est needs Malnutrition Findings: Body Fat Depletion (Non Severe: Mild Depletion Weight Status: Underweight LAURE OLIVER MD Jun 08, 2017 15:54
[2017-06-08] MEDS: cefTRIAXone IV Push 1 GM VIAL. IVP SCH (16:13)
[2017-06-08 19:33] VITALS: BP 111/67
[2017-06-08 22:03] VITALS: BP 116/63
[2017-06-08] MEDS: traZODone 50 MG TABLET. PO SCH (22:05)
[2017-06-08] MEDS: MIRTAZAPINE 7.5 MG TABLET. PO SCH (22:05)
[2017-06-09 03:00] VITALS: BP 132/81
[2017-06-09 06:40] VITALS: BP 124/73
[2017-06-09] MEDS: IPRATRPIUM/ALBUTEROL 0.5/2.5MG 3 ML NEBU. NEB SCH ×4 (08:21→20:05)
[2017-06-09] MEDS: OMEGA-3 FATTY ACIDS/FISH OIL 1,000 MG CAPSULE. PO SCH (09:00)
[2017-06-09] MEDS: MULTIVITAMIN with MINERAL TABLET. PO SCH (09:24)
[2017-06-09] MEDS: POTASSIUM CHLORIDE 20 MEQ TABLET.ER. PO SCH (09:24)
[2017-06-09] MEDS: ISOSORBIDE MONONITRATE ER 30 MG TAB.ER.24H PO SCH (09:26)
[2017-06-09] MEDS: ALLOPURINOL 100 MG TABLET. PO SCH (09:26)
[2017-06-09] MEDS: SOTALOL 80 MG TABLET. PO SCH ×2 (09:26→20:26)
[2017-06-09] MEDS: CLOPIDOGREL BISULFATE 75 MG TABLET PO SCH (09:27)
[2017-06-09] MEDS: FAMOTIDINE 20 MG TABLET. PO SCH (09:27)
[2017-06-09] MEDS: ACETAMINOPHEN 325 MG TABLET. PO PRN (09:27)
[2017-06-09] MEDS: FUROSEMIDE 40 MG TABLET. PO SCH (09:27)
[2017-06-09] MEDS: LACTOBACILLUS RHAMNOSUS GG 1 CAPSULE. PO SCH ×2 (09:27→20:24)
--- NOTE | 2017-06-09 09:44 | RAD ---
Single view chest 06/09/2017 Clinical indication: Pneumothorax. Comparison: 06/08/2017 chest, CT chest 06/07/2017. Findings: There is a trace left apical pneumothorax, unchanged with left thoracostomy tube in similar position. Left chest wall cardiac connection device in similar position. There is a stable small right pleural effusion. No signal change in right lung airspace opacities. Cardiac and mediastinal silhouettes are stable. Impression: 1. Stable trace left apical pneumothorax with thoracostomy tube in similar position. 2. Unchanged right pulmonary airspace opacities and small right pleural effusion..
[2017-06-09 10:45] VITALS: BP 109/65
--- NOTE | 2017-06-09 12:03 | PDOC ---
PULMONARY PROGRESS NOTES Subjective NO SOA PERSISTENT AIR LEAK Vitals Vital Signs Date Time Temp Pulse Resp B/P (MAP) Pulse Ox O2 Delivery O2 Flow Rate FiO2 06/09/17 10:45 97.5 72 18 109/65 (80) 93 Nasal Cannula 2.0 97.5 General: Alert, No acute distress Lungs: Other (decrease bs) Cardiovascular: S1, S2 Abdomen: Soft Neuro Exam: Alert Extremities: Other (1+edema) Medications Active Scripts Medications Dose Route/Sig Max Daily Dose Days Date Category Trazodone Hcl 50 Mg Tablet 1 Tab PO QHS 07/15/16 Reported Flomax (Tamsulosin Hcl) 0.4 Mg Cap.er.24h 1 Cap PO HS 07/15/16 Reported Sotalol (Sotalol Hcl) 80 Mg Tablet 1 Tab PO BID 07/15/16 Reported Potassium Chloride 10 Meq Tablet.er 20 Meq PO QODAY 07/15/16 Reported NITROGLYCERIN SubLingual (Nitroglycerin) 0.4 Mg Tab.subl 0.4 Mg SL PRN Q5MIN PRN 07/15/16 Reported Multivitamins (Multivitamin) 1 Each Tablet 1 Tab PO DAILY 07/15/16 Reported Losartan Potassium 50 Mg Tablet 50 Mg PO DAILY 07/15/16 Reported Isosorbide Mononitrate Er (Isosorbide Mononitrate) 30 Mg Tab.er.24h 1 Tab PO DAILY 07/15/16 Reported Albuterol Sulfate Neb Soln (Albuterol Sulfate) 2.5 Mg/3 Ml Vial.neb 2.5 Mg NEB QID 07/15/16 Reported Furosemide 40 Mg Tablet 1 Tab PO QODAY 07/15/16 Reported Famotidine 20 Mg Tablet 20 Mg PO HS 07/15/16 Reported Plavix (Clopidogrel Bisulfate) 75 Mg Tablet 1 Tab PO DAILY 07/15/16 Reported Allopurinol 100 Mg Tablet 2 Tab PO DAILY 07/15/16 Reported Tylenol (Acetaminophen) 325 Mg Tablet 2 Tab PO PRN Q4HRS 07/15/16 Reported Lasix (Furosemide) 40 Mg Tablet 1 Tab PO QODAY 07/10/16 Reported Cozaar (Losartan Potassium) 50 Mg Tablet 50 Mg PO DAILY 06/27/16 Rx Flomax (Tamsulosin Hcl) 0.4 Mg Cap.er.24h 0.4 Mg PO QHS 06/27/16 Rx Nitrostat (Nitroglycerin) 0.4 Mg Tab.subl 1 Tab SL UD 06/14/16 Reported Isosorbide Mononitrate Er (Isosorbide Mononitrate) 30 Mg Tab.er.24h 30 Mg PO DAILY 30 05/18/16 Rx Albuterol Sulfate Neb Soln (Albuterol Sulfate) 2.5 Mg/3 Ml Vial.neb 2.5 Mg NEB PRN QID PRN 30 05/18/16 Rx Trazodone Hcl 50 Mg Tablet 1 Tab PO QHS 03/23/16 Reported Plavix (Clopidogrel Bisulfate) 75 Mg Tablet 75 Mg PO DAILY 08/19/13 Reported Imdur (Isosorbide Mononitrate) 30 Mg Tab.er.24h 30 Mg PO DAILY 08/19/13 Reported Pepcid (Famotidine) 20 Mg Tablet 20 Mg PO BID 08/19/13 Reported Betapace (Sotalol Hcl) 80 Mg Tablet 80 Mg PO BID 08/19/13 Reported Allopurinol 100 Mg Tablet 200 Mg PO DAILY 08/19/[address] CHEST IMPRESSION: 1. Extensive pulmonary emphysema with moderate pleural/parenchymal scarring. 2. New moderate sized left pneumothorax and small left pleural effusion. 3. An irregular spiculated density in the posterior aspect of the left upper lobe has increased in size raising the possibility of a neoplasm. 4. Increasing right pleural effusion with worsening moderate right lower lobe infiltrate. 5. Small peripheral right upper lobe opacity suggesting focal pulmonary consolidation versus a neoplasm. 6. Enlarging posterior mediastinal mass on the right, adjacent to the distal esophagus. This mass may have originated in the right lung in the azygos esophageal region. Impression . 1. Acute hypoxic respiratory failure secondary to left-sided pneumothorax. 2. 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 3. History of increasing parenchymal mass in the right lower lobe based on the last CT chest from November. Being followed by Dr. Harley. 4. History of cardiomyopathy with an EF of 20%. 5. Dehydration with acute kidney injury. 6. ABNORMAL REPEAT CT CHEST 06/07 1.An irregular spiculated density in the posterior aspect of the left upper lobe has increased in size raising the possibility of a neoplasm. . 2.Small peripheral right upper lobe opacity suggesting focal pulmonary consolidation versus a neoplasm. . 3.Enlarging posterior mediastinal mass on the right, adjacent to the distal esophagus. This mass may have originated in the right lung in the azygos esophageal region. Plan . 1. Continue with chest tube to suction. CXR with tiny PTX and persistent air leak. Not the best candidate for VATS 2. discussed with the patient's daughter who is the DPOA . Not a candidate for any invasive biopsy for lung or mediastinal 3. empiric antibiotic. 4. Continue oxygen. 5. Bronchodilators. 6. Pain control. 7. DNR 8. chest tube to suction. 9. May consider LTAC next week for prolong chest tube need, if air leak does not resolve. DHARA ANTONIO MD Jun 09, 2017 12:03
--- NOTE | 2017-06-09 12:34 | PDOC ---
PROGRESS NOTES Subjective Subjective feels okay. not short of breath. cxr report reviewed. Objective Objective Vital Signs Date Time Temp Pulse Resp B/P (MAP) Pulse Ox O2 Delivery O2 Flow Rate FiO2 06/09/17 12:14 Nasal Cannula 1.0 06/09/17 10:45 97.5 72 18 109/65 (80) 93 97.5 Intake and Output 06/09/17 07:00 Intake Total 830 ml Output Total 670 ml Balance 160 ml Intake Oral 830 ml Output Urine Total 650 ml Chest Tube Drainage Total 20 ml Physical Exam Abdomen: Soft Heart: Regular rate, Normal S1, Normal S2 Extremities: No edema General: Alert HEENT: Atraumatic Lungs: Other (decreased breath sounds) Neuro: Normal speech Psych/Mental Status: Mental status NL Skin: No rashes Assessment Assessment ProblemsLeft pneumothorax treated with a chest tube with persistent air leak 2. 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 Severe end-stage chronic obstructive pulmonary disease. 4. Secondary pulmonary hypertension. 5. Coronary artery disease. 6. Ischemic cardiomyopathy with a left ventricular ejection fraction of 20%. 7. Chronic kidney disease, stage 3. 8. Weight loss, presumably secondary to malignancy. 9. Chronic systolic congestive heart failure. 10. Acute on chronic hypoxic respiratory failure. 11. Chronic anemia. 12. Klebsiella oxytoca uti Medical Problems: (1) Congestive heart failure Status: Acute (2) COPD (chronic obstructive pulmonary disease) Status: Acute (3) Stage III chronic kidney disease Status: Acute (4) Tension pneumothorax, spontaneous Status: Acute (5) Urinary tract infection Status: Acute Plan Plan of Care continue chest tube labs tomorrow continue oxygen Comment Review of Relevant I have reviewed the following items lucoi (where applicable) has been applied. Labs Microbiology 06/05/17 Urine Culture - Final, Complete 06/05/17 Urine Culture Result 1 (MELLISA) - Final, Complete 06/05/17 Antimicrobic Susceptibility - Final, Complete Medications Current Medications Sodium Chloride 1,000 ml @ 75 mls/hr [id number] IV Last administered on t 11:58; Start 06/05/17 at 11:46; Stop 06/05/17 at 14:25; Status DC Midazolam HCl (Versed) 2 mg STK-MED ONCE .ROUTE ; Start 06/05/17 at 13:06; Stop 06/05/17 at 13:07; Status DC Midazolam HCl (Versed) 1 mg 1X ONCE IV Last administered on 06/05/17 13:27; Start 06/05/17 at 13:15; Stop 06/05/17 at 13:16; Status DC Lidocaine/ Epinephrine (Xylocaine 1%-Epi 1:100,000) 20 ml 1X ONCE INJ ; Start 06/05/17 at 13:15; Stop 06/05/17 at 13:16; Status DC Ceftriaxone Sodium 50 ml @ 100 mls/hr 1X ONCE IV Last administered on 13:40; Start 06/05/17 at 13:15; Stop 06/05/17 at 13:44; Status DC Lidocaine/ Epinephrine (Xylocaine 2%-Epi 1:100,000) 20 ml 1X ONCE IJ Last administered on 06/05/17 13:32; Start 06/05/17 at 13:15; Stop 06/05/17 at 13 :16; Status DC Ondansetron HCl (Zofran) 4 mg PRN Q8HRS PRN IV NAUSEA/VOMITING; Start at 14:30; Stop 06/06/17 at 14:29; Status DC Fentanyl Citrate (Fentanyl 2ml Vial) 50 mcg PRN Q2HR PRN IV PAIN Last administered on 06/05/17 22:49; Start 06/05/17 at 14:30; Stop 06/06/17 at 14 :29; Status DC Sodium Chloride 1,000 ml @ 125 mls/hr Q8H IV ; Start 06/05/17 at 15:00; Stop 06/06/17 at 07:03; Status DC Acetaminophen (Tylenol) 650 mg PRN Q4HRS PRN PO FEVER; Start 06/05/17 at 14:30 ; Stop 06/06/17 at 14:29; Status DC Ceftriaxone Sodium 1 gm/ Dextrose 50 ml @ 100 mls/hr Q24H IV ; Start 06/05/17 at 14:30; Status UNV Ceftriaxone Sodium 1 gm/ Dextrose 50 ml @ 100 mls/hr Q24H IV ; Start 06/05/17 at 14:30; Status UNV Albuterol/ Ipratropium (Duoneb) 3 ml RTQID NEB Last administered on 06/09/17 12:13; Start 06/05/17 at 16:00 Ceftriaxone Sodium (Rocephin) 1 gm Q24H IVP Last administered on 06/08/17 16: 13; Start 06/06/17 at 15:00 Allopurinol (Zyloprim) 200 mg DAILY PO Last administered on 06/09/17 09:26; Start 06/06/17 at 09:00 Sotalol HCl (Betapace) 80 mg BID PO Last administered on 06/09/17 09:26; Start 06/05/17 at 21:00 Famotidine (Pepcid) 20 mg BID PO Last administered on 06/08/17 08:52; Start 06/05/17 at 21:00; Stop 06/08/17 at 11:10; Status DC Furosemide (Lasix) 40 mg QODAY PO Last administered on 06/09/17 09:27; Start 06/07/17 at 09:00 Isosorbide Mononitrate (Imdur) 30 mg DAILY PO Last administered on 06/09/17 09:26; Start 06/06/17 at 09:00 Mirtazapine (Remeron) 7.5 mg QHS PO Last administered on 06/08/17 22:05; Start 06/05/17 at 21:00 Multivitamins (Thera M Plus) 1 tab DAILY PO Last administered on 06/09/17 09: 24; Start 06/06/17 at 09:00 Nitroglycerin (Nitrostat) 0.4 mg PRN Q5MIN PRN SL CHEST PAIN; Start 06/05/17 at 17:15 Fish Oil (Fish Oil) 1,000 mg DAILY PO ; Start 06/06/17 at 09:00 Clopidogrel Bisulfate (Plavix) 75 mg DAILYWBKFT PO Last administered on 09:27; Start 06/06/17 at 08:00 Potassium Chloride (Klor-Con) 20 meq QODAY PO Last administered on 06/09/17 09:24; Start 06/07/17 at 09:00 Trazodone HCl (Desyrel) 50 mg QHS PO Last administered on 06/08/17 22:05; Start 06/05/17 at 21:00 Acetaminophen (Tylenol) 650 mg PRN Q6HRS PRN PO MILD PAIN / TEMP Last administered on 06/09/17 09:27; Start 06/05/17 at 17:15 Magnesium Hydroxide (Milk Of Magnesia) 2,400 mg PRN DAILY PRN PO CONSTIPATION; Start 06/05/17 at 17:15 Lactulose 20 gm BID PO Last administered on 06/06/17 12:19; Start 06/06/17 at 12:00; Stop 06/06/17 at 18:00; Status DC Lactobacillus Rhamnosus (Culturelle) 1 cap BID PO Last administered on 09:27; Start 06/06/17 at 21:00 Famotidine (Pepcid) 20 mg DAILY PO Last administered on 06/09/17 09:27; Start 06/09/17 at 09:00 Active Scripts Active Cozaar (Losartan Potassium) 50 Mg Tablet 50 Mg PO DAILY Flomax (Tamsulosin Hcl) 0.4 Mg Cap.er.24h 0.4 Mg PO QHS Isosorbide Mononitrate Er (Isosorbide Mononitrate) 30 Mg Tab.er.24h 30 Mg PO DAILY 30 Days Albuterol Sulfate Neb Soln (Albuterol Sulfate) 2.5 Mg/3 Ml Vial.neb 2.5 Mg NEB PRN QID PRN 30 Days Reported Trazodone Hcl 50 Mg Tablet 1 Tab PO QHS Flomax (Tamsulosin Hcl) 0.4 Mg Cap.er.24h 1 Cap PO HS Sotalol (Sotalol Hcl) 80 Mg Tablet 1 Tab PO BID Potassium Chloride 10 Meq Tablet.er 20 Meq PO QODAY NITROGLYCERIN SubLingual (Nitroglycerin) 0.4 Mg Tab.subl 0.4 Mg SL PRN Q5MIN PRN Multivitamins (Multivitamin) 1 Each Tablet 1 Tab PO DAILY Losartan Potassium 50 Mg Tablet 50 Mg PO DAILY Isosorbide Mononitrate Er (Isosorbide Mononitrate) 30 Mg Tab.er.24h 1 Tab PO DAILY Albuterol Sulfate Neb Soln (Albuterol Sulfate) 2.5 Mg/3 Ml Vial.neb 2.5 Mg NEB QID Furosemide 40 Mg Tablet 1 Tab PO QODAY Famotidine 20 Mg Tablet 20 Mg PO HS Plavix (Clopidogrel Bisulfate) 75 Mg Tablet 1 Tab PO DAILY Allopurinol 100 Mg Tablet 2 Tab PO DAILY Tylenol (Acetaminophen) 325 Mg Tablet 2 Tab PO PRN Q4HRS Lasix (Furosemide) 40 Mg Tablet 1 Tab PO QODAY Nitrostat (Nitroglycerin) 0.4 Mg Tab.subl 1 Tab SL UD Trazodone Hcl 50 Mg Tablet 1 Tab PO QHS Plavix (Clopidogrel Bisulfate) 75 Mg Tablet 75 Mg PO DAILY Imdur (Isosorbide Mononitrate) 30 Mg Tab.er.24h 30 Mg PO DAILY Pepcid (Famotidine) 20 Mg Tablet 20 Mg PO BID Betapace (Sotalol Hcl) 80 Mg Tablet 80 Mg PO BID Allopurinol 100 Mg Tablet 200 Mg PO DAILY Vitals/I & O Vital Sign - Last 24 Hours 06/08/17 06/08/17 06/08/17 06/08/17 14:48 16:28 19:33 20:00 Temp 97.5 98.4 97.5 98.4 Pulse 73 73 Resp 18 18 B/P (MAP) 130/67 (88) 111/67 (82) Pulse Ox 95 91 O2 Delivery Nasal Cannula Nasal Cannula Nasal Cannula Nasal Cannula O2 Flow Rate 2.0 1.0 1.5 1.0 06/08/17 06/08/17 06/08/17 06/09/17 21:14 22:03 22:05 03:00 Temp 98.3 97.8 98.3 97.8 Pulse 86 75 93 Resp 18 17 B/P (MAP) 116/63 (80) 116/63 132/81 (98) Pulse Ox 99 90 93 O2 Delivery Nasal Cannula Nasal Cannula Nasal Cannula O2 Flow Rate 1.0 1.5 1.5 06/09/17 06/09/17 06/09/17 06/09/17 06:40 08:00 08:22 09:26 Temp 98.1 98.1 Pulse 73 74 Resp 16 B/P (MAP) 124/73 (90) 102/62 Pulse Ox 97 99 O2 Delivery Room Air Nasal Cannula Nasal Cannula O2 Flow Rate 2.0 1.0 1.0 06/09/17 06/09/17 06/09/17 09:26 10:45 12:14 Temp 97.5 97.5 Pulse 74 72 Resp 18 B/P (MAP) 102/62 109/65 (80) Pulse Ox 93 O2 Delivery Nasal Cannula Nasal Cannula O2 Flow Rate 2.0 1.0 Intake and Output 06/08/17 06/08/17 06/09/17 15:00 23:00 07:00 Intake Total 440 ml 240 ml 150 ml Output Total 500 ml 20 ml 150 ml Balance -60 ml 220 ml 0 ml Nutrition Consultation Dietary Evaluation: Recommendations by RD: Increase Calorie Intake, Protein supplementation Comments: Continue cardiac diet Pt to request oral supplements prn from nursing Expected Outcomes/Goals: PO intake to meet > 75% est needs Malnutrition Findings: Body Fat Depletion (Non Severe: Mild Depletion Weight Status: Underweight LAURE OLIVER MD Jun 09, 2017 12:34
--- NOTE | 2017-06-09 13:58 | PDOC ---
PROGRESS NOTES Subjective Subjective Patient continues to have an air leak. No cardiac complaints. Very poor appetite. Objective Objective Vital Signs Date Time Temp Pulse Resp B/P (MAP) Pulse Ox O2 Delivery O2 Flow Rate FiO2 06/09/17 12:14 Nasal Cannula 1.0 06/09/17 10:45 97.5 72 18 109/65 (80) 93 97.5 Intake and Output 06/09/17 06:59 Intake Total 830 ml Output Total 670 ml Balance 160 ml Intake Oral 830 ml Output Urine Total 650 ml Chest Tube Drainage Total 20 ml Physical Exam Physical Exam No significant changes in cardiac exam Assessment Assessment Patient compensated at this point. In view of the significant leak he may require chest tube for a prolonged period of time. We will leave it up to the pulmonary service. Problems Medical Problems: (1) Congestive heart failure Status: Acute (2) COPD (chronic obstructive pulmonary disease) Status: Acute (3) Stage III chronic kidney disease Status: Acute (4) Tension pneumothorax, spontaneous Status: Acute (5) Urinary tract infection Status: Acute Comment Review of Relevant I have reviewed the following items lucio (where applicable) has been applied. Labs Microbiology 06/05/17 Urine Culture - Final, Complete 06/05/17 Urine Culture Result 1 (MELLISA) - Final, Complete 06/05/17 Antimicrobic Susceptibility - Final, Complete Medications Current Medications Sodium Chloride 1,000 ml @ 75 mls/hr [id number] IV Last administered on 11:58; Start 06/05/17 at 11:46; Stop 06/05/17 at 14:25; Status DC Midazolam HCl (Versed) 2 mg STK-MED ONCE .ROUTE ; Start 06/05/17 at 13:06; Stop 06/05/17 at 13:07; Status DC Midazolam HCl (Versed) 1 mg 1X ONCE IV Last administered on 06/05/17 13:27; Start 06/05/17 at 13:15; Stop 06/05/17 at 13:16; Status DC Lidocaine/ Epinephrine (Xylocaine 1%-Epi 1:100,000) 20 ml 1X ONCE INJ ; Start 06/05/17 at 13:15; Stop 06/05/17 at 13:16; Status DC Ceftriaxone Sodium 50 ml @ 100 mls/hr 1X ONCE IV Last administered on 13:40; Start 06/05/17 at 13:15; Stop 06/05/17 at 13:44; Status DC Lidocaine/ Epinephrine (Xylocaine 2%-Epi 1:100,000) 20 ml 1X ONCE IJ Last administered on 06/05/17 13:32; Start 06/05/17 at 13:15; Stop 06/05/17 at 13 :16; Status DC Ondansetron HCl (Zofran) 4 mg PRN Q8HRS PRN IV NAUSEA/VOMITING; Start at 14:30; Stop 06/06/17 at 14:29; Status DC Fentanyl Citrate (Fentanyl 2ml Vial) 50 mcg PRN Q2HR PRN IV PAIN Last administered on 06/05/17 22:49; Start 06/05/17 at 14:30; Stop 06/06/17 at 14 :29; Status DC Sodium Chloride 1,000 ml @ 125 mls/hr Q8H IV ; Start 06/05/17 at 15:00; Stop 06/06/17 at 07:03; Status DC Acetaminophen (Tylenol) 650 mg PRN Q4HRS PRN PO FEVER; Start 06/05/17 at 14:30 ; Stop 06/06/17 at 14:29; Status DC Ceftriaxone Sodium 1 gm/ Dextrose 50 ml @ 100 mls/hr Q24H IV ; Start 06/05/17 at 14:30; Status UNV Ceftriaxone Sodium 1 gm/ Dextrose 50 ml @ 100 mls/hr Q24H IV ; Start 06/05/17 at 14:30; Status UNV Albuterol/ Ipratropium (Duoneb) 3 ml RTQID NEB Last administered on 06/09/17 12:13; Start 06/05/17 at 16:00 Ceftriaxone Sodium (Rocephin) 1 gm Q24H IVP Last administered on 06/08/17 16: 13; Start 06/06/17 at 15:00 Allopurinol (Zyloprim) 200 mg DAILY PO Last administered on 06/09/17 09:26; Start 06/06/17 at 09:00 Sotalol HCl (Betapace) 80 mg BID PO Last administered on 06/09/17 09:26; Start 06/05/17 at 21:00 Famotidine (Pepcid) 20 mg BID PO Last administered on 06/08/17 08:52; Start 06/05/17 at 21:00; Stop 06/08/17 at 11:10; Status DC Furosemide (Lasix) 40 mg QODAY PO Last administered on 06/09/17 09:27; Start 06/07/17 at 09:00 Isosorbide Mononitrate (Imdur) 30 mg DAILY PO Last administered on 06/09/17 09:26; Start 06/06/17 at 09:00 Mirtazapine (Remeron) 7.5 mg QHS PO Last administered on 06/08/17 22:05; Start 06/05/17 at 21:00 Multivitamins (Thera M Plus) 1 tab DAILY PO Last administered on 06/09/17 09: 24; Start 06/06/17 at 09:00 Nitroglycerin (Nitrostat) 0.4 mg PRN Q5MIN PRN SL CHEST PAIN; Start 06/05/17 at 17:15 Fish Oil (Fish Oil) 1,000 mg DAILY PO ; Start 06/06/17 at 09:00 Clopidogrel Bisulfate (Plavix) 75 mg DAILYWBKFT PO Last administered on 09:27; Start 06/06/17 at 08:00 Potassium Chloride (Klor-Con) 20 meq QODAY PO Last administered on 06/09/17 09:24; Start 06/07/17 at 09:00 Trazodone HCl (Desyrel) 50 mg QHS PO Last administered on 06/08/17 22:05; Start 06/05/17 at 21:00 Acetaminophen (Tylenol) 650 mg PRN Q6HRS PRN PO MILD PAIN / TEMP Last administered on 06/09/17 09:27; Start 06/05/17 at 17:15 Magnesium Hydroxide (Milk Of Magnesia) 2,400 mg PRN DAILY PRN PO CONSTIPATION; Start 06/05/17 at 17:15 Lactulose 20 gm BID PO Last administered on 06/06/17 12:19; Start 06/06/17 at 12:00; Stop 06/06/17 at 18:00; Status DC Lactobacillus Rhamnosus (Culturelle) 1 cap BID PO Last administered on 09:27; Start 06/06/17 at 21:00 Famotidine (Pepcid) 20 mg DAILY PO Last administered on 06/09/17t 09:27; Start 06/09/17 at 09:00 Active Scripts Active Cozaar (Losartan Potassium) 50 Mg Tablet 50 Mg PO DAILY Flomax (Tamsulosin Hcl) 0.4 Mg Cap.er.24h 0.4 Mg PO QHS Isosorbide Mononitrate Er (Isosorbide Mononitrate) 30 Mg Tab.er.24h 30 Mg PO DAILY 30 Days Albuterol Sulfate Neb Soln (Albuterol Sulfate) 2.5 Mg/3 Ml Vial.neb 2.5 Mg NEB PRN QID PRN 30 Days Reported Trazodone Hcl 50 Mg Tablet 1 Tab PO QHS Flomax (Tamsulosin Hcl) 0.4 Mg Cap.er.24h 1 Cap PO HS Sotalol (Sotalol Hcl) 80 Mg Tablet 1 Tab PO BID Potassium Chloride 10 Meq Tablet.er 20 Meq PO QODAY NITROGLYCERIN SubLingual (Nitroglycerin) 0.4 Mg Tab.subl 0.4 Mg SL PRN Q5MIN PRN Multivitamins (Multivitamin) 1 Each Tablet 1 Tab PO DAILY Losartan Potassium 50 Mg Tablet 50 Mg PO DAILY Isosorbide Mononitrate Er (Isosorbide Mononitrate) 30 Mg Tab.er.24h 1 Tab PO DAILY Albuterol Sulfate Neb Soln (Albuterol Sulfate) 2.5 Mg/3 Ml Vial.neb 2.5 Mg NEB QID Furosemide 40 Mg Tablet 1 Tab PO QODAY Famotidine 20 Mg Tablet 20 Mg PO HS Plavix (Clopidogrel Bisulfate) 75 Mg Tablet 1 Tab PO DAILY Allopurinol 100 Mg Tablet 2 Tab PO DAILY Tylenol (Acetaminophen) 325 Mg Tablet 2 Tab PO PRN Q4HRS Lasix (Furosemide) 40 Mg Tablet 1 Tab PO QODAY Nitrostat (Nitroglycerin) 0.4 Mg Tab.subl 1 Tab SL UD Trazodone Hcl 50 Mg Tablet 1 Tab PO QHS Plavix (Clopidogrel Bisulfate) 75 Mg Tablet 75 Mg PO DAILY Imdur (Isosorbide Mononitrate) 30 Mg Tab.er.24h 30 Mg PO DAILY Pepcid (Famotidine) 20 Mg Tablet 20 Mg PO BID Betapace (Sotalol Hcl) 80 Mg Tablet 80 Mg PO BID Allopurinol 100 Mg Tablet 200 Mg PO DAILY Vitals/I & O Vital Sign - Last 24 Hours 06/08/17 06/08/17 06/08/17 06/08/17 14:48 16:28 19:33 20:00 Temp 97.5 98.4 97.5 98.4 Pulse 73 73 Resp 18 18 B/P (MAP) 130/67 (88) 111/67 (82) Pulse Ox 95 91 O2 Delivery Nasal Cannula Nasal Cannula Nasal Cannula Nasal Cannula O2 Flow Rate 2.0 1.0 1.5 1.0 06/08/17 06/08/17 06/08/17 06/09/17 21:14 22:03 22:05 03:00 Temp 98.3 97.8 98.3 97.8 Pulse 86 75 93 Resp 18 17 B/P (MAP) 116/63 (80) 116/63 132/81 (98) Pulse Ox 99 90 93 O2 Delivery Nasal Cannula Nasal Cannula Nasal Cannula O2 Flow Rate 1.0 1.5 1.5 06/09/17 06/09/17 06/09/17 06/09/17 06:40 08:00 08:22 09:26 Temp 98.1 98.1 Pulse 73 74 Resp 16 B/P (MAP) 124/73 (90) 102/62 Pulse Ox 97 99 O2 Delivery Room Air Nasal Cannula Nasal Cannula O2 Flow Rate 2.0 1.0 1.0 06/09/17 06/09/17 06/09/17 09:26 10:45 12:14 Temp 97.5 97.5 Pulse 74 72 Resp 18 B/P (MAP) 102/62 109/65 (80) Pulse Ox 93 O2 Delivery Nasal Cannula Nasal Cannula O2 Flow Rate 2.0 1.0 Intake and Output 06/08/17 06/08/17 06/09/17 14:59 22:59 06:59 Intake Total 440 ml 240 ml 150 ml Output Total 300 ml 220 ml 150 ml Balance 140 ml 20 ml 0 ml Nutrition Consultation Dietary Evaluation: Recommendations by RD: Increase Calorie Intake, Protein supplementation Comments: Continue cardiac diet Pt to request oral supplements prn from nursing Expected Outcomes/Goals: PO intake to meet > 75% est needs Malnutrition Findings: Body Fat Depletion (Non Severe: Mild Depletion Weight Status: Underweight ZEESHAN TOSCANO MD Jun 09, 2017 13:58
[2017-06-09] MEDS: cefTRIAXone IV Push 1 GM VIAL. IVP SCH (15:00)
[2017-06-09 15:30] VITALS: BP 114/60
[2017-06-09 19:31] VITALS: BP 105/60
[2017-06-09] MEDS: traZODone 50 MG TABLET. PO SCH (20:24)
[2017-06-09] MEDS: MIRTAZAPINE 7.5 MG TABLET. PO SCH (20:26)
[2017-06-09 23:59] VITALS: BP 142/74
[2017-06-10 03:59] VITALS: BP 153/81
[2017-06-10 05:54] LABS: BASO # 0.1 x10^3/uL (0.0-0.2); BASO % 1 % (0-3); EOS % 6 % (0-3); HEMATOCRIT 30.6 % (39.0-53.0); LYMPH # 0.9 x10^3/uL (1.0-4.8); LYMPH % 8 % (24-48); MEAN CORPUSCULAR HEMOGLOBIN 32 pg (25-35); MEAN CORPUSCULAR HGB CONC 33 g/dL (31-37); MEAN CORPUSCULAR VOLUME 98 fL (79-100); MONO % 6 % (0-9); NEUT % 80 % (31-73); PLATELET COUNT 200 x10^3/uL (140-400); RED BLOOD COUNT 3.14 x10^6/uL (4.30-5.70); RED CELL DISTRIBUTION WIDTH 15.8 % (11.5-14.5); WHITE BLOOD COUNT 11.5 x10^3/uL (4.0-11.0)
[2017-06-10 06:05] LABS: CALCIUM 9.9 mg/dL (8.5-10.1); CREATININE 1.3 mg/dL (0.7-1.3)
[2017-06-10 06:06] LABS: GFR 52.6; POTASSIUM 3.9 mmol/L (3.5-5.1)
[2017-06-10 07:25] VITALS: BP 114/63
[2017-06-10] MEDS: IPRATRPIUM/ALBUTEROL 0.5/2.5MG 3 ML NEBU. NEB SCH ×4 (08:00→19:33)
--- NOTE | 2017-06-10 08:01 | RAD ---
Single view chest 06/09/2017 Clinical indication: Pulled chest tube. Comparison: Chest 06/09/2017, 06/08/2017, CT chest 06/07/2017. Findings: Left chest wall cardiac conduction device in similar position. Left thoracostomy tube is in similar position. No definite pneumothorax identified. Cardiac and mediastinal silhouette stable. No significant change in reticular and nodular opacities in the upper lungs and medial right lung base. There is a stable small layering right pleural effusion. Impression: 1. No definite residual left pneumothorax with thoracostomy tube in similar position. 2. Otherwise stable examination chest with small right pleural effusion and bilateral reticular and nodular airspace opacities.
[2017-06-10] MEDS: ISOSORBIDE MONONITRATE ER 30 MG TAB.ER.24H PO SCH (08:50)
[2017-06-10] MEDS: LACTOBACILLUS RHAMNOSUS GG 1 CAPSULE. PO SCH ×2 (08:50→21:01)
[2017-06-10] MEDS: SOTALOL 80 MG TABLET. PO SCH ×2 (08:51→21:00)
[2017-06-10] MEDS: OMEGA-3 FATTY ACIDS/FISH OIL 1,000 MG CAPSULE. PO SCH (08:51)
[2017-06-10] MEDS: MULTIVITAMIN with MINERAL TABLET. PO SCH (08:51)
[2017-06-10] MEDS: FAMOTIDINE 20 MG TABLET. PO SCH (08:51)
[2017-06-10] MEDS: ALLOPURINOL 100 MG TABLET. PO SCH (08:51)
[2017-06-10] MEDS: CLOPIDOGREL BISULFATE 75 MG TABLET PO SCH (08:52)
--- NOTE | 2017-06-10 09:20 | PDOC ---
PULMONARY PROGRESS NOTES Subjective NO SOA RESOLVED AIR LEAK Vitals Vital Signs Date Time Temp Pulse Resp B/P (MAP) Pulse Ox O2 Delivery O2 Flow Rate FiO2 06/10/17 08:51 73 114/63 06/10/17 08:00 Nasal Cannula 1.0 06/10/17 08:00 94 06/10/17 07:25 97.5 16 97.5 General: Alert, No acute distress Lungs: Other (decrease bs) Cardiovascular: S1, S2 Abdomen: Soft Neuro Exam: Alert Extremities: Other (1+edema) Labs Laboratory Tests Test 06/10/17 03:30 White Blood Count 11.5 x10^3/uL (4.0-11.0) Red Blood Count 3.14 x10^6/uL (4.30-5.70) Hemoglobin 10.0 g/dL (13.0-17.5) Hematocrit 30.6 % (39.0-53.0) Mean Corpuscular Volume 98 fL (79-100) Mean Corpuscular Hemoglobin 32 pg (25-35) Mean Corpuscular Hemoglobin Concent 33 g/dL (31-37) Red Cell Distribution Width 15.8 % (11.5-14.5) Platelet Count 200 x10^3/uL (140-400) Neutrophils (%) (Auto) 80 % (31-73) Lymphocytes (%) (Auto) 8 % (24-48) Monocytes (%) (Auto) 6 % (0-9) Eosinophils (%) (Auto) 6 % (0-3) Basophils (%) (Auto) 1 % (0-3) Neutrophils # (Auto) 9.1 x10^3uL (1.8-7.7) Lymphocytes # (Auto) 0.9 x10^3/uL (1.0-4.8) Monocytes # (Auto) 0.6 x10^3/uL (0.0-1.1) Eosinophils # (Auto) 0.7 x10^3/uL (0.0-0.7) Basophils # (Auto) 0.1 x10^3/uL (0.0-0.2) Sodium Level 144 mmol/L (136-145) Potassium Level 3.9 mmol/L (3.5-5.1) Chloride Level 108 mmol/L (98-107) Carbon Dioxide Level 30 mmol/L (21-32) Anion Gap 6 (6-14) Blood Urea Nitrogen 21 mg/dL (8-26) Creatinine 1.3 mg/dL (0.7-1.3) Estimated GFR (Cockcroft-Gault) 52.6 Glucose Level 110 mg/dL (70-99) Calcium Level 9.9 mg/dL (8.5-10.1) Laboratory Tests Test 06/10/17 03:30 White Blood Count 11.5 x10^3/uL (4.0-11.0) Red Blood Count 3.14 x10^6/uL (4.30-5.70) Hemoglobin 10.0 g/dL (13.0-17.5) Hematocrit 30.6 % (39.0-53.0) Mean Corpuscular Volume 98 fL (79-100) Mean Corpuscular Hemoglobin 32 pg (25-35) Mean Corpuscular Hemoglobin Concent 33 g/dL (31-37) Red Cell Distribution Width 15.8 % (11.5-14.5) Platelet Count 200 x10^3/uL (140-400) Neutrophils (%) (Auto) 80 % (31-73) Lymphocytes (%) (Auto) 8 % (24-48) Monocytes (%) (Auto) 6 % (0-9) Eosinophils (%) (Auto) 6 % (0-3) Basophils (%) (Auto) 1 % (0-3) Neutrophils # (Auto) 9.1 x10^3uL (1.8-7.7) Lymphocytes # (Auto) 0.9 x10^3/uL (1.0-4.8) Monocytes # (Auto) 0.6 x10^3/uL (0.0-1.1) Eosinophils # (Auto) 0.7 x10^3/uL (0.0-0.7) Basophils # (Auto) 0.1 x10^3/uL (0.0-0.2) Sodium Level 144 mmol/L (136-145) Potassium Level 3.9 mmol/L (3.5-5.1) Chloride Level 108 mmol/L (98-107) Carbon Dioxide Level 30 mmol/L (21-32) Anion Gap 6 (6-14) Blood Urea Nitrogen 21 mg/dL (8-26) Creatinine 1.3 mg/dL (0.7-1.3) Estimated GFR (Cockcroft-Gault) 52.6 Glucose Level 110 mg/dL (70-99) Calcium Level 9.9 mg/dL (8.5-10.1) Medications Active Scripts Medications Dose Route/Sig Max Daily Dose Days Date Category Trazodone Hcl 50 Mg Tablet 1 Tab PO QHS 07/15/16 Reported Flomax (Tamsulosin Hcl) 0.4 Mg Cap.er.24h 1 Cap PO HS 07/15/16 Reported Sotalol (Sotalol Hcl) 80 Mg Tablet 1 Tab PO BID 07/15/16 Reported Potassium Chloride 10 Meq Tablet.er 20 Meq PO QODAY 07/15/16 Reported NITROGLYCERIN SubLingual (Nitroglycerin) 0.4 Mg Tab.subl 0.4 Mg SL PRN Q5MIN PRN 07/15/16 Reported Multivitamins (Multivitamin) 1 Each Tablet 1 Tab PO DAILY 07/15/16 Reported Losartan Potassium 50 Mg Tablet 50 Mg PO DAILY 07/15/16 Reported Isosorbide Mononitrate Er (Isosorbide Mononitrate) 30 Mg Tab.er.24h 1 Tab PO DAILY 07/15/16 Reported Albuterol Sulfate Neb Soln (Albuterol Sulfate) 2.5 Mg/3 Ml Vial.neb 2.5 Mg NEB QID 07/15/16 Reported Furosemide 40 Mg Tablet 1 Tab PO QODAY 07/15/16 Reported Famotidine 20 Mg Tablet 20 Mg PO HS 07/15/16 Reported Plavix (Clopidogrel Bisulfate) 75 Mg Tablet 1 Tab PO DAILY 07/15/16 Reported Allopurinol 100 Mg Tablet 2 Tab PO DAILY 07/15/16 Reported Tylenol (Acetaminophen) 325 Mg Tablet 2 Tab PO PRN Q4HRS 07/15/16 Reported Lasix (Furosemide) 40 Mg Tablet 1 Tab PO QODAY 07/10/16 Reported Cozaar (Losartan Potassium) 50 Mg Tablet 50 Mg PO DAILY 06/27/16 Rx Flomax (Tamsulosin Hcl) 0.4 Mg Cap.er.24h 0.4 Mg PO QHS 06/27/16 Rx Nitrostat (Nitroglycerin) 0.4 Mg Tab.subl 1 Tab SL UD 06/14/16 Reported Isosorbide Mononitrate Er (Isosorbide Mononitrate) 30 Mg Tab.er.24h 30 Mg PO DAILY 30 05/18/16 Rx Albuterol Sulfate Neb Soln (Albuterol Sulfate) 2.5 Mg/3 Ml Vial.neb 2.5 Mg NEB PRN QID PRN 30 05/18/16 Rx Trazodone Hcl 50 Mg Tablet 1 Tab PO QHS 03/23/16 Reported Plavix (Clopidogrel Bisulfate) 75 Mg Tablet 75 Mg PO DAILY 08/19/13 Reported Imdur (Isosorbide Mononitrate) 30 Mg Tab.er.24h 30 Mg PO DAILY 08/19/13 Reported Pepcid (Famotidine) 20 Mg Tablet 20 Mg PO BID 08/19/13 Reported Betapace (Sotalol Hcl) 80 Mg Tablet 80 Mg PO BID 08/19/13 Reported Allopurinol 100 Mg Tablet 200 Mg PO DAILY 08/19/[address] CHEST IMPRESSION: 1. Extensive pulmonary emphysema with moderate pleural/parenchymal scarring. 2. New moderate sized left pneumothorax and small left pleural effusion. 3. An irregular spiculated density in the posterior aspect of the left upper lobe has increased in size raising the possibility of a neoplasm. 4. Increasing right pleural effusion with worsening moderate right lower lobe infiltrate. 5. Small peripheral right upper lobe opacity suggesting focal pulmonary consolidation versus a neoplasm. 6. Enlarging posterior mediastinal mass on the right, adjacent to the distal esophagus. This mass may have originated in the right lung in the azygos esophageal region. Impression . 1. Acute hypoxic respiratory failure secondary to left-sided pneumothorax. 2. 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 3. History of increasing parenchymal mass in the right lower lobe based on the last CT chest from November. Being followed by Dr. Harley. 4. History of cardiomyopathy with an EF of 20%. 5. Dehydration with acute kidney injury. 6. ABNORMAL REPEAT CT CHEST 06/07 1.An irregular spiculated density in the posterior aspect of the left upper lobe has increased in size raising the possibility of a neoplasm. . 2.Small peripheral right upper lobe opacity suggesting focal pulmonary consolidation versus a neoplasm. . 3.Enlarging posterior mediastinal mass on the right, adjacent to the distal esophagus. This mass may have originated in the right lung in the azygos esophageal region. Plan . 1. Change chest tube to water seal. repeat CXR today .air leak resolved . 2. discussed with the patient's daughter who is the DPOA . Not a candidate for any invasive biopsy for lung or mediastinal 3. empiric antibiotic. 4. Continue oxygen. 5. Bronchodilators. 6. Pain control. 7. DNR 8. chest tube to water seal DHARA ANTONIO MD Jun 10, 2017 09:20
[2017-06-10 10:45] VITALS: BP 100/57
--- NOTE | 2017-06-10 11:06 | PDOC ---
PROGRESS NOTES Subjective Subjective not short of breath. air leak resolved. lab reviewed. comfortable. not eating well. discussed with daughter. had urine retention. had 1 liter of urine retention this morning so figueroa placed. will start tamsulosin. Objective Objective Vital Signs Date Time Temp Pulse Resp B/P (MAP) Pulse Ox O2 Delivery O2 Flow Rate FiO2 06/10/17 08:51 73 114/63 06/10/17 08:00 Nasal Cannula 1.0 06/10/17 08:00 94 06/10/17 07:25 97.5 16 97.5 Intake and Output 06/10/17 07:00 Intake Total 500 ml Output Total 1605 ml Balance -1105 ml Intake Oral 500 ml Output Urine Total 1525 ml Chest Tube Drainage Total 80 ml Physical Exam Abdomen: Soft Heart: Regular rate, Normal S1, Normal S2 Extremities: No edema General: Alert HEENT: Atraumatic Lungs: Other (decreased bilateral breath sounds) Neuro: Normal speech Psych/Mental Status: Mental status NL Skin: No rashes Assessment Assessment ProblemsLeft pneumothorax treated with a chest tube with resolution of air leak 2. 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 Severe end-stage chronic obstructive pulmonary disease. 4. Secondary pulmonary hypertension. 5. Coronary artery disease. 6. Ischemic cardiomyopathy with a left ventricular ejection fraction of 20%. 7. Chronic kidney disease, stage 3. 8. Weight loss, presumably secondary to malignancy. 9. Chronic systolic congestive heart failure. 10. Acute on chronic hypoxic respiratory failure. 11. Chronic anemia. 12. Klebsiella oxytoca uti urine retention Medical Problems: (1) Congestive heart failure Status: Acute (2) COPD (chronic obstructive pulmonary disease) Status: Acute (3) Stage III chronic kidney disease Status: Acute (4) Tension pneumothorax, spontaneous Status: Acute (5) Urinary tract infection Status: Acute Plan Plan of Care continue chest tube PT and OT continue oxygen and nebulizer rx figueroa placed start tamsulosin Comment Review of Relevant I have reviewed the following items lucio (where applicable) has been applied. Labs Laboratory Tests Test 06/10/17 03:30 White Blood Count 11.5 x10^3/uL (4.0-11.0) Red Blood Count 3.14 x10^6/uL (4.30-5.70) Hemoglobin 10.0 g/dL (13.0-17.5) Hematocrit 30.6 % (39.0-53.0) Mean Corpuscular Volume 98 fL (79-100) Mean Corpuscular Hemoglobin 32 pg (25-35) Mean Corpuscular Hemoglobin Concent 33 g/dL (31-37) Red Cell Distribution Width 15.8 % (11.5-14.5) Platelet Count 200 x10^3/uL (140-400) Neutrophils (%) (Auto) 80 % (31-73) Lymphocytes (%) (Auto) 8 % (24-48) Monocytes (%) (Auto) 6 % (0-9) Eosinophils (%) (Auto) 6 % (0-3) Basophils (%) (Auto) 1 % (0-3) Neutrophils # (Auto) 9.1 x10^3uL (1.8-7.7) Lymphocytes # (Auto) 0.9 x10^3/uL (1.0-4.8) Monocytes # (Auto) 0.6 x10^3/uL (0.0-1.1) Eosinophils # (Auto) 0.7 x10^3/uL (0.0-0.7) Basophils # (Auto) 0.1 x10^3/uL (0.0-0.2) Sodium Level 144 mmol/L (136-145) Potassium Level 3.9 mmol/L (3.5-5.1) Chloride Level 108 mmol/L (98-107) Carbon Dioxide Level 30 mmol/L (21-32) Anion Gap 6 (6-14) Blood Urea Nitrogen 21 mg/dL (8-26) Creatinine 1.3 mg/dL (0.7-1.3) Estimated GFR (Cockcroft-Gault) 52.6 Glucose Level 110 mg/dL (70-99) Calcium Level 9.9 mg/dL (8.5-10.1) Laboratory Tests Test 06/10/17 03:30 White Blood Count 11.5 x10^3/uL (4.0-11.0) Red Blood Count 3.14 x10^6/uL (4.30-5.70) Hemoglobin 10.0 g/dL (13.0-17.5) Hematocrit 30.6 % (39.0-53.0) Mean Corpuscular Volume 98 fL (79-100) Mean Corpuscular Hemoglobin 32 pg (25-35) Mean Corpuscular Hemoglobin Concent 33 g/dL (31-37) Red Cell Distribution Width 15.8 % (11.5-14.5) Platelet Count 200 x10^3/uL (140-400) Neutrophils (%) (Auto) 80 % (31-73) Lymphocytes (%) (Auto) 8 % (24-48) Monocytes (%) (Auto) 6 % (0-9) Eosinophils (%) (Auto) 6 % (0-3) Basophils (%) (Auto) 1 % (0-3) Neutrophils # (Auto) 9.1 x10^3uL (1.8-7.7) Lymphocytes # (Auto) 0.9 x10^3/uL (1.0-4.8) Monocytes # (Auto) 0.6 x10^3/uL (0.0-1.1) Eosinophils # (Auto) 0.7 x10^3/uL (0.0-0.7) Basophils # (Auto) 0.1 x10^3/uL (0.0-0.2) Sodium Level 144 mmol/L (136-145) Potassium Level 3.9 mmol/L (3.5-5.1) Chloride Level 108 mmol/L (98-107) Carbon Dioxide Level 30 mmol/L (21-32) Anion Gap 6 (6-14) Blood Urea Nitrogen 21 mg/dL (8-26) Creatinine 1.3 mg/dL (0.7-1.3) Estimated GFR (Cockcroft-Gault) 52.6 Glucose Level 110 mg/dL (70-99) Calcium Level 9.9 mg/dL (8.5-10.1) Microbiology 06/05/17 Urine Culture - Final, Complete 06/05/17 Urine Culture Result 1 (MELLISA) - Final, Complete 06/05/17 Antimicrobic Susceptibility - Final, Complete Medications Current Medications Sodium Chloride 1,000 ml @ 75 mls/hr [id number] IV Last administered on t 11:58; Start 06/05/17 at 11:46; Stop 06/05/17 at 14:25; Status DC Midazolam HCl (Versed) 2 mg STK-MED ONCE .ROUTE ; Start 06/05/17 at 13:06; Stop 06/05/17 at 13:07; Status DC Midazolam HCl (Versed) 1 mg 1X ONCE IV Last administered on 06/05/17 13:27; Start 06/05/17 at 13:15; Stop 06/05/17 at 13:16; Status DC Lidocaine/ Epinephrine (Xylocaine 1%-Epi 1:100,000) 20 ml 1X ONCE INJ ; Start 06/05/17 at 13:15; Stop 06/05/17 at 13:16; Status DC Ceftriaxone Sodium 50 ml @ 100 mls/hr 1X ONCE IV Last administered on 13:40; Start 06/05/17 at 13:15; Stop 06/05/17 at 13:44; Status DC Lidocaine/ Epinephrine (Xylocaine 2%-Epi 1:100,000) 20 ml 1X ONCE IJ Last administered on 06/05/17 13:32; Start 06/05/17 at 13:15; Stop 06/05/17 at 13 :16; Status DC Ondansetron HCl (Zofran) 4 mg PRN Q8HRS PRN IV NAUSEA/VOMITING; Start at 14:30; Stop 06/06/17 at 14:29; Status DC Fentanyl Citrate (Fentanyl 2ml Vial) 50 mcg PRN Q2HR PRN IV PAIN Last administered on 06/05/17 22:49; Start 06/05/17 at 14:30; Stop 06/06/17 at 14 :29; Status DC Sodium Chloride 1,000 ml @ 125 mls/hr Q8H IV ; Start 06/05/17 at 15:00; Stop 06/06/17 at 07:03; Status DC Acetaminophen (Tylenol) 650 mg PRN Q4HRS PRN PO FEVER; Start 06/05/17 at 14:30 ; Stop 06/06/17 at 14:29; Status DC Ceftriaxone Sodium 1 gm/ Dextrose 50 ml @ 100 mls/hr Q24H IV ; Start 06/05/17 at 14:30; Status UNV Ceftriaxone Sodium 1 gm/ Dextrose 50 ml @ 100 mls/hr Q24H IV ; Start 06/05/17 at 14:30; Status UNV Albuterol/ Ipratropium (Duoneb) 3 ml RTQID NEB Last administered on 06/10/17 08:00; Start 06/05/17 at 16:00 Ceftriaxone Sodium (Rocephin) 1 gm Q24H IVP Last administered on 06/09/17 15: 00; Start 06/06/17 at 15:00 Allopurinol (Zyloprim) 200 mg DAILY PO Last administered on 06/10/17 08:51; Start 06/06/17 at 09:00 Sotalol HCl (Betapace) 80 mg BID PO Last administered on 06/10/17 08:51; Start 06/05/17 at 21:00 Famotidine (Pepcid) 20 mg BID PO Last administered on 06/08/17 08:52; Start 06/05/17 at 21:00; Stop 06/08/17 at 11:10; Status DC Furosemide (Lasix) 40 mg QODAY PO Last administered on 06/09/17 09:27; Start 06/07/17 at 09:00 Isosorbide Mononitrate (Imdur) 30 mg DAILY PO Last administered on 06/10/17 08:50; Start 06/06/17 at 09:00 Mirtazapine (Remeron) 7.5 mg QHS PO Last administered on 06/09/17 20:26; Start 06/05/17 at 21:00 Multivitamins (Thera M Plus) 1 tab DAILY PO Last administered on 06/10/17 08: 51; Start 06/06/17 at 09:00 Nitroglycerin (Nitrostat) 0.4 mg PRN Q5MIN PRN SL CHEST PAIN; Start 06/05/17 at 17:15 Fish Oil (Fish Oil) 1,000 mg DAILY PO ; Start 06/06/17 at 09:00 Clopidogrel Bisulfate (Plavix) 75 mg DAILYWBKFT PO Last administered on 08:52; Start 06/06/17 at 08:00 Potassium Chloride (Klor-Con) 20 meq QODAY PO Last administered on 06/09/17 09:24; Start 06/07/17 at 09:00 Trazodone HCl (Desyrel) 50 mg QHS PO Last administered on 06/09/17 20:24; Start 06/05/17 at 21:00 Acetaminophen (Tylenol) 650 mg PRN Q6HRS PRN PO MILD PAIN / TEMP Last administered on 06/09/17 09:27; Start 06/05/17 at 17:15 Magnesium Hydroxide (Milk Of Magnesia) 2,400 mg PRN DAILY PRN PO CONSTIPATION; Start 06/05/17 at 17:15 Lactulose 20 gm BID PO Last administered on 06/06/17 12:19; Start 06/06/17 at 12:00; Stop 06/06/17 at 18:00; Status DC Lactobacillus Rhamnosus (Culturelle) 1 cap BID PO Last administered on 08:50; Start 06/06/17 at 21:00 Famotidine (Pepcid) 20 mg DAILY PO Last administered on 06/10/17 08:51; Start 06/09/17 at 09:00 Active Scripts Active Cozaar (Losartan Potassium) 50 Mg Tablet 50 Mg PO DAILY Flomax (Tamsulosin Hcl) 0.4 Mg Cap.er.24h 0.4 Mg PO QHS Isosorbide Mononitrate Er (Isosorbide Mononitrate) 30 Mg Tab.er.24h 30 Mg PO DAILY 30 Days Albuterol Sulfate Neb Soln (Albuterol Sulfate) 2.5 Mg/3 Ml Vial.neb 2.5 Mg NEB PRN QID PRN 30 Days Reported Trazodone Hcl 50 Mg Tablet 1 Tab PO QHS Flomax (Tamsulosin Hcl) 0.4 Mg Cap.er.24h 1 Cap PO HS Sotalol (Sotalol Hcl) 80 Mg Tablet 1 Tab PO BID Potassium Chloride 10 Meq Tablet.er 20 Meq PO QODAY NITROGLYCERIN SubLingual (Nitroglycerin) 0.4 Mg Tab.subl 0.4 Mg SL PRN Q5MIN PRN Multivitamins (Multivitamin) 1 Each Tablet 1 Tab PO DAILY Losartan Potassium 50 Mg Tablet 50 Mg PO DAILY Isosorbide Mononitrate Er (Isosorbide Mononitrate) 30 Mg Tab.er.24h 1 Tab PO DAILY Albuterol Sulfate Neb Soln (Albuterol Sulfate) 2.5 Mg/3 Ml Vial.neb 2.5 Mg NEB QID Furosemide 40 Mg Tablet 1 Tab PO QODAY Famotidine 20 Mg Tablet 20 Mg PO HS Plavix (Clopidogrel Bisulfate) 75 Mg Tablet 1 Tab PO DAILY Allopurinol 100 Mg Tablet 2 Tab PO DAILY Tylenol (Acetaminophen) 325 Mg Tablet 2 Tab PO PRN Q4HRS Lasix (Furosemide) 40 Mg Tablet 1 Tab PO QODAY Nitrostat (Nitroglycerin) 0.4 Mg Tab.subl 1 Tab SL UD Trazodone Hcl 50 Mg Tablet 1 Tab PO QHS Plavix (Clopidogrel Bisulfate) 75 Mg Tablet 75 Mg PO DAILY Imdur (Isosorbide Mononitrate) 30 Mg Tab.er.24h 30 Mg PO DAILY Pepcid (Famotidine) 20 Mg Tablet 20 Mg PO BID Betapace (Sotalol Hcl) 80 Mg Tablet 80 Mg PO BID Allopurinol 100 Mg Tablet 200 Mg PO DAILY Vitals/I & O Vital Sign - Last 24 Hours 06/09/17 06/09/17 06/09/17 06/09/17 12:14 15:30 16:00 19:31 Temp 97.9 98.2 97.9 98.2 Pulse 76 73 Resp 16 16 B/P (MAP) 114/60 (78) 105/60 (75) Pulse Ox 94 93 O2 Delivery Nasal Cannula Nasal Cannula Nasal Cannula Nasal Cannula O2 Flow Rate 1.0 2.0 1.0 1.5 06/09/17 06/09/17 06/09/17 06/09/17 20:00 20:06 20:26 23:59 Temp 97.8 97.8 Pulse 82 73 Resp 16 B/P (MAP) 135/73 142/74 (96) Pulse Ox 93 O2 Delivery Nasal Cannula Nasal Cannula Nasal Cannula O2 Flow Rate 1.0 1.0 1.5 06/10/17 06/10/17 06/10/17 06/10/17 03:59 07:25 08:00 08:00 Temp 98.1 97.5 98.1 97.5 Pulse 74 73 Resp 16 16 B/P (MAP) 153/81 (105) 114/63 (80) Pulse Ox 94 94 94 O2 Delivery Nasal Cannula Nasal Cannula Nasal Cannula Nasal Cannula O2 Flow Rate 1.5 1.5 1.0 1.0 06/10/17 06/10/17 08:50 08:51 Pulse 73 73 B/P (MAP) 114/63 114/63 Intake and Output 06/09/17 06/09/17 06/10/17 15:00 23:00 07:00 Intake Total 500 ml Output Total 50 ml 330 ml 1225 ml Balance -50 ml 170 ml -1225 ml Nutrition Consultation Dietary Evaluation: Recommendations by RD: Increase Calorie Intake, Protein supplementation Comments: Continue cardiac diet Pt to request oral supplements prn from nursing Expected Outcomes/Goals: PO intake to meet > 75% est needs Malnutrition Findings: Body Fat Depletion (Non Severe: Mild Depletion Weight Status: Underweight LAURE OLIVER MD Jun 10, 2017 11:06
--- NOTE | 2017-06-10 13:35 | RAD ---
Single view chest 06/10/2017 Clinical indication: Pneumothorax follow-up. Comparison: 1 view chest 06/09/2016, 06/08/2017. Findings: Lines and tubes are in similar position. Heart size stable. There is a trace left apical pneumothorax with left thoracostomy tube in similar position. There is a small layering left pleural effusion. No significant change in reticular and nodular opacities throughout the right lung and in the medial left lung base. Impression: 1. Trace left apical pneumothorax with thoracostomy tube in similar position. 2. Stable small right pleural effusion. 3. Unchanged bilateral airspace opacities.
[2017-06-10 14:45] VITALS: BP 95/57
[2017-06-10] MEDS: cefTRIAXone IV Push 1 GM VIAL. IVP SCH (15:32)
--- NOTE | 2017-06-10 16:07 | PDOC ---
PROGRESS NOTES Subjective Subjective Last night events reviewed He has no new complaints Objective Objective Vital Signs Date Time Temp Pulse Resp B/P (MAP) Pulse Ox O2 Delivery O2 Flow Rate FiO2 06/10/17 14:45 97.6 72 16 95/57 (70) 94 Nasal Cannula 1.5 97.6 Intake and Output 06/10/17 07:00 Intake Total 500 ml Output Total 1605 ml Balance -1105 ml Intake Oral 500 ml Output Urine Total 1525 ml Chest Tube Drainage Total 80 ml Physical Exam Physical Exam No significant changes in cardiac exam Assessment Assessment Patient progressing slowly. I agree with present plan. Problems Medical Problems: (1) Congestive heart failure Status: Acute (2) COPD (chronic obstructive pulmonary disease) Status: Acute (3) Stage III chronic kidney disease Status: Acute (4) Tension pneumothorax, spontaneous Status: Acute (5) Urinary tract infection Status: Acute Comment Labs Laboratory Tests Test 06/10/17 03:30 White Blood Count 11.5 x10^3/uL (4.0-11.0) Red Blood Count 3.14 x10^6/uL (4.30-5.70) Hemoglobin 10.0 g/dL (13.0-17.5) Hematocrit 30.6 % (39.0-53.0) Mean Corpuscular Volume 98 fL (79-100) Mean Corpuscular Hemoglobin 32 pg (25-35) Mean Corpuscular Hemoglobin Concent 33 g/dL (31-37) Red Cell Distribution Width 15.8 % (11.5-14.5) Platelet Count 200 x10^3/uL (140-400) Neutrophils (%) (Auto) 80 % (31-73) Lymphocytes (%) (Auto) 8 % (24-48) Monocytes (%) (Auto) 6 % (0-9) Eosinophils (%) (Auto) 6 % (0-3) Basophils (%) (Auto) 1 % (0-3) Neutrophils # (Auto) 9.1 x10^3uL (1.8-7.7) Lymphocytes # (Auto) 0.9 x10^3/uL (1.0-4.8) Monocytes # (Auto) 0.6 x10^3/uL (0.0-1.1) Eosinophils # (Auto) 0.7 x10^3/uL (0.0-0.7) Basophils # (Auto) 0.1 x10^3/uL (0.0-0.2) Sodium Level 144 mmol/L (136-145) Potassium Level 3.9 mmol/L (3.5-5.1) Chloride Level 108 mmol/L (98-107) Carbon Dioxide Level 30 mmol/L (21-32) Anion Gap 6 (6-14) Blood Urea Nitrogen 21 mg/dL (8-26) Creatinine 1.3 mg/dL (0.7-1.3) Estimated GFR (Cockcroft-Gault) 52.6 Glucose Level 110 mg/dL (70-99) Calcium Level 9.9 mg/dL (8.5-10.1) Laboratory Tests Test 06/10/17 03:30 White Blood Count 11.5 x10^3/uL (4.0-11.0) Red Blood Count 3.14 x10^6/uL (4.30-5.70) Hemoglobin 10.0 g/dL (13.0-17.5) Hematocrit 30.6 % (39.0-53.0) Mean Corpuscular Volume 98 fL (79-100) Mean Corpuscular Hemoglobin 32 pg (25-35) Mean Corpuscular Hemoglobin Concent 33 g/dL (31-37) Red Cell Distribution Width 15.8 % (11.5-14.5) Platelet Count 200 x10^3/uL (140-400) Neutrophils (%) (Auto) 80 % (31-73) Lymphocytes (%) (Auto) 8 % (24-48) Monocytes (%) (Auto) 6 % (0-9) Eosinophils (%) (Auto) 6 % (0-3) Basophils (%) (Auto) 1 % (0-3) Neutrophils # (Auto) 9.1 x10^3uL (1.8-7.7) Lymphocytes # (Auto) 0.9 x10^3/uL (1.0-4.8) Monocytes # (Auto) 0.6 x10^3/uL (0.0-1.1) Eosinophils # (Auto) 0.7 x10^3/uL (0.0-0.7) Basophils # (Auto) 0.1 x10^3/uL (0.0-0.2) Sodium Level 144 mmol/L (136-145) Potassium Level 3.9 mmol/L (3.5-5.1) Chloride Level 108 mmol/L (98-107) Carbon Dioxide Level 30 mmol/L (21-32) Anion Gap 6 (6-14) Blood Urea Nitrogen 21 mg/dL (8-26) Creatinine 1.3 mg/dL (0.7-1.3) Estimated GFR (Cockcroft-Gault) 52.6 Glucose Level 110 mg/dL (70-99) Calcium Level 9.9 mg/dL (8.5-10.1) Microbiology 06/05/17 Urine Culture - Final, Complete 06/05/17 Urine Culture Result 1 (MELLISA) - Final, Complete 06/05/17 Antimicrobic Susceptibility - Final, Complete Medications Current Medications Sodium Chloride 1,000 ml @ 75 mls/hr [id number] IV Last administered on 11:58; Start 06/05/17 at 11:46; Stop 06/05/17 at 14:25; Status DC Midazolam HCl (Versed) 2 mg STK-MED ONCE .ROUTE ; Start 06/05/17 at 13:06; Stop 06/05/17 at 13:07; Status DC Midazolam HCl (Versed) 1 mg 1X ONCE IV Last administered on 06/05/17 13:27; Start 06/05/17 at 13:15; Stop 06/05/17 at 13:16; Status DC Lidocaine/ Epinephrine (Xylocaine 1%-Epi 1:100,000) 20 ml 1X ONCE INJ ; Start 06/05/17 at 13:15; Stop 06/05/17 at 13:16; Status DC Ceftriaxone Sodium 50 ml @ 100 mls/hr 1X ONCE IV Last administered on 13:40; Start 06/05/17 at 13:15; Stop 06/05/17 at 13:44; Status DC Lidocaine/ Epinephrine (Xylocaine 2%-Epi 1:100,000) 20 ml 1X ONCE IJ Last administered on 06/05/17 13:32; Start 06/05/17 at 13:15; Stop 06/05/17 at 13 :16; Status DC Ondansetron HCl (Zofran) 4 mg PRN Q8HRS PRN IV NAUSEA/VOMITING; Start at 14:30; Stop 06/06/17 at 14:29; Status DC Fentanyl Citrate (Fentanyl 2ml Vial) 50 mcg PRN Q2HR PRN IV PAIN Last administered on 06/05/17 22:49; Start 06/05/17 at 14:30; Stop 06/06/17 at 14 :29; Status DC Sodium Chloride 1,000 ml @ 125 mls/hr Q8H IV ; Start 06/05/17 at 15:00; Stop 06/06/17 at 07:03; Status DC Acetaminophen (Tylenol) 650 mg PRN Q4HRS PRN PO FEVER; Start 06/05/17 at 14:30 ; Stop 06/06/17 at 14:29; Status DC Ceftriaxone Sodium 1 gm/ Dextrose 50 ml @ 100 mls/hr Q24H IV ; Start 06/05/17 at 14:30; Status UNV Ceftriaxone Sodium 1 gm/ Dextrose 50 ml @ 100 mls/hr Q24H IV ; Start 06/05/17 at 14:30; Status UNV Albuterol/ Ipratropium (Duoneb) 3 ml RTQID NEB Last administered on 06/10/17 12:05; Start 06/05/17 at 16:00 Ceftriaxone Sodium (Rocephin) 1 gm Q24H IVP Last administered on 06/10/17 15: 32; Start 06/06/17 at 15:00 Allopurinol (Zyloprim) 200 mg DAILY PO Last administered on 06/10/17 08:51; Start 06/06/17 at 09:00 Sotalol HCl (Betapace) 80 mg BID PO Last administered on 06/10/17 08:51; Start 06/05/17 at 21:00 Famotidine (Pepcid) 20 mg BID PO Last administered on 06/08/17 08:52; Start 06/05/17 at 21:00; Stop 06/08/17 at 11:10; Status DC Furosemide (Lasix) 40 mg QODAY PO Last administered on 06/09/17 09:27; Start 06/07/17 at 09:00 Isosorbide Mononitrate (Imdur) 30 mg DAILY PO Last administered on 06/10/17 08:50; Start 06/06/17 at 09:00 Mirtazapine (Remeron) 7.5 mg QHS PO Last administered on 06/09/17 20:26; Start 06/05/17 at 21:00 Multivitamins (Thera M Plus) 1 tab DAILY PO Last administered on 06/10/17 08: 51; Start 06/06/17 at 09:00 Nitroglycerin (Nitrostat) 0.4 mg PRN Q5MIN PRN SL CHEST PAIN; Start 06/05/17 at 17:15 Fish Oil (Fish Oil) 1,000 mg DAILY PO ; Start 06/06/17 at 09:00 Clopidogrel Bisulfate (Plavix) 75 mg DAILYWBKFT PO Last administered on 08:52; Start 06/06/17 at 08:00 Potassium Chloride (Klor-Con) 20 meq QODAY PO Last administered on 06/09/17 09:24; Start 06/07/17 at 09:00 Trazodone HCl (Desyrel) 50 mg QHS PO Last administered on 06/09/17 20:24; Start 06/05/17 at 21:00 Acetaminophen (Tylenol) 650 mg PRN Q6HRS PRN PO MILD PAIN / TEMP Last administered on 06/09/17 09:27; Start 06/05/17 at 17:15 Magnesium Hydroxide (Milk Of Magnesia) 2,400 mg PRN DAILY PRN PO CONSTIPATION; Start 06/05/17 at 17:15 Lactulose 20 gm BID PO Last administered on 06/06/17 12:19; Start 06/06/17 at 12:00; Stop 06/06/17 at 18:00; Status DC Lactobacillus Rhamnosus (Culturelle) 1 cap BID PO Last administered on 08:50; Start 06/06/17 at 21:00 Famotidine (Pepcid) 20 mg DAILY PO Last administered on 06/10/17 08:51; Start 06/09/17 at 09:00 Tamsulosin HCl (Flomax) 0.4 mg QHS PO ; Start 06/10/17 at 21:00 Active Scripts Active Cozaar (Losartan Potassium) 50 Mg Tablet 50 Mg PO DAILY Flomax (Tamsulosin Hcl) 0.4 Mg Cap.er.24h 0.4 Mg PO QHS Isosorbide Mononitrate Er (Isosorbide Mononitrate) 30 Mg Tab.er.24h 30 Mg PO DAILY 30 Days Albuterol Sulfate Neb Soln (Albuterol Sulfate) 2.5 Mg/3 Ml Vial.neb 2.5 Mg NEB PRN QID PRN 30 Days Reported Trazodone Hcl 50 Mg Tablet 1 Tab PO QHS Flomax (Tamsulosin Hcl) 0.4 Mg Cap.er.24h 1 Cap PO HS Sotalol (Sotalol Hcl) 80 Mg Tablet 1 Tab PO BID Potassium Chloride 10 Meq Tablet.er 20 Meq PO QODAY NITROGLYCERIN SubLingual (Nitroglycerin) 0.4 Mg Tab.subl 0.4 Mg SL PRN Q5MIN PRN Multivitamins (Multivitamin) 1 Each Tablet 1 Tab PO DAILY Losartan Potassium 50 Mg Tablet 50 Mg PO DAILY Isosorbide Mononitrate Er (Isosorbide Mononitrate) 30 Mg Tab.er.24h 1 Tab PO DAILY Albuterol Sulfate Neb Soln (Albuterol Sulfate) 2.5 Mg/3 Ml Vial.neb 2.5 Mg NEB QID Furosemide 40 Mg Tablet 1 Tab PO QODAY Famotidine 20 Mg Tablet 20 Mg PO HS Plavix (Clopidogrel Bisulfate) 75 Mg Tablet 1 Tab PO DAILY Allopurinol 100 Mg Tablet 2 Tab PO DAILY Tylenol (Acetaminophen) 325 Mg Tablet 2 Tab PO PRN Q4HRS Lasix (Furosemide) 40 Mg Tablet 1 Tab PO QODAY Nitrostat (Nitroglycerin) 0.4 Mg Tab.subl 1 Tab SL UD Trazodone Hcl 50 Mg Tablet 1 Tab PO QHS Plavix (Clopidogrel Bisulfate) 75 Mg Tablet 75 Mg PO DAILY Imdur (Isosorbide Mononitrate) 30 Mg Tab.er.24h 30 Mg PO DAILY Pepcid (Famotidine) 20 Mg Tablet 20 Mg PO BID Betapace (Sotalol Hcl) 80 Mg Tablet 80 Mg PO BID Allopurinol 100 Mg Tablet 200 Mg PO DAILY Vitals/I & O Vital Sign - Last 24 Hours 06/09/17 06/09/17 06/09/17 06/09/17 19:31 20:00 20:06 20:26 Temp 98.2 98.2 Pulse 73 82 Resp 16 B/P (MAP) 105/60 (75) 135/73 Pulse Ox 93 O2 Delivery Nasal Cannula Nasal Cannula Nasal Cannula O2 Flow Rate 1.5 1.0 1.0 06/09/17 06/10/17 06/10/17 06/10/17 23:59 03:59 07:25 08:00 Temp 97.8 98.1 97.5 97.8 98.1 97.5 Pulse 73 74 73 Resp 16 16 16 B/P (MAP) 142/74 (96) 153/81 (105) 114/63 (80) Pulse Ox 93 94 94 94 O2 Delivery Nasal Cannula Nasal Cannula Nasal Cannula Nasal Cannula O2 Flow Rate 1.5 1.5 1.5 1.0 06/10/17 06/10/17 06/10/17 06/10/17 08:00 08:50 08:51 10:45 Temp 97.4 97.4 Pulse 73 73 73 Resp 16 B/P (MAP) 114/63 114/63 100/57 (71) Pulse Ox 95 O2 Delivery Nasal Cannula Nasal Cannula O2 Flow Rate 1.0 1.5 06/10/17 06/10/17 12:06 14:45 Temp 97.6 97.6 Pulse 72 Resp 16 B/P (MAP) 95/57 (70) Pulse Ox 96 94 O2 Delivery Nasal Cannula Nasal Cannula O2 Flow Rate 1.0 1.5 Intake and Output 06/09/17 06/09/17 06/10/17 15:00 23:00 07:00 Intake Total 500 ml Output Total 50 ml 330 ml 1225 ml Balance -50 ml 170 ml -1225 ml Nutrition Consultation Dietary Evaluation: Recommendations by RD: Increase Calorie Intake, Protein supplementation Comments: Continue cardiac diet Pt to request oral supplements prn from nursing Expected Outcomes/Goals: PO intake to meet > 75% est needs Malnutrition Findings: Body Fat Depletion (Non Severe: Mild Depletion Weight Status: Underweight ZEESHAN TOSCANO MD Jun 10, 2017 16:07
[2017-06-10 19:15] VITALS: BP 93/50
[2017-06-10] MEDS: TAMSULOSIN 0.4 MG CAP.ER.24H. PO SCH (21:01)
[2017-06-10] MEDS: traZODone 50 MG TABLET. PO SCH (21:01)
[2017-06-10] MEDS: MIRTAZAPINE 7.5 MG TABLET. PO SCH (21:01)
[2017-06-10 23:05] VITALS: BP 91/55
[2017-06-11 03:25] VITALS: BP 118/63
[2017-06-11 07:00] VITALS: BP 130/73
[2017-06-11] MEDS: IPRATRPIUM/ALBUTEROL 0.5/2.5MG 3 ML NEBU. NEB SCH ×4 (08:11→19:06)
--- NOTE | 2017-06-11 08:24 | PDOC ---
PULMONARY PROGRESS NOTES Subjective NO SOA PERSISTENT AIR LEAK Vitals Vital Signs Date Time Temp Pulse Resp B/P (MAP) Pulse Ox O2 Delivery O2 Flow Rate FiO2 06/11/17 08:11 91 Nasal Cannula 1.0 06/11/17 03:25 97.3 72 20 118/63 (81) 97.3 General: Alert, No acute distress Lungs: Other (decrease bs) Cardiovascular: S1, S2 Abdomen: Soft Neuro Exam: Alert Extremities: Other (1+edema) Labs Laboratory Tests Test 06/10/17 03:30 White Blood Count 11.5 x10^3/uL (4.0-11.0) Red Blood Count 3.14 x10^6/uL (4.30-5.70) Hemoglobin 10.0 g/dL (13.0-17.5) Hematocrit 30.6 % (39.0-53.0) Mean Corpuscular Volume 98 fL (79-100) Mean Corpuscular Hemoglobin 32 pg (25-35) Mean Corpuscular Hemoglobin Concent 33 g/dL (31-37) Red Cell Distribution Width 15.8 % (11.5-14.5) Platelet Count 200 x10^3/uL (140-400) Neutrophils (%) (Auto) 80 % (31-73) Lymphocytes (%) (Auto) 8 % (24-48) Monocytes (%) (Auto) 6 % (0-9) Eosinophils (%) (Auto) 6 % (0-3) Basophils (%) (Auto) 1 % (0-3) Neutrophils # (Auto) 9.1 x10^3uL (1.8-7.7) Lymphocytes # (Auto) 0.9 x10^3/uL (1.0-4.8) Monocytes # (Auto) 0.6 x10^3/uL (0.0-1.1) Eosinophils # (Auto) 0.7 x10^3/uL (0.0-0.7) Basophils # (Auto) 0.1 x10^3/uL (0.0-0.2) Sodium Level 144 mmol/L (136-145) Potassium Level 3.9 mmol/L (3.5-5.1) Chloride Level 108 mmol/L (98-107) Carbon Dioxide Level 30 mmol/L (21-32) Anion Gap 6 (6-14) Blood Urea Nitrogen 21 mg/dL (8-26) Creatinine 1.3 mg/dL (0.7-1.3) Estimated GFR (Cockcroft-Gault) 52.6 Glucose Level 110 mg/dL (70-99) Calcium Level 9.9 mg/dL (8.5-10.1) Medications Active Scripts Medications Dose Route/Sig Max Daily Dose Days Date Category Trazodone Hcl 50 Mg Tablet 1 Tab PO QHS 07/15/16 Reported Flomax (Tamsulosin Hcl) 0.4 Mg Cap.er.24h 1 Cap PO HS 07/15/16 Reported Sotalol (Sotalol Hcl) 80 Mg Tablet 1 Tab PO BID 07/15/16 Reported Potassium Chloride 10 Meq Tablet.er 20 Meq PO QODAY 07/15/16 Reported NITROGLYCERIN SubLingual (Nitroglycerin) 0.4 Mg Tab.subl 0.4 Mg SL PRN Q5MIN PRN 07/15/16 Reported Multivitamins (Multivitamin) 1 Each Tablet 1 Tab PO DAILY 07/15/16 Reported Losartan Potassium 50 Mg Tablet 50 Mg PO DAILY 07/15/16 Reported Isosorbide Mononitrate Er (Isosorbide Mononitrate) 30 Mg Tab.er.24h 1 Tab PO DAILY 07/15/16 Reported Albuterol Sulfate Neb Soln (Albuterol Sulfate) 2.5 Mg/3 Ml Vial.neb 2.5 Mg NEB QID 07/15/16 Reported Furosemide 40 Mg Tablet 1 Tab PO QODAY 07/15/16 Reported Famotidine 20 Mg Tablet 20 Mg PO HS 07/15/16 Reported Plavix (Clopidogrel Bisulfate) 75 Mg Tablet 1 Tab PO DAILY 07/15/16 Reported Allopurinol 100 Mg Tablet 2 Tab PO DAILY 07/15/16 Reported Tylenol (Acetaminophen) 325 Mg Tablet 2 Tab PO PRN Q4HRS 07/15/16 Reported Lasix (Furosemide) 40 Mg Tablet 1 Tab PO QODAY 07/10/16 Reported Cozaar (Losartan Potassium) 50 Mg Tablet 50 Mg PO DAILY 06/27/16 Rx Flomax (Tamsulosin Hcl) 0.4 Mg Cap.er.24h 0.4 Mg PO QHS 06/27/16 Rx Nitrostat (Nitroglycerin) 0.4 Mg Tab.subl 1 Tab SL UD 12/21/16 Reported Isosorbide Mononitrate Er (Isosorbide Mononitrate) 30 Mg Tab.er.24h 30 Mg PO DAILY 30 05/18/16 Rx Albuterol Sulfate Neb Soln (Albuterol Sulfate) 2.5 Mg/3 Ml Vial.neb 2.5 Mg NEB PRN QID PRN 30 05/18/16 Rx Trazodone Hcl 50 Mg Tablet 1 Tab PO QHS 03/23/16 Reported Plavix (Clopidogrel Bisulfate) 75 Mg Tablet 75 Mg PO DAILY 08/19/13 Reported Imdur (Isosorbide Mononitrate) 30 Mg Tab.er.24h 30 Mg PO DAILY 08/19/13 Reported Pepcid (Famotidine) 20 Mg Tablet 20 Mg PO BID 08/19/13 Reported Betapace (Sotalol Hcl) 80 Mg Tablet 80 Mg PO BID 08/19/13 Reported Allopurinol 100 Mg Tablet 200 Mg PO DAILY 08/19/[address] CHEST IMPRESSION: 1. Extensive pulmonary emphysema with moderate pleural/parenchymal scarring. 2. New moderate sized left pneumothorax and small left pleural effusion. 3. An irregular spiculated density in the posterior aspect of the left upper lobe has increased in size raising the possibility of a neoplasm. 4. Increasing right pleural effusion with worsening moderate right lower lobe infiltrate. 5. Small peripheral right upper lobe opacity suggesting focal pulmonary consolidation versus a neoplasm. 6. Enlarging posterior mediastinal mass on the right, adjacent to the distal esophagus. This mass may have originated in the right lung in the azygos esophageal region. cxr 06/11 tiny left PTX Impression . 1. Acute hypoxic respiratory failure secondary to left-sided pneumothorax. 2. 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 3. History of increasing parenchymal mass in the right lower lobe based on the last CT chest from November. 4. History of cardiomyopathy with an EF of 20%. 5. Dehydration with acute kidney injury. 6. ABNORMAL REPEAT CT CHEST 06/07 1.An irregular spiculated density in the posterior aspect of the left upper lobe has increased in size raising the possibility of a neoplasm. . 2.Small peripheral right upper lobe opacity suggesting focal pulmonary consolidation versus a neoplasm. . 3.Enlarging posterior mediastinal mass on the right, adjacent to the distal esophagus. This mass may have originated in the right lung in the azygos esophageal region. Plan . 1. Change chest tube to water seal. repeat CXR with unchanged tiny left PTX, .air leak persistent. Poor candidate for VATS, May consider endobronchial valve. May have to transfer to [place] 2. discussed with the patient's daughter who is the DPOA . Not a candidate for any invasive biopsy for lung or mediastinal mass which has grown. 3. empiric antibiotic. 4. Continue oxygen. 5. Bronchodilators. 6. Pain control. 7. DNR DHARA ANTONIO MD Jun 11, 2017 08:24
--- NOTE | 2017-06-11 08:55 | PDOC ---
PROGRESS NOTES Subjective Subjective has an air leak . cxr report pending. not short of breath. daughter notes urine was cloudy. has klebsiella uti on rocephin. will repeat urine culture. Objective Objective Vital Signs Date Time Temp Pulse Resp B/P (MAP) Pulse Ox O2 Delivery O2 Flow Rate FiO2 06/11/17 08:11 91 Nasal Cannula 1.0 06/11/17 07:00 97.6 73 16 130/73 (92) 97.6 Intake and Output 06/11/17 07:00 Intake Total 820 ml Output Total 720 ml Balance 100 ml Intake Oral 820 ml Output Urine Total 650 ml Chest Tube Drainage Total 70 ml Physical Exam Abdomen: Soft Heart: Regular rate, Normal S1, Normal S2 Extremities: No edema General: Alert HEENT: Atraumatic Lungs: Other (bilateral decreased breath sounds. left chest tube) Neuro: Normal speech Psych/Mental Status: Mental status NL Skin: No rashes Assessment Assessment ProblemsLeft pneumothorax treated with a chest tube with persistent air leak 2. 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 Severe end-stage chronic obstructive pulmonary disease. 4. Secondary pulmonary hypertension. 5. Coronary artery disease. 6. Ischemic cardiomyopathy with a left ventricular ejection fraction of 20%. 7. Chronic kidney disease, stage 3. 8. Weight loss, presumably secondary to malignancy. 9. Chronic systolic congestive heart failure. 10. Acute on chronic hypoxic respiratory failure. 11. Chronic anemia. 12. Klebsiella oxytoca uti urine retention Medical Problems: (1) Congestive heart failure Status: Acute (2) COPD (chronic obstructive pulmonary disease) Status: Acute (3) Stage III chronic kidney disease Status: Acute (4) Tension pneumothorax, spontaneous Status: Acute (5) Urinary tract infection Status: Acute Plan Plan of Care continue chest tube repeat urinalysis and urine culture continue flomax continue figueroa continue if rocephin Comment Review of Relevant I have reviewed the following items lucio (where applicable) has been applied. Labs Laboratory Tests Test 06/10/17 03:30 White Blood Count 11.5 x10^3/uL (4.0-11.0) Red Blood Count 3.14 x10^6/uL (4.30-5.70) Hemoglobin 10.0 g/dL (13.0-17.5) Hematocrit 30.6 % (39.0-53.0) Mean Corpuscular Volume 98 fL (79-100) Mean Corpuscular Hemoglobin 32 pg (25-35) Mean Corpuscular Hemoglobin Concent 33 g/dL (31-37) Red Cell Distribution Width 15.8 % (11.5-14.5) Platelet Count 200 x10^3/uL (140-400) Neutrophils (%) (Auto) 80 % (31-73) Lymphocytes (%) (Auto) 8 % (24-48) Monocytes (%) (Auto) 6 % (0-9) Eosinophils (%) (Auto) 6 % (0-3) Basophils (%) (Auto) 1 % (0-3) Neutrophils # (Auto) 9.1 x10^3uL (1.8-7.7) Lymphocytes # (Auto) 0.9 x10^3/uL (1.0-4.8) Monocytes # (Auto) 0.6 x10^3/uL (0.0-1.1) Eosinophils # (Auto) 0.7 x10^3/uL (0.0-0.7) Basophils # (Auto) 0.1 x10^3/uL (0.0-0.2) Sodium Level 144 mmol/L (136-145) Potassium Level 3.9 mmol/L (3.5-5.1) Chloride Level 108 mmol/L (98-107) Carbon Dioxide Level 30 mmol/L (21-32) Anion Gap 6 (6-14) Blood Urea Nitrogen 21 mg/dL (8-26) Creatinine 1.3 mg/dL (0.7-1.3) Estimated GFR (Cockcroft-Gault) 52.6 Glucose Level 110 mg/dL (70-99) Calcium Level 9.9 mg/dL (8.5-10.1) Microbiology 06/05/17 Urine Culture - Final, Complete 06/05/17 Urine Culture Result 1 (MELLISA) - Final, Complete 06/05/17 Antimicrobic Susceptibility - Final, Complete Medications Current Medications Sodium Chloride 1,000 ml @ 75 mls/hr [id number] IV Last administered on t 11:58; Start 06/05/17 at 11:46; Stop 06/05/17 at 14:25; Status DC Midazolam HCl (Versed) 2 mg STK-MED ONCE .ROUTE ; Start 06/05/17 at 13:06; Stop 06/05/17 at 13:07; Status DC Midazolam HCl (Versed) 1 mg 1X ONCE IV Last administered on 06/05/17 13:27; Start 06/05/17 at 13:15; Stop 06/05/17 at 13:16; Status DC Lidocaine/ Epinephrine (Xylocaine 1%-Epi 1:100,000) 20 ml 1X ONCE INJ ; Start 06/05/17 at 13:15; Stop 06/05/17 at 13:16; Status DC Ceftriaxone Sodium 50 ml @ 100 mls/hr 1X ONCE IV Last administered on 13:40; Start 06/05/17 at 13:15; Stop 06/05/17 at 13:44; Status DC Lidocaine/ Epinephrine (Xylocaine 2%-Epi 1:100,000) 20 ml 1X ONCE IJ Last administered on 06/05/17 13:32; Start 06/05/17 at 13:15; Stop 06/05/17 at 13 :16; Status DC Ondansetron HCl (Zofran) 4 mg PRN Q8HRS PRN IV NAUSEA/VOMITING; Start at 14:30; Stop 06/06/17 at 14:29; Status DC Fentanyl Citrate (Fentanyl 2ml Vial) 50 mcg PRN Q2HR PRN IV PAIN Last administered on 06/05/17 22:49; Start 06/05/17 at 14:30; Stop 06/06/17 at 14 :29; Status DC Sodium Chloride 1,000 ml @ 125 mls/hr Q8H IV ; Start 06/05/17 at 15:00; Stop 06/06/17 at 07:03; Status DC Acetaminophen (Tylenol) 650 mg PRN Q4HRS PRN PO FEVER; Start 06/05/17 at 14:30 ; Stop 06/06/17 at 14:29; Status DC Ceftriaxone Sodium 1 gm/ Dextrose 50 ml @ 100 mls/hr Q24H IV ; Start 06/05/17 at 14:30; Status UNV Ceftriaxone Sodium 1 gm/ Dextrose 50 ml @ 100 mls/hr Q24H IV ; Start 06/05/17 at 14:30; Status UNV Albuterol/ Ipratropium (Duoneb) 3 ml RTQID NEB Last administered on 06/11/17 08:11; Start 06/05/17 at 16:00 Ceftriaxone Sodium (Rocephin) 1 gm Q24H IVP Last administered on 06/10/17 15: 32; Start 06/06/17 at 15:00 Allopurinol (Zyloprim) 200 mg DAILY PO Last administered on 06/10/17 08:51; Start 06/06/17 at 09:00 Sotalol HCl (Betapace) 80 mg BID PO Last administered on 06/10/17 08:51; Start 06/05/17 at 21:00 Famotidine (Pepcid) 20 mg BID PO Last administered on 06/08/17 08:52; Start 06/05/17 at 21:00; Stop 06/08/17 at 11:10; Status DC Furosemide (Lasix) 40 mg QODAY PO Last administered on 06/09/17 09:27; Start 06/07/17 at 09:00 Isosorbide Mononitrate (Imdur) 30 mg DAILY PO Last administered on 06/10/17 08:50; Start 06/06/17 at 09:00 Mirtazapine (Remeron) 7.5 mg QHS PO Last administered on 06/10/17 21:01; Start 06/05/17 at 21:00 Multivitamins (Thera M Plus) 1 tab DAILY PO Last administered on 06/10/17 08: 51; Start 06/06/17 at 09:00 Nitroglycerin (Nitrostat) 0.4 mg PRN Q5MIN PRN SL CHEST PAIN; Start 06/05/17 at 17:15 Fish Oil (Fish Oil) 1,000 mg DAILY PO ; Start 06/06/17 at 09:00 Clopidogrel Bisulfate (Plavix) 75 mg [id number] PO Last administered on 08:52; Start 06/06/17 at 08:00 Potassium Chloride (Klor-Con) 20 meq QODAY PO Last administered on 06/09/17 09:24; Start 06/07/17 at 09:00 Trazodone HCl (Desyrel) 50 mg QHS PO Last administered on 06/10/17 21:01; Start 06/05/17 at 21:00 Acetaminophen (Tylenol) 650 mg PRN Q6HRS PRN PO MILD PAIN / TEMP Last administered on 06/09/17 09:27; Start 06/05/17 at 17:15 Magnesium Hydroxide (Milk Of Magnesia) 2,400 mg PRN DAILY PRN PO CONSTIPATION; Start 06/05/17 at 17:15 Lactulose 20 gm BID PO Last administered on 06/06/17 12:19; Start 06/06/17 at 12:00; Stop 06/06/17 at 18:00; Status DC Lactobacillus Rhamnosus (Culturelle) 1 cap BID PO Last administered on 21:01; Start 06/06/17 at 21:00 Famotidine (Pepcid) 20 mg DAILY PO Last administered on 06/10/17 08:51; Start 06/09/17 at 09:00 Tamsulosin HCl (Flomax) 0.4 mg QHS PO Last administered on 06/10/17 21:01; Start 06/10/17 at 21:00 Active Scripts Active Cozaar (Losartan Potassium) 50 Mg Tablet 50 Mg PO DAILY Flomax (Tamsulosin Hcl) 0.4 Mg Cap.er.24h 0.4 Mg PO QHS Isosorbide Mononitrate Er (Isosorbide Mononitrate) 30 Mg Tab.er.24h 30 Mg PO DAILY 30 Days Albuterol Sulfate Neb Soln (Albuterol Sulfate) 2.5 Mg/3 Ml Vial.neb 2.5 Mg NEB PRN QID PRN 30 Days Reported Trazodone Hcl 50 Mg Tablet 1 Tab PO QHS Flomax (Tamsulosin Hcl) 0.4 Mg Cap.er.24h 1 Cap PO HS Sotalol (Sotalol Hcl) 80 Mg Tablet 1 Tab PO BID Potassium Chloride 10 Meq Tablet.er 20 Meq PO QODAY NITROGLYCERIN SubLingual (Nitroglycerin) 0.4 Mg Tab.subl 0.4 Mg SL PRN Q5MIN PRN Multivitamins (Multivitamin) 1 Each Tablet 1 Tab PO DAILY Losartan Potassium 50 Mg Tablet 50 Mg PO DAILY Isosorbide Mononitrate Er (Isosorbide Mononitrate) 30 Mg Tab.er.24h 1 Tab PO DAILY Albuterol Sulfate Neb Soln (Albuterol Sulfate) 2.5 Mg/3 Ml Vial.neb 2.5 Mg NEB QID Furosemide 40 Mg Tablet 1 Tab PO QODAY Famotidine 20 Mg Tablet 20 Mg PO HS Plavix (Clopidogrel Bisulfate) 75 Mg Tablet 1 Tab PO DAILY Allopurinol 100 Mg Tablet 2 Tab PO DAILY Tylenol (Acetaminophen) 325 Mg Tablet 2 Tab PO PRN Q4HRS Lasix (Furosemide) 40 Mg Tablet 1 Tab PO QODAY Nitrostat (Nitroglycerin) 0.4 Mg Tab.subl 1 Tab SL UD Trazodone Hcl 50 Mg Tablet 1 Tab PO QHS Plavix (Clopidogrel Bisulfate) 75 Mg Tablet 75 Mg PO DAILY Imdur (Isosorbide Mononitrate) 30 Mg Tab.er.24h 30 Mg PO DAILY Pepcid (Famotidine) 20 Mg Tablet 20 Mg PO BID Betapace (Sotalol Hcl) 80 Mg Tablet 80 Mg PO BID Allopurinol 100 Mg Tablet 200 Mg PO DAILY Vitals/I & O Vital Sign - Last 24 Hours 06/10/17 06/10/17 06/10/17 06/10/17 10:45 12:06 14:45 16:11 Temp 97.4 97.6 97.4 97.6 Pulse 73 72 Resp 16 16 B/P (MAP) 100/57 (71) 95/57 (70) Pulse Ox 95 96 94 96 O2 Delivery Nasal Cannula Nasal Cannula Nasal Cannula Nasal Cannula O2 Flow Rate 1.5 1.0 1.5 1.0 06/10/17 06/10/17 06/10/17 06/10/17 19:15 19:34 20:00 20:00 Temp 97.5 97.5 Pulse 76 Resp 18 B/P (MAP) 93/50 (64) Pulse Ox 94 95 O2 Delivery Nasal Cannula Nasal Cannula Nasal Cannula Nasal Cannula O2 Flow Rate 2.0 1.0 1.0 1.0 06/10/17 06/10/17 06/11/17 06/11/17 21:00 23:05 03:25 07:00 Temp 97.7 97.3 97.6 97.7 97.3 97.6 Pulse 76 73 72 73 Resp 18 20 16 B/P (MAP) 93/50 91/55 (67) 118/63 (81) 130/73 (92) Pulse Ox 93 94 92 O2 Delivery Nasal Cannula Nasal Cannula Nasal Cannula O2 Flow Rate 2.0 2.0 2.0 06/11/17 08:11 Pulse Ox 91 O2 Delivery Nasal Cannula O2 Flow Rate 1.0 Intake and Output 06/10/17 06/10/17 06/11/17 15:00 23:00 07:00 Intake Total 120 ml 500 ml 200 ml Output Total 70 ml 400 ml 250 ml Balance 50 ml 100 ml -50 ml Nutrition Consultation Dietary Evaluation: Recommendations by RD: Increase Calorie Intake, Protein supplementation Comments: Continue cardiac diet Pt to request oral supplements prn from nursing Expected Outcomes/Goals: PO intake to meet > 75% est needs Malnutrition Findings: Body Fat Depletion (Non Severe: Mild Depletion Weight Status: Underweight LAURE OLIVER MD Jun 11, 2017 08:55
[2017-06-11] MEDS: OMEGA-3 FATTY ACIDS/FISH OIL 1,000 MG CAPSULE. PO SCH (09:00)
[2017-06-11] MEDS: FUROSEMIDE 40 MG TABLET. PO SCH (09:11)
[2017-06-11] MEDS: FAMOTIDINE 20 MG TABLET. PO SCH (09:11)
[2017-06-11] MEDS: MULTIVITAMIN with MINERAL TABLET. PO SCH (09:11)
[2017-06-11] MEDS: ALLOPURINOL 100 MG TABLET. PO SCH (09:12)
[2017-06-11] MEDS: ISOSORBIDE MONONITRATE ER 30 MG TAB.ER.24H PO SCH (09:12)
[2017-06-11] MEDS: POTASSIUM CHLORIDE 20 MEQ TABLET.ER. PO SCH (09:12)
[2017-06-11] MEDS: SOTALOL 80 MG TABLET. PO SCH ×2 (09:13→21:08)
[2017-06-11] MEDS: CLOPIDOGREL BISULFATE 75 MG TABLET PO SCH (09:13)
[2017-06-11] MEDS: LACTOBACILLUS RHAMNOSUS GG 1 CAPSULE. PO SCH ×2 (09:13→21:07)
--- NOTE | 2017-06-11 09:50 | RAD ---
AP portable chest radiograph 06/11/2017 Clinical History: Pneumothorax. An AP portable erect digital radiograph of the chest was obtained. Comparison study is dated June 10, 2017. A pacemaker is unchanged in position. A left-sided chest tube is unchanged. The cardiac silhouette is normal in size. Atherosclerotic calcification of the thoracic aorta is seen. The thoracic aorta is mildly tortuous. There is a tiny left apical pneumothorax, unchanged. Right lower lobe atelectasis/scarring and/or infiltrate is unchanged. No pleural effusion is seen. The osseous structures are unchanged. Impression: Left-sided chest tube is unchanged in position. Tiny left apical pneumothorax, unchanged
[2017-06-11 11:00] VITALS: BP 109/61
[2017-06-11 12:17] LABS: BILIRUBIN,URINE NEGATIVE (NEG); GLUCOSE,URINE NEGATIVE (NEG); NITRITE,URINE NEGATIVE (NEG); PROTEIN,URINE 30 mg/dL (NEG-TRACE); UROBILINOGEN,URINE 0.2 mg/dL (0.2 mg/dL)
[2017-06-11 12:41] LABS: BACTERIA,URINE FEW /HPF (0-FEW)
[2017-06-11 15:00] VITALS: BP 108/56
[2017-06-11] MEDS: cefTRIAXone IV Push 1 GM VIAL. IVP SCH (15:01)
--- NOTE | 2017-06-11 15:48 | PDOC ---
PROGRESS NOTES Subjective Subjective No complaints. Tolerating chest tube well. Objective Objective Vital Signs Date Time Temp Pulse Resp B/P (MAP) Pulse Ox O2 Delivery O2 Flow Rate FiO2 06/11/17 15:22 94 Nasal Cannula 2.0 06/11/17 15:00 97.9 78 16 108/56 (73) 97.9 Intake and Output 06/11/17 07:00 Intake Total 820 ml Output Total 720 ml Balance 100 ml Intake Oral 820 ml Output Urine Total 650 ml Chest Tube Drainage Total 70 ml Physical Exam Heart: Regular rate, No murmurs Extremities: No clubbing, No edema General: Alert, Oriented X3 HEENT: Atraumatic Lungs: Other (chest tube in place with water seal) Neck: No JVD Skin: No rashes Diagnosis RESPIRATORY DISEASE: Other (Pneumothorax) Assessment Assessment Problems Medical Problems: (1) Congestive heart failure Status: Acute (2) COPD (chronic obstructive pulmonary disease) Status: Acute (3) Stage III chronic kidney disease Status: Acute (4) Tension pneumothorax, spontaneous Status: Acute (5) Urinary tract infection Status: Acute Plan Plan of Care Continue with chest tube. Agree with current plan. Comment Review of Relevant I have reviewed the following items lucio (where applicable) has been applied. Labs Laboratory Tests Test 06/10/17 03:30 06/11/17 10:30 White Blood Count 11.5 x10^3/uL (4.0-11.0) Red Blood Count 3.14 x10^6/uL (4.30-5.70) Hemoglobin 10.0 g/dL (13.0-17.5) Hematocrit 30.6 % (39.0-53.0) Mean Corpuscular Volume 98 fL (79-100) Mean Corpuscular Hemoglobin 32 pg (25-35) Mean Corpuscular Hemoglobin Concent 33 g/dL (31-37) Red Cell Distribution Width 15.8 % (11.5-14.5) Platelet Count 200 x10^3/uL (140-400) Neutrophils (%) (Auto) 80 % (31-73) Lymphocytes (%) (Auto) 8 % (24-48) Monocytes (%) (Auto) 6 % (0-9) Eosinophils (%) (Auto) 6 % (0-3) Basophils (%) (Auto) 1 % (0-3) Neutrophils # (Auto) 9.1 x10^3uL (1.8-7.7) Lymphocytes # (Auto) 0.9 x10^3/uL (1.0-4.8) Monocytes # (Auto) 0.6 x10^3/uL (0.0-1.1) Eosinophils # (Auto) 0.7 x10^3/uL (0.0-0.7) Basophils # (Auto) 0.1 x10^3/uL (0.0-0.2) Sodium Level 144 mmol/L (136-145) Potassium Level 3.9 mmol/L (3.5-5.1) Chloride Level 108 mmol/L (98-107) Carbon Dioxide Level 30 mmol/L (21-32) Anion Gap 6 (6-14) Blood Urea Nitrogen 21 mg/dL (8-26) Creatinine 1.3 mg/dL (0.7-1.3) Estimated GFR (Cockcroft-Gault) 52.6 Glucose Level 110 mg/dL (70-99) Calcium Level 9.9 mg/dL (8.5-10.1) Urine Collection Type Unknown Urine Color Yellow Urine Clarity Clear Urine pH 6.0 Urine Specific [place] 1.020 Urine Protein 30 mg/dL (NEG-TRACE) Urine Glucose (UA) Negative mg/dL (NEG) Urine Ketones (Stick) Negative mg/dL (NEG) Urine Blood Moderate (NEG) Urine Nitrite Negative (NEG) Urine Bilirubin Negative (NEG) Urine Urobilinogen Dipstick 0.2 mg/dL (0.2 mg/dL) Urine Leukocyte Esterase Moderate (NEG) Urine RBC 3-5 /HPF (0-2) Urine WBC 11-20 /HPF (0-4) Urine Bacteria Few /HPF (0-FEW) Urine Hyaline Casts Few /HPF Urine Mucus Mod /LPF Laboratory Tests Test 06/11/17 10:30 Urine Collection Type Unknown Urine Color Yellow Urine Clarity Clear Urine pH 6.0 Urine Specific [place] 1.020 Urine Protein 30 mg/dL (NEG-TRACE) Urine Glucose (UA) Negative mg/dL (NEG) Urine Ketones (Stick) Negative mg/dL (NEG) Urine Blood Moderate (NEG) Urine Nitrite Negative (NEG) Urine Bilirubin Negative (NEG) Urine Urobilinogen Dipstick 0.2 mg/dL (0.2 mg/dL) Urine Leukocyte Esterase Moderate (NEG) Urine RBC 3-5 /HPF (0-2) Urine WBC 11-20 /HPF (0-4) Urine Bacteria Few /HPF (0-FEW) Urine Hyaline Casts Few /HPF Urine Mucus Mod /LPF Microbiology 06/05/17 Urine Culture - Final, Complete 06/05/17 Urine Culture Result 1 (MELLISA) - Final, Complete 06/05/17 Antimicrobic Susceptibility - Final, Complete Medications Current Medications Sodium Chloride 1,000 ml @ 75 mls/hr [id number] IV Last administered on 11:58; Start 06/05/17 at 11:46; Stop 06/05/17 at 14:25; Status DC Midazolam HCl (Versed) 2 mg STK-MED ONCE .ROUTE ; Start 06/05/17 at 13:06; Stop 06/05/17 at 13:07; Status DC Midazolam HCl (Versed) 1 mg 1X ONCE IV Last administered on 06/05/17 13:27; Start 06/05/17 at 13:15; Stop 06/05/17 at 13:16; Status DC Lidocaine/ Epinephrine (Xylocaine 1%-Epi 1:100,000) 20 ml 1X ONCE INJ ; Start 06/05/17 at 13:15; Stop 06/05/17 at 13:16; Status DC Ceftriaxone Sodium 50 ml @ 100 mls/hr 1X ONCE IV Last administered on 13:40; Start 06/05/17 at 13:15; Stop 06/05/17 at 13:44; Status DC Lidocaine/ Epinephrine (Xylocaine 2%-Epi 1:100,000) 20 ml 1X ONCE IJ Last administered on 06/05/17 13:32; Start 06/05/17 at 13:15; Stop 06/05/17 at 13 :16; Status DC Ondansetron HCl (Zofran) 4 mg PRN Q8HRS PRN IV NAUSEA/VOMITING; Start at 14:30; Stop 06/06/17 at 14:29; Status DC Fentanyl Citrate (Fentanyl 2ml Vial) 50 mcg PRN Q2HR PRN IV PAIN Last administered on 06/05/17 22:49; Start 06/05/17 at 14:30; Stop 06/06/17 at 14 :29; Status DC Sodium Chloride 1,000 ml @ 125 mls/hr Q8H IV ; Start 06/05/17 at 15:00; Stop 06/06/17 at 07:03; Status DC Acetaminophen (Tylenol) 650 mg PRN Q4HRS PRN PO FEVER; Start 06/05/17 at 14:30 ; Stop 06/06/17 at 14:29; Status DC Ceftriaxone Sodium 1 gm/ Dextrose 50 ml @ 100 mls/hr Q24H IV ; Start 06/05/17 at 14:30; Status UNV Ceftriaxone Sodium 1 gm/ Dextrose 50 ml @ 100 mls/hr Q24H IV ; Start 06/05/17 at 14:30; Status UNV Albuterol/ Ipratropium (Duoneb) 3 ml RTQID NEB Last administered on 06/11/17 15:22; Start 06/05/17 at 16:00 Ceftriaxone Sodium (Rocephin) 1 gm Q24H IVP Last administered on 06/11/17 15: 01; Start 06/06/17 at 15:00 Allopurinol (Zyloprim) 200 mg DAILY PO Last administered on 06/11/17 09:12; Start 06/06/17 at 09:00 Sotalol HCl (Betapace) 80 mg BID PO Last administered on 06/11/17 09:13; Start 06/05/17 at 21:00 Famotidine (Pepcid) 20 mg BID PO Last administered on 06/08/17 08:52; Start 06/05/17 at 21:00; Stop 06/08/17 at 11:10; Status DC Furosemide (Lasix) 40 mg QODAY PO Last administered on 06/11/17 09:11; Start 06/07/17 at 09:00 Isosorbide Mononitrate (Imdur) 30 mg DAILY PO Last administered on 06/11/17 09:12; Start 06/06/17 at 09:00 Mirtazapine (Remeron) 7.5 mg QHS PO Last administered on 06/10/17 21:01; Start 06/05/17 at 21:00 Multivitamins (Thera M Plus) 1 tab DAILY PO Last administered on 06/11/17 09: 11; Start 06/06/17 at 09:00 Nitroglycerin (Nitrostat) 0.4 mg PRN Q5MIN PRN SL CHEST PAIN; Start 06/05/17 at 17:15 Fish Oil (Fish Oil) 1,000 mg DAILY PO ; Start 06/06/17 at 09:00 Clopidogrel Bisulfate (Plavix) 75 mg DAILYWBKFT PO Last administered on 09:13; Start 06/06/17 at 08:00 Potassium Chloride (Klor-Con) 20 meq QODAY PO Last administered on 06/11/17 09:12; Start 06/07/17 at 09:00 Trazodone HCl (Desyrel) 50 mg QHS PO Last administered on 06/10/17 21:01; Start 06/05/17 at 21:00 Acetaminophen (Tylenol) 650 mg PRN Q6HRS PRN PO MILD PAIN / TEMP Last administered on 06/09/17 09:27; Start 06/05/17 at 17:15 Magnesium Hydroxide (Milk Of Magnesia) 2,400 mg PRN DAILY PRN PO CONSTIPATION; Start 06/05/17 at 17:15 Lactulose 20 gm BID PO Last administered on 06/06/17 12:19; Start 06/06/17 at 12:00; Stop 06/06/17 at 18:00; Status DC Lactobacillus Rhamnosus (Culturelle) 1 cap BID PO Last administered on 09:13; Start 06/06/17 at 21:00 Famotidine (Pepcid) 20 mg DAILY PO Last administered on 06/11/17 09:11; Start 06/09/17 at 09:00 Tamsulosin HCl (Flomax) 0.4 mg QHS PO Last administered on 06/10/17 21:01; Start 06/10/17 at 21:00 Active Scripts Active Cozaar (Losartan Potassium) 50 Mg Tablet 50 Mg PO DAILY Flomax (Tamsulosin Hcl) 0.4 Mg Cap.er.24h 0.4 Mg PO QHS Isosorbide Mononitrate Er (Isosorbide Mononitrate) 30 Mg Tab.er.24h 30 Mg PO DAILY 30 Days Albuterol Sulfate Neb Soln (Albuterol Sulfate) 2.5 Mg/3 Ml Vial.neb 2.5 Mg NEB PRN QID PRN 30 Days Reported Trazodone Hcl 50 Mg Tablet 1 Tab PO QHS Flomax (Tamsulosin Hcl) 0.4 Mg Cap.er.24h 1 Cap PO HS Sotalol (Sotalol Hcl) 80 Mg Tablet 1 Tab PO BID Potassium Chloride 10 Meq Tablet.er 20 Meq PO QODAY NITROGLYCERIN SubLingual (Nitroglycerin) 0.4 Mg Tab.subl 0.4 Mg SL PRN Q5MIN PRN Multivitamins (Multivitamin) 1 Each Tablet 1 Tab PO DAILY Losartan Potassium 50 Mg Tablet 50 Mg PO DAILY Isosorbide Mononitrate Er (Isosorbide Mononitrate) 30 Mg Tab.er.24h 1 Tab PO DAILY Albuterol Sulfate Neb Soln (Albuterol Sulfate) 2.5 Mg/3 Ml Vial.neb 2.5 Mg NEB QID Furosemide 40 Mg Tablet 1 Tab PO QODAY Famotidine 20 Mg Tablet 20 Mg PO HS Plavix (Clopidogrel Bisulfate) 75 Mg Tablet 1 Tab PO DAILY Allopurinol 100 Mg Tablet 2 Tab PO DAILY Tylenol (Acetaminophen) 325 Mg Tablet 2 Tab PO PRN Q4HRS Lasix (Furosemide) 40 Mg Tablet 1 Tab PO QODAY Nitrostat (Nitroglycerin) 0.4 Mg Tab.subl 1 Tab SL UD Trazodone Hcl 50 Mg Tablet 1 Tab PO QHS Plavix (Clopidogrel Bisulfate) 75 Mg Tablet 75 Mg PO DAILY Imdur (Isosorbide Mononitrate) 30 Mg Tab.er.24h 30 Mg PO DAILY Pepcid (Famotidine) 20 Mg Tablet 20 Mg PO BID Betapace (Sotalol Hcl) 80 Mg Tablet 80 Mg PO BID Allopurinol 100 Mg Tablet 200 Mg PO DAILY Vitals/I & O Vital Sign - Last 24 Hours 06/10/17 06/10/17 06/10/17 06/10/17 16:11 19:15 19:34 20:00 Temp 97.5 97.5 Pulse 76 Resp 18 B/P (MAP) 93/50 (64) Pulse Ox 96 94 95 O2 Delivery Nasal Cannula Nasal Cannula Nasal Cannula Nasal Cannula O2 Flow Rate 1.0 2.0 1.0 1.0 06/10/17 06/10/17 06/10/17 06/11/17 20:00 21:00 23:05 03:25 Temp 97.7 97.3 97.7 97.3 Pulse 76 73 72 Resp 18 20 B/P (MAP) 93/50 91/55 (67) 118/63 (81) Pulse Ox 93 94 O2 Delivery Nasal Cannula Nasal Cannula Nasal Cannula O2 Flow Rate 1.0 2.0 2.0 06/11/17 06/11/17 06/11/17 06/11/17 07:00 08:05 08:11 09:12 Temp 97.6 97.6 Pulse 73 84 Resp 16 B/P (MAP) 130/73 (92) 130/73 Pulse Ox 92 91 O2 Delivery Nasal Cannula Nasal Cannula Nasal Cannula O2 Flow Rate 2.0 1.0 1.0 06/11/17 06/11/17 06/11/17 06/11/17 09:13 11:00 11:38 15:00 Temp 97.7 97.9 97.7 97.9 Pulse 84 73 78 Resp 16 16 B/P (MAP) 130/73 109/61 (77) 108/56 (73) Pulse Ox 94 94 95 O2 Delivery Nasal Cannula Nasal Cannula Nasal Cannula O2 Flow Rate 2.0 2.0 2.0 06/11/17 15:22 Pulse Ox 94 O2 Delivery Nasal Cannula O2 Flow Rate 2.0 Intake and Output 06/10/17 06/10/17 06/11/17 15:00 23:00 07:00 Intake Total 120 ml 500 ml 200 ml Output Total 70 ml 400 ml 250 ml Balance 50 ml 100 ml -50 ml Nutrition Consultation Dietary Evaluation: Recommendations by RD: Increase Calorie Intake, Protein supplementation Comments: Continue cardiac diet Pt to request oral supplements prn from nursing Expected Outcomes/Goals: PO intake to meet > 75% est needs Malnutrition Findings: Body Fat Depletion (Non Severe: Mild Depletion Weight Status: Underweight ZEESHAN TOSCANO MD Jun 11, 2017 15:48
[2017-06-11 19:30] VITALS: BP 106/58
[2017-06-11] MEDS: MIRTAZAPINE 7.5 MG TABLET. PO SCH (21:07)
[2017-06-11] MEDS: traZODone 50 MG TABLET. PO SCH (21:07)
[2017-06-11] MEDS: TAMSULOSIN 0.4 MG CAP.ER.24H. PO SCH (21:07)
[2017-06-11 23:10] VITALS: BP 98/53
[2017-06-12 03:35] VITALS: BP 108/65
[2017-06-12 07:00] VITALS: BP 118/62
[2017-06-12] MEDS: IPRATRPIUM/ALBUTEROL 0.5/2.5MG 3 ML NEBU. NEB SCH ×4 (07:52→20:49)
--- NOTE | 2017-06-12 08:24 | RAD ---
Indication: Pneumothorax. Time of exam 0726 hours. Comparison is made with prior chest from one day earlier. The heart size is stable. Cardiac defibrillator remains in place. Left chest tube remains in place. No significant pneumothorax is present. Infiltrate right upper and right lower lobe is unchanged. Left lung is fairly clear. Impression: Overall stable appearance to the chest when compared with one day earlier. No significant pneumothorax is detected.
[2017-06-12] MEDS: OMEGA-3 FATTY ACIDS/FISH OIL 1,000 MG CAPSULE. PO SCH (08:39)
[2017-06-12] MEDS: LACTOBACILLUS RHAMNOSUS GG 1 CAPSULE. PO SCH ×2 (08:39→20:04)
[2017-06-12] MEDS: MULTIVITAMIN with MINERAL TABLET. PO SCH (08:40)
[2017-06-12] MEDS: ISOSORBIDE MONONITRATE ER 30 MG TAB.ER.24H PO SCH (08:40)
[2017-06-12] MEDS: FAMOTIDINE 20 MG TABLET. PO SCH ×2 (08:40→20:04)
[2017-06-12] MEDS: SOTALOL 80 MG TABLET. PO SCH ×2 (08:40→20:04)
[2017-06-12] MEDS: ALLOPURINOL 100 MG TABLET. PO SCH (08:40)
[2017-06-12] MEDS: CLOPIDOGREL BISULFATE 75 MG TABLET PO SCH (08:40)
--- NOTE | 2017-06-12 09:10 | PDOC ---
PROGRESS NOTES Subjective Subjective feeling okay. eating better. cxr shows no significant pneumothorax. discussed with daughter. Objective Objective Vital Signs Date Time Temp Pulse Resp B/P (MAP) Pulse Ox O2 Delivery O2 Flow Rate FiO2 06/12/17 08:40 75 118/62 06/12/17 07:52 93 Nasal Cannula 1.0 06/12/17 07:00 97.8 16 97.8 Intake and Output 06/12/17 07:00 Intake Total 1000 ml Output Total 850 ml Balance 150 ml Intake Oral 1000 ml Output Urine Total 850 ml Chest Tube Drainage Total 0 ml Physical Exam Abdomen: Soft Heart: Regular rate, Normal S1, Normal S2 Extremities: No edema General: Alert HEENT: Atraumatic Lungs: Clear to auscultation, Other (left sided chest tube) Neuro: Normal speech Psych/Mental Status: Mental status NL Skin: No rashes Assessment Assessment ProblemsLeft pneumothorax treated with a chest tube with persistent air leak 2. 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 Severe end-stage chronic obstructive pulmonary disease. 4. Secondary pulmonary hypertension. 5. Coronary artery disease. 6. Ischemic cardiomyopathy with a left ventricular ejection fraction of 20%. 7. Chronic kidney disease, stage 3. 8. Weight loss, presumably secondary to malignancy. 9. Chronic systolic congestive heart failure. 10. Acute on chronic hypoxic respiratory failure. 11. Chronic anemia. 12. Klebsiella oxytoca uti urine retention/ figueroa placed Medical Problems: (1) Congestive heart failure Status: Acute (2) COPD (chronic obstructive pulmonary disease) Status: Acute (3) Stage III chronic kidney disease Status: Acute (4) Tension pneumothorax, spontaneous Status: Acute (5) Urinary tract infection Status: Acute Plan Plan of Care continue chest tube continue figueroa continue flomax Comment Review of Relevant I have reviewed the following items lucio (where applicable) has been applied. Labs Laboratory Tests Test 06/11/17 10:30 Urine Collection Type Unknown Urine Color Yellow Urine Clarity Clear Urine pH 6.0 Urine Specific [place] 1.020 Urine Protein 30 mg/dL (NEG-TRACE) Urine Glucose (UA) Negative mg/dL (NEG) Urine Ketones (Stick) Negative mg/dL (NEG) Urine Blood Moderate (NEG) Urine Nitrite Negative (NEG) Urine Bilirubin Negative (NEG) Urine Urobilinogen Dipstick 0.2 mg/dL (0.2 mg/dL) Urine Leukocyte Esterase Moderate (NEG) Urine RBC 3-5 /HPF (0-2) Urine WBC 11-20 /HPF (0-4) Urine Bacteria Few /HPF (0-FEW) Urine Hyaline Casts Few /HPF Urine Mucus Mod /LPF Laboratory Tests Test 06/11/17 10:30 Urine Collection Type Unknown Urine Color Yellow Urine Clarity Clear Urine pH 6.0 Urine Specific [place] 1.020 Urine Protein 30 mg/dL (NEG-TRACE) Urine Glucose (UA) Negative mg/dL (NEG) Urine Ketones (Stick) Negative mg/dL (NEG) Urine Blood Moderate (NEG) Urine Nitrite Negative (NEG) Urine Bilirubin Negative (NEG) Urine Urobilinogen Dipstick 0.2 mg/dL (0.2 mg/dL) Urine Leukocyte Esterase Moderate (NEG) Urine RBC 3-5 /HPF (0-2) Urine WBC 11-20 /HPF (0-4) Urine Bacteria Few /HPF (0-FEW) Urine Hyaline Casts Few /HPF Urine Mucus Mod /LPF Microbiology 06/05/17 Urine Culture - Final, Complete 06/05/17 Urine Culture Result 1 (MELLISA) - Final, Complete 06/05/17 Antimicrobic Susceptibility - Final, Complete Medications Current Medications Sodium Chloride 1,000 ml @ 75 mls/hr [id number] IV Last administered on 11:58; Start 06/05/17 at 11:46; Stop 06/05/17 at 14:25; Status DC Midazolam HCl (Versed) 2 mg STK-MED ONCE .ROUTE ; Start 06/05/17 at 13:06; Stop 06/05/17 at 13:07; Status DC Midazolam HCl (Versed) 1 mg 1X ONCE IV Last administered on 06/05/17 13:27; Start 06/05/17 at 13:15; Stop 06/05/17 at 13:16; Status DC Lidocaine/ Epinephrine (Xylocaine 1%-Epi 1:100,000) 20 ml 1X ONCE INJ ; Start 06/05/17 at 13:15; Stop 06/05/17 at 13:16; Status DC Ceftriaxone Sodium 50 ml @ 100 mls/hr 1X ONCE IV Last administered on 13:40; Start 06/05/17 at 13:15; Stop 06/05/17 at 13:44; Status DC Lidocaine/ Epinephrine (Xylocaine 2%-Epi 1:100,000) 20 ml 1X ONCE IJ Last administered on 06/05/17 13:32; Start 06/05/17 at 13:15; Stop 06/05/17 at 13 :16; Status DC Ondansetron HCl (Zofran) 4 mg PRN Q8HRS PRN IV NAUSEA/VOMITING; Start at 14:30; Stop 06/06/17 at 14:29; Status DC Fentanyl Citrate (Fentanyl 2ml Vial) 50 mcg PRN Q2HR PRN IV PAIN Last administered on 06/05/17 22:49; Start 06/05/17 at 14:30; Stop 06/06/17 at 14 :29; Status DC Sodium Chloride 1,000 ml @ 125 mls/hr Q8H IV ; Start 06/05/17 at 15:00; Stop 06/06/17 at 07:03; Status DC Acetaminophen (Tylenol) 650 mg PRN Q4HRS PRN PO FEVER; Start 06/05/17 at 14:30 ; Stop 06/06/17 at 14:29; Status DC Ceftriaxone Sodium 1 gm/ Dextrose 50 ml @ 100 mls/hr Q24H IV ; Start 06/05/17 at 14:30; Status UNV Ceftriaxone Sodium 1 gm/ Dextrose 50 ml @ 100 mls/hr Q24H IV ; Start 06/05/17 at 14:30; Status UNV Albuterol/ Ipratropium (Duoneb) 3 ml RTQID NEB Last administered on 06/12/17 07:52; Start 06/05/17 at 16:00 Ceftriaxone Sodium (Rocephin) 1 gm Q24H IVP Last administered on 06/11/17 15: 01; Start 06/06/17 at 15:00 Allopurinol (Zyloprim) 200 mg DAILY PO Last administered on 06/12/17 08:40; Start 06/06/17 at 09:00 Sotalol HCl (Betapace) 80 mg BID PO Last administered on 06/12/17 08:40; Start 06/05/17 at 21:00 Famotidine (Pepcid) 20 mg BID PO Last administered on 06/08/17 08:52; Start 06/05/17 at 21:00; Stop 06/08/17 at 11:10; Status DC Furosemide (Lasix) 40 mg QODAY PO Last administered on 06/11/17 09:11; Start 06/07/17 at 09:00 Isosorbide Mononitrate (Imdur) 30 mg DAILY PO Last administered on 06/12/17 08:40; Start 06/06/17 at 09:00 Mirtazapine (Remeron) 7.5 mg QHS PO Last administered on 06/11/17 21:07; Start 06/05/17 at 21:00 Multivitamins (Thera M Plus) 1 tab DAILY PO Last administered on 06/12/17 08: 40; Start 06/06/17 at 09:00 Nitroglycerin (Nitrostat) 0.4 mg PRN Q5MIN PRN SL CHEST PAIN; Start 06/05/17 at 17:15 Fish Oil (Fish Oil) 1,000 mg DAILY PO ; Start 06/06/17 at 09:00 Clopidogrel Bisulfate (Plavix) 75 mg DAILYWBKFT PO Last administered on 08:40; Start 06/06/17 at 08:00 Potassium Chloride (Klor-Con) 20 meq QODAY PO Last administered on 06/11/17 09:12; Start 06/07/17 at 09:00 Trazodone HCl (Desyrel) 50 mg QHS PO Last administered on 06/11/17 21:07; Start 06/05/17 at 21:00 Acetaminophen (Tylenol) 650 mg PRN Q6HRS PRN PO MILD PAIN / TEMP Last administered on 06/09/17 09:27; Start 06/05/17 at 17:15 Magnesium Hydroxide (Milk Of Magnesia) 2,400 mg PRN DAILY PRN PO CONSTIPATION; Start 06/05/17 at 17:15 Lactulose 20 gm BID PO Last administered on 06/06/17 12:19; Start 06/06/17 at 12:00; Stop 06/06/17 at 18:00; Status DC Lactobacillus Rhamnosus (Culturelle) 1 cap BID PO Last administered on 08:39; Start 06/06/17 at 21:00 Famotidine (Pepcid) 20 mg DAILY PO Last administered on 06/12/17 08:40; Start 06/09/17 at 09:00 Tamsulosin HCl (Flomax) 0.4 mg QHS PO Last administered on 06/11/17 21:07; Start 06/10/17 at 21:00 Active Scripts Active Cozaar (Losartan Potassium) 50 Mg Tablet 50 Mg PO DAILY Flomax (Tamsulosin Hcl) 0.4 Mg Cap.er.24h 0.4 Mg PO QHS Isosorbide Mononitrate Er (Isosorbide Mononitrate) 30 Mg Tab.er.24h 30 Mg PO DAILY 30 Days Albuterol Sulfate Neb Soln (Albuterol Sulfate) 2.5 Mg/3 Ml Vial.neb 2.5 Mg NEB PRN QID PRN 30 Days Reported Trazodone Hcl 50 Mg Tablet 1 Tab PO QHS Flomax (Tamsulosin Hcl) 0.4 Mg Cap.er.24h 1 Cap PO HS Sotalol (Sotalol Hcl) 80 Mg Tablet 1 Tab PO BID Potassium Chloride 10 Meq Tablet.er 20 Meq PO QODAY NITROGLYCERIN SubLingual (Nitroglycerin) 0.4 Mg Tab.subl 0.4 Mg SL PRN Q5MIN PRN Multivitamins (Multivitamin) 1 Each Tablet 1 Tab PO DAILY Losartan Potassium 50 Mg Tablet 50 Mg PO DAILY Isosorbide Mononitrate Er (Isosorbide Mononitrate) 30 Mg Tab.er.24h 1 Tab PO DAILY Albuterol Sulfate Neb Soln (Albuterol Sulfate) 2.5 Mg/3 Ml Vial.neb 2.5 Mg NEB QID Furosemide 40 Mg Tablet 1 Tab PO QODAY Famotidine 20 Mg Tablet 20 Mg PO HS Plavix (Clopidogrel Bisulfate) 75 Mg Tablet 1 Tab PO DAILY Allopurinol 100 Mg Tablet 2 Tab PO DAILY Tylenol (Acetaminophen) 325 Mg Tablet 2 Tab PO PRN Q4HRS Lasix (Furosemide) 40 Mg Tablet 1 Tab PO QODAY Nitrostat (Nitroglycerin) 0.4 Mg Tab.subl 1 Tab SL UD Trazodone Hcl 50 Mg Tablet 1 Tab PO QHS Plavix (Clopidogrel Bisulfate) 75 Mg Tablet 75 Mg PO DAILY Imdur (Isosorbide Mononitrate) 30 Mg Tab.er.24h 30 Mg PO DAILY Pepcid (Famotidine) 20 Mg Tablet 20 Mg PO BID Betapace (Sotalol Hcl) 80 Mg Tablet 80 Mg PO BID Allopurinol 100 Mg Tablet 200 Mg PO DAILY Vitals/I & O Vital Sign - Last 24 Hours 06/11/17 06/11/17 06/11/17 06/11/17 09:12 09:13 11:00 11:38 Temp 97.7 97.7 Pulse 84 84 73 Resp 16 B/P (MAP) 130/73 130/73 109/61 (77) Pulse Ox 94 94 O2 Delivery Nasal Cannula Nasal Cannula O2 Flow Rate 2.0 2.0 06/11/17 06/11/17 06/11/17 06/11/17 15:00 15:22 19:06 19:30 Temp 97.9 98.0 97.9 98.0 Pulse 78 74 Resp 16 20 B/P (MAP) 108/56 (73) 106/58 (74) Pulse Ox 95 94 92 92 O2 Delivery Nasal Cannula Nasal Cannula Nasal Cannula Nasal Cannula O2 Flow Rate 2.0 2.0 1.0 1.0 06/11/17 06/11/17 06/11/17 06/12/17 20:00 21:08 23:10 03:35 Temp 97.7 98.0 97.7 98.0 Pulse 74 76 73 Resp 18 18 B/P (MAP) 106/58 98/53 (68) 108/65 (79) Pulse Ox 93 94 O2 Delivery Nasal Cannula Nasal Cannula Nasal Cannula O2 Flow Rate 1.0 1.0 1.0 06/12/17 06/12/17 06/12/17 06/12/17 07:00 07:52 08:40 08:40 Temp 97.8 97.8 Pulse 75 75 75 Resp 16 B/P (MAP) 118/62 (80) 118/62 118/62 Pulse Ox 93 93 O2 Delivery Nasal Cannula Nasal Cannula O2 Flow Rate 1.0 1.0 Intake and Output 06/11/17 06/11/17 06/12/17 15:00 23:00 07:00 Intake Total 500 ml 500 ml Output Total 0 ml 400 ml 450 ml Balance 0 ml 100 ml 50 ml Nutrition Consultation Dietary Evaluation: Recommendations by RD: Increase Calorie Intake, Protein supplementation Comments: Continue cardiac diet Pt to request oral supplements prn from nursing Expected Outcomes/Goals: PO intake to meet > 75% est needs Malnutrition Findings: Body Fat Depletion (Non Severe: Mild Depletion Weight Status: Underweight LAURE OLIVER MD Jun 12, 2017 09:10
[2017-06-12 11:00] VITALS: BP 113/64
--- NOTE | 2017-06-12 14:51 | PDOC ---
PROGRESS NOTES Subjective Subjective Mr. Grant states he feels better today. He is no longer requiring supplemental oxygen. Tolerating chest tube. Objective Objective Vital Signs Date Time Temp Pulse Resp B/P (MAP) Pulse Ox O2 Delivery O2 Flow Rate FiO2 06/12/17 12:01 Nasal Cannula 1.0 06/12/17 11:00 98.2 77 16 113/64 (80) 94 98.2 Intake and Output 06/12/17 07:00 Intake Total 1000 ml Output Total 850 ml Balance 150 ml Intake Oral 1000 ml Output Urine Total 850 ml Chest Tube Drainage Total 0 ml Physical Exam Heart: Regular rate, No murmurs Extremities: No clubbing, No edema General: Alert, Oriented X3 HEENT: Atraumatic Lungs: Clear to auscultation Skin: Other COMMENT Chest tube present on Left side and is intact with no erythema or bleeding. Diagnosis RESPIRATORY DISEASE: Other (Acute pneumothorax) Assessment Assessment The patient is very weak but states that he feels a little better today. There seems to be an ongoing leak present. No significant changes cardiac-ji. I agree with present plan. Plan Plan of Care Continue chest tube. Agree with current plan. Comment Review of Relevant I have reviewed the following items lucio (where applicable) has been applied. Labs Laboratory Tests Test 06/11/17 10:30 Urine Collection Type Unknown Urine Color Yellow Urine Clarity Clear Urine pH 6.0 Urine Specific [place] 1.020 Urine Protein 30 mg/dL (NEG-TRACE) Urine Glucose (UA) Negative mg/dL (NEG) Urine Ketones (Stick) Negative mg/dL (NEG) Urine Blood Moderate (NEG) Urine Nitrite Negative (NEG) Urine Bilirubin Negative (NEG) Urine Urobilinogen Dipstick 0.2 mg/dL (0.2 mg/dL) Urine Leukocyte Esterase Moderate (NEG) Urine RBC 3-5 /HPF (0-2) Urine WBC 11-20 /HPF (0-4) Urine Bacteria Few /HPF (0-FEW) Urine Hyaline Casts Few /HPF Urine Mucus Mod /LPF Microbiology 06/11/17 Urine Culture - Preliminary, Resulted 06/11/17 Urine Culture Result 1 (MELLISA) - Preliminary, Resulted Medications Current Medications Sodium Chloride 1,000 ml @ 75 mls/hr [id number] IV Last administered on t 11:58; Start 06/05/17 at 11:46; Stop 06/05/17 at 14:25; Status DC Midazolam HCl (Versed) 2 mg STK-MED ONCE .ROUTE ; Start 06/05/17 at 13:06; Stop 06/05/17 at 13:07; Status DC Midazolam HCl (Versed) 1 mg 1X ONCE IV Last administered on 06/05/17 13:27; Start 06/05/17 at 13:15; Stop 06/05/17 at 13:16; Status DC Lidocaine/ Epinephrine (Xylocaine 1%-Epi 1:100,000) 20 ml 1X ONCE INJ ; Start 06/05/17 at 13:15; Stop 06/05/17 at 13:16; Status DC Ceftriaxone Sodium 50 ml @ 100 mls/hr 1X ONCE IV Last administered on 13:40; Start 06/05/17 at 13:15; Stop 06/05/17 at 13:44; Status DC Lidocaine/ Epinephrine (Xylocaine 2%-Epi 1:100,000) 20 ml 1X ONCE IJ Last administered on 06/05/17 13:32; Start 06/05/17 at 13:15; Stop 06/05/17 at 13 :16; Status DC Ondansetron HCl (Zofran) 4 mg PRN Q8HRS PRN IV NAUSEA/VOMITING; Start at 14:30; Stop 06/06/17 at 14:29; Status DC Fentanyl Citrate (Fentanyl 2ml Vial) 50 mcg PRN Q2HR PRN IV PAIN Last administered on 06/05/17 22:49; Start 06/05/17 at 14:30; Stop 06/06/17 at 14 :29; Status DC Sodium Chloride 1,000 ml @ 125 mls/hr Q8H IV ; Start 06/05/17 at 15:00; Stop 06/06/17 at 07:03; Status DC Acetaminophen (Tylenol) 650 mg PRN Q4HRS PRN PO FEVER; Start 06/05/17 at 14:30 ; Stop 06/06/17 at 14:29; Status DC Ceftriaxone Sodium 1 gm/ Dextrose 50 ml @ 100 mls/hr Q24H IV ; Start 06/05/17 at 14:30; Status UNV Ceftriaxone Sodium 1 gm/ Dextrose 50 ml @ 100 mls/hr Q24H IV ; Start 06/05/17 at 14:30; Status UNV Albuterol/ Ipratropium (Duoneb) 3 ml RTQID NEB Last administered on 06/12/17 12:00; Start 06/05/17 at 16:00 Ceftriaxone Sodium (Rocephin) 1 gm Q24H IVP Last administered on 06/11/17 15: 01; Start 06/06/17 at 15:00; Stop 06/12/17 at 14:21; Status DC Allopurinol (Zyloprim) 200 mg DAILY PO Last administered on 06/12/17 08:40; Start 06/06/17 at 09:00 Sotalol HCl (Betapace) 80 mg BID PO Last administered on 06/12/17 08:40; Start 06/05/17 at 21:00 Famotidine (Pepcid) 20 mg BID PO Last administered on 06/08/17 08:52; Start 06/05/17 at 21:00; Stop 06/08/17 at 11:10; Status DC Furosemide (Lasix) 40 mg QODAY PO Last administered on 06/11/17 09:11; Start 06/07/17 at 09:00 Isosorbide Mononitrate (Imdur) 30 mg DAILY PO Last administered on 06/12/17 08:40; Start 06/06/17 at 09:00 Mirtazapine (Remeron) 7.5 mg QHS PO Last administered on 06/11/17 21:07; Start 06/05/17 at 21:00 Multivitamins (Thera M Plus) 1 tab DAILY PO Last administered on 06/12/17 08: 40; Start 06/06/17 at 09:00 Nitroglycerin (Nitrostat) 0.4 mg PRN Q5MIN PRN SL CHEST PAIN; Start 06/05/17 at 17:15 Fish Oil (Fish Oil) 1,000 mg DAILY PO ; Start 06/06/17 at 09:00 Clopidogrel Bisulfate (Plavix) 75 mg DAILYWBKFT PO Last administered on 08:40; Start 06/06/17 at 08:00 Potassium Chloride (Klor-Con) 20 meq QODAY PO Last administered on 06/11/17 09:12; Start 06/07/17 at 09:00 Trazodone HCl (Desyrel) 50 mg QHS PO Last administered on 06/11/17 21:07; Start 06/05/17 at 21:00 Acetaminophen (Tylenol) 650 mg PRN Q6HRS PRN PO MILD PAIN / TEMP Last administered on 06/09/17 09:27; Start 06/05/17 at 17:15 Magnesium Hydroxide (Milk Of Magnesia) 2,400 mg PRN DAILY PRN PO CONSTIPATION; Start 06/05/17 at 17:15 Lactulose 20 gm BID PO Last administered on 06/06/17 12:19; Start 06/06/17 at 12:00; Stop 06/06/17 at 18:00; Status DC Lactobacillus Rhamnosus (Culturelle) 1 cap BID PO Last administered on 08:39; Start 06/06/17 at 21:00 Famotidine (Pepcid) 20 mg DAILY PO Last administered on 06/12/17 08:40; Start 06/09/17 at 09:00 Tamsulosin HCl (Flomax) 0.4 mg QHS PO Last administered on 06/11/17 21:07; Start 06/10/17 at 21:00 Cefpodoxime Proxetil (Vantin) 200 mg BID PO ; Start 06/12/17 at 15:00 Active Scripts Active Cozaar (Losartan Potassium) 50 Mg Tablet 50 Mg PO DAILY Flomax (Tamsulosin Hcl) 0.4 Mg Cap.er.24h 0.4 Mg PO QHS Isosorbide Mononitrate Er (Isosorbide Mononitrate) 30 Mg Tab.er.24h 30 Mg PO DAILY 30 Days Albuterol Sulfate Neb Soln (Albuterol Sulfate) 2.5 Mg/3 Ml Vial.neb 2.5 Mg NEB PRN QID PRN 30 Days Reported Trazodone Hcl 50 Mg Tablet 1 Tab PO QHS Flomax (Tamsulosin Hcl) 0.4 Mg Cap.er.24h 1 Cap PO HS Sotalol (Sotalol Hcl) 80 Mg Tablet 1 Tab PO BID Potassium Chloride 10 Meq Tablet.er 20 Meq PO QODAY NITROGLYCERIN SubLingual (Nitroglycerin) 0.4 Mg Tab.subl 0.4 Mg SL PRN Q5MIN PRN Multivitamins (Multivitamin) 1 Each Tablet 1 Tab PO DAILY Losartan Potassium 50 Mg Tablet 50 Mg PO DAILY Isosorbide Mononitrate Er (Isosorbide Mononitrate) 30 Mg Tab.er.24h 1 Tab PO DAILY Albuterol Sulfate Neb Soln (Albuterol Sulfate) 2.5 Mg/3 Ml Vial.neb 2.5 Mg NEB QID Furosemide 40 Mg Tablet 1 Tab PO QODAY Famotidine 20 Mg Tablet 20 Mg PO HS Plavix (Clopidogrel Bisulfate) 75 Mg Tablet 1 Tab PO DAILY Allopurinol 100 Mg Tablet 2 Tab PO DAILY Tylenol (Acetaminophen) 325 Mg Tablet 2 Tab PO PRN Q4HRS Lasix (Furosemide) 40 Mg Tablet 1 Tab PO QODAY Nitrostat (Nitroglycerin) 0.4 Mg Tab.subl 1 Tab SL UD Trazodone Hcl 50 Mg Tablet 1 Tab PO QHS Plavix (Clopidogrel Bisulfate) 75 Mg Tablet 75 Mg PO DAILY Imdur (Isosorbide Mononitrate) 30 Mg Tab.er.24h 30 Mg PO DAILY Pepcid (Famotidine) 20 Mg Tablet 20 Mg PO BID Betapace (Sotalol Hcl) 80 Mg Tablet 80 Mg PO BID Allopurinol 100 Mg Tablet 200 Mg PO DAILY Vitals/I & O Vital Sign - Last 24 Hours 06/11/17 06/11/17 06/11/17 06/11/17 15:00 15:22 19:06 19:30 Temp 97.9 98.0 97.9 98.0 Pulse 78 74 Resp 16 20 B/P (MAP) 108/56 (73) 106/58 (74) Pulse Ox 95 94 92 92 O2 Delivery Nasal Cannula Nasal Cannula Nasal Cannula Nasal Cannula O2 Flow Rate 2.0 2.0 1.0 1.0 06/11/17 06/11/17 06/11/17 06/12/17 20:00 21:08 23:10 03:35 Temp 97.7 98.0 97.7 98.0 Pulse 74 76 73 Resp 18 18 B/P (MAP) 106/58 98/53 (68) 108/65 (79) Pulse Ox 93 94 O2 Delivery Nasal Cannula Nasal Cannula Nasal Cannula O2 Flow Rate 1.0 1.0 1.0 06/12/17 06/12/17 06/12/17 06/12/17 07:00 07:52 08:05 08:40 Temp 97.8 97.8 Pulse 75 75 Resp 16 B/P (MAP) 118/62 (80) 118/62 Pulse Ox 93 93 O2 Delivery Nasal Cannula Nasal Cannula Nasal Cannula O2 Flow Rate 1.0 1.0 1.0 06/12/17 06/12/17 06/12/17 08:40 11:00 12:01 Temp 98.2 98.2 Pulse 75 77 Resp 16 B/P (MAP) 118/62 113/64 (80) Pulse Ox 94 O2 Delivery Nasal Cannula Nasal Cannula O2 Flow Rate 1.0 1.0 Intake and Output 06/11/17 06/11/17 06/12/17 15:00 23:00 07:00 Intake Total 500 ml 500 ml Output Total 0 ml 400 ml 450 ml Balance 0 ml 100 ml 50 ml Nutrition Consultation Dietary Evaluation: Recommendations by RD: Increase Calorie Intake, Protein supplementation Comments: Continue cardiac diet Pt to request oral supplements prn from nursing Expected Outcomes/Goals: PO intake to meet > 75% est needs Malnutrition Findings: Body Fat Depletion (Non Severe: Mild Depletion Weight Status: Underweight ZEESHAN TOSCANO MD Jun 12, 2017 14:51
[2017-06-12 15:00] VITALS: BP 105/47
[2017-06-12] MEDS: CEFPODOXIME PROXETIL 100 MG TABLET. PO SCH ×2 (15:34→20:04)
--- NOTE | 2017-06-12 19:10 | PDOC ---
PULMONARY PROGRESS NOTES Subjective not more soa Vitals Vital Signs Date Time Temp Pulse Resp B/P (MAP) Pulse Ox O2 Delivery O2 Flow Rate FiO2 06/12/17 15:45 Nasal Cannula 1.0 06/12/17 15:00 97.6 76 16 105/47 (66 93 97.6 ROS: No Nausea, No Chest Pain, No Abdominal Pain, No Increase Cough General: Alert, No acute distress Lungs: Crackles Cardiovascular: S1, S2 Abdomen: Soft Neuro Exam: Alert Extremities: Other (1+edema) Skin: Warm Labs Laboratory Tests Test 06/11/17 10:30 Urine Collection Type Unknown Urine Color Yellow Urine Clarity Clear Urine pH 6.0 Urine Specific [place] 1.020 Urine Protein 30 mg/dL (NEG-TRACE) Urine Glucose (UA) Negative mg/dL (NEG) Urine Ketones (Stick) Negative mg/dL (NEG) Urine Blood Moderate (NEG) Urine Nitrite Negative (NEG) Urine Bilirubin Negative (NEG) Urine Urobilinogen Dipstick 0.2 mg/dL (0.2 mg/dL) Urine Leukocyte Esterase Moderate (NEG) Urine RBC 3-5 /HPF (0-2) Urine WBC 11-20 /HPF (0-4) Urine Bacteria Few /HPF (0-FEW) Urine Hyaline Casts Few /HPF Urine Mucus Mod /LPF Medications Active Scripts Medications Dose Route/Sig Max Daily Dose Days Date Category Trazodone Hcl 50 Mg Tablet 1 Tab PO QHS 07/15/16 Reported Flomax (Tamsulosin Hcl) 0.4 Mg Cap.er.24h 1 Cap PO HS 07/15/16 Reported Sotalol (Sotalol Hcl) 80 Mg Tablet 1 Tab PO BID 07/15/16 Reported Potassium Chloride 10 Meq Tablet.er 20 Meq PO QODAY 07/15/16 Reported NITROGLYCERIN SubLingual (Nitroglycerin) 0.4 Mg Tab.subl 0.4 Mg SL PRN Q5MIN PRN 07/15/16 Reported Multivitamins (Multivitamin) 1 Each Tablet 1 Tab PO DAILY 07/15/16 Reported Losartan Potassium 50 Mg Tablet 50 Mg PO DAILY 07/15/16 Reported Isosorbide Mononitrate Er (Isosorbide Mononitrate) 30 Mg Tab.er.24h 1 Tab PO DAILY 07/15/16 Reported Albuterol Sulfate Neb Soln (Albuterol Sulfate) 2.5 Mg/3 Ml Vial.neb 2.5 Mg NEB QID 07/15/16 Reported Furosemide 40 Mg Tablet 1 Tab PO QODAY 07/15/16 Reported Famotidine 20 Mg Tablet 20 Mg PO HS 07/15/16 Reported Plavix (Clopidogrel Bisulfate) 75 Mg Tablet 1 Tab PO DAILY 07/15/16 Reported Allopurinol 100 Mg Tablet 2 Tab PO DAILY 07/15/16 Reported Tylenol (Acetaminophen) 325 Mg Tablet 2 Tab PO PRN Q4HRS 07/15/16 Reported Lasix (Furosemide) 40 Mg Tablet 1 Tab PO QODAY 07/10/16 Reported Cozaar (Losartan Potassium) 50 Mg Tablet 50 Mg PO DAILY 06/27/16 Rx Flomax (Tamsulosin Hcl) 0.4 Mg Cap.er.24h 0.4 Mg PO QHS 06/27/16 Rx Nitrostat (Nitroglycerin) 0.4 Mg Tab.subl 1 Tab SL UD 06/14/16 Reported Isosorbide Mononitrate Er (Isosorbide Mononitrate) 30 Mg Tab.er.24h 30 Mg PO DAILY 30 05/18/16 Rx Albuterol Sulfate Neb Soln (Albuterol Sulfate) 2.5 Mg/3 Ml Vial.neb 2.5 Mg NEB PRN QID PRN 30 05/18/16 Rx Trazodone Hcl 50 Mg Tablet 1 Tab PO QHS 03/23/16 Reported Plavix (Clopidogrel Bisulfate) 75 Mg Tablet 75 Mg PO DAILY 08/19/13 Reported Imdur (Isosorbide Mononitrate) 30 Mg Tab.er.24h 30 Mg PO DAILY 08/19/13 Reported Pepcid (Famotidine) 20 Mg Tablet 20 Mg PO BID 08/19/13 Reported Betapace (Sotalol Hcl) 80 Mg Tablet 80 Mg PO BID 08/19/13 Reported Allopurinol 100 Mg Tablet 200 Mg PO DAILY 08/19/[address] CHEST IMPRESSION: 1. Extensive pulmonary emphysema with moderate pleural/parenchymal scarring. 2. New moderate sized left pneumothorax and small left pleural effusion. 3. An irregular spiculated density in the posterior aspect of the left upper lobe has increased in size raising the possibility of a neoplasm. 4. Increasing right pleural effusion with worsening moderate right lower lobe infiltrate. 5. Small peripheral right upper lobe opacity suggesting focal pulmonary consolidation versus a neoplasm. 6. Enlarging posterior mediastinal mass on the right, adjacent to the distal esophagus. This mass may have originated in the right lung in the azygos esophageal region. cxr 06/11 tiny left PTX Impression . 1. Acute hypoxic respiratory failure secondary to left-sided pneumothorax. 2. Moderate size left pneumothorax POA 3. History of increasing parenchymal mass in the right lower lobe based on the last CT chest from November. 4. History of cardiomyopathy with an EF of 20%. 5. Dehydration with acute kidney injury. 6. ABNORMAL REPEAT CT CHEST 06/07 1.An irregular spiculated density in the posterior aspect of the left upper lobe has increased in size raising the possibility of a neoplasm. . 2.Small peripheral right upper lobe opacity suggesting focal pulmonary consolidation versus a neoplasm. . 3.Enlarging posterior mediastinal mass on the right, adjacent to the distal esophagus. This mass may have originated in the right lung in the azygos esophageal region. Plan . 1. Change chest tube to water seal. repeat CXR with unchanged tiny left ptx [facility] WILL CONTACT DR ASAF CHUNG IN AM FOR TRANSFER 2. POOR CANDIDATE FOR BIOPSY OF LUNG MASS 3. empiric antibiotic. 4. Continue oxygen. 5. Bronchodilators. 6. Pain control. 7. DNR KAVITA NEELY MD Jun 12, 2017 19:10
[2017-06-12 19:35] VITALS: BP 113/63
[2017-06-12] MEDS: TAMSULOSIN 0.4 MG CAP.ER.24H. PO SCH (20:04)
[2017-06-12] MEDS: MIRTAZAPINE 7.5 MG TABLET. PO SCH (20:04)
[2017-06-12] MEDS: traZODone 50 MG TABLET. PO SCH (20:04)
[2017-06-12 23:10] VITALS: BP 121/67
[2017-06-13 03:30] VITALS: BP 121/67
[2017-06-13 07:00] VITALS: BP 127/66
[2017-06-13] MEDS: IPRATRPIUM/ALBUTEROL 0.5/2.5MG 3 ML NEBU. NEB SCH ×4 (07:30→20:01)
[2017-06-13] MEDS: CEFPODOXIME PROXETIL 100 MG TABLET. PO SCH ×2 (08:40→21:24)
[2017-06-13] MEDS: LACTOBACILLUS RHAMNOSUS GG 1 CAPSULE. PO SCH ×2 (08:40→21:24)
[2017-06-13] MEDS: MULTIVITAMIN with MINERAL TABLET. PO SCH (08:40)
[2017-06-13] MEDS: SOTALOL 80 MG TABLET. PO SCH ×2 (08:40→21:25)
[2017-06-13] MEDS: ALLOPURINOL 100 MG TABLET. PO SCH (08:40)
[2017-06-13] MEDS: CLOPIDOGREL BISULFATE 75 MG TABLET PO SCH (08:41)
[2017-06-13] MEDS: FUROSEMIDE 40 MG TABLET. PO SCH (08:41)
[2017-06-13] MEDS: ISOSORBIDE MONONITRATE ER 30 MG TAB.ER.24H PO SCH (08:41)
[2017-06-13] MEDS: POTASSIUM CHLORIDE 20 MEQ TABLET.ER. PO SCH (08:41)
[2017-06-13] MEDS: OMEGA-3 FATTY ACIDS/FISH OIL 1,000 MG CAPSULE. PO SCH (08:48)
--- NOTE | 2017-06-13 09:57 | RAD ---
History: Follow-up pneumothorax AP view the chest was obtained at 8:05 AM hours. Comparison: June 12, 2017 The cardiomediastinal silhouette is normal. The pulmonary vasculature is normal. There is pleural parietal changes on the right. Left sided chest tubes again seen. Left-sided defibrillator is again seen. Impression: Left-sided chest tube. A pneumothorax is not seen. Stable pleural parenchymal changes on the right.
[2017-06-13 10:34] VITALS: BP 96/55
--- NOTE | 2017-06-13 11:09 | PDOC ---
PROGRESS NOTES Subjective Subjective not short of breath. discussed with dr. le that patient will transfer tomorrow morning to the medical center for a bronchoscopy placed valve so that chest tube can be removed. patient concurs with transfer. Objective Objective Vital Signs Date Time Temp Pulse Resp B/P (MAP) Pulse Ox O2 Delivery O2 Flow Rate FiO2 06/13/17 10:53 94 Nasal Cannula 1.0 06/13/17 10:34 97.9 73 18 96/55 (69) 97.9 Intake and Output 06/13/17 06:59 Intake Total 740 ml Output Total 500 ml Balance 240 ml Intake Oral 740 ml Output Urine Total 500 ml Chest Tube Drainage Total 0 ml # Bowel Movements 1 Physical Exam Abdomen: Soft Heart: Regular rate, Normal S1, Normal S2 Extremities: No edema General: Alert HEENT: Atraumatic Lungs: Other (bilateral decreased breath sounds) Neuro: Normal speech Psych/Mental Status: Mental status NL Skin: No rashes Assessment Assessment ProblemsLeft pneumothorax treated with a chest tube with persistent air leak 2. 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 Severe end-stage chronic obstructive pulmonary disease. 4. Secondary pulmonary hypertension. 5. Coronary artery disease. 6. Ischemic cardiomyopathy with a left ventricular ejection fraction of 20%. 7. Chronic kidney disease, stage 3. 8. Weight loss, presumably secondary to malignancy. 9. Chronic systolic congestive heart failure. 10. Acute on chronic hypoxic respiratory failure. 11. Chronic anemia. 12. Klebsiella oxytoca uti urine retention/ figueroa placed Medical Problems: (1) Congestive heart failure Status: Acute (2) COPD (chronic obstructive pulmonary disease) Status: Acute (3) Stage III chronic kidney disease Status: Acute (4) Tension pneumothorax, spontaneous Status: Acute (5) Urinary tract infection Status: Acute Plan Plan of Care transfer to [place] tomorrow for bronchoscopy placement of a valve for persistent air leak and to remove chest tube Comment Review of Relevant I have reviewed the following items lucio (where applicable) has been applied. Labs Microbiology 06/11/17 Urine Culture - Final, Complete 06/11/17 Urine Culture Result 1 (MELLISA) - Final, Complete Medications Current Medications Sodium Chloride 1,000 ml @ 75 mls/hr [id number] IV Last administered on t 11:58; Start 06/05/17 at 11:46; Stop 06/05/17 at 14:25; Status DC Midazolam HCl (Versed) 2 mg STK-MED ONCE .ROUTE ; Start 06/05/17 at 13:06; Stop 06/05/17 at 13:07; Status DC Midazolam HCl (Versed) 1 mg 1X ONCE IV Last administered on 06/05/17 13:27; Start 06/05/17 at 13:15; Stop 06/05/17 at 13:16; Status DC Lidocaine/ Epinephrine (Xylocaine 1%-Epi 1:100,000) 20 ml 1X ONCE INJ ; Start 06/05/17 at 13:15; Stop 06/05/17 at 13:16; Status DC Ceftriaxone Sodium 50 ml @ 100 mls/hr 1X ONCE IV Last administered on 13:40; Start 06/05/17 at 13:15; Stop 06/05/17 at 13:44; Status DC Lidocaine/ Epinephrine (Xylocaine 2%-Epi 1:100,000) 20 ml 1X ONCE IJ Last administered on 06/05/17 13:32; Start 06/05/17 at 13:15; Stop 06/05/17 at 13 :16; Status DC Ondansetron HCl (Zofran) 4 mg PRN Q8HRS PRN IV NAUSEA/VOMITING; Start at 14:30; Stop 06/06/17 at 14:29; Status DC Fentanyl Citrate (Fentanyl 2ml Vial) 50 mcg PRN Q2HR PRN IV PAIN Last administered on 06/05/17 22:49; Start 06/05/17 at 14:30; Stop 06/06/17 at 14 :29; Status DC Sodium Chloride 1,000 ml @ 125 mls/hr Q8H IV ; Start 06/05/17 at 15:00; Stop 06/06/17 at 07:03; Status DC Acetaminophen (Tylenol) 650 mg PRN Q4HRS PRN PO FEVER; Start 06/05/17 at 14:30 ; Stop 06/06/17 at 14:29; Status DC Ceftriaxone Sodium 1 gm/ Dextrose 50 ml @ 100 mls/hr Q24H IV ; Start 06/05/17 at 14:30; Status UNV Ceftriaxone Sodium 1 gm/ Dextrose 50 ml @ 100 mls/hr Q24H IV ; Start 06/05/17 at 14:30; Status UNV Albuterol/ Ipratropium (Duoneb) 3 ml RTQID NEB Last administered on 06/13/17 10:53; Start 06/05/17 at 16:00 Ceftriaxone Sodium (Rocephin) 1 gm Q24H IVP Last administered on 06/11/17 15: 01; Start 06/06/17 at 15:00; Stop 06/12/17 at 14:21; Status DC Allopurinol (Zyloprim) 200 mg DAILY PO Last administered on 06/13/17 08:40; Start 06/06/17 at 09:00 Sotalol HCl (Betapace) 80 mg BID PO Last administered on 06/13/17 08:40; Start 06/05/17 at 21:00 Famotidine (Pepcid) 20 mg BID PO Last administered on 06/08/17 08:52; Start 06/05/17 at 21:00; Stop 06/08/17 at 11:10; Status DC Furosemide (Lasix) 40 mg QODAY PO Last administered on 06/13/17 08:41; Start 06/07/17 at 09:00 Isosorbide Mononitrate (Imdur) 30 mg DAILY PO Last administered on 06/13/17 08:41; Start 06/06/17 at 09:00 Mirtazapine (Remeron) 7.5 mg QHS PO Last administered on 06/12/17 20:04; Start 06/05/17 at 21:00 Multivitamins (Thera M Plus) 1 tab DAILY PO Last administered on 06/13/17 08: 40; Start 06/06/17 at 09:00 Nitroglycerin (Nitrostat) 0.4 mg PRN Q5MIN PRN SL CHEST PAIN; Start 06/05/17 at 17:15 Fish Oil (Fish Oil) 1,000 mg DAILY PO ; Start 06/06/17 at 09:00 Clopidogrel Bisulfate (Plavix) 75 mg DAILYWBKFT PO Last administered on 08:41; Start 06/06/17 at 08:00 Potassium Chloride (Klor-Con) 20 meq QODAY PO Last administered on 06/13/17 08:41; Start 06/07/17 at 09:00 Trazodone HCl (Desyrel) 50 mg QHS PO Last administered on 06/12/17 20:04; Start 06/05/17 at 21:00 Acetaminophen (Tylenol) 650 mg PRN Q6HRS PRN PO MILD PAIN / TEMP Last administered on 06/09/17 09:27; Start 06/05/17 at 17:15 Magnesium Hydroxide (Milk Of Magnesia) 2,400 mg PRN DAILY PRN PO CONSTIPATION; Start 06/05/17 at 17:15 Lactulose 20 gm BID PO Last administered on 06/06/17 12:19; Start 06/06/17 at 12:00; Stop 06/06/17 at 18:00; Status DC Lactobacillus Rhamnosus (Culturelle) 1 cap BID PO Last administered on 08:40; Start 06/06/17 at 21:00 Famotidine (Pepcid) 20 mg DAILY PO Last administered on 06/12/17 20:04; Start 06/09/17 at 09:00 Tamsulosin HCl (Flomax) 0.4 mg QHS PO Last administered on 06/12/17 20:04; Start 06/10/17 at 21:00 Cefpodoxime Proxetil (Vantin) 200 mg BID PO Last administered on 06/13/17 08: 40; Start 06/12/17 at 15:00 Active Scripts Active Cozaar (Losartan Potassium) 50 Mg Tablet 50 Mg PO DAILY Flomax (Tamsulosin Hcl) 0.4 Mg Cap.er.24h 0.4 Mg PO QHS Isosorbide Mononitrate Er (Isosorbide Mononitrate) 30 Mg Tab.er.24h 30 Mg PO DAILY 30 Days Albuterol Sulfate Neb Soln (Albuterol Sulfate) 2.5 Mg/3 Ml Vial.neb 2.5 Mg NEB PRN QID PRN 30 Days Reported Trazodone Hcl 50 Mg Tablet 1 Tab PO QHS Flomax (Tamsulosin Hcl) 0.4 Mg Cap.er.24h 1 Cap PO HS Sotalol (Sotalol Hcl) 80 Mg Tablet 1 Tab PO BID Potassium Chloride 10 Meq Tablet.er 20 Meq PO QODAY NITROGLYCERIN SubLingual (Nitroglycerin) 0.4 Mg Tab.subl 0.4 Mg SL PRN Q5MIN PRN Multivitamins (Multivitamin) 1 Each Tablet 1 Tab PO DAILY Losartan Potassium 50 Mg Tablet 50 Mg PO DAILY Isosorbide Mononitrate Er (Isosorbide Mononitrate) 30 Mg Tab.er.24h 1 Tab PO DAILY Albuterol Sulfate Neb Soln (Albuterol Sulfate) 2.5 Mg/3 Ml Vial.neb 2.5 Mg NEB QID Furosemide 40 Mg Tablet 1 Tab PO QODAY Famotidine 20 Mg Tablet 20 Mg PO HS Plavix (Clopidogrel Bisulfate) 75 Mg Tablet 1 Tab PO DAILY Allopurinol 100 Mg Tablet 2 Tab PO DAILY Tylenol (Acetaminophen) 325 Mg Tablet 2 Tab PO PRN Q4HRS Lasix (Furosemide) 40 Mg Tablet 1 Tab PO QODAY Nitrostat (Nitroglycerin) 0.4 Mg Tab.subl 1 Tab SL UD Trazodone Hcl 50 Mg Tablet 1 Tab PO QHS Plavix (Clopidogrel Bisulfate) 75 Mg Tablet 75 Mg PO DAILY Imdur (Isosorbide Mononitrate) 30 Mg Tab.er.24h 30 Mg PO DAILY Pepcid (Famotidine) 20 Mg Tablet 20 Mg PO BID Betapace (Sotalol Hcl) 80 Mg Tablet 80 Mg PO BID Allopurinol 100 Mg Tablet 200 Mg PO DAILY Vitals/I & O Vital Sign - Last 24 Hours 06/12/17 06/12/17 06/12/17 06/12/17 12:01 15:00 15:45 19:32 Temp 97.6 97.6 Pulse 76 Resp 16 B/P (MAP) 105/47 (66) Pulse Ox 93 O2 Delivery Nasal Cannula Nasal Cannula Nasal Cannula Nasal Cannula O2 Flow Rate 1.0 1.0 1.0 1.0 06/12/17 06/12/17 06/12/17 06/12/17 19:35 20:04 20:50 23:10 Temp 97.8 98.4 97.8 98.4 Pulse 76 81 73 Resp 20 18 B/P (MAP) 113/63 (80) 113/63 121/67 (85) Pulse Ox 91 97 91 O2 Delivery Nasal Cannula Nasal Cannula Nasal Cannula O2 Flow Rate 1.0 1.0 1.0 06/13/17 06/13/17 06/13/17 06/13/17 03:30 07:00 07:31 08:40 Temp 98.1 98.2 98.1 98.2 Pulse 82 76 76 Resp 18 16 B/P (MAP) 121/67 (85) 127/66 (86) 127/66 Pulse Ox 93 92 95 O2 Delivery Nasal Cannula Nasal Cannula Nasal Cannula O2 Flow Rate 1.0 1.0 1.0 06/13/17 06/13/17 06/13/17 08:41 10:34 10:53 Temp 97.9 97.9 Pulse 76 73 Resp 18 B/P (MAP) 127/66 96/55 (69) Pulse Ox 93 94 O2 Delivery Nasal Cannula Nasal Cannula O2 Flow Rate 1.0 1.0 Intake and Output 06/12/17 06/12/17 06/13/17 14:59 22:59 06:59 Intake Total 400 ml 340 ml Output Total 0 ml 250 ml 250 ml Balance 0 ml 150 ml 90 ml Nutrition Consultation Dietary Evaluation: Recommendations by RD: Increase Calorie Intake, Protein supplementation Comments: Continue cardiac diet Pt to request oral supplements prn from nursing Expected Outcomes/Goals: PO intake to meet > 75% est needs Malnutrition Findings: Body Fat Depletion (Non Severe: Mild Depletion Weight Status: Underweight LAURE OLIVER MD Jun 13, 2017 11:09
--- NOTE | 2017-06-13 12:35 | PDOC ---
PROGRESS NOTES Subjective Subjective Mr. Grant states that he feels the same this morning. No complaints. Wondering what the plan is. Objective Objective Vital Signs Date Time Temp Pulse Resp B/P (MAP) Pulse Ox O2 Delivery O2 Flow Rate FiO2 06/13/17 10:53 94 Nasal Cannula 1.0 06/13/17 10:34 97.9 73 18 96/55 (69) 97.9 Intake and Output 06/13/17 07:00 Intake Total 740 ml Output Total 500 ml Balance 240 ml Intake Oral 740 ml Output Urine Total 500 ml Chest Tube Drainage Total 0 ml # Bowel Movements 1 Physical Exam Heart: Regular rate Extremities: No clubbing General: Alert, Oriented X3 HEENT: Atraumatic Lungs: Normal air movement Skin: No rashes, Other (chest tube present with no erythema, discharge, or bleeding) Diagnosis RESPIRATORY DISEASE: Other (acute pneumothorax) Assessment Assessment Problems Medical Problems: (1) Congestive heart failure Status: Acute (2) COPD (chronic obstructive pulmonary disease) Status: Acute (3) Stage III chronic kidney disease Status: Acute (4) Tension pneumothorax, spontaneous Status: Acute (5) Urinary tract infection Status: Acute Plan Plan of Care Will be transferred tomorrow to [place] for bronchoscopy placed valve to fix air leak and remove chest tube. Agree with current plan. Comment Review of Relevant I have reviewed the following items lucio (where applicable) has been applied. Labs Microbiology 06/11/17 Urine Culture - Final, Complete 06/11/17 Urine Culture Result 1 (MELLISA) - Final, Complete Medications Current Medications Sodium Chloride 1,000 ml @ 75 mls/hr [id number] IV Last administered on 11:58; Start 06/05/17 at 11:46; Stop 06/05/17 at 14:25; Status DC Midazolam HCl (Versed) 2 mg STK-MED ONCE .ROUTE ; Start 06/05/17 at 13:06; Stop 06/05/17 at 13:07; Status DC Midazolam HCl (Versed) 1 mg 1X ONCE IV Last administered on 06/05/17 13:27; Start 06/05/17 at 13:15; Stop 06/05/17 at 13:16; Status DC Lidocaine/ Epinephrine (Xylocaine 1%-Epi 1:100,000) 20 ml 1X ONCE INJ ; Start 06/05/17 at 13:15; Stop 06/05/17 at 13:16; Status DC Ceftriaxone Sodium 50 ml @ 100 mls/hr 1X ONCE IV Last administered on 13:40; Start 06/05/17 at 13:15; Stop 06/05/17 at 13:44; Status DC Lidocaine/ Epinephrine (Xylocaine 2%-Epi 1:100,000) 20 ml 1X ONCE IJ Last administered on 06/05/17 13:32; Start 06/05/17 at 13:15; Stop 06/05/17 at 13 :16; Status DC Ondansetron HCl (Zofran) 4 mg PRN Q8HRS PRN IV NAUSEA/VOMITING; Start at 14:30; Stop 06/06/17 at 14:29; Status DC Fentanyl Citrate (Fentanyl 2ml Vial) 50 mcg PRN Q2HR PRN IV PAIN Last administered on 06/05/17 22:49; Start 06/05/17 at 14:30; Stop 06/06/17 at 14 :29; Status DC Sodium Chloride 1,000 ml @ 125 mls/hr Q8H IV ; Start 06/05/17 at 15:00; Stop 06/06/17 at 07:03; Status DC Acetaminophen (Tylenol) 650 mg PRN Q4HRS PRN PO FEVER; Start 06/05/17 at 14:30 ; Stop 06/06/17 at 14:29; Status DC Ceftriaxone Sodium 1 gm/ Dextrose 50 ml @ 100 mls/hr Q24H IV ; Start 06/05/17 at 14:30; Status UNV Ceftriaxone Sodium 1 gm/ Dextrose 50 ml @ 100 mls/hr Q24H IV ; Start 06/05/17 at 14:30; Status UNV Albuterol/ Ipratropium (Duoneb) 3 ml RTQID NEB Last administered on 06/13/17 10:53; Start 06/05/17 at 16:00 Ceftriaxone Sodium (Rocephin) 1 gm Q24H IVP Last administered on 06/11/17 15: 01; Start 06/06/17 at 15:00; Stop 06/12/17 at 14:21; Status DC Allopurinol (Zyloprim) 200 mg DAILY PO Last administered on 06/13/17 08:40; Start 06/06/17 at 09:00 Sotalol HCl (Betapace) 80 mg BID PO Last administered on 06/13/17 08:40; Start 06/05/17 at 21:00 Famotidine (Pepcid) 20 mg BID PO Last administered on 06/08/17 08:52; Start 06/05/17 at 21:00; Stop 06/08/17 at 11:10; Status DC Furosemide (Lasix) 40 mg QODAY PO Last administered on 06/13/17 08:41; Start 06/07/17 at 09:00 Isosorbide Mononitrate (Imdur) 30 mg DAILY PO Last administered on 06/13/17 08:41; Start 06/06/17 at 09:00 Mirtazapine (Remeron) 7.5 mg QHS PO Last administered on 06/12/17 20:04; Start 06/05/17 at 21:00 Multivitamins (Thera M Plus) 1 tab DAILY PO Last administered on 06/13/17 08: 40; Start 06/06/17 at 09:00 Nitroglycerin (Nitrostat) 0.4 mg PRN Q5MIN PRN SL CHEST PAIN; Start 06/05/17 at 17:15 Fish Oil (Fish Oil) 1,000 mg DAILY PO ; Start 06/06/17 at 09:00 Clopidogrel Bisulfate (Plavix) 75 mg DAILYWBKFT PO Last administered on 08:41; Start 06/06/17 at 08:00 Potassium Chloride (Klor-Con) 20 meq QODAY PO Last administered on 06/13/17 08:41; Start 06/07/17 at 09:00 Trazodone HCl (Desyrel) 50 mg QHS PO Last administered on 06/12/17 20:04; Start 06/05/17 at 21:00 Acetaminophen (Tylenol) 650 mg PRN Q6HRS PRN PO MILD PAIN / TEMP Last administered on 06/09/17 09:27; Start 06/05/17 at 17:15 Magnesium Hydroxide (Milk Of Magnesia) 2,400 mg PRN DAILY PRN PO CONSTIPATION; Start 06/05/17 at 17:15 Lactulose 20 gm BID PO Last administered on 06/06/17 12:19; Start 06/06/17 at 12:00; Stop 06/06/17 at 18:00; Status DC Lactobacillus Rhamnosus (Culturelle) 1 cap BID PO Last administered on 08:40; Start 06/06/17 at 21:00 Famotidine (Pepcid) 20 mg DAILY PO Last administered on 06/12/17 20:04; Start 06/09/17 at 09:00 Tamsulosin HCl (Flomax) 0.4 mg QHS PO Last administered on 06/12/17 20:04; Start 06/10/17 at 21:00 Cefpodoxime Proxetil (Vantin) 200 mg BID PO Last administered on 06/13/17 08: 40; Start 06/12/17 at 15:00 Active Scripts Active Cozaar (Losartan Potassium) 50 Mg Tablet 50 Mg PO DAILY Flomax (Tamsulosin Hcl) 0.4 Mg Cap.er.24h 0.4 Mg PO QHS Isosorbide Mononitrate Er (Isosorbide Mononitrate) 30 Mg Tab.er.24h 30 Mg PO DAILY 30 Days Albuterol Sulfate Neb Soln (Albuterol Sulfate) 2.5 Mg/3 Ml Vial.neb 2.5 Mg NEB PRN QID PRN 30 Days Reported Trazodone Hcl 50 Mg Tablet 1 Tab PO QHS Flomax (Tamsulosin Hcl) 0.4 Mg Cap.er.24h 1 Cap PO HS Sotalol (Sotalol Hcl) 80 Mg Tablet 1 Tab PO BID Potassium Chloride 10 Meq Tablet.er 20 Meq PO QODAY NITROGLYCERIN SubLingual (Nitroglycerin) 0.4 Mg Tab.subl 0.4 Mg SL PRN Q5MIN PRN Multivitamins (Multivitamin) 1 Each Tablet 1 Tab PO DAILY Losartan Potassium 50 Mg Tablet 50 Mg PO DAILY Isosorbide Mononitrate Er (Isosorbide Mononitrate) 30 Mg Tab.er.24h 1 Tab PO DAILY Albuterol Sulfate Neb Soln (Albuterol Sulfate) 2.5 Mg/3 Ml Vial.neb 2.5 Mg NEB QID Furosemide 40 Mg Tablet 1 Tab PO QODAY Famotidine 20 Mg Tablet 20 Mg PO HS Plavix (Clopidogrel Bisulfate) 75 Mg Tablet 1 Tab PO DAILY Allopurinol 100 Mg Tablet 2 Tab PO DAILY Tylenol (Acetaminophen) 325 Mg Tablet 2 Tab PO PRN Q4HRS Lasix (Furosemide) 40 Mg Tablet 1 Tab PO QODAY Nitrostat (Nitroglycerin) 0.4 Mg Tab.subl 1 Tab SL UD Trazodone Hcl 50 Mg Tablet 1 Tab PO QHS Plavix (Clopidogrel Bisulfate) 75 Mg Tablet 75 Mg PO DAILY Imdur (Isosorbide Mononitrate) 30 Mg Tab.er.24h 30 Mg PO DAILY Pepcid (Famotidine) 20 Mg Tablet 20 Mg PO BID Betapace (Sotalol Hcl) 80 Mg Tablet 80 Mg PO BID Allopurinol 100 Mg Tablet 200 Mg PO DAILY Vitals/I & O Vital Sign - Last 24 Hours 06/12/17 06/12/17 06/12/17 06/12/17 15:00 15:45 19:32 19:35 Temp 97.6 97.8 97.6 97.8 Pulse 76 76 Resp 16 20 B/P (MAP) 105/47 (66) 113/63 (80) Pulse Ox 93 91 O2 Delivery Nasal Cannula Nasal Cannula Nasal Cannula Nasal Cannula O2 Flow Rate 1.0 1.0 1.0 1.0 06/12/17 06/12/17 06/12/17 06/13/17 20:04 20:50 23:10 03:30 Temp 98.4 98.1 98.4 98.1 Pulse 81 73 82 Resp 18 18 B/P (MAP) 113/63 121/67 (85) 121/67 (85) Pulse Ox 97 91 93 O2 Delivery Nasal Cannula Nasal Cannula Nasal Cannula O2 Flow Rate 1.0 1.0 1.0 06/13/17 06/13/17 06/13/17 06/13/17 07:00 07:31 08:00 08:40 Temp 98.2 98.2 Pulse 76 76 Resp 16 B/P (MAP) 127/66 (86) 127/66 Pulse Ox 92 95 O2 Delivery Nasal Cannula Nasal Cannula Nasal Cannula O2 Flow Rate 1.0 1.0 1.0 06/13/17 06/13/17 06/13/17 08:41 10:34 10:53 Temp 97.9 97.9 Pulse 76 73 Resp 18 B/P (MAP) 127/66 96/55 (69) Pulse Ox 93 94 O2 Delivery Nasal Cannula Nasal Cannula O2 Flow Rate 1.0 1.0 Intake and Output 06/12/17 06/12/17 06/13/17 15:00 23:00 07:00 Intake Total 400 ml 340 ml Output Total 0 ml 250 ml 250 ml Balance 0 ml 150 ml 90 ml Nutrition Consultation Dietary Evaluation: Recommendations by RD: Increase Calorie Intake, Protein supplementation Comments: Continue cardiac diet Pt to request oral supplements prn from nursing Expected Outcomes/Goals: PO intake to meet > 75% est needs Malnutrition Findings: Body Fat Depletion (Non Severe: Mild Depletion Weight Status: Underweight ZEESHAN TOSCANO MD Jun 13, 2017 12:35
[2017-06-13 15:27] VITALS: BP 106/54
--- NOTE | 2017-06-13 16:45 | PDOC ---
PULMONARY PROGRESS NOTES Subjective PT NOT MORE SOA Vitals Vital Signs Date Time Temp Pulse Resp B/P (MAP) Pulse Ox O2 Delivery O2 Flow Rate FiO2 06/13/17 15:47 92 Nasal Cannula 1.0 06/13/17 15:27 98.1 73 18 106/54 (71) 98.1 ROS: No Nausea, No Chest Pain, No Abdominal Pain, No Increase Cough General: Alert, No acute distress Lungs: Crackles Cardiovascular: S1, S2 Abdomen: Soft Neuro Exam: Alert Extremities: Other (1+edema) Skin: Warm Medications Active Scripts Medications Dose Route/Sig Max Daily Dose Days Date Category Trazodone Hcl 50 Mg Tablet 1 Tab PO QHS 07/15/16 Reported Flomax (Tamsulosin Hcl) 0.4 Mg Cap.er.24h 1 Cap PO HS 07/15/16 Reported Sotalol (Sotalol Hcl) 80 Mg Tablet 1 Tab PO BID 07/15/16 Reported Potassium Chloride 10 Meq Tablet.er 20 Meq PO QODAY 07/15/16 Reported NITROGLYCERIN SubLingual (Nitroglycerin) 0.4 Mg Tab.subl 0.4 Mg SL PRN Q5MIN PRN 07/15/16 Reported Multivitamins (Multivitamin) 1 Each Tablet 1 Tab PO DAILY 07/15/16 Reported Losartan Potassium 50 Mg Tablet 50 Mg PO DAILY 07/15/16 Reported Isosorbide Mononitrate Er (Isosorbide Mononitrate) 30 Mg Tab.er.24h 1 Tab PO DAILY 07/15/16 Reported Albuterol Sulfate Neb Soln (Albuterol Sulfate) 2.5 Mg/3 Ml Vial.neb 2.5 Mg NEB QID 07/15/16 Reported Furosemide 40 Mg Tablet 1 Tab PO QODAY 07/15/16 Reported Famotidine 20 Mg Tablet 20 Mg PO HS 07/15/16 Reported Plavix (Clopidogrel Bisulfate) 75 Mg Tablet 1 Tab PO DAILY 07/15/16 Reported Allopurinol 100 Mg Tablet 2 Tab PO DAILY 07/15/16 Reported Tylenol (Acetaminophen) 325 Mg Tablet 2 Tab PO PRN Q4HRS 07/15/16 Reported Lasix (Furosemide) 40 Mg Tablet 1 Tab PO QODAY 07/10/16 Reported Cozaar (Losartan Potassium) 50 Mg Tablet 50 Mg PO DAILY 06/27/16 Rx Flomax (Tamsulosin Hcl) 0.4 Mg Cap.er.24h 0.4 Mg PO QHS 06/27/16 Rx Nitrostat (Nitroglycerin) 0.4 Mg Tab.subl 1 Tab SL UD 06/14/16 Reported Isosorbide Mononitrate Er (Isosorbide Mononitrate) 30 Mg Tab.er.24h 30 Mg PO DAILY 30 05/18/16 Rx Albuterol Sulfate Neb Soln (Albuterol Sulfate) 2.5 Mg/3 Ml Vial.neb 2.5 Mg NEB PRN QID PRN 30 05/18/16 Rx Trazodone Hcl 50 Mg Tablet 1 Tab PO QHS 03/23/16 Reported Plavix (Clopidogrel Bisulfate) 75 Mg Tablet 75 Mg PO DAILY 08/19/13 Reported Imdur (Isosorbide Mononitrate) 30 Mg Tab.er.24h 30 Mg PO DAILY 08/19/13 Reported Pepcid (Famotidine) 20 Mg Tablet 20 Mg PO BID 08/19/13 Reported Betapace (Sotalol Hcl) 80 Mg Tablet 80 Mg PO BID 08/19/13 Reported Allopurinol 100 Mg Tablet 200 Mg PO DAILY 08/19/[address] CHEST IMPRESSION: 1. Extensive pulmonary emphysema with moderate pleural/parenchymal scarring. 2. New moderate sized left pneumothorax and small left pleural effusion. 3. An irregular spiculated density in the posterior aspect of the left upper lobe has increased in size raising the possibility of a neoplasm. 4. Increasing right pleural effusion with worsening moderate right lower lobe infiltrate. 5. Small peripheral right upper lobe opacity suggesting focal pulmonary consolidation versus a neoplasm. 6. Enlarging posterior mediastinal mass on the right, adjacent to the distal esophagus. This mass may have originated in the right lung in the azygos esophageal region. cxr 06/11 tiny left PTX Impression . 1. Acute hypoxic respiratory failure secondary to left-sided pneumothorax. 2. Moderate size left pneumothorax POA, IMPROVED 3. History of increasing parenchymal mass in the right lower lobe based on the last CT chest from November. 4. History of cardiomyopathy with an EF of 20%. 5. Dehydration with acute kidney injury. 6. ABNORMAL REPEAT CT CHEST 06/07 1.An irregular spiculated density in the posterior aspect of the left upper lobe has increased in size raising the possibility of a neoplasm. . 2.Small peripheral right upper lobe opacity suggesting focal pulmonary consolidation versus a neoplasm. . 3.Enlarging posterior mediastinal mass on the right, adjacent to the distal esophagus. This mass may have originated in the right lung in the azygos esophageal region. Plan . SPOKE WITH DR OLIVAS THIS AM WILL TRANSFER PT IN AM TO [facility] FOR ENDOBRONCHIAL PLACEMENT OF VALVE REVIEWED THE PROCEDURE WITH PATENT AND DAUGHTER THEY HAVE ACCEPTED PT NOT A CANDIDATE FOR VATS OR ANY TYPE OF SURGERY CONTINUED AIR LEAK TODAY ON WATER SEAL, PT OFF STEROIDS ON VANTIN OK TO D/C ONCE TRANSFER Impression: CXR REVIEWED Left-sided chest tube. A pneumothorax is not seen. Stable pleural parenchymal changes on the right. KAVITA NEELY MD Jun 13, 2017 16:45
[2017-06-13 19:00] VITALS: BP 112/61
[2017-06-13] MEDS: traZODone 50 MG TABLET. PO SCH (21:25)
[2017-06-13] MEDS: TAMSULOSIN 0.4 MG CAP.ER.24H. PO SCH (21:25)
[2017-06-13] MEDS: MIRTAZAPINE 7.5 MG TABLET. PO SCH (21:25)
[2017-06-13 23:37] VITALS: BP 103/49
[2017-06-14 03:20] VITALS: BP 110/63
[2017-06-14 07:00] VITALS: BP 118/58
[2017-06-14] MEDS: IPRATRPIUM/ALBUTEROL 0.5/2.5MG 3 ML NEBU. NEB SCH (07:16)
--- NOTE | 2017-06-14 07:34 | RAD ---
Indication: Pneumothorax. Time of exam 0713 hours. Comparison is made with prior chest from one day earlier. Cardiac defibrillator remains in place. Left chest tube remains in place. No significant pneumothorax is seen. Right-sided infiltrate persists. Impression: Stable chest since one day earlier.
--- NOTE | 2017-06-14 13:08 | PDOC ---
Provider Note Provider Note discharge summary dictated # [id number] LAURE OLIVER MD Jun 14, 2017 13:08
--- NOTE | 2017-06-14 19:36 | DS ---
DATE OF DISCHARGE: 06/14/2017 CONSULTANTS: Include Dr. Johnson, Dr. Harley and Dr. Hawkins. FINAL DIAGNOSES: 1. Left pneumothorax treated with the chest tube. 2. Acute on top of chronic hypoxic respiratory failure. 3. Right lower lobe, left upper lobe and mediastinal lung masses. 4. Severe end-stage chronic obstructive pulmonary disease. 5. Secondary pulmonary hypertension. 6. Coronary artery disease. 7. Ischemic cardiomyopathy with the left ventricular ejection fraction of 20%. 8. Chronic kidney disease stage 3. 9. Weight loss secondary to malignancy. 10. Chronic systolic congestive heart failure. 11. Chronic anemia. 12. Urinary tract infection. 13. Left-sided chest tube with an air leak. HOSPITAL COURSE: The patient is an 82-year-old white male who has a history of end-stage chronic obstructive pulmonary disease, coronary artery disease, secondary pulmonary hypertension and ischemic cardiomyopathy with the left ventricular ejection fraction of 20% who has chronic kidney disease stage 3 and chronic systolic congestive heart failure as well as chronic hypoxic respiratory failure, maintained on oxygen 1 liter per nasal cannula. He was admitted to [facility] through the Emergency Room with some shortness of breath. Apparently he had a cough and then developed shortness of breath and he was noted to have 30% left-sided pneumothorax, required chest tube placed in the Emergency Room and subsequently admitted to the hospital. Seen in consultation by Dr. Harley and Dr. Johnson for Pulmonary and Dr. Hawkins for Cardiology. Had a right lower lobe lung mass that the tool repairer bench has been following as an outpatient, which is growing in size. It was felt that because of his comorbidities, he was not a candidate for lung biopsy or treatment. The patient's family was aware of that. The patient did have urinary tract infection during this admission, was treated with antibiotics. The most recent urine culture was ordered, and after that Comer catheter was placed for urine retention and the last urine culture was negative. He was treated with Vantin, which apparently was going to be discontinued at the time of his transfer to [facility]. His pneumothorax was improved from subsequent chest x-rays; however, he had an air leak into the chest tube and Dr. Harley set up a transfer to [facility] and the daughter and patient were agreeable on 06/13/2017 to have an endobronchial placed valve, so that the chest tube can be removed. This is to treat his pneumothorax. The patient therefore was dismissed on 06/13 to [facility] on vitamin B12 1000 mcg IM monthly, melatonin 3 mg at bedtime, albuterol nebulizer treatments every 4 hours p.r.n., allopurinol 300 mg every day, Betapace 80 mg b.i.d., Pepcid 20 mg b.i.d. He is on Imdur 30 mg every day, mirtazapine 7.5 mg at bedtime, multiple vitamin once a day, nitroglycerin 0.4 mg sublingual p.r.n., Plavix 75 mg every day, ProAir inhaler p.r.n., tamsulosin 0.4 mg b.i.d. and trazodone 50 mg at bedtime. LAURE OLIVER MD DR: MARIA EUGENIA/talib JOB#: [id number] / [id number]
== END 2017-06-14 11:36 | disposition short-term general hospital (02) | DRG 199 ==
LOC: ER 10:45 → 2 SOUTH 12:50
PROVIDERS: ADMIT Internal Medicine; ATTEND Internal Medicine
PROC: 0W9B30Z Drainage of Left Pleural Cavity with Drainage Device, Percutaneous Approach (ICD-10-PCS; principal; 2017-06-11)
DX: J93.0 Spontaneous tension pneumothorax (principal); J96.21 Acute and chronic respiratory failure with hypoxia; N17.9 Acute kidney failure, unspecified; I50.22 Chronic systolic (congestive) heart failure; I13.0 Hypertensive heart and chronic kidney disease with heart failure and stage 1 through stage 4 chronic kidney disease, or unspecified chronic kidney disease; N39.0 Urinary tract infection, site not specified; I27.29 Other secondary pulmonary hypertension; K21.9 Gastro-esophageal reflux disease without esophagitis; I25.10 Atherosclerotic heart disease of native coronary artery without angina pectoris; N18.3 Chronic kidney disease, stage 3 (moderate); I25.5 Ischemic cardiomyopathy; E78.5 Hyperlipidemia, unspecified; D64.9 Anemia, unspecified; E86.0 Dehydration; B96.1 Klebsiella pneumoniae [K. pneumoniae] as the cause of diseases classified elsewhere; R91.8 Other nonspecific abnormal finding of lung field; M10.9 Gout, unspecified; J43.9 Emphysema, unspecified; E78.00 Pure hypercholesterolemia, unspecified
CPT/HCPCS: 36415; 71010; 71250; 80048; 80053; 81001; 82553; 83735; 83880; 84484; 85025; 86850; 86900; 86901; 87086; 87186; 93005; 94640; 94760; 96361; 96365; 96375; J0690; J0696; J2250; J3010; J3490; J7030; J7620; 99291-25